=== PATIENT | female | born 1970 | race Caucasian/White ===

== ENCOUNTER 2023-09-03 08:30 | Outpatient (OUT) | payer BC, SELFPAY ==
--- NOTE | 2023-09-03 08:34 | US_ITS ---
[address] [address] Patient Name: JEWELL CACERES MRN: [id number] date: 1970 Sex: F Assigned Patient Location: [facility] Current Patient Location: [facility] Accession/Order Number: [id number] Exam Date: 09/03/2023 08:35 Report Date: 09/03/2023 10:09 At the request of: CLEMENT MAYO Procedure: US pelvis w/ transvaginal EXAMINATION: US pelvis w/ transvaginal HISTORY: POST MENOPAUSAL BLEEDING COMPARISON: No relevant comparison available. TECHNIQUE: Transabdominal and/or transvaginal sonographic examination was performed as indicated by examination type. FINDINGS: UTERUS: Prominent uterus with slightly heterogeneous myometrium containing a 2.3 cm heterogeneous mass within the fundus most suggestive of a leiomyoma. Uterus size: 10.0 x 4.6 x 6.9 cm ENDOMETRIUM: Normal homogeneous appearance. Endometrial thickness: 10 mm RIGHT OVARY: Normal size and appearance. Duplex Doppler demonstrates normal waveform and flow; resistive index 0.5. Ovary size: 1.9 x 1.2 x 2.0 cm LEFT OVARY: Contains several benign-appearing cysts, largest is 3.8 cm. Duplex Doppler demonstrates normal waveform and flow; resistive index 0.5. Ovary size: 4.8 x 2.7 x 5.2 cm CUL-DE-SAC: Unremarkable. No significant free fluid. BLADDER: Unremarkable. OTHER: None. US/US pelvis w/ transvaginal IMPRESSION: 1. Thickened endometrium for postmenopausal patient. 2. Myometrial leiomyoma which does not appear to contact the endometrial lining. 3. Prominent, but overall benign-appearing cysts within left ovary. Follow-up ultrasound evaluation in 6 weeks is recommended to document regression. Electronically authenticated by: HANNY LEMONS Date: 09/03/2023 10:09
== END 2023-09-03 08:31 | disposition home or self-care (01) ==
LOC: NOMS 08:31
PROVIDERS: Visit Provider Obstetrics & Gynecology
DX: N95.0 Postmenopausal bleeding (principal); R10.9 Unspecified abdominal pain; N83.292 Other ovarian cyst, left side
CPT/HCPCS: 76830; 76856

== ENCOUNTER 2023-09-18 19:14 | Outpatient (REF) | payer BC, SELFPAY ==
[2023-09-24 15:08] LABS: Age Gdln ACOG Testing Note (.); HPV Aptima Negative (Negative); IGP, Aptima HPV, rfx 16/18,45 Note (.)
== END 2023-09-18 19:15 | disposition home or self-care (01) ==
LOC: LAB 19:14
PROVIDERS: Visit Provider Obstetrics & Gynecology
DX: Z01.419 Encounter for gynecological examination (general) (routine) without abnormal findings (principal)
CPT/HCPCS: 87624; G0145

== ENCOUNTER 2023-09-26 10:52 | Outpatient (OUT) | payer BC, SELFPAY ==
--- NOTE | 2023-09-26 10:57 | ECG_ITS ---
[facility] Test Date: 2023-09-26 Pat Name: JEWELL CACERES Department: Room: - Gender: Female Partner Integration [employer]: : 1970 Requested By: CLEMENT MAYO Order Number: [id number] Reading MD: ASHLEY AMARO Measurements Intervals [place] Rate: 60 P: 35 W[place]: 135 QRS: 12 QRSD: 84 T: 33 QT: 380 QTc: 382 Interpretive Statements SINUS RHYTHM No previous ECG available for comparison Electronically Signed On 09-27-2023 11:02:14 EST by ASHLEY AMARO
--- OUTSIDE RECORDS SUMMARY | 2023-09-26 11:00 | XMS_ITS | CCD ---
Author Name Unknown Address [id number] [place] [address] Organization [facility] Care Team Providers Care Recoil Spring Winder Name Role Phone Danish Hughes Primary Care Provider Aguilar VALET MANAGER - ELECTRICAL TECH, Isha Bernal Primary Care Provide r Aguilar VALET MANAGER - ELECTRICAL TECH, Isha Bernal Primary Care Provide r Justen Hernandez Attending Unavail able Aguilar VALET MANAGER-ELECTRICAL TECH, Isha Amy Primary Care Un available Aguilar VALET MANAGER-ELECTRICAL TECH, Isha Amy Primary Care Un available Justen Hernandez Attending Unavail able Aguilar VALET MANAGER-ELECTRICAL TECH, Isha Amy Primary Care Un available David DO, Reza Green Attending Unavailab le Aguilar VALET MANAGER-ELECTRICAL TECH, Isha Amy Primary Care Un available Justen Hernandez Attending Unavail able Aguilar VALET MANAGER-ELECTRICAL TECH, Isha Amy Primary Care Un available David DO, Reza Green Attending Unavailab le David DO, Reza Green Attending Unavailab le Aguilar VALET MANAGER-ELECTRICAL TECH, Isha Amy Primary Care Un available David DO, Reza Green Attending Unavailab le Aguilar VALET MANAGER-ELECTRICAL TECH, Isha Amy Primary Care Un available David DO, Reza Green Attending Unavailab le Aguilar VALET MANAGER-ELECTRICAL TECH, Isha Amy Primary Care Un available David DO, Reza Green Attending Unavailab le Aguilar VALET MANAGER-ELECTRICAL TECH, Isha Amy Primary Care Un available David DO, Reza Green Attending Unavailab le Aguilar VALET MANAGER-ELECTRICAL TECH, Isha Amy Primary Care Un available David DO, Reza Green Attending Unavailab le Aguilar VALET MANAGER-ELECTRICAL TECH, [facility] Primary Care Un available David DO, Reza Green Attending Unavailab le Aguilar VALET MANAGER-ELECTRICAL TECH, [facility] Primary Care Un available Aguilar VALET MANAGER-ELECTRICAL TECH, [facility] Primary Care Un available David DO, Reza Green Attending Unavailab le David DO, Reza Green Attending Unavailab le Aguilar VALET MANAGER-ELECTRICAL TECH, [facility] Primary Care Un available Justen Hernandez Attending Unavail able Aguilar VALET MANAGER-ELECTRICAL TECH, [facility] Primary Care Un available Justen Hernandez Attending Unavail able Aguilar VALET MANAGER-ELECTRICAL TECH, [facility] Primary Care Un available David DO, Reza Green Attending Unavailab le Aguilar VALET MANAGER-ELECTRICAL TECH, [facility] Primary Care Un available Aguilar VALET MANAGER-ELECTRICAL TECH, [facility] Primary Care Un available David DO, Reza Green Attending Unavailab le Aguilar VALET MANAGER-ELECTRICAL TECH, [facility] Primary Care Un available Justen Hernandez Attending Unavail able David DO, Reza Green Attending Unavailab le Aguilar VALET MANAGER-ELECTRICAL TECH, [facility] Primary Care Un available AGUILAR, ISHA M Primary Care Unavailable MEGHA KRUSE Admitting Unavailable MEGHA KRUSE Attending Unavailable Aguilar VALET MANAGER - ELECTRICAL TECH, Isha M Primary Care Provide r JEFF ISHA M Primary Care Unavailable YULI ANDUJAR Referring Unavailable AGUILAR, ISHA M Primary Care Unavailable AGUILAR, ISHA M Referring Unavailable AGUILAR, ISHA M Primary Care Unavailable YULI ANDUJAR Attending Unavailable YULI ANDUJAR Referring Unavailable AGUILAR, ISHA M Primary Care Unavailable AGUILAR, ISHA M Referring Unavailable AGUILAR, ISHA M Primary Care Unavailable AGUILAR, ISHA M Referring Unavailable IACOB, FALGUNI Referring Unavailable AGUILAR, ISHA M Primary Care Unavailable IACOB, FALGUNI Referring Unavailable AGUILAR, ISHA M Primary Care Unavailable AGUILAR, ISHA M Referring Unavailable AGUILAR, ISHA M Primary Care Unavailable MEGHA KRUSE Referring Unavailable AGUILAR, ISHA M Primary Care Unavailable AGUILAR, ISHA M Primary Care Unavailable KYLAH [id number] RAY Attending U ISHA Godinez Primary Care Unavailable CAYLA AREVALO Referring Unavailable ISHA AGUILAR Referring Unavailable ISHA AGUILAR Primary Care Unavailable ISHA AGUILAR Primary Care Unavailable YULI ANDUJAR Referring Unavailable Unavailable Primary Care Provider UnavailJONNY Newman Attending Unavailable JONNY INFANTE Attending Unavailable Allergies Allergy Classification Reported Allergen(s) Allergy Type Date of Onset Reaction(s) Facility (20 sources) Acetaminophen / HYDROcodone Drug Allergy 01-12-20 13 Other (See Comments) [place] (20 sources) gabapentin Drug Allergy 09-02-19 15 [place] (20 sources) Seasonal allergy Propensity to adverse reactions to substance 06-30-20 12 [place] (13 sources) Other Propensity to adverse reactions 06-30-20 12 [place] (1 source) Acetaminophen / HYDROcodone; Translations: [Vicodin] Drug Allergy [facility] (1 source) gabapentin; Translations: [Neurontin] Drug Allergy [facility] (1 source) Octacosanol Drug Intolerance 06-30-20 12 [facility] NEGATED: Highlighted row has been ruled out! (8 sources) Other Propensity to adverse reactions 06-30-20 12 [facility] Medications Current Medications Medication Drug Class(es) Dates Sig (Normalized) Sig (Original) acetaminophen 500 mg oral tablet (3 sources) take 2 tablets by mouth once daily as needed acetaminophen (TYLENOL) 500 MG tablet Take 500 mg by mouth every 6 hours as needed for Pain Take 2 tablets daily as needed 0 Active busPIRone hydrochloride 15 mg oral tablet (5 sources) Start: 12-25-2022 busPIRone (Buspar) 15 MG tablet 15 mg 0 12/25/2022 Active Start: 08-31-2022 busPIRone (BUS PAR) 15 MG tablet Start: 05-21-2022 End: 06-20-2022 take 1 tablet by mouth twice daily busPIRone (BUSPAR) 5 MG tablet Take 1 tablet by mouth 2 times daily 60 tablet 5 05/21/2022 06/20/2022 Active cephalexin 500 mg oral capsule (1 source) Cephalosporin Antibacterial Start: 10-07-2022 End: 10-14-2022 take 1 capsule by mouth four times daily cephALEXin (KEFLEX) 500 MG capsule Indications: Hematuria, unspecified type , Burning with urination Take 1 capsule by mouth 4 times daily for 7 days 28 capsule 0 10/07/2022 10/14/2022 Active clobetasol propionate 0.5 mg/ml topical cream (3 sources) Corticosteroid Start: 06-25-2021 clobetasol (TEMOVATE) 0.05 % cream Apply topically 2 times daily. 30 g 0 06/25/2021 Active dicyclomine hydrochloride 20 mg oral tablet (1 source) Anticholinergic Start: 05-23-2023 take 1 tablet by mouth four times daily as needed dicyclomine (BENTYL) 20 MG tablet Take 1 tablet by mouth 4 times daily as needed (abdominal cramping) 60 tablet 1 05/23/2023 Active doxycycline hyclate 100 mg oral tablet (1 source) Tetracycline-class Drug Start: 10-17-2022 End: 10-31-2022 take 1 tablet by mouth twice daily doxycycline hyclate (VIBRA-TABS) 100 MG tablet Indications: Vaginal discharge Take 1 tablet by mouth 2 times daily for 14 days 28 tablet 0 10/17/2022 10/31/2022 Active DULoxetine 60 mg delayed release oral capsule (18 sources) Serotonin and Norepinephrine Reuptake Inhibitor Start: 11-16-2021 take 1 capsule by mouth once daily DULoxetine (CYMBALTA) 60 MG extended release capsule Take 1 capsule by mouth daily 30 capsule 3 11/16/2021 Active Start: 12-08-2019 take 1 capsule by mo [facility] once daily DULoxetine (CYMBALTA) 30 MG extended release capsule TAKE ONE CAPSULE BY MOUTH DAILY 90 capsule 3 06/05/2020 Active Estrogens, Conjugated (HALFWAY) / medroxyPROGESTERone (1 source) Progestin, Estrogen Start: 12-27-2021 take 1 tablet by mouth once daily Conj Estrog-Medroxyprogest Pan (PREMPHASE) TABS Indications: Abnormal perimenopausal bleeding , Menstrual migraine without status migrainosus, not intractable Take 1 tablet by mouth daily 28 tablet 12 12/27/2021 Active FLUoxetine 40 mg oral capsule (5 sources) Serotonin Reuptake Inhibitor take 2 capsules by mouth once daily in the evening FLUoxetine (PROZAC) 40 MG capsule Take 80 mg by mouth every evening 0 Active ibuprofen 800 mg oral tablet (2 sources) Nonsteroidal Anti-inflammatory Drug Start: 03-17-2020 take 1 tablet by mouth every eight hours as needed for pain ibuprofen (ADVIL;MOTRIN) 800 MG tablet Take 1 tablet by mouth every 8 hours as needed for Pain 30 tablet 0 03/17/2020 Active losartan potassium 50 mg oral tablet (2 sources) Angiotensin 2 Receptor Ej Start: 06-04-2023 take 1 tablet by mouth in the morning losartan (Cozaar) 50 MG tablet Take 1 tablet by mouth in the morning. 0 06/04/2023 Active metroNIDAZOLE 500 mg oral tablet (1 source) Nitroimidazole Antimicrobial Start: 10-17-2022 End: 10-31-2022 take 1 tablet by mouth twice daily metroNIDAZOLE (FLAGYL) 500 MG tablet Indications: Vaginal discharge Take 1 tablet by mouth 2 times daily for 14 days 28 tablet 0 10/17/2022 10/31/2022 Active ondansetron 4 mg disintegrating oral tablet (8 sources) Serotonin-3 Receptor Antagonist Start: 08-07-2023 take 1 tablet by mouth three times daily as needed for nausea ondansetron (ZOFRAN-ODT) 4 MG disintegrating tablet Take 1 tablet by mouth 3 times daily as needed for Nausea or Vomiting 20 tablet 0 08/07/2023 Active Start: 08-07-2023 End: 08-07-2023 ondansetron (ZOFRAN) injecti on 4 mg Start: 03-17-2020 End: 03-17-2020 ondansetron (ZOFRAN) injecti on 4 mg Start: 09-15-2018 take 1 tablet by lauren th every six hours as needed for nausea ondansetron (ZOFRAN ODT) 4 MG disintegrating tablet Take 1 tablet by mouth every 6 hours as needed for Nausea or Vomiting 6 tablet 0 09/15/2018 Active pantoprazole 20 mg delayed release oral tablet (2 sources) Proton Pump Inhibitor Start: 07-16-2023 take 1 tablet by mouth before mealtime pantoprazole (ProtoNix) 20 MG EC tablet Take 20 mg by mouth in the morning. Take before meals. 0 07/16/2023 Active phenazopyridine hydrochloride 200 mg delayed release oral tablet (1 source) Start: 10-07-2022 End: 10-09-2022 take 1 tablet by mouth three times daily as needed for pain phenazopyridine (PYRIDIUM) 200 MG tablet Indications: Hematuria, unspecified type , Burning with urination Take 1 tablet by mouth 3 times daily as needed for Pain 6 tablet 1 10/07/2022 10/09/2022 Active propranolol hydrochloride 10 mg oral tablet (4 sources) beta-Adrenergic Ej Start: 04-12-2020 take 1 tablet by mouth twice daily propranolol (INDERAL) 10 MG tablet Take 1 tablet by mouth 2 times daily 60 tablet 2 04/12/2020 Active 24 hr QUEtiapine 200 mg extended release oral tablet (3 sources) Atypical Antipsychotic take 1 tablet by mouth once daily QUEtiapine (SEROQUEL XR) 200 MG extended release tablet Take 1 tablet by mouth nightly 0 Active take 1 tablet by mouth twice monika ly QUEtiapine (SEROQUEL) 200 MG tablet Take 200 mg by mouth 2 times daily 0 Active rizatriptan 10 mg oral tablet (1 source) Serotonin-1b and Serotonin-1d Receptor Agonist Start: 11-22-2021 rizatriptan (MAXALT) 10 MG tablet Take 1 tablet by mouth once as needed for Migraine May repeat in 2 hours if needed 9 tablet 1 11/22/2021 Active topiramate 50 mg oral tablet (20 sources) Start: 04-18-2023 take 2 tablets by mouth once daily topiramate (TOPAMAX) 50 MG tablet Indications: Essential hypertension , Hyperlipidemia, unspecified hyperlipidemia type , Hyperglycemia Take 2 tablets by mouth daily 180 tablet 0 04/18/2023 Active Start: 09-02-2022 take 2 tablets by mo ut once daily topiramate (TOPAMAX) 50 MG tablet Indications: Essential hypertension , Hyperlipidemia, unspecified hyperlipidemia type , Hyperglycemia TAKE TWO TABLETS BY MOUTH DAILY 180 tablet 1 09/02/2022 Active Start: 06-25-2021 take 2 tablets by mo uth once daily topiramate (TOPAMAX) 50 MG tablet Indications: Essential hypertension , Hyperlipidemia, unspecified hyperlipidemia type , Hyperglycemia TAKE TWO TABLETS BY MOUTH DAILY 180 tablet 3 06/25/2021 Active Start: 01-15-2021 take 2 tablets by mo uth once daily topiramate (TOPAMAX) 50 MG tablet TAKE TWO TABLETS BY MOUTH DAILY 60 tablet 1 01/15/2021 Active Start: 10-13-2019 topiramate (TO PAMAX) 50 MG tablet Take 2 tablets daily 180 tablet 2 10/13/2019 Active Start: 03-01-2019 take 2 tablets by mo uth once daily topiramate (TOPAMAX) 50 MG tablet TAKE TWO TABLETS BY MOUTH DAILY 60 tablet 5 03/01/2019 Active take 1 tablet by lauren th in the morning topiramate (Topamax) 100 MG tablet Take 100 mg by mouth in the morning. 0 Active traMADol hydrochloride 50 mg oral tablet (1 source) Opioid Agonist Start: 08-07-2023 End: 08-10-2023 take 1 tablet by mouth every six hours as needed for pain traMADol (ULTRAM) 50 MG tablet Indications: Nausea vomiting and diarrhea , Abdominal pain, unspecified abdominal location Take 1 tablet by mouth every 6 hours as needed for Pain for up to 3 days. Intended supply: 3 days. Take lowest dose possible to manage pain Max Daily Amount: 200 mg 12 tablet 0 08/07/2023 08/10/2023 Active valACYclovir 1000 mg oral tablet (1 source) Herpesvirus Nucleoside Analog DNA Polymerase Inhibitor, Herpes Simplex Virus Nucleoside Analog DNA Polymerase Inhibitor, Herpes Zoster Virus Nucleoside Analog DNA Polymerase Inhibitor Start: 10-17-2022 End: 10-27-2022 take 1 tablet by mouth twice daily valACYclovir (VALTREX) 1 g tablet Indications: Dysuria , Burning with urination Take 1 tablet by mouth 2 times daily for 10 days 20 tablet 0 10/17/2022 10/27/2022 Active Completed/Discontinued Medications Medication Drug Class(es) Dates Sig (Normalized) Sig (Original) aspirin 81 mg chewable tablet (1 source) Platelet Aggregation Inhibitor, Nonsteroidal Anti-inflammatory Drug Start: 03-17-2020 End: 03-17-2020 aspirin chewable tablet 324 mg famotidine (PEPCID) 20 mg in sodium chloride (PF) 0.9 % 10 mL injection (1 source) Start: 08-07-2023 End: 08-07-2023 famotidine (PEPCID) 20 mg in sodium chloride (PF) 0.9 % 10 mL injection iopamidol (ISOVUE-370) 76 % injection 75 mL (1 source) Start: 08-07-2023 End: 08-07-2023 iopamidol (ISOVUE-370) 76 % injection 75 mL 1 ml ketorolac tromethamine 30 mg/ml cartridge (1 source) Nonsteroidal Anti-inflammatory Drug, Cyclooxygenase Inhibitor Start: 08-07-2023 End: 08-07-2023 ketorolac (TORADOL) injection 30 mg regadenoson (LEXISCAN) injection 0.4 mg (1 source) Start: 05-03-2020 End: 05-03-2020 regadenoson (LEXISCAN) injection 0.4 mg 50 ml sodium chloride 9 mg/ml injection (1 source) Start: 08-07-2023 End: 08-07-2023 sodium chloride 0.9 % bolus 1,000 mL technetium sestamibi (CARDIOLITE) injection 30 millicurie (2 sources) Start: 05-04-2020 End: 05-04-2020 technetium sestamibi (CARDIOLITE) injection 30 millicurie Start: 05-03-2020 End: 05-03-2020 technetium sestamibi (CARDIO LITE) injection 30 millicurie Problems Active Problems Problem Classification Problem Date Documented Da te Episodic/Chronic Abdominal pain (7 sources) Abdominal pain; Translations: [Unspecified abdominal pain] Onset: 3 08-07-2023 Episodic Anxiety disorders (2 sources) Anxiety; Translations: [Anxiety disorder, unspecified] Onset: 3 Chronic Asthma (20 sources) Intermittent asthma; Translations: [Mild intermittent asthma, uncomplicated] Onset: 2 12-01-2017 Chronic Cardiac dysrhythmias (3 sources) Palpitations; Translations: [Palpitations] Episodic Diabetes mellitus without complication (20 sources) Diabetes mellitus; Translations: [Type 2 diabetes mellitus without complication] Onset: 5 Resolved: 7 03-03-2017 Chronic Disorders of lipid metabolism (20 sources) Hyperlipidemia; Translations: [Hyperlipidemia, unspecified] Onset: 5 Resolved: 7 03-03-2017 Chronic Esophageal disorders (20 sources) Gastroesophageal reflux disease; Translations: [Gastro-esophageal reflux disease without esophagitis] Onset: 2 Resolved: 7 03-03-2017 Chronic Essential hypertension (20 sources) Essential hypertension; Translations: [Essential (primary) hypertension] Onset: 5 04-20-2015 Chronic Headache; including migraine (20 sources) Migraine; Translations: [Migraine with aura] Onset: 5 Resolved: 7 05-28-2017 Chronic Malaise and fatigue (1 source) Other fatigue; Translations: [Other fatigue] Onset: 3 Episodic Menopausal disorders (4 sources) Abnormal perimenopausal bleeding; Translations: [Excessive bleeding in the premenopausal period] Onset: 3 Chronic Menstrual disorders (1 source) Irregular menstruation, unspecified; Translations: [Irregular menstruation, unspecified] Onset: 3 Chronic Mood disorders (20 sources) Depressive disorder; Translations: [Major depression in partial remission] Onset: 2 Resolved: 7 03-03-2017 Chronic Nausea and vomiting (2 sources) Nausea, vomiting and diarrhea; Translations: [Nausea with vomiting, unspecified] Onset: 4 08-07-2023 Episodic Nonspecific chest pain (6 sources) Chest pain; Translations: [Atypical chest pain] Episodic Osteoarthritis (20 sources) Localized osteoarthrosis; Translations: [Unilateral primary osteoarthritis, unspecified knee] Onset: 5 04-20-2015 Chronic Other female genital disorders (1 source) Abnormal uterine bleeding; Translations: [Abnormal uterine and vaginal bleeding, unspecified] Onset: 3 04-18-2023 Chronic Other gastrointestinal disorders (2 sources) Other fecal abnormalities; Translations: [Other fecal abnormalities] Onset: 3 Episodic Other gastrointestinal disorders (1 source) Diarrhea, unspecified; Translations: [Diarrhea, unspecified] Onset: 4 Episodic Other gastrointestinal disorders (1 source) Abdominal distension (gaseous); Translations: [Abdominal distension (gaseous)] Onset: 3 Episodic Other nutritional; endocrine; and metabolic disorders (20 sources) Obesity; Translations: [Obesity, unspecified] Onset: 7 Resolved: 7 02-28-2017 Chronic Other nutritional; endocrine; and metabolic disorders (2 sources) Body mass index 30+ - obesity; Translations: [Obesity (BMI 35.0-39.9 without comorbidity)] Chronic Other nutritional; endocrine; and metabolic disorders (4 sources) Body mass index 25-29 - overweight; Translations: [BMI 29.0-29.9,adult] Onset: 4 04-20-2014 Chronic Other nutritional; endocrine; and metabolic disorders (2 sources) Abnormal weight loss; Translations: [Abnormal weight loss] Onset: 3 Episodic Other upper respiratory disease (20 sources) Allergic rhinitis; Translations: [Allergic rhinitis, unspecified] Onset: 5 12-01-2017 Chronic Residual codes; unclassified (20 sources) Obstructive sleep apnea syndrome; Translations: [Obstructive sleep apnea (adult) (pediatric)] Onset: 5 04-20-2015 Chronic Sprains and strains (1 source) Strain of muscle of lower limb; Translations: [Strain of muscle, fascia and tendon of left hip, initial encounter] Episodic Unclassified (13 sources) History of bypass of stomach; Translations: [Status post gastric bypass for obesity] Onset: 7 02-28-2017 Unclassified (4 sources) History of sleeve gastrectomy; Translations: [S/P laparoscopic sleeve gastrectomy] Onset: 4 04-20-2014 Past or Other Problems Problem Classification Problem Date Documented Da te Episodic/Chronic Diabetes mellitus without complication (20 sources) Abnormal glucose level; Translations: [Hyperglycemia] Onset: 09-02-2014 Resolved: 03-03-2017 03-03-2017 Episodic Fluid and electrolyte disorders (20 sources) Dehydration; Translations: [Dehydration] Onset: 09-15-2018 Resolved: 10-15-2018 10-15-2018 Episodic Genitourinary symptoms and ill-defined conditions (12 sources) Blood in urine; Translations: [Hematuria, unspecified] Onset: 10-07-2022 Episodic Headache; including migraine (20 sources) Headache; Translations: [Chronic nonintractable headache] Onset: 08-05-2017 08-26-2017 Episodic Immunizations and screening for infectious disease (2 sources) Exposure to sexually transmissible disorder; Translations: [Contact with and (suspected) exposure to infections with a predominantly sexual mode of transmission] Onset: 10-17-2022 Episodic Inflammation; infection of eye (except that caused by tuberculosis or sexually transmitteddisease) (20 sources) Conjunctivitis; Translations: [Unspecified conjunctivitis] Onset: 03-17-2018 03-17-2018 Episodic Noninfectious gastroenteritis (20 sources) Acute gastroenteritis; Translations: [Noninfective gastroenteritis and colitis, unspecified] Onset: 09-15-2018 09-15-2018 Episodic Other and unspecified benign neoplasm (20 sources) Benign neoplasm of skin; Translations: [Other benign neoplasm of skin, unspecified] Onset: 09-02-2014 04-20-2015 Episodic Other and unspecified benign neoplasm (20 sources) Dermatofibroma; Translations: [Other benign neoplasm of skin, unspecified] Onset: 12-01-2017 12-01-2017 Episodic Other and unspecified benign neoplasm (20 sources) Benign neoplastic disease; Translations: [Benign neoplasm of other specified sites] Onset: 09-02-2014 Resolved: 03-03-2017 03-03-2017 Episodic Other bone disease and musculoskeletal deformities (6 sources) Osteopenia; Translations: [Other specified disorders of bone density and structure, unspecified site] Onset: 06-25-2021 06-25-2021 Episodic Other connective tissue disease (16 sources) Muscle pain; Translations: [Myalgia, unspecified site] Onset: 12-08-2019 12-08-2019 Episodic Other female genital disorders (3 sources) Vaginal discharge; Translations: [Other specified noninflammatory disorders of vagina] Onset: 10-17-2022 Episodic Other female genital disorders (1 source) Other specified noninflammatory disorders of vagina; Translations: [Other specified noninflammatory disorders of vagina] Onset: 10-17-2022 Episodic Other fractures (20 sources) Closed fracture of pelvis; Translations: [Unspecified fracture of sacrum, initial encounter for closed fracture] Onset: 09-02-2014 04-20-2015 Episodic Other gastrointestinal disorders (20 sources) History of bariatric surgical procedure; Translations: [Bariatric surgery status] Onset: 09-02-2014 09-02-2014 Episodic Other gastrointestinal disorders (8 sources) History of sleeve gastrectomy; Translations: [Bariatric surgery status] Onset: 04-20-2014 04-20-2014 Episodic Other gastrointestinal disorders (8 sources) History of bypass of stomach; Translations: [Bariatric surgery status] Onset: 02-28-2017 02-28-2017 Episodic Other infections; including parasitic (1 source) Trichomonal vaginitis; Translations: [Trichomonal vulvovaginitis] Onset: 10-23-2022 10-23-2022 Episodic Other non-traumatic joint disorders (20 sources) Joint pain; Translations: [Pain in unspecified joint] Onset: 06-30-2012 06-30-2012 Episodic Other non-traumatic joint disorders (3 sources) Pain in left knee; Translations: [Pain in left knee] Onset: 12-24-2022 Episodic Other nutritional; endocrine; and metabolic disorders (20 sources) Morbid obesity; Translations: [Morbid (severe) obesity due to excess calories] Onset: 06-30-2012 Resolved: 03-03-2017 03-03-2017 Chronic Other nutritional; endocrine; and metabolic disorders (13 sources) Simple obesity ; Translations: [Obesity due to excess calories] Onset: 08-30-2016 Resolved: 03-03-2017 03-03-2017 Chronic Other nutritional; endocrine; and metabolic disorders (1 source) Obesity caused by energy imbalance; Translations: [Other obesity due to excess calories] Onset: 08-30-2016 Resolved: 03-03-2017 03-03-2017 Chronic Other nutritional; endocrine; and metabolic disorders (4 sources) Body mass index 25-29 - overweight; Translations: [Body mass index (BMI) 29.0-29.9, adult] Onset: 04-20-2014 04-20-2014 Episodic Other nutritional; endocrine; and metabolic disorders (4 sources) Overweight in adulthood with body mass index of 25 or more but less than 30; Translations: [Body mass index (BMI) 29.0-29.9, adult] Onset: 04-20-2014 04-20-2014 Episodic Other screening for suspected conditions (not mental disorders or infectious disease) (3 sources) Viral screening status; Translations: [Patient encounter status] Onset: 04-30-2023 Episodic Other upper respiratory infections (20 sources) Acute frontal sinusitis; Translations: [Laryngitis] Onset: 07-08-2017 07-08-2017 Episodic Residual codes; unclassified (9 sources) Increased body mass index; Translations: [BMI 29.0-29.9,adult] Onset: 04-20-2014 04-20-2014 Episodic Residual codes; unclassified (9 sources) H/O: surgery; Translations: [S/P laparoscopic sleeve gastrectomy] Onset: 04-20-2014 04-20-2014 Episodic Residual codes; unclassified (20 sources) Insomnia; Translations: [Insomnia, unspecified] Onset: 07-04-2015 07-04-2015 Episodic Residual codes; unclassified (6 sources) Menopause present; Translations: [Asymptomatic menopausal state] Onset: 06-25-2021 06-25-2021 Episodic Spondylosis; intervertebral disc disorders; other back problems (20 sources) Low back pain; Translations: [Backache] Onset: 06-30-2012 Resolved: 04-20-2014 06-08-2019 Episodic Suicide and intentional self-inflicted injury (20 sources) Suicidal thoughts; Translations: [Suicidal ideations] Onset: 07-09-2018 07-09-2018 Episodic Syncope (20 sources) Vasovagal syncope; Translations: [Syncope and collapse] Onset: 09-02-2014 Resolved: 03-03-2017 09-21-2015 Episodic Viral infection (16 sources) Herpetic nik; 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] Onset: 01-11-2020 01-11-2020 Episodic Results Test Name Value Interpretation Reference Range Facility CBC with Auto Differentialon 08-07-2023 Basophils (Bld) [#/Vol] [facility] Basophils/100 WBC (Bld) 0 % 0 - 2 % [facility] Eosinophils (Bld) [#/Vol] [facility] Eosinophils/100 WBC (Bld) 0 % Low 1 - 4 % [facility] Erythrocyte distribution width (RBC) [Ratio] 12.4 % 11.8 - 14.4 % [facility] Hematocrit (Bld) [Volume fraction] 41.3 % 36.3 - 47.1 % [facility] Hemoglobin (Bld) [Mass/Vol] 13.3 g/dL 11.9 - 15.1 g/dL [facility] Immature granulocytes (Bld) [#/Vol] 0.04 10*3/uL [facility] Immature granulocytes/100 WBC (Bld) 1 % High 0 [facility] Interpretation and review of laboratory results Abnormal [facility] Lymphocytes/100 WBC (Bld) 11 % Low 24 - 43 % [facility] Lymphocytes/100 WBC (Bld) 0.50 % Low [facility] MCH (RBC) [Entitic mass] 30.2 pg 25.2 - 33.5 pg [facility] MCHC (RBC) [Mass/Vol] 32.2 g/dL 28.4 - 34.8 g/dL [facility] MCV (RBC) [Entitic vol] 93.7 fL 82.6 - 102.9 fL [facility] Monocytes/100 WBC (Bld) 6 % 3 - 12 % [facility] Monocytes/100 WBC (Bld) 0.29 % [facility] Neutrophils/100 WBC (Bld) 82 % High 36 - 65 % [facility] Nucleated RBC/100 WBC (Bld) [Ratio] 0.0 % 0.0 per 100 WBC [facility] Platelet mean volume (Bld) [Entitic vol] 10.1 fL 8.1 - 13.5 fL [facility] Platelets (Bld) [#/Vol] 163 10*3/uL [facility] RBC (Bld) [#/Vol] 4.41 10*6/uL 3.95 - 5.1 1 m/uL [facility] Segmented neutrophils/100 WBC (Bld) 3.81 % [facility] WBC other (Bld) [#/Vol] 4.7 [facility] CBC with Diffon 08-07-2023 Abs. Basophil <0.03 Normal 0.00-0.20 [facility] Comment on above: Performed By: #### U IRVING MATTHEW #### [facility] [address] [place] [address] [place] [address] Wine Merchant: Nemesio Galicia MD #### URNMAB #### [id number] [place] [address] Wine Merchant: Lionel Badillo MD Abs. Eosinophil <0.03 Normal 0.00-0.44 [facility] Comment on above: Performed By: #### U AXLEEO #### [facility] [address] [place] [address] Wine Merchant: Nemesio Galicia MD #### URNMAB #### [address] [phone] Wine Merchant: Lionel Badillo MD Abs.Imm.Granulocyte 0.04 k/uL Normal 0.00-0.30 [facility] Comment on above: Performed By: #### U AX, UMICAO #### [facility] [address] [place] [address] [place] [address] Wine Merchant: Nemesio Galicia MD #### URNMAB #### [address] [phone] Wine Merchant: Lionel Badillo MD Abs.Neutrophil (Seg) 3.81 k/uL Normal 1.50-8.10 [facility] Comment on above: Performed By: #### U AX, UMICAO #### [address] [place] [phone] Wine Merchant: Nemesio Galicia MD #### URNMAB #### [address] [address] Wine Merchant: Lionel Badillo MD Basophils/100 WBC (Bld) 0 % Normal 0-2 [facility] Comment on above: Performed By: #### U AX, UMICAO #### [facility] [address] [place] [address] [address] [place] [phone] Wine Merchant: Nemesio Galicia MD #### URNMAB #### [address] [address] Wine Merchant: Lionel Badillo MD Eosinophils/100 WBC (Bld) 0 % Low 1-4 [facility] Comment on above: Performed By: #### U AX, UMICAO #### [facility] [address] [place] [address] [place] [address] Wine Merchant: Nemesio Galicia MD #### URNMAB #### [facility] [address] [place], [place] [phone] Wine Merchant: Lionel Badillo MD Erythrocyte distribution width (RBC) [Ratio] 12.4 % Normal 11.8-14.4 [facility] Comment on above: Performed By: #### U AX, UMICAO #### [facility] [address] [place], [place] [phone] Wine Merchant: Nemesio Galicia MD #### URNMAB #### [address] [phone] Wine Merchant: Lionel Badillo MD Hematocrit (Bld) [Volume fraction] 41.3 % Normal 36.3-47.1 [facility] Comment on above: Performed By: #### U AX, UMICAO #### [facility] [address] [place] [address] Dr[address] [place] [phone] Wine Merchant: Nemesio Galicia MD #### URNMAB #### [address] [place], [place] [phone] Wine Merchant: Lionel Badillo MD Hemoglobin (Bld) [Mass/Vol] 13.3 g/dL Normal 11.9-15.1 [facility] Comment on above: Performed By: #### U AX, UMICAO #### [facility] [address] [place] [address] Dr[address] [place] [phone] Wine Merchant: Nemesio Galicia MD #### URNMAB #### [address] [place], [place] [phone] Wine Merchant: Lionel Badillo MD Immature granulocytes/100 WBC (Bld) 1 % High 0 [facility] Comment on above: Performed By: #### U AX, UMICAO #### [facility] [address] [place] [address] [place], [place] [phone] Wine Merchant: Nemesio Galicia MD #### URNMAB #### [address] [place] [address] Wine Merchant: Lionel Badillo MD Lymphocytes (Bld) [#/Vol] 0.50 10*3/uL Low 1.10-3.70 [facility] Comment on above: Performed By: #### U AX, UMICAO #### [facility] [address] [place] [address] Wine Merchant: Nemesio Galicia MD #### URNMAB #### [address] [place], [place] [phone] Wine Merchant: Lionel Badillo MD Lymphocytes/100 WBC (Bld) 11 % Low 24-43 [facility] Comment on above: Performed By: #### U AX, UMICAO #### [facility] [address] [place] [address] Wine Merchant: Nemesio Galicia MD #### URNMAB #### [address] [place], [place] [phone] Wine Merchant: Lionel Badillo MD MCH (RBC) [Entitic mass] 30.2 pg Normal 25.2-33.5 [facility] Comment on above: Performed By: #### U AX, UMICAO #### [facility] [address] [place] [address] Wine Merchant: Nemesio Galicia MD #### URNMAB #### [address] [place], [place] [phone] Wine Merchant: Lionel Badillo MD MCHC (RBC) [Mass/Vol] 32.2 g/dL Normal 28.4-34.8 [facility] Comment on above: Performed By: #### U AX, UMICAO #### [facility] [address] [place] [address] Wine Merchant: Nemesio Galicia MD #### URNMAB #### [address] [place] [address] Wine Merchant: Lionel Badillo MD MCV (RBC) [Entitic vol] 93.7 fL Normal 82.6-102.9 [facility] Comment on above: Performed By: #### U AX, UMICAO #### [facility] [address] [place], [place] [phone] Wine Merchant: Nemesio Galicia MD #### URNMAB #### [address] [address] Wine Merchant: Lionel Badillo MD Monocytes (Bld) [#/Vol] 0.29 10*3/uL Normal 0.10-1.20 [facility] Comment on above: Performed By: #### U AX, UMICAO #### [facility] [address] [place] [phone] Wine Merchant: Nemesio Galicia MD #### URNMAB #### [address] [address] Wine Merchant: Lionel Badillo MD Monocytes/100 WBC (Bld) 6 % Normal 3-12 [facility] Comment on above: Performed By: #### U AX, UMICAO #### [facility] [address] [place], [place] [phone] Wine Merchant: Nemesio Galicia MD #### URNMAB #### [address] [address] Wine Merchant: Lionel Badillo MD Neutrophil (Seg) 82 % High 36-65 [facility] Comment on above: Performed By: #### U AX, UMICAO #### [address] [place], [place] 2009383 Wine Merchant: Nemesio Galicia MD #### URNMAB #### [address] [address] Wine Merchant: Lionel Badillo MD NRBC Automated 0.0 per 100 WBC Normal 0.0 [facility] Comment on above: Performed By: #### U HALIMA MATTHEWICAO #### [facility] [address] [place] [address] [place], [place] [phone] Wine Merchant: Nemesio Galicia MD #### URNMAB #### [address] [address] Wine Merchant: Lionel Badillo MD Platelet mean volume (Bld) [Entitic vol] 10.1 fL Normal 8.1-13.5 [facility] Comment on above: Performed By: #### LEE LEÓNO #### [address] [place] [phone] Wine Merchant: Nemesio Galicia MD #### URNMAB #### [address] [address] Wine Merchant: Lionel Badillo MD Platelets (Bld) [#/Vol] 163 10*3/uL Normal 138-453 [facility] Comment on above: Performed By: #### HALIMA LEÓNICAO #### [address] [place] [phone] Wine Merchant: Nemesio Galicia MD #### URNMAB #### [address] [address] Wine Merchant: Lionel Badillo MD RBC (Bld) [#/Vol] 4.41 10*6/uL Normal 3.95-5.11 [facility] Comment on above: Performed By: #### U VIPUL UMICAO #### [facility] [address] [place] [address] [place], [place] [phone] Wine Merchant: Nemesio Galicia MD #### URNMAB #### [address] [address] Wine Merchant: Lionel Badillo MD WBC (Bld) [#/Vol] 4.7 10*3/uL Normal 3.5-11.3 [facility] Comment on above: Performed By: #### U VIPUL, IRVING #### [facility] [address] [place] [address] Wine Merchant: Nemesio Galicia MD #### URNMAB #### [facility] [address] [place], [place] [phone] Wine Merchant: Lionel Badillo MD CT ABDOMEN PELVIS W IV CONTR Kenzie 08-07-2023 CT ABDOMEN PELVIS W IV CONTRAST EXAMINATION: CT OF THE ABDOMEN AND PELVIS WITH CONTRAST 08/07/2023 9:39 am TECHNIQUE: CT of the abdomen and pelvis was performed with the administration of intravenous contrast. Multiplanar reformatted images are provided for review. Automated exposure control, iterative reconstruction, and/or weight based adjustment of the mA/kV was utilized to reduce the radiation dose to as low as reasonably achievable. COMPARISON: 05/09/2023 HISTORY: ORDERING SYSTEM PROVIDED HISTORY: Abdominal pain nausea and diarrhea TECHNOLOGIST PROVIDED HISTORY: Abdominal pain nausea and diarrhea Decision Support Exception - unselect if not a suspected or confirmed emergency medical condition->Emergency Medical Condition (MA) FINDINGS: Lower Chest: Previously noted small pulmonary nodule right lower lobe not seen in today's exam and possibly is out of the field of view. Organs: The liver appears unremarkable. Status post cholecystectomy. Pancreas, spleen, adrenals, kidneys, aorta, and IVC appear normal. GI/Bowel: Status post sleeve gastrectomy. Mild hiatal hernia. No other significant bowel abnormality. Mild constipation. Pelvis: Uterus appears unremarkable. Urinary bladder appears unremarkable. Left adnexal cyst measures 4 cm. Peritoneum/Retroperit oneum: No evidence of retroperitoneal lymphadenopathy or acute mesenteric findings. Bones/Soft Tissues: No acute abnormality. IMPRESSION: 1. No acute intra-abdominal or pelvic process. 2. Status post sleeve gastrectomy. Mild hiatal hernia. 3. Left adnexal cyst measures 4 cm. 4. Mild constipation. 5. Previously noted small pulmonary nodule right lower lobe not seen in today's exam and possibly is out of the field of view. Interpreted by: Jj Matthew MD Signed by: Jj Matthew MD 08/07/23 Final result Normal [facility] CT Abdomen and Pelvis Virgilio Monroy 08-07-2023 1. No acute intra-abdominal or pelvic process. 2. Status post sleeve gastrectomy. Mild hiatal hernia. 3. Left adnexal cyst measures 4 cm. 4. Mild constipation. 5. Previously noted small pulmonary nodule right lower lobe not seen in today's exam and possibly is out of the field of view. [facility] CONSOLID[facility] EXAMINATION: CT OF THE ABDOMEN AND PELVIS WITH CONTRAST 08/07/2023 9:39 am TECHNIQUE: CT of the abdomen and pelvis was performed with the administration of intravenous contrast. Multiplanar reformatted images are provided for review. Automated exposure control, iterative reconstruction, and/or weight based adjustment of the mA/kV was utilized to reduce the radiation dose to as low as reasonably achievable. COMPARISON: 05/09/2023 HISTORY: ORDERING SYSTEM PROVIDED HISTORY: Abdominal pain nausea and diarrhea TECHNOLOGIST PROVIDED HISTORY: Abdominal pain nausea and diarrhea Decision Support Exception - unselect if not a suspected or confirmed emergency medical condition->Emergency Medical Condition (MA) FINDINGS: Lower Chest: Previously noted small pulmonary nodule right lower lobe not seen in today's exam and possibly is out of the field of view. Organs: The liver appears unremarkable. Status post cholecystectomy. Pancreas, spleen, adrenals, kidneys, aorta, and IVC appear normal. GI/Bowel: Status post sleeve gastrectomy. Mild hiatal hernia. No other significant bowel abnormality. Mild constipation. Pelvis: Uterus appears unremarkable. Urinary bladder appears unremarkable. Left adnexal cyst measures 4 cm. Peritoneum/Retroperit oneum: No evidence of retroperitoneal lymphadenopathy or acute mesenteric findings. Bones/Soft Tissues: No acute abnormality. [facility] Jj Matthew MD - 08/07/2023 EXAMINATION: CT OF THE ABDOMEN AND PELVIS WITH CONTRAST 08/07/2023 9:39 am TECHNIQUE: CT of the abdomen and pelvis was performed with the administration of intravenous contrast. Multiplanar reformatted images are provided for review. Automated exposure control, iterative reconstruction, and/or weight based adjustment of the mA/kV was utilized to reduce the radiation dose to as low as reasonably achievable. COMPARISON: 05/09/2023 HISTORY: ORDERING SYSTEM PROVIDED HISTORY: Abdominal pain nausea and diarrhea TECHNOLOGIST PROVIDED HISTORY: Abdominal pain nausea and diarrhea Decision Support Exception - unselect if not a suspected or confirmed emergency medical condition->Emergency Medical Condition (MA) FINDINGS: Lower Chest: Previously noted small pulmonary nodule right lower lobe not seen in today's exam and possibly is out of the field of view. Organs: The liver appears unremarkable. Status post cholecystectomy. Pancreas, spleen, adrenals, kidneys, aorta, and IVC appear normal. GI/Bowel: Status post sleeve gastrectomy. Mild hiatal hernia. No other significant bowel abnormality. Mild constipation. Pelvis: Uterus appears unremarkable. Urinary bladder appears unremarkable. Left adnexal cyst measures 4 cm. Peritoneum/Retroperit oneum: No evidence of retroperitoneal lymphadenopathy or acute mesenteric findings. Bones/Soft Tissues: No acute abnormality. IMPRESSION: 1. No acute intra-abdominal or pelvic process. 2. Status post sleeve gastrectomy. Mild hiatal hernia. 3. Left adnexal cyst measures 4 cm. 4. Mild constipation. 5. Previously noted small pulmonary nodule right lower lobe not seen in today's exam and possibly is out of the field of view. [facility] Radiology Study observation (narrative) [facility] CT Abdomen and Pelvis W cont rast IVOrdered By: Jj Matthew on 08-07-2023 [facility] Work Phone: Comp Metabolic Profon 2023 Albumin [Mass/Vol] 3.7 g/dL Normal 3.5-5.2 [facility] Comment on above: Performed By: #### IRVING LEÓN #### [facility] [address] [place] [address] [place] [address] Wine Merchant: Nemesio Galicia MD #### URNMAB #### [facility] [employer] [address] [place] [id number] Wine Merchant: Lionel Badillo MD Albumin/Glob Ratio 1.3 Normal 1.0-2.5 [facility] Comment on above: Performed By: #### IRVING LEÓN #### [facility] [address] [place] [address] [place] [address] Wine Merchant: Nemesio Galicia MD #### URNMAB #### [address] [place], [place] 1908408 Wine Merchant: Lionel Badillo MD Alkaline Phos 74 U/L Normal 35-104 [facility] Comment on above: Performed By: #### U AX, UMICAO #### [facility] [address] [place], [place] [phone] Wine Merchant: Nemesio Galicia MD #### URNMAB #### [address] [address] Wine Merchant: Lionel Badillo MD ALT [Catalytic activity/Vol] 8 U/L Normal 5-33 [facility] Comment on above: Performed By: #### U AX, UMICAO #### [facility] [address] [place], [place] [phone] Wine Merchant: Nemesio Galicia MD #### URNMAB #### [address] [address] Wine Merchant: Lionel Badillo MD Anion gap [Moles/Vol] 8 mmol/L Low 9-17 [facility] Comment on above: Performed By: #### U AX, UMICAO #### [address] [place], [place] 4245983 Wine Merchant: Nemesio Galicia MD #### URNMAB #### [address] [address] Wine Merchant: Lionel Badillo MD AST [Catalytic activity/Vol] 13 U/L Normal <32 [facility] Comment on above: Performed By: #### U AX, UMICAO #### [facility] [address] [place], [place] [phone] Wine Merchant: Nemesio Galicia MD #### URNMAB #### [address] [place] [address] Wine Merchant: Lionel Badillo MD Bilirubin [Mass/Vol] 0.3 mg/dL Normal 0.3-1.2 [facility] Comment on above: Performed By: #### U AX, UMICAO #### [facility] [address] [place], [place] [phone] Wine Merchant: Nemesio Galicia MD #### URNMAB #### [address] [address] Wine Merchant: Lionel Badillo MD BUN/CRE Ratio 12 Normal 9-20 [facility] Comment on above: Performed By: #### U AX UMICAO #### [facility] [address] [place] [address] [place], [place] [phone] Wine Merchant: Nemesio Galicia MD #### URNMAB #### [address] [address] Wine Merchant: Lionel Badillo MD Calcium [Mass/Vol] 8.7 mg/dL Normal 8.6-10.4 [facility] Comment on above: Performed By: #### U AXHALIMAICAO #### [address] [place], [place] 845[address]83 Wine Merchant: Nemesio Galicia MD #### URNMAB #### [address] [address] Wine Merchant: Lionel Badillo MD Chloride [Moles/Vol] 104 mmol/L Normal 98-107 [facility] Comment on above: Performed By: #### U VIPUL UMICAO #### [facility] [address] [place] [address] [place], [place] [phone] Wine Merchant: Nemesio Galicia MD #### URNMAB #### [address] [address] Wine Merchant: Lionel Badillo MD CO2 [Moles/Vol] 25 mmol/L Normal 20-31 [facility] Comment on above: Performed By: #### U IRVING MATTHEW #### [facility] [address] [place] [address] Wine Merchant: Nemesio Galicia MD #### URNMAB #### [facility] [address] [place], [place] [phone] Wine Merchant: Lionel Badillo MD Creatinine [Mass/Vol] 0.9 mg/dL Normal 0.5-0.9 [facility] Comment on above: Performed By: #### IRVING LEÓN #### [facility] [address] [place] [address] Wine Merchant: Nemesio Galicia MD #### URNMAB #### [facility] [address] [place], [place] [phone] Wine Merchant: Lionel Badillo MD GFR/1.73 sq M.predicted among non-blacks MDRD (S/P/Bld) [Vol rate/Area] mL/min/{1.73_m2} Normal >60 [facility] Comment on above: Result Comment: These results are not intended for use in patients <18 years of age. eGFR results are calculated without a race factor using the 2020 CKD-EPI equation. Careful clinical correlation is recommended, particularly when comparing to results calculated using previous equations. The CKD-EPI equation is less accurate in patients with extremes of muscle mass, extra-renal metabolism of creatine, excessive creatine ingestion, or following therapy that affects renal tubular secretion. Performed By: #### U LEE MATTHEWO #### [facility] [address] [place] [address] Wine Merchant: Nemesio Galicia MD #### URNMAB #### [facility] [address] [place], [place] [phone] Wine Merchant: Lionel Badillo MD Glucose [Mass/Vol] 91 mg/dL Normal 70-99 [facility] Comment on above: Performed By: #### U AX, UMICAO #### [facility] [address] [place], [place] [phone] Wine Merchant: Nemesio Galicia MD #### URNMAB #### [address] [phone] Wine Merchant: Lionel Badillo MD Potassium [Moles/Vol] 3.7 mmol/L Normal 3.7-5.3 [facility] Comment on above: Performed By: #### U AX, UMICAO #### [facility] [address] [place], [place] [phone] Wine Merchant: Nemesio Galicia MD #### URNMAB #### [address] [phone] Wine Merchant: Lionel Badillo MD Protein [Mass/Vol] 6.5 g/dL Normal 6.4-8.3 [facility] Comment on above: Performed By: #### U AX, UMICAO #### [facility] [address] [place], [place] [phone] Wine Merchant: Nemesio Galicia MD #### URNMAB #### [address] [phone] Wine Merchant: Lionel Badillo MD Sodium [Moles/Vol] 137 mmol/L Normal 135-144 [facility] Comment on above: Performed By: #### U AX, UMICAO #### [facility] [address] [place], [place] [phone] Wine Merchant: Nemesio Galicia MD #### URNMAB #### [address] [phone] Wine Merchant: Lionel Badillo MD Urea nitrogen [Mass/Vol] 11 mg/dL Normal 6-20 [facility] Comment on above: Performed By: #### U AX, UMICAO #### [facility] [address] [place] [address] Wine Merchant: Nemesio Galicia MD #### URNMAB #### [facility] [address] [place], [place] [phone] Wine Merchant: Lionel Badillo MD Comprehensive Metabolic Pane [facility] 08-07-2023 Albumin [Mass/Vol] 3.7 g/dL 3.5 - 5.2 g/dL [facility] Albumin/Globulin [Mass ratio] 1.3 {ratio} 1.0 - 2.5 [facility] ALP [Catalytic activity/Vol] 74 U/L 35 - 104 U/L [facility] ALT [Catalytic activity/Vol] 8 U/L 5 - 33 U/L [facility] Anion gap [Moles/Vol] 8 mmol/L Low 9 - 17 mmol/L [facility] AST [Catalytic activity/Vol] 13 U/L NINF - 32 U/L [facility] Bilirubin [Mass/Vol] 0.3 mg/dL 0.3 - 1 .2 mg/dL [facility] Calcium [Mass/Vol] 8.7 mg/dL 8.6 - 10. 4 mg/dL [facility] Chloride [Moles/Vol] 104 mmol/L 98 - 10 7 mmol/L [facility] CO2 [Moles/Vol] 25 mmol/L 20 - 31 mmol/L [facility] Creatinine [Mass/Vol] 0.9 mg/dL 0.5 - 0.9 mg/dL [facility] GFR/1.73 sq M.predicted MDRD (S/P/Bld) [Vol rate/Area] - PINF [facility] Comment on above: These results are not intended for use in patients <18 years of age. eGFR results are calculated without a race factor using the 2020 CKD-EPI equation. Careful clinical correlation is recommended, particularly when comparing to results calculated using previous equations. The CKD-EPI equation is less accurate in patients with extremes of muscle mass, extra-renal metabolism of creatine, excessive creatine ingestion, or following therapy that affects renal tubular secretion. Glucose [Mass/Vol] 91 mg/dL 70 - 99 mg/dL [facility] Interpretation and review of laboratory results Abnormal [facility] Potassium [Moles/Vol] 3.7 mmol/L 3.7 - 5.3 mmol/L [facility] Protein [Mass/Vol] 6.5 g/dL 6.4 - 8.3 g/dL [facility] Sodium [Moles/Vol] 137 mmol/L 135 - 144 mmol/L [facility] Urea nitrogen [Mass/Vol] 11 mg/dL 6 - 20 mg/dL [facility] Urea nitrogen/Creatinine [Mass ratio] 12 mg/mg 9 - 20 [facility] Lactic Acidon 08-07-2023 Lactate [Moles/Vol] 0.7 mmol/L Normal 0.5-2.2 [facility] Comment on above: Performed By: #### IRVING LEÓN #### [facility] [address] [place] [address] [place] [address] Wine Merchant: Nemesio Galicia MD #### URNMAB #### [facility] [employer] [address] [place] [address] Wine Merchant: Lionel Badillo MD Lactate (BldV) [Moles/Vol] 0.7 mmol/L 0.5 - 2.2 mmol/L [facility] Lipaseon 08-07-2023 Lipase [Catalytic activity/Vol] 21 U/L Normal 13-60 [facility] Comment on above: Performed By: #### IRVING LEÓN #### [facility] [address] [place] [address] [place] [address] Wine Merchant: Nemesio Galicia MD #### URNMAB #### [facility] [employer] [address] [place] [address] Wine Merchant: Lionel Badillo MD Lipase [Catalytic activity/Vol] 21 U/L 13 - 60 U/L [facility] No Panel Informationon 08-07 [facility] CBC with Diffon 07-16-2023 Abs. Basophil 0.04 k/uL Normal 0.00-0.20 [facility] Comment on above: Performed By: #### C P, CBC #### [facility] [address] [place] [address] [place] [address] Wine Merchant: Nemesio Galicia MD #### GLYHGB #### [address] [phone] Wine Merchant: Lionel Badillo MD Abs.Imm.Granulocyte 0.03 k/uL Normal 0.00-0.30 [facility] Comment on above: Performed By: #### C P, CBC #### [address] [place] [phone] Wine Merchant: Nemesio Galicia MD #### GLYHGB #### [place] [phone] Wine Merchant: Lionel Badillo MD Abs.Neutrophil (Seg) 5.08 k/uL Normal 1.50-8.10 [facility] Comment on above: Performed By: #### C P, CBC #### [address] [place] [address] Wine Merchant: Nemesio Galicia MD #### GLYHGB #### [place] [address] Wine Merchant: Lionel Badillo MD Basophils/100 WBC (Bld) 1 % Normal 0-2 [facility] Comment on above: Performed By: #### C P, CBC #### [address] [place] [address] Wine Merchant: Nemesio Galicia MD #### GLYHGB #### [address] [address] Wine Merchant: Lionel Badillo MD Eosinophils (Bld) [#/Vol] 0.09 10*3/uL Normal 0.00-0.44 [facility] Comment on above: Performed By: #### C P, CBC #### [facility] [address] [place] [address] Wine Merchant: Nemesio Galicia MD #### GLYHGB #### [address] [phone] Wine Merchant: Lionel Badillo MD Eosinophils/100 WBC (Bld) 1 % Normal 1-4 [facility] Comment on above: Performed By: #### C P, CBC #### [address] [place] [phone] Wine Merchant: Nemesio Galicia MD #### GLYHGB #### [address] [phone] Wine Merchant: Lionel Badillo MD Erythrocyte distribution width (RBC) [Ratio] 12.2 % Normal 11.8-14.4 [facility] Comment on above: Performed By: #### C P, CBC #### [address] [place] [phone] Wine Merchant: Nemesio Galicia MD #### GLYHGB #### [address] [phone] Wine Merchant: Lionel Badillo MD Hematocrit (Bld) [Volume fraction] 41.4 % Normal 36.3-47.1 [facility] Comment on above: Performed By: #### C P, CBC #### [address] [place] [phone] Wine Merchant: Nemesio Galicia MD #### GLYHGB #### [address] [phone] Wine Merchant: Lionel Badillo MD Hemoglobin (Bld) [Mass/Vol] 13.5 g/dL Normal 11.9-15.1 [facility] Comment on above: Performed By: #### C P, CBC #### [facility] [address] [place] [phone] Wine Merchant: Nemesio Galicia MD #### GLYHGB #### [address] [phone] Wine Merchant: Lionel Badillo MD Immature granulocytes/100 WBC (Bld) 0 % Normal 0 [facility] Comment on above: Performed By: #### C P, CBC #### [facility] [address] [place] [phone] Wine Merchant: Nemesio Galicia MD #### GLYHGB #### [address] [address] Wine Merchant: Lionel Badillo MD Lymphocytes (Bld) [#/Vol] 1.87 10*3/uL Normal 1.10-3.70 [facility] Comment on above: Performed By: #### C P, CBC #### [facility] [address] [place] [phone] Wine Merchant: Nemesio Galicia MD #### GLYHGB #### [address] [address] Wine Merchant: Lionel Badillo MD Lymphocytes/100 WBC (Bld) 25 % Normal 24-43 [facility] Comment on above: Performed By: #### C P, CBC #### [facility] [address] [place] [phone] Wine Merchant: Nemesio Galicia MD #### GLYHGB #### [address] [address] Wine Merchant: Lionel Badillo MD MCH (RBC) [Entitic mass] 30.7 pg Normal 25.2-33.5 [facility] Comment on above: Performed By: #### C P, CBC #### [facility] [address] [place] [address] Wine Merchant: Nemesio Galicia MD #### GLYHGB #### [place] [address] [place], [place] [phone] Wine Merchant: Lionel Badillo MD MCHC (RBC) [Mass/Vol] 32.6 g/dL Normal 28.4-34.8 [facility] Comment on above: Performed By: #### C P, CBC #### [facility] [address] [place] [address] Wine Merchant: Nemesio Galicia MD #### GLYHGB #### [place] [address] [place], [place] [phone] Wine Merchant: Lionel Badillo MD MCV (RBC) [Entitic vol] 94.1 fL Normal 82.6-102.9 [facility] Comment on above: Performed By: #### C P, CBC #### [facility] [address] [place] [address] Wine Merchant: Nemesio Galicia MD #### GLYHGB #### [address] [phone] Wine Merchant: Lionel Badillo MD Monocytes (Bld) [#/Vol] 0.42 10*3/uL Normal 0.10-1.20 [facility] Comment on above: Performed By: #### C P, CBC #### [facility] [address] [place] [address] Wine Merchant: Nemesio Galicia MD #### GLYHGB #### [address] [phone] Wine Merchant: Lionel Badillo MD Monocytes/100 WBC (Bld) 6 % Normal 3-12 [facility] Comment on above: Performed By: #### C P, CBC #### [facility] [address] [place], [place] [phone] Wine Merchant: Nemesio Galicia MD #### GLYHGB #### [place] [address] [place], [place] [phone] Wine Merchant: Lionel Badillo MD Neutrophil (Seg) 67 % High 36-65 [facility] Comment on above: Performed By: #### C P, CBC #### [facility] [address] [place] [address] Dr[place] [phone] Wine Merchant: Nemesio Galicia MD #### GLYHGB #### [address] [phone] Wine Merchant: Lionel Badillo MD NRBC Automated 0.0 per 100 WBC Normal 0.0 [facility] Comment on above: Performed By: #### C P, CBC #### [facility] [address] [place] [address] Dr[place] [phone] Wine Merchant: Nemesio Galicia MD #### GLYHGB #### [place] [address] Wine Merchant: Lionel Badillo MD Platelet mean volume (Bld) [Entitic vol] 10.2 fL Normal 8.1-13.5 [facility] Comment on above: Performed By: #### C P, CBC #### [facility] [address] [place] [address] Dr[place] [phone] Wine Merchant: Nemesio Galicia MD #### GLYHGB #### [address] [address] Wine Merchant: Lionel Badillo MD Platelets (Bld) [#/Vol] 219 10*3/uL Normal 138-453 [facility] Comment on above: Performed By: #### C P, CBC #### [address] [place], [place] [phone] Wine Merchant: Nemesio Galicia MD #### GLYHGB #### [place] [address] [place], [place] [phone] Wine Merchant: Lionel Badillo MD RBC (Bld) [#/Vol] 4.40 10*6/uL Normal 3.95-5.11 [facility] Comment on above: Performed By: #### C P, CBC #### [facility] [address] [place] [address] [place], [place] [phone] Wine Merchant: Nemesio Galicia MD #### GLYHGB #### [address] [phone] Wine Merchant: Lionel Badillo MD WBC (Bld) [#/Vol] 7.5 10*3/uL Normal 3.5-11.3 [facility] Comment on above: Performed By: #### C P, CBC #### [address] [place] [phone] Wine Merchant: Nemesio Galicia MD #### GLYHGB #### [address] [address] Wine Merchant: Lionel Badillo MD Comp Metabolic Profon 2022 Albumin [Mass/Vol] 3.9 g/dL Normal 3.5-5.2 [facility] Comment on above: Performed By: #### C P, CBC #### [address] [place] [address] Wine Merchant: Nemesio Galicia MD #### GLYHGB #### [address] [address] Wine Merchant: Lionel Badillo MD Albumin/Glob Ratio 1.4 Normal 1.0-2.5 [facility] Comment on above: Performed By: #### C P, CBC #### [address] [place], [place] [phone] Wine Merchant: Nemesio Galicia MD #### GLYHGB #### [facility] [address] [place] [address] Wine Merchant: Lionel Badillo MD Alkaline Phos 72 U/L Normal 35-104 [facility] Comment on above: Performed By: #### C P, CBC #### [facility] [address] [place], [place] [phone] Wine Merchant: Nemesio Galicia MD #### GLYHGB #### [address] [address] Wine Merchant: Lionel Badillo MD ALT [Catalytic activity/Vol] 11 U/L Normal 5-33 [facility] Comment on above: Performed By: #### C P, CBC #### [facility] [address] [place], [place] [phone] Wine Merchant: Nemesio Galicia MD #### GLYHGB #### [address] [address] Wine Merchant: Lionel Badillo MD Anion gap [Moles/Vol] 10 mmol/L Normal 9-17 [facility] Comment on above: Performed By: #### C P, CBC #### [facility] [address] [place], [place] [phone] Wine Merchant: Nemesio Galicia MD #### GLYHGB #### [address] [address] Wine Merchant: Lionel Badillo MD AST [Catalytic activity/Vol] 15 U/L Normal <32 [facility] Comment on above: Performed By: #### C P, CBC #### [facility] [address] [place], [place] [phone] Wine Merchant: Nemesio Galicia MD #### GLYHGB #### [address] [address] Wine Merchant: Lionel Badillo MD Bilirubin [Mass/Vol] 0.3 mg/dL Normal 0.3-1.2 [facility] Comment on above: Performed By: #### C P, CBC #### [facility] [address] [place] [address] [place], [place] [phone] Wine Merchant: Nemesio Galicia MD #### GLYHGB #### [address] [address] Wine Merchant: Lionel Badillo MD BUN/CRE Ratio 14 Normal 9-20 [facility] Comment on above: Performed By: #### C P, CBC #### [address] [place], [place] [phone] Wine Merchant: Nemesio Galicia MD #### GLYHGB #### [address] [address] Wine Merchant: Lionel Badlilo MD Calcium [Mass/Vol] 9.0 mg/dL Normal 8.6-10.4 [facility] Comment on above: Performed By: #### C P, CBC #### [address] [place], [place] [phone] Wine Merchant: Nemesio Galicia MD #### GLYHGB #### [address] [address] Wine Merchant: Lionel Badillo MD Chloride [Moles/Vol] 104 mmol/L Normal 98-107 [facility] Comment on above: Performed By: #### C P, CBC #### [address] [place], [place] [phone] Wine Merchant: Nemesio Galicia MD #### GLYHGB #### [address] [address] Wine Merchant: Lionel Badillo MD CO2 [Moles/Vol] 27 mmol/L Normal 20-31 [facility] Comment on above: Performed By: #### C P, CBC #### [facility] [address] [place] [address] Wine Merchant: Nemesio Galicia MD #### GLYHGB #### [facility] [address] [place], [place] [phone] Wine Merchant: Lionel Badillo MD Creatinine [Mass/Vol] 0.9 mg/dL Normal 0.5-0.9 [facility] Comment on above: Performed By: #### C P, CBC #### [facility] [address] [place] [address] Wine Merchant: Nemesio Galicia MD #### GLYHGB #### [place] [address] [place], [place] [phone] Wine Merchant: Lionel Badillo MD GFR/1.73 sq M.predicted among non-blacks MDRD (S/P/Bld) [Vol rate/Area] mL/min/{1.73_m2} Normal >60 [facility] Comment on above: Result Comment: These results are not intended for use in patients <18 years of age. eGFR results are calculated without a race factor using the 2020 CKD-EPI equation. Careful clinical correlation is recommended, particularly when comparing to results calculated using previous equations. The CKD-EPI equation is less accurate in patients with extremes of muscle mass, extra-renal metabolism of creatine, excessive creatine ingestion, or following therapy that affects renal tubular secretion. Performed By: #### C P, CBC #### [facility] [address] [place] [address] Wine Merchant: Nemesio Galicia MD #### GLYHGB #### [facility] [address] [place], [place] [phone] Wine Merchant: Lionel Badillo MD Glucose [Mass/Vol] 82 mg/dL Normal 70-99 [facility] Comment on above: Performed By: #### C P, CBC #### [facility] [address] [place], [place] [phone] Wine Merchant: Nemesio Galicia MD #### GLYHGB #### [place] [address] [place] [address] Wine Merchant: Lionel Badillo MD Potassium [Moles/Vol] 4.1 mmol/L Normal 3.7-5.3 [facility] Comment on above: Performed By: #### C P, CBC #### [facility] [address] [place], [place] [phone] Wine Merchant: Nemesio Galicia MD #### GLYHGB #### [address] [address] Wine Merchant: Lionel Badillo MD Protein [Mass/Vol] 6.7 g/dL Normal 6.4-8.3 [facility] Comment on above: Performed By: #### C P, CBC #### [facility] [address] [place] [address] [place], [place] [phone] Wine Merchant: Nemesio Galicia MD #### GLYHGB #### [address] [address] Wine Merchant: Lionel Badillo MD Sodium [Moles/Vol] 141 mmol/L Normal 135-144 [facility] Comment on above: Performed By: #### C P, CBC #### [address] [place], [place] [phone] Wine Merchant: Nemesio Galicia MD #### GLYHGB #### [place] [address] [place] [address] Wine Merchant: Lionel Badillo MD Urea nitrogen [Mass/Vol] 13 mg/dL Normal 6-20 [facility] Comment on above: Performed By: #### C P, CBC #### [facility] [address] [place] [address] [place] [address] Wine Merchant: Nemesio Galicia MD #### GLYHGB #### [facility] [address] [place] [address] Wine Merchant: Lionel Badillo MD Lipaseon 07-16-2023 Lipase [Catalytic activity/Vol] 20 U/L Normal 13-60 [facility] Comment on above: Performed By: #### C P, CBC #### [facility] [address] [place] [address] Wine Merchant: Nemesio Galicia MD #### GLYHGB #### [facility] [address] [place] [address] Wine Merchant: Lionel Badillo MD HCG, ,Urineon 06-09 Beta HCG ( test) Ql (U) Negative Normal NEG [facility] Comment on above: Performed By: #### U HCG #### [facility] [address] [place] [address] Wine Merchant: Nemesio Galicia MD Surgical Pathology Reporton 06-09-2023 Surgical Pathology Report (NOTE) Path Number: [id number] -- Diagnosis -- A. GASTRIC ANTRUM, BIOPSY: -MILD CHRONIC INACTIVE GASTRITIS. -NEGATIVE FOR H. PYLORI ORGANISMS ON MADELIN STAIN. B. GE JUNCTION, BIOPSY: -SQUAMOUS MUCOSA WITH ESOPHAGITIS WITH EOSINOPHILIA (156 EOSINOPHILS PER HIGH-POWER FIELD). SEE COMMENT. C. DUODENAL BULB, BIOPSY: -DUODENAL MUCOSA WITHIN NORMAL VILLOUS ARCHITECTURE AND NO FEATURES OF CELIAC DISEASE. D. RECTUM, BIOPSY: -TWO PIECES OF TUBULAR ADENOMA. -SEPARATE FRAGMENTS OF UNREMARKABLE COLONIC MUCOSA. Nemesio Galicia M.D. Electronically Signed Out 06/11/2023 Clinical Information Pre-op Diagnosis: GASTROESOPHAGEAL REFLUX DISEASE, UNSPECIFIED WHETHER ESOPHAGITIS PRESENT; POSITIVE FIT (FECAL IMMUNOCHEMICAL TEST); WEIGHT LOSS Operative Findings: GASTRIC ANTRUM BIOPSY; GE JUNCTION BIOPSY; DUODENAL BULB BX; RECTAL POLYP X 2 Operation Performed: COLONOSCOPY BIOPSY/STOMA; EGD BIOPSY kb Source of Specimen A: GASTRIC ANTRUM BIOPSY B: GE JUNCTION BIOPSY C: DUODENAL BULB BX D: RECTAL POLYP X2 Gross Description A. CHITRA CAMPUZANO, GASTRIC ANTRUM BIOPSY Received in formalin are three soft shin tissue fragments from 0.1 to 0.3 cm and are 0.5 x 0.1 x 0.1 cm in aggregate. Entirely 1 cs. B. CHITRA CAMPUZANO, GE JUNCTION BIOPSY Received in formalin are multiple shin-white tissue fragments from <0.1 to 0.2 cm and are 0.6 x 0.5 x 0.1 cm in aggregate. Entirely 1 cs. The smallest fragments may not survive processing. C. CHITRA CAMPUZANO, DUODENAL BULB BIOPSY Received in formalin are soft shin tissue fragments from <0.1 to 0.3 cm and are 0.5 x 0.1 x 0.1 cm in aggregate. Entirely 1 cs. The smallest fragment may not survive processing. D. CHITRA CAMPUZANO, RECTAL POLYP X 2 Received in formalin are five pink-hernandez tissue fragments and polyps from 0.1 to 0.7 cm and are 1.4 x 0.5 x 0.3 cm in aggregate. Entirely 1 cs. jj mj JEN/kb2:06/10/2023 Microscopic Description A-D. Microscopic evaluation performed. Processing Lab: [address] [id number] Interpretation Performed at [address] [address] SURGICAL PATHOLOGY CONSULTATION Patient Name: CHITRA CAMPUZANO Med Rec: [id number] [facility] ANATOMIC PATHOLOGY [address] [facility]. [place], [place] [address] Normal [facility] Calprotectin, Fecalon 2022 Calprotectin, Fecal 24 ug/g Normal <=49 [facility] Comment on above: Result Comment: (NOT E) REFERENCE INTERVAL: Calprotectin, Fecal by Immunoassay Less than 50 ug/g.........Normal 50-120 ug/g...............Borderline elevated, test should be re-evaluated in 4-6 weeks. 121 ug/g or greater.......Elevated Performed By: [employer] [address] [place] [id number] Barrel Filler: Lauro West MD, PhD CLIA Number: [id number] Performed By: #### U AXIRVING #### [address] [place] [phone] Wine Merchant: Nemesio Galicia MD #### URNMAB #### [address] [phone] Wine Merchant: Lionel Badillo MD Celiac Disease Panelon 05-29 Gliadin Deam Pep IgG <0.4 Normal <7.0 [facility] Comment on above: Result Comment: CELIAC INTERPRETATION <7.0 Negative 7.0-10.0 Equivocal >10.0 Positive units: U/mL Performed By: #### C P, CBC #### [address] [place] [phone] Wine Merchant: Nemesio Galicia MD #### GLYHGB #### [address] [address] Wine Merchant: Lionel Badillo MD Gliadin Deam Pep IgA 1.6 U/mL Normal <7.0 [facility] Comment on above: Result Comment: CELIAC INTERPRETATION <7.0 Negative 7.0-10.0 Equivocal >10.0 Positive units: U/mL Performed By: #### C P, CBC #### [address] [place] [phone] Wine Merchant: Nemesio Galicia MD #### GLYHGB #### [address] [phone] Wine Merchant: Lionel Badillo MD Tiss Transglutam IgA 0.5 U/mL Normal <7.0 [facility] Comment on above: Result Comment: CELIAC INTERPRETATION <7.0 Negative 7.0-10.0 Equivocal >10.0 Positive units: U/mL Performed By: #### C P, CBC #### [facility] [address] [place] [address] Wine Merchant: Nemesio Galicia MD #### GLYHGB #### [address] [address] Wine Merchant: Lionel Badillo MD Fecal Panc Elastaseon 2022 Pancreatic Elastase 411 ug/g Normal >=100 [facility] Comment on above: Result Comment: (NOT E) REFERENCE INTERVAL: Pancreatic Elastase Fecal by Immunoassay Less than 100 ug/g............Severe insufficiency 100 - 199 ug/g................Moderate insufficiency 200 ug/g or greater...........Normal INTERPRETIVE INFORMATION: Pancreatic Elastase Fecal by Immunoassay Reference intervals do not apply for infants less than one month old. Performed By: [employer] [address] [place] [id number] Barrel Filler: Lauro West MD, PhD CLIA Number: [id number] Performed By: #### C P, CBC #### [facility] [address] [place] [address] Wine Merchant: Nemesio Galicia MD #### GLYHGB #### [address] [phone] Wine Merchant: Lionel Badillo MD Celiac Disease Panelon 05-27 IgA [Mass/Vol] 482 mg/dL High 70-400 [facility] Comment on above: Performed By: #### C P, CBC #### [facility] [address] [place] [address] Wine Merchant: Nemesio Galicia MD #### GLYHGB #### [address] [phone] Wine Merchant: Lionel Badillo MD Giardia/Cryptosp Agon 2022 Cryptosporidium Ag Negative Normal NEG [facility] Comment on above: Result Comment: Cryp tosporidium Antigen Assay Performed By: #### U AX, UMICAO #### [address] [place], [place] [id number] Wine Merchant: Nemesio Galicia MD #### URNMAB #### [address] [place], [place] [phone] Wine Merchant: Lionel Badillo MD O+P,Giardia Ag Negative Normal NEG [facility] Comment on above: Result Comment: Giar nereida Antigen Assay Performed By: #### U AX, UMICAO #### [address] [place], [place] [phone] Wine Merchant: Nemesio Galicia MD #### URNMAB #### [address] [phone] Wine Merchant: Lionel Badillo MD Stool PCR [facility] 05-27-20 23 Campylobacter sp PCR NEGATIVE: No Campylobacter spp. (jejuni or coli) DNA Detected Normal CAMNEG [facility] Comment on above: Performed By: #### S TLPCR, GCAG #### [address] [address] Wine Merchant: Lionel Badillo MD [address] [place] [address] Wine Merchant: Nemesio Galicia MD #### OBN, CDIFQ #### [address] [place] [address] Wine Merchant: Nemesio Galicia MD #### ACALPF #### [address] [address] Wine Merchant: Scott Galvez MD E coli enterotox PCR NEGATIVE: No Enterotoxigenic E. coli (ETEC) Heat-labile and heat-stable (LT/ST) Normal EECNEG [facility] Comment on above: Result Comment: DNA Detected Performed By: #### S TLPCR, GCAG #### [address] [place] [address] Wine Merchant: Lionel Badillo MD [facility] [address] [place] [address] [place] [address] Wine Merchant: Nemesio Galicia MD #### OBN, CDIFQ #### [address] [place] [address] Wine Merchant: Nemesio Galicia MD #### ACALPF #### [facility] [address] [place] [address] Wine Merchant: Scott Galvez MD Plesiomonas sp PCR Negative [facility] Comment on above: Performed By: #### S TLPCR, GCAG #### [address] [address] Wine Merchant: Lionel Badillo MD [address] [place] [address] Wine Merchant: Nemesio Galicia MD #### OBJonathan, CDIFQ #### [address] [place] [address] Wine Merchant: Nemesio Galicia MD #### ACALPF #### [facility] [address] [place] [address] Wine Merchant: Scott Galvez MD Salmonella sp PCR Negative [facility] Comment on above: Performed By: #### S TLPCR, GCAG #### [address] [address] Wine Merchant: Lionel Badillo MD [address] [place] [address] Wine Merchant: Nemesio Galicia MD #### OBN, CDIFQ #### [address] [place], [place] [phone] Wine Merchant: Nemesio Galicia MD #### ACALPF #### [facility] [address] [place] [address] Wine Merchant: Scott Galvez MD Shigatoxin gene PCR Negative Normal STXNEG [facility] Comment on above: Performed By: #### S TLPCR, GCAG #### [facility] [address] [place] [address] Wine Merchant: Lionel Badillo MD [address] [place] [address] Wine Merchant: Nemesio Galicia MD #### OBJonathan CDIFQ #### [address] [place], [place] 0677683 Wine Merchant: Nemesio Galicia MD #### ACALPF #### [facility] [address] [place], [place] [id number] Wine Merchant: Scott Galvez MD Shigella sp PCR Negative Normal SHINEG [facility] Comment on above: Performed By: #### S TLPCR, GCAG #### [address] [address] Wine Merchant: Lionel Badillo MD [address] [place], [place] [phone] Wine Merchant: Nemesio Galicia MD #### OBJonathan CDIFQ #### [address] [place] [address] Wine Merchant: Nemesio Galicia MD #### ACALPF #### [facility] [address] [place] [address] Wine Merchant: Scott Galvez MD Vibrio sp PCR NEGATIVE: No Vibrio (V. vulnificus, V, parahaemolyticus and V. cholerae) DNA Normal [facility] Comment on above: Result Comment: Dete cted Performed By: #### S TLPCR, GCAG #### [address] [place] [address] Wine Merchant: Lionel Badillo MD [facility] [address] [place] [address] [place] [address] Wine Merchant: Nemesio Galicia MD #### OBJonathan, CDIFQ #### [facility] [address] [place] [address] [place] [address] Wine Merchant: Nemesio Galicia MD #### ACALPF #### [facility] [address] [place] [address] Wine Merchant: Scott Galvez MD Yersinia gene PCR Negative Normal YERNEG [facility] Comment on above: Performed By: #### S TLPCR, GCAG #### [facility] [address] [place] [address] Wine Merchant: Lionel Badillo MD [address] [place] [address] Wine Merchant: Nemesio Galicia MD #### OBJonathan, CDIFQ #### [address] [place] [address] Wine Merchant: Nemesio Galicia MD #### ACALPF #### [address] [address] Wine Merchant: Scott Galvez MD Vitamin D 25 OHon 05-27-2023 Vitamin D 25 [place] 37.3 ng/mL Normal >29.9 [facility] Comment on above: Result Comment: Reference Range: Vitamin D status Range Deficiency <20 ng/mL Mild Deficiency 20-30 ng/mL Sufficiency 30-100 ng/mL Toxicity >100 ng/mL Performed By: #### C P, CBC #### [facility] [address] [place] [address] [place] [address] Wine Merchant: Nemesio Galicia MD #### GLYHGB #### [address] [address] Wine Merchant: Lionel Badillo MD C diff Ag + Toxinon 05-26-20 23 C diff Ag + Toxin Negative Normal NEG [facility] Comment on above: Result Comment: No C . difficile antigen and Toxin Detected. Performed By: #### S TLPCR, GCAG #### [facility] [address] [place] [address] Wine Merchant: Lionel Badillo MD [facility] [address] [place] [address] [place], [place] [phone] Wine Merchant: Nemesio Galicia MD #### OBN, CDIFQ #### [address] [place], [place] [phone] Wine Merchant: Nemesio Galicia MD #### ACALPF #### [facility] [address] [place], [place] [id number] Wine Merchant: Scott Galvez MD Specimen Description .FECES Normal [facility] Comment on above: Performed By: #### S TLPCR, GCAG #### [address] [place] [address] Wine Merchant: Lionel Badillo MD [address] [place], [place] 7561683 Wine Merchant: Nmeesio Galicia MD #### OBN, CDIFQ #### [address] [place], [place] [phone] Wine Merchant: Nemesio Galicia MD #### ACALPF #### [facility] [address] [place] [address] Wine Merchant: Scott Galvez MD Giardia/Cryptosp Agon 2022 Source .FECES Normal [facility] Comment on above: Performed By: #### U AX, UMICAO #### [facility] [address] [place] [address] [place], [place] [phone] Wine Merchant: Nemesio Galicia MD #### URNMAB #### [facility] [address] [place] [address] Wine Merchant: Lionel Badillo MD Occult Blood, Fecalon 2022 Occult Blood 1 Negative Normal NEG [facility] Comment on above: Performed By: #### S TLPCR, GCAG #### [facility] [address] [place] [address] Wine Merchant: Lionel Badillo MD [address] [place] [address] Wine Merchant: Nemesio Galicia MD #### OBJonathan CDIFQ #### [address] [place] [address] Wine Merchant: Nemesio Galicia MD #### ACALPF #### [facility] [address] [place], [place] [id number] Wine Merchant: Scott Galvez MD Specimen 1 Date [id number] [facility] Comment on above: Performed By: #### S TLPCR, GCAG #### [facility] [address] [place] [address] Wine Merchant: Lionel Badillo MD [address] [place] [address] Wine Merchant: Nemesio Galicia MD #### COSMO CDIFQ #### [address] [place] [address] Wine Merchant: Nemesio Galicia MD #### ACALPF #### [facility] [address] [place], [place] [id number] Wine Merchant: cSott Galvez MD Specimen 1 Time 1230 [facility] Comment on above: Performed By: #### S TLPCR, GCAG #### [facility] [address] [place] [address] Wine Merchant: Lionel Badillo MD [facility] [address] [place], [place] [phone] Wine Merchant: Nemesio Galicia MD #### OBN, CDIFQ #### [facility] [address] [place], [place] 6557683 Wine Merchant: Nemesio Galicia MD #### ACALPF #### [facility] [address] [place] [address] Wine Merchant: Scott Galvez MD UA w/Reflex Cultureon 2022 Bilirubin, SemiQt,Ur Negative Normal NEG [facility] Comment on above: Performed By: #### C P, CBC #### [address] [place], [place] 1049383 Wine Merchant: Nemesio Galicia MD #### GLYHGB #### [address] [address] Wine Merchant: Lionel Badillo MD Blood, Urine Negative Normal NEG [facility] Comment on above: Performed By: #### C P, CBC #### [facility] [address] [place], [place] [phone] Wine Merchant: Nemesio Galicia MD #### GLYHGB #### [address] [address] Wine Merchant: Lionel Badillo MD Clarity (U) Clear Normal CLEAR [facility] Comment on above: Performed By: #### C P, CBC #### [facility] [address] [place], [place] [phone] Wine Merchant: Nemesio Galicia MD #### GLYHGB #### [address] [address] Wine Merchant: Lionel Badillo MD Color (U) Yellow Normal YEL [facility] Comment on above: Performed By: #### C P, CBC #### [address] [place] [address] Wine Merchant: Nemesio Galicia MD #### GLYHGB #### [facility] [address] [place] [address] Wine Merchant: Lionel Badillo MD Glucose Ql (U) Negative Normal NEG [facility] Comment on above: Performed By: #### C P, CBC #### [facility] [address] [place] [address] [place] [address] Wine Merchant: Nemesio Galicia MD #### GLYHGB #### [address] [address] Wine Merchant: Lionel Badillo MD Ketones Ql (U) Negative Normal NEG [facility] Comment on above: Performed By: #### C P, CBC #### [address] [place] [address] Wine Merchant: Nemesio Galicia MD #### GLYHGB #### [address] [address] Wine Merchant: Lionel Badillo MD Leukocyte esterase Test strip Ql (U) Negative Normal [facility] Comment on above: Performed By: #### C P, CBC #### [address] [place], [place] [phone] Wine Merchant: Nemesio Galicia MD #### GLYHGB #### [address] [address] Wine Merchant: Lionel Badillo MD Nitrite,Ur Negative [facility] Comment on above: Performed By: #### C P, CBC #### [address] [place], [place] [phone] Wine Merchant: Nemesio Galicia MD #### GLYHGB #### [address] [address] Wine Merchant: Lionel Badillo MD PH,Ur 6.0 Normal 5.0-9.0 [facility] Comment on above: Performed By: #### C P, CBC #### [facility] [address] [place] [address] [place] [address] Wine Merchant: Nemesio Galicia MD #### GLYHGB #### [address] [address] Wine Merchant: Lionel Badillo MD Protein Ql (U) Negative Normal NEG [facility] Comment on above: Performed By: #### C P, CBC #### [facility] [address] [place] [address] [address] [place] [phone] Wine Merchant: Nemesio Galicia MD #### GLYHGB #### [address] [address] Wine Merchant: Lionel Badillo MD Spec. Berwick,Ur 1.025 High 1.010-1.020 [facility] Comment on above: Performed By: #### C P, CBC #### [address] [place] [address] Wine Merchant: Nemesio Galicia MD #### GLYHGB #### [address] [address] Wine Merchant: Lionel Badillo MD Urobilinogen,Ur Normal Normal 0.0-1.0 [facility] Comment on above: Performed By: #### C P, CBC #### [address] [place] [phone] Wine Merchant: Nemesio Galicia MD #### GLYHGB #### [address] [address] Wine Merchant: Lionel Badillo MD Urinalysis,Microon 3 Bacteria 3+ Abnormal NONE [facility] Comment on above: Performed By: #### C P, CBC #### [facility] [address] [place], [place] [phone] Wine Merchant: Nemesio Galicia MD #### GLYHGB #### [address] [address] Wine Merchant: Lionel Badillo MD Epithelial cells LM Ql (Urine sed) 10 TO 20 Normal 0-25 [facility] Comment on above: Performed By: #### C P, CBC #### [address] [place], [place] [phone] Wine Merchant: Nemesio Galicia MD #### GLYHGB #### [address] [address] Wine Merchant: Linoel Badillo MD Urine RBC's None Normal 0-2 [facility] Comment on above: Performed By: #### C P, CBC #### [facility] [address] [place] [address] [place], [place] [phone] Wine Merchant: Nemesio Galicia MD #### GLYHGB #### [address] [address] Wine Merchant: Lionel Badillo MD Urine WBC's 0 TO 2 Normal 0-5 [facility] Comment on above: Performed By: #### C P, CBC #### [facility] [address] [place] [address] [place], [place] [phone] Wine Merchant: Nemesio Galicia MD #### GLYHGB #### [address] [address] Wine Merchant: Lionel Badillo MD Basic Metabolic Profon 05-23 Anion gap [Moles/Vol] 10 mmol/L Normal 9-17 [facility] Comment on above: Performed By: #### U AX, UMICAO #### [facility] [address] [place], [place] 7444583 Wine Merchant: Nemesio Galicia MD #### URNMAB #### [facility] [address] [place], [place] [phone] Wine Merchant: Lionel Badillo MD Potassium [Moles/Vol] 4.3 mmol/L Normal 3.7-5.3 [facility] Comment on above: Performed By: #### U AXHALIMAICAO #### [address] [place], [place] 5613483 Wine Merchant: Nemesio Galicia MD #### URNMAB #### [address] [phone] Wine Merchant: Lionel Badillo MD Sodium [Moles/Vol] 137 mmol/L Normal 135-144 [facility] Comment on above: Performed By: #### U LEE MATTHEWO #### [address] [place], [place] 2471983 Wine Merchant: Nemesio Galicia MD #### URNMAB #### [facility] [address] [place], [place] 7284708 Wine Merchant: Lionel Badillo MD BUN/CRE Ratio 18 Normal 9-20 [facility] Comment on above: Performed By: #### U AX UMICAO #### [address] [place], [place] 8992783 Wine Merchant: Nemesio Galicia MD #### URNMAB #### [address] [place], [place] 8312908 Wine Merchant: Lionel Badillo MD Calcium [Mass/Vol] 9.1 mg/dL Normal 8.6-10.4 [facility] Comment on above: Performed By: #### U AX UMICAO #### [address] [place] [address] Wine Merchant: Nemesio Galicia MD #### URNMAB #### [address] [place], [place] 1401508 Wine Merchant: Lionel Badillo MD Chloride [Moles/Vol] 103 mmol/L Normal 98-107 [facility] Comment on above: Performed By: #### U AX, UMICAO #### [facility] [address] [place] [address] Wine Merchant: Nemesio Galicia MD #### URNMAB #### [address] [phone] Wine Merchant: Lionel Badillo MD CO2 [Moles/Vol] 24 mmol/L Normal 20-31 [facility] Comment on above: Performed By: #### U AX, UMICAO #### [facility] [address] [place] [address] Wine Merchant: Nemesio Galicia MD #### URNMAB #### [address] [phone] Wine Merchant: Lionel Badillo MD Creatinine [Mass/Vol] 0.9 mg/dL Normal 0.5-0.9 [facility] Comment on above: Performed By: #### U AX, UMICAO #### [facility] [address] [place] [address] Wine Merchant: Nemesio Galicia MD #### URNMAB #### [address] [place], [place] 2723908 Wine Merchant: Lionel Badillo MD GFR/1.73 sq M.predicted among non-blacks MDRD (S/P/Bld) [Vol rate/Area] mL/min/{1.73_m2} Normal >60 [facility] Comment on above: Result Comment: These results are not intended for use in patients <18 years of age. eGFR results are calculated without a race factor using the 2020 CKD-EPI equation. Careful clinical correlation is recommended, particularly when comparing to results calculated using previous equations. The CKD-EPI equation is less accurate in patients with extremes of muscle mass, extra-renal metabolism of creatine, excessive creatine ingestion, or following therapy that affects renal tubular secretion. Performed By: #### U IRVING MATTHEW #### [facility] [address] [place] [address] [place], [place] [phone] Wine Merchant: Nemesio Galicia MD #### URNMAB #### [address] [place], [place] 3698408 Wine Merchant: Lionel Badillo MD Glucose [Mass/Vol] 69 mg/dL Low 70-99 [facility] Comment on above: Performed By: #### IRVING LEÓN #### [facility] [address] [place] [address] [place], [place] [phone] Wine Merchant: Nemesio Galicia MD #### URNMAB #### [address] [phone] Wine Merchant: Lionel Badillo MD Urea nitrogen [Mass/Vol] 16 mg/dL Normal 6-20 [facility] Comment on above: Performed By: #### IRVING LEÓN #### [address] [place], [place] [phone] Wine Merchant: Nemesio Galicia MD #### URNMAB #### [address] [address] Wine Merchant: Lionel Badillo MD C-Reactive Proteinon 023 CRP [Mass/Vol] 4.1 mg/L Normal 0.0-5.0 [facility] Comment on above: Performed By: #### U LEE MATTHEWO #### [facility] [address] [place] [address] [place], [place] [phone] Wine Merchant: Nemesio Galicia MD #### URNMAB #### [address] [place] [address] Wine Merchant: Lionel Badillo MD CBC with Diffon 05-23-2023 Abs. Basophil 0.04 k/uL Normal 0.00-0.20 [facility] Comment on above: Performed By: #### U AX, UMICAO #### [facility] [address] [place], [place] 0850983 Wine Merchant: Nemesio Galicia MD #### URNMAB #### [address] [address] Wine Merchant: Lionel Badillo MD Abs.Imm.Granulocyte 0.03 k/uL Normal 0.00-0.30 [facility] Comment on above: Performed By: #### U AX, UMICAO #### [facility] [address] [place] [address] Dr[address] [place] [phone] Wine Merchant: Nemesio Galicia MD #### URNMAB #### [address] [phone] Wine Merchant: Lionel Badillo MD Abs.Neutrophil (Seg) 5.36 k/uL Normal 1.50-8.10 [facility] Comment on above: Performed By: #### U AX, UMICAO #### [facility] [address] [place] [address] Dr[address] [place] [phone] Wine Merchant: Nemesio Galicia MD #### URNMAB #### [address] [address] Wine Merchant: Lionel Badillo MD Basophils/100 WBC (Bld) 1 % Normal 0-2 [facility] Comment on above: Performed By: #### U AX, UMICAO #### [facility] [address] [place], [place] [phone] Wine Merchant: Nemesio Galicia MD #### URNMAB #### [address] [address] Wine Merchant: Lionel Badillo MD Eosinophils (Bld) [#/Vol] 0.13 10*3/uL Normal 0.00-0.44 [facility] Comment on above: Performed By: #### U AX, UMICAO #### [facility] [address] [place], [place] [phone] Wine Merchant: Nemesio Galicia MD #### URNMAB #### [address] [place] [address] Wine Merchant: Lionel Badillo MD Eosinophils/100 WBC (Bld) 2 % Normal 1-4 [facility] Comment on above: Performed By: #### U AX, UMICAO #### [facility] [address] [place] [address] [place], [place] [phone] Wine Merchant: Nemesio Galicia MD #### URNMAB #### [address] [address] Wine Merchant: Lionel Badillo MD Erythrocyte distribution width (RBC) [Ratio] 12.4 % Normal 11.8-14.4 [facility] Comment on above: Performed By: #### U AX, UMICAO #### [facility] [address] [place] [address] [place] [place], [place] [phone] Wine Merchant: Nemesio Galicia MD #### URNMAB #### [address] [place] [address] Wine Merchant: Lionel Badillo MD Hematocrit (Bld) [Volume fraction] 41.7 % Normal 36.3-47.1 [facility] Comment on above: Performed By: #### U AX, UMICAO #### [facility] [address] [place] [address] [place], [place] [phone] Wine Merchant: Nemesio Galicia MD #### URNMAB #### [address] [place] [address] Wine Merchant: Lionel Badillo MD Hemoglobin (Bld) [Mass/Vol] 13.5 g/dL Normal 11.9-15.1 [facility] Comment on above: Performed By: #### U AX, UMICAO #### [facility] [address] [place], [place] [phone] Wine Merchant: Nemesio Galicia MD #### URNMAB #### [address] [place] [address] Wine Merchant: Lionel Badillo MD Immature granulocytes/100 WBC (Bld) 0 % Normal 0 [facility] Comment on above: Performed By: #### U AX, UMICAO #### [facility] [address] [place], [place] [phone] Wine Merchant: Nemesio Galicia MD #### URNMAB #### [address] [address] Wine Merchant: Lionel Badillo MD Lymphocytes (Bld) [#/Vol] 1.73 10*3/uL Normal 1.10-3.70 [facility] Comment on above: Performed By: #### U AX, UMICAO #### [facility] [address] [place], [place] [phone] Wine Merchant: Nemesio Galicia MD #### URNMAB #### [address] [address] Wine Merchant: Lionel Badillo MD Lymphocytes/100 WBC (Bld) 22 % Low 24-43 [facility] Comment on above: Performed By: #### U AX, UMICAO #### [facility] [address] [place], [place] [phone] Wine Merchant: Nemesio Galicia MD #### URNMAB #### [address] [address] Wine Merchant: Lionel Badillo MD MCH (RBC) [Entitic mass] 30.7 pg Normal 25.2-33.5 [facility] Comment on above: Performed By: #### U LEE MATTHEWO #### [facility] [address] [place] [address] [address] [place] [place] [phone] Wine Merchant: Nemesio Galicia MD #### URNMAB #### [address] [id number] Wine Merchant: Lionel Badillo MD MCHC (RBC) [Mass/Vol] 32.4 g/dL Normal 28.4-34.8 [facility] Comment on above: Performed By: #### IRVING LEÓN #### [address] [place] [phone] Wine Merchant: Nemesio Galicia MD #### URNMAB #### [place] [address] Wine Merchant: Lionel Badillo MD MCV (RBC) [Entitic vol] 94.8 fL Normal 82.6-102.9 [facility] Comment on above: Performed By: #### HALIMA LEÓNICAO #### [address] [place] [phone] Wine Merchant: Nemesio Galicia MD #### URNMAB #### [place] [address] Wine Merchant: Lionel Badillo MD Monocytes (Bld) [#/Vol] 0.46 10*3/uL Normal 0.10-1.20 [facility] Comment on above: Performed By: #### U HALIMA MATTHEWICAO #### [address] [place] [phone] Wine Merchant: Nemesio Galicia MD #### URNMAB #### [place] [phone] Wine Merchant: Lionel Badillo MD Monocytes/100 WBC (Bld) 6 % Normal 3-12 [facility] Comment on above: Performed By: #### U IRVING MATTHEW #### [facility] [address] [place], [place] [phone] Wine Merchant: Nemesio Galicia MD #### URNMAB #### [address] [phone] Wine Merchant: Lionel Badillo MD Neutrophil (Seg) 69 % High 36-65 [facility] Comment on above: Performed By: #### IRVING LEÓN #### [facility] [address] [place] [address] Dr. [place] [place] [phone] Wine Merchant: Nemesio Galicia MD #### URNMAB #### [address] [address] Wine Merchant: iLonel Badillo MD NRBC Automated 0.0 per 100 WBC Normal 0.0 [facility] Comment on above: Performed By: #### IRVING LEÓN #### [address] [place], [place] [phone] Wine Merchant: Nemesio Galicia MD #### URNMAB #### [address] [address] Wine Merchant: Lionel Badillo MD Platelet mean volume (Bld) [Entitic vol] 10.6 fL Normal 8.1-13.5 [facility] Comment on above: Performed By: #### IRVING LEÓN #### [address] [place], [place] [phone] Wine Merchant: Nemesio Galicia MD #### URNMAB #### [address] [phone] Wine Merchant: Lionel Bdaillo MD Platelets (Bld) [#/Vol] 250 10*3/uL Normal 138-453 [facility] Comment on above: Performed By: #### U LEE MATTHEWO #### [facility] [address] [place], [place] [phone] Wine Merchant: Nemesio Galicia MD #### URNMAB #### [address] [address] Wine Merchant: Lionel Badillo MD RBC (Bld) [#/Vol] 4.40 10*6/uL Normal 3.95-5.11 [facility] Comment on above: Performed By: #### LEE LEÓNO #### [address] [place] [phone] Wine Merchant: Nemesio Galicia MD #### URNMAB #### [address] [address] Wine Merchant: Lionel Badillo MD WBC (Bld) [#/Vol] 7.8 10*3/uL Normal 3.5-11.3 [facility] Comment on above: Performed By: #### IRVING LEÓN #### [address] [place] [phone] Wine Merchant: Nemesio Galicia MD #### URNMAB #### [address] [address] Wine Merchant: Lionel Badillo MD Lipaseon 05-23-2023 Lipase [Catalytic activity/Vol] 21 U/L Normal 13-60 [facility] Comment on above: Performed By: #### HALIMA LEÓNICAO #### [facility] [address] [place] [address] Dr. [place], [place] [phone] Wine Merchant: Nemesio Galicia MD #### URNMAB #### [address] [address] Wine Merchant: Lionel Badillo MD Sedimentation Rateon 023 Sedimentation Rate 7 mm/Hr Normal 0-30 [facility] Comment on above: Performed By: #### U IRVING MATTHEW #### [facility] [address] [place] [address] Wine Merchant: Nemesio Galicia MD #### URNMAB #### [facility] [address] [place] [address] Wine Merchant: Lionel Badillo MD CT ABDOMEN PELVIS W IV CONTR Kenzie 05-11-2023 CT ABDOMEN PELVIS W IV CONTRAST EXAMINATION: CT OF THE ABDOMEN AND PELVIS WITH CONTRAST 05/09/2023 2:50 pm TECHNIQUE: CT of the abdomen and pelvis was performed with the administration of intravenous contrast. Multiplanar reformatted images are provided for review. Automated exposure control, iterative reconstruction, and/or weight based adjustment of the mA/kV was utilized to reduce the radiation dose to as low as reasonably achievable. COMPARISON: None. HISTORY: ORDERING SYSTEM PROVIDED HISTORY: Lower abdominal pain TECHNOLOGIST PROVIDED HISTORY: STAT Creatinine as needed:->Yes Persistent lower abdominal pain FINDINGS: Lower Chest: Pulmonary nodule right lower lobe measures 3.5 mm. Organs: The liver appears unremarkable. Status post cholecystectomy. Pancreas, spleen, adrenals, kidneys, aorta, and IVC appear normal. GI/Bowel: Status post sleeve gastrectomy. Mild hiatal hernia. No other significant bowel abnormality. Mild constipation. Pelvis: Uterus appears unremarkable. Urinary bladder appears unremarkable. Left adnexal cyst measures 3.4 x 2.6 cm. Peritoneum/Retroperit oneum: No evidence of retroperitoneal lymphadenopathy or acute mesenteric findings. Bones/Soft Tissues: No acute abnormality. IMPRESSION: 1. Small hiatal hernia. 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 No evidence of colitis or enteritis. Mild constipation. 2. Status post cholecystectomy. No acute biliary or pancreatic disease. 3. No evidence of renal stones or obstructive uropathy. 4. Left adnexal cyst measures 3.4 x 2.6 cm. See recommendations below. RECOMMENDATIONS: Pathology: 4 mm right solid pulmonary nodule.Per Fleischner Society Guidelines, no routine follow-up imaging is recommended.These guidelines do not apply to immunocompromised patients and patients with cancer. Follow up in patients with significant comorbidities as clinically warranted. For lung cancer screening, adhere to Lung-RADS guidelines. Reference: Radiology. 2017; 284(1):228-43. Pathology: 3.4 cm left adnexal simple-appearing cyst.Recommend follow-up pelvic ultrasound in 6-12 months.Reference: JACR 2019;17(2):248-254 Interpreted by: Marilia Gonzales MD Signed by: Marilia Gonzales MD 05/11/23 Final result Normal [facility] Comp Metabolic Profon 2022 Anion gap [Moles/Vol] 10 mmol/L Normal - [facility] Comment on above: Result Comment: HOA ECTED ON 05/01 AT 0430: PREVIOUSLY REPORTED 14 Performed By: #### U LEE MATTHEWO #### [facility] [address] [place] [address] Wine Merchant: Nemesio Galicia MD #### URNMAB #### [facility] [address] [place], [place] [phone] Wine Merchant: Lionel Badillo MD Calcium [Mass/Vol] 9.2 mg/dL Normal 8.6-10.4 [facility] Comment on above: Result Comment: HOA ECTED ON 05/01 AT 0430: PREVIOUSLY REPORTED 8.7 Performed By: #### U VIPUL, UMICAO #### [facility] [address] [place] [address] Wine Merchant: Nemesio Galicia MD #### URNMAB #### [facility] [address] [place], [place] [phone] Wine Merchant: Lionel Badillo MD CO2 [Moles/Vol] 25 mmol/L Normal 20- [facility] Comment on above: Result Comment: HOA ECTED ON 05/01 AT 0430: PREVIOUSLY REPORTED 21 Performed By: #### U AX, UMICAO #### [facility] [address] [place] [address] Wine Merchant: Nemesio Galicia MD #### URNMAB #### [facility] [address] [place] [address] Wine Merchant: Lionel Badillo MD Lipid Profileon 05-01-2023 Cholesterol [Mass/Vol] 178 mg/dL Normal <200 [facility] Comment on above: Result Comment: Cholesterol Guidelines: <200 Desirable 200-240 Borderline >240 Undesirable Performed By: #### C P, CBC #### [facility] [address] [place], [place] [phone] Wine Merchant: Nemesio Galicia MD #### GLYHGB #### [address] [address] Wine Merchant: Lionel Badillo MD Cholesterol in HDL [Mass/Vol] 74 mg/dL Normal >40 [facility] Comment on above: Result Comment: HDL Guidelines: <40 Undesirable 40-59 Borderline >59 Desirable Performed By: #### C P, CBC #### [facility] [address] [place] [address] Dr. [place], [place] [phone] Wine Merchant: Nemesio Galicia MD #### GLYHGB #### [address] [address] Wine Merchant: Lionel Badillo MD Cholesterol in LDL [Mass/Vol] 91 mg/dL Normal 0-130 [facility] Comment on above: Result Comment: LDL Guidelines: <100 Desirable 100-129 Near to/above Desirable 130-159 Borderline >159 Undesirable Direct (measured) LDL and calculated LDL are not interchangeable tests. Performed By: #### C P, CBC #### [address] [place], [place] [phone] Wine Merchant: Nemesio Galicia MD #### GLYHGB #### [place] [address] [place], [place] [phone] Wine Merchant: Lionel Badillo MD Cholesterol.total/Ch olesterol in HDL [Mass ratio] 2.4 {ratio} Normal <5 [facility] Comment on above: Performed By: #### C P, CBC #### [facility] [address] [place], [place] [phone] Wine Merchant: Nemesio Galicia MD #### GLYHGB #### [address] [address] Wine Merchant: Lionel Badillo MD Triglyceride [Mass/Vol] 67 mg/dL Normal <150 [facility] Comment on above: Result Comment: Triglyceride Guidelines: <150 Desirable 150-199 Borderline 200-499 High >499 Very high Based on AHA Guidelines for fasting triglyceride, April 2012. Performed By: #### C P, CBC #### [facility] [address] [place], [place] [phone] Wine Merchant: Nemesio Galicia MD #### GLYHGB #### [address] [address] Wine Merchant: Lionel Badillo MD Microalb.,Random Uron 2022 Creatinine [Mass/Vol] 76.3 mg/dL Normal 28.0-217.0 [facility] Comment on above: Performed By: #### U IRVING MATTHEW #### [address] [place], [place] [phone] Wine Merchant: Nemesio Galicia MD #### URNMAB #### [address] [address] Wine Merchant: Lionel Badillo MD Microalb/Creat Ratio Can not be calculated Normal <25 [facility] Comment on above: Performed By: #### U LEE MATTHEWO #### [facility] [address] [place] [address] Dr. [place], [place] [phone] Wine Merchant: Nemesio Galicia MD #### URNMAB #### [address] [address] Wine Merchant: Lionel Madoff, MD Microalbumin conc. <12 Normal <21 [facility] Comment on above: Performed By: #### IRVING LEÓN #### [facility] [address] [place] [address] Dr. [place] [phone] Wine Merchant: Nemesio Galicia MD #### URNMAB #### [address] [phone] Wine Merchant: Lionel Badillo MD CBC with Diffon 04-30-2023 Abs. Basophil 0.03 k/uL Normal 0.00-0.20 [facility] Comment on above: Performed By: #### IRVING LEÓN #### [facility] [address] [place] [address] Dr. [place] [phone] Wine Merchant: Nemesio Galicia MD #### URNMAB #### [place] [address] Wine Merchant: Lionel Badillo MD Abs.Imm.Granulocyte 0.03 k/uL Normal 0.00-0.30 [facility] Comment on above: Performed By: #### IRVING LEÓN #### [address] [place] [phone] Wine Merchant: Nemesio Galicia MD #### URNMAB #### [place] [address] Wine Merchant: Lionel Badillo MD Abs.Neutrophil (Seg) 2.95 k/uL Normal 1.50-8.10 [facility] Comment on above: Performed By: #### IRVING LEÓN #### [address] [place] [phone] Wine Merchant: Nemesio Galicia MD #### URNMAB #### [address] [phone] Wine Merchant: Lionel Badillo MD Basophils/100 WBC (Bld) 1 % Normal 0-2 [facility] Comment on above: Performed By: #### U AX, UMICAO #### [address] [place] [phone] Wine Merchant: Nemesio Galicia MD #### URNMAB #### [address] [phone] Wine Merchant: Lionel Badillo MD Eosinophils (Bld) [#/Vol] 0.10 10*3/uL Normal 0.00-0.44 [facility] Comment on above: Performed By: #### U AX UMICAO #### [address] [place] [phone] Wine Merchant: Nemesio Galicia MD #### URNMAB #### [place] [address] Wine Merchant: Lionel Badillo MD Eosinophils/100 WBC (Bld) 2 % Normal 1-4 [facility] Comment on above: Performed By: #### U AX UMICAO #### [address] [place] [phone] Wine Merchant: Nemesio Galicia MD #### URNMAB #### [address] [phone] Wine Merchant: Lionel Badillo MD Erythrocyte distribution width (RBC) [Ratio] 12.5 % Normal 11.8-14.4 [facility] Comment on above: Performed By: #### U AX UMICAO #### [address] [place] [phone] Wine Merchant: Nemesio Galicia MD #### URNMAB #### [address] [address] Wine Merchant: Lionel Badillo MD Hematocrit (Bld) [Volume fraction] 37.5 % Normal 36.3-47.1 [facility] Comment on above: Performed By: #### U AX, UMICAO #### [facility] [address] [place] [address] Wine Merchant: Nemesio Galicia MD #### URNMAB #### [address] [phone] Wine Merchant: Lionel Badillo MD Hemoglobin (Bld) [Mass/Vol] 12.5 g/dL Normal 11.9-15.1 [facility] Comment on above: Performed By: #### U AX, UMICAO #### [facility] [address] [place] [phone] Wine Merchant: Nemesio Galicia MD #### URNMAB #### [address] [phone] Wine Merchant: Lionel Badillo MD Immature granulocytes/100 WBC (Bld) 1 % High 0 [facility] Comment on above: Performed By: #### U AX, UMICAO #### [facility] [address] [place] [address] Wine Merchant: Nemesio Galicia MD #### URNMAB #### [address] [phone] Wine Merchant: Lionel Badillo MD Lymphocytes (Bld) [#/Vol] 1.13 10*3/uL Normal 1.10-3.70 [facility] Comment on above: Performed By: #### U AX, UMICAO #### [facility] [address] [place] [address] Wine Merchant: Nemesio Galicia MD #### URNMAB #### [address] [address] Wine Merchant: Lionel Badillo MD Lymphocytes/100 WBC (Bld) 24 % Normal 24-43 [facility] Comment on above: Performed By: #### U AX, UMICAO #### [facility] [address] [place] [address] Wine Merchant: Nemesio Galicia MD #### URNMAB #### [address] [phone] Wine Merchant: Lionel Badillo MD MCH (RBC) [Entitic mass] 31.5 pg Normal 25.2-33.5 [facility] Comment on above: Performed By: #### U AX, UMICAO #### [facility] [address] [place] [address] Dr. [place] [phone] Wine Merchant: Nemesio Galicia MD #### URNMAB #### [address] [id number] Wine Merchant: Lionel Badillo MD MCHC (RBC) [Mass/Vol] 33.3 g/dL Normal 28.4-34.8 [facility] Comment on above: Performed By: #### U AX, UMICAO #### [address] [place] [phone] Wine Merchant: Nemesio Galicia MD #### URNMAB #### [address] [phone] Wine Merchant: Lionel Badillo MD MCV (RBC) [Entitic vol] 94.5 fL Normal 82.6-102.9 [facility] Comment on above: Performed By: #### U AX, UMICAO #### [facility] [address] [place] [address] [place] [address] Wine Merchant: Nemesio Galicia MD #### URNMAB #### [address] [phone] Wine Merchant: Lionel Badillo MD Monocytes (Bld) [#/Vol] 0.39 10*3/uL Normal 0.10-1.20 [facility] Comment on above: Performed By: #### U AX, UMICAO #### [facility] [address] [place], [place] 2136283 Wine Merchant: Nemesio Galicia MD #### URNMAB #### [address] [phone] Wine Merchant: Lionel Badillo MD Monocytes/100 WBC (Bld) 8 % Normal 3-12 [facility] Comment on above: Performed By: #### U AX, UMICAO #### [facility] [address] [place], [place] [phone] Wine Merchant: Nemesio Galicia MD #### URNMAB #### [address] [phone] Wine Merchant: Lionel Badillo MD Neutrophil (Seg) 64 % Normal 36-65 [facility] Comment on above: Performed By: #### U AX, UMICAO #### [facility] [address] [place], [place] [phone] Wine Merchant: Nemesio Galicia MD #### URNMAB #### [address] [address] Wine Merchant: Lionel Badillo MD NRBC Automated 0.0 per 100 WBC Normal 0.0 [facility] Comment on above: Performed By: #### U AX, UMICAO #### [facility] [address] [place], [place] [phone] Wine Merchant: Nemesio Galicia MD #### URNMAB #### [address] [address] Wine Merchant: Lionel Badillo MD Platelet mean volume (Bld) [Entitic vol] 10.3 fL Normal 8.1-13.5 [facility] Comment on above: Performed By: #### U AX, UMICAO #### [facility] [address] [place], [place] [phone] Wine Merchant: Nemesio Galicia MD #### URNMAB #### [place] [address] [place], [place] [phone] Wine Merchant: Lionel Badillo MD Platelets (Bld) [#/Vol] 181 10*3/uL Normal 138-453 [facility] Comment on above: Performed By: #### U AX, UMICAO #### [facility] [address] [place], [place] [phone] Wine Merchant: Nemesio Galicia MD #### URNMAB #### [place] [address] [place], [place] [phone] Wine Merchant: Lionel Badillo MD RBC (Bld) [#/Vol] 3.97 10*6/uL Normal 3.95-5.11 [facility] Comment on above: Performed By: #### U AX, UMICAO #### [facility] [address] [place], [place] [phone] Wine Merchant: Nemesio Galicia MD #### URNMAB #### [place] [address] [place] [address] Wine Merchant: Lionel Badillo MD WBC (Bld) [#/Vol] 4.6 10*3/uL Normal 3.5-11.3 [facility] Comment on above: Performed By: #### U AX, UMICAO #### [facility] [address] [place], [place] 7771683 Wine Merchant: Nemesio Galicia MD #### URNMAB #### [place] [address] [place], [place] 6049508 Wine Merchant: Lionel Badillo MD Comp Metabolic Profon 2022 Albumin [Mass/Vol] 3.9 g/dL Normal 3.5-5.2 [facility] Comment on above: Performed By: #### U AX, UMICAO #### [facility] [address] [place], [place] [phone] Wine Merchant: Nemesio Galicia MD #### URNMAB #### [address] [phone] Wine Merchant: Lionel Badillo MD Albumin/Glob Ratio 1.4 Normal 1.0-2.5 [facility] Comment on above: Performed By: #### U AX, UMICAO #### [facility] [address] [place], [place] 1150783 Wine Merchant: Nemesio Galicia MD #### URNMAB #### [address] [phone] Wine Merchant: Lionel Badillo MD Alkaline Phos 58 U/L Normal 35-104 [facility] Comment on above: Performed By: #### U AX, UMICAO #### [facility] [address] [place], [place] [phone] Wine Merchant: Nemesio Galicia MD #### URNMAB #### [address] [address] Wine Merchant: Lionel Badillo MD ALT [Catalytic activity/Vol] 15 U/L Normal 5-33 [facility] Comment on above: Performed By: #### U AX, UMICAO #### [facility] [address] [place], [place] 0347583 Wine Merchant: Nemesio Galicia MD #### URNMAB #### [address] [address] Wine Merchant: Lionel Badillo MD AST [Catalytic activity/Vol] 18 U/L Normal <32 [facility] Comment on above: Performed By: #### U AX, UMICAO #### [facility] [address] [place], [place] [phone] Wine Merchant: Nemesio Galicia MD #### URNMAB #### [place] [address] [place], [place] 5284208 Wine Merchant: Lionel Badillo MD Bilirubin [Mass/Vol] 0.3 mg/dL Normal 0.3-1.2 [facility] Comment on above: Performed By: #### U AX, UMICAO #### [facility] [address] [place], [place] 0830383 Wine Merchant: Nemesio Galicia MD #### URNMAB #### [address] [phone] Wine Merchant: Lionel Badillo MD BUN/CRE Ratio 18 Normal 9-20 [facility] Comment on above: Performed By: #### U AXHALIMAICAO #### [address] [place], [place] 6286583 Wine Merchant: Nemesio Galicia MD #### URNMAB #### [address] [address] Wine Merchant: Lionel Badillo MD Chloride [Moles/Vol] 106 mmol/L Normal 98-107 [facility] Comment on above: Performed By: #### U AX, UMICAO #### [address] [place], [place] 4972383 Wine Merchant: Nemesio Galicia MD #### URNMAB #### [address] [address] Wine Merchant: Lionel Badillo MD Creatinine [Mass/Vol] 0.8 mg/dL Normal 0.5-0.9 [facility] Comment on above: Performed By: #### U AXHALIMAICAO #### [facility] [address] [place] [address] [place] [address] Wine Merchant: Nemesio Galicia MD #### URNMAB #### [place] [address] [place], [place] [phone] Wine Merchant: Lionel Badillo MD GFR/1.73 sq M.predicted among non-blacks MDRD (S/P/Bld) [Vol rate/Area] mL/min/{1.73_m2} Normal >60 [facility] Comment on above: Result Comment: These results are not intended for use in patients <18 years of age. eGFR results are calculated without a race factor using the 2020 CKD-EPI equation. Careful clinical correlation is recommended, particularly when comparing to results calculated using previous equations. The CKD-EPI equation is less accurate in patients with extremes of muscle mass, extra-renal metabolism of creatine, excessive creatine ingestion, or following therapy that affects renal tubular secretion. Performed By: #### U AX, UMICAO #### [address] [place] [address] Wine Merchant: Nemesio Galicia MD #### URNMAB #### [address] [phone] Wine Merchant: Lionel Badillo MD Glucose [Mass/Vol] 71 mg/dL Normal 70-99 [facility] Comment on above: Performed By: #### U AX, UMICAO #### [address] [place] [address] Wine Merchant: Nemesio Galicia MD #### URNMAB #### [address] [phone] Wine Merchant: Lionel Badillo MD Potassium [Moles/Vol] 3.8 mmol/L Normal 3.7-5.3 [facility] Comment on above: Performed By: #### U AX, UMICAO #### [address] [place] [address] Wine Merchant: Nemesio Galicia MD #### URNMAB #### [place] [address] [place] [address] Wine Merchant: Lionel Badillo MD Protein [Mass/Vol] 6.7 g/dL Normal 6.4-8.3 [facility] Comment on above: Performed By: #### U AX, UMICAO #### [facility] [address] [place], [place] [id number] Wine Merchant: Nemesio Galicia MD #### URNMAB #### [address] [id number] Wine Merchant: Lionel Badillo MD Sodium [Moles/Vol] 141 mmol/L Normal 135-144 [facility] Comment on above: Performed By: #### U AX, UMICAO #### [facility] [address] [place], [place] [phone] Wine Merchant: Nemesio Galicia MD #### URNMAB #### [address] [address] Wine Merchant: Lionel Badillo MD Urea nitrogen [Mass/Vol] 14 mg/dL Normal 6-20 [facility] Comment on above: Performed By: #### U AX, UMICAO #### [facility] [address] [place] [address] [place], [place] [phone] Wine Merchant: Nemesio Galicia MD #### URNMAB #### [address] [address] Wine Merchant: Lionel Badillo MD UA w/Reflex Cultureon 2022 Bilirubin, SemiQt,Ur Negative Normal NEG [facility] Comment on above: Performed By: #### U AX, UMICAO #### [facility] [address] [place], [place] [phone] Wine Merchant: Nemesio Galicia MD #### URNMAB #### [address] [address] Wine Merchant: Lionel Badillo MD Blood, Urine Negative Normal NEG [facility] Comment on above: Performed By: #### U AX, UMICAO #### [facility] [address] [place] [address] [place] [place], [place] [phone] Wine Merchant: Nemesio Galicia MD #### URNMAB #### [address] [address] Wine Merchant: Lionel Badillo MD Clarity (U) Clear Normal CLEAR [facility] Comment on above: Performed By: #### U AX, UMICAO #### [address] [place], [place] [phone] Wine Merchant: Nemesio Galicia MD #### URNMAB #### [address] [address] Wine Merchant: Lionel Badillo MD Color (U) Yellow Normal YEL [facility] Comment on above: Performed By: #### U AX, UMICAO #### [address] [place], [place] [phone] Wine Merchant: Nemesio Galicia MD #### URNMAB #### [address] [address] Wine Merchant: Lionel Badillo MD Glucose Ql (U) Negative Normal NEG [facility] Comment on above: Performed By: #### U AX, UMICAO #### [facility] [address] [place] [address] [place] [place], [place] [phone] Wine Merchant: Nemseio Galicia MD #### URNMAB #### [address] [address] Wine Merchant: Lionel Badillo MD Ketones Ql (U) TRACE Abnormal NEG [facility] Comment on above: Performed By: #### U AX, UMICAO #### [facility] [address] [place] [address] [place] [address] Wine Merchant: Nemesio Galicia MD #### URNMAB #### [address] [address] Wine Merchant: Lionel Badillo MD Leukocyte esterase Test strip Ql (U) TRACE Abnormal NEG [facility] Comment on above: Performed By: #### U AX, UMICAO #### [address] [place], [place] [phone] Wine Merchant: Nemesio Galicia MD #### URNMAB #### [address] [address] Wine Merchant: Lionel Badillo MD Nitrite,Ur Negative Normal NEG [facility] Comment on above: Performed By: #### U AX, UMICAO #### [address] [place], [place] [phone] Wine Merchant: Nemesio Galicia MD #### URNMAB #### [address] [address] Wine Merchant: Lionel Badillo MD PH,Ur 6.0 Normal 5.0-9.0 [facility] Comment on above: Performed By: #### U AX, UMICAO #### [address] [place], [place] [phone] Wine Merchant: Nemesio Galicia MD #### URNMAB #### [address] [address] Wine Merchant: Lionel Badillo MD Protein Ql (U) Negative Normal NEG [facility] Comment on above: Performed By: #### U AX, UMICAO #### [address] [place], [place] [phone] Wine Merchant: Nemesio Galicia MD #### URNMAB #### [address] [address] Wine Merchant: Lionel Badillo MD Spec. [place],Ur 1.015 Normal 1.010-1.020 [facility] Comment on above: Performed By: #### U AX, UMICAO #### [facility] [address] [place], [place] [phone] Wine Merchant: Nemesio Galicia MD #### URNMAB #### [address] [address] Wine Merchant: Lionel Badillo MD Urobilinogen,Ur Normal Normal 0.0-1.0 [facility] Comment on above: Performed By: #### U AX, UMICAO #### [facility] [address] [place] [address] [place] [phone] Wine Merchant: Nemesio Galicia MD #### URNMAB #### [address] [address] Wine Merchant: Lionel Badillo MD Urinalysis,Microon 3 Bacteria TRACE Abnormal NONE [facility] Comment on above: Performed By: #### U AX, UMICAO #### [facility] [address] [place] [address] [place], [place] 1989183 Wine Merchant: Nemesio Galicia MD #### URNMAB #### [address] [address] Wine Merchant: Lionel Badillo MD Epithelial cells LM Ql (Urine sed) 0 TO 2 Normal 0-25 [facility] Comment on above: Performed By: #### U AX, UMICAO #### [facility] [address] [place], [place] [phone] Wine Merchant: Nemesio Galicia MD #### URNMAB #### [address] [phone] Wine Merchant: Lionel Badillo MD Mucus Strands TRACE Abnormal NONE [facility] Comment on above: Performed By: #### U AX UMICAO #### [facility] [address] [place] [address] [place], [place] [phone] Wine Merchant: Nemesio Galicia MD #### URNMAB #### [place] [address] [place], [place] [phone] Wine Merchant: Lionel Badillo MD Urine RBC's 0 TO 2 Normal 0-2 [facility] Comment on above: Performed By: #### U AX UMICAO #### [facility] [address] [place] [address] [place] [phone] Wine Merchant: Nemesio Galicia MD #### URNMAB #### [address] [phone] Wine Merchant: Lionel Badillo MD Urine WBC's 0 TO 2 Normal 0-5 [facility] Comment on above: Performed By: #### U VIPUL UMICAO #### [address] [place] [phone] Wine Merchant: Nemesio Galicia MD #### URNMAB #### [address] [address] Wine Merchant: Lionel Badillo MD Follicle Stim. Hormon 2022 Follicle Stim. Horm 8.7 mIU/mL Normal [facility] Comment on above: Result Comment: Refe rence Range: Male: 1.5-12.4 Ovulating Female: Follicular Phase 3.5-12.5 Ovulation Phase 4.7-21.5 Luteal Phase 1.7-7.7 Postmenopausal Female: 25.8-134.8 Performed By: #### U AX UMICAO #### [facility] [address] [place] [address] [place] [address] Wine Merchant: Nemesio Galicia MD #### URNMAB #### [facility] [employer] [address] [place], [place] [phone] Wine Merchant: Lionel Badillo MD Luteinizing Hormoneon 2022 Luteinizing Hormone 10.4 mIU/mL High 1.7-8.6 [facility] Comment on above: Result Comment: Refe rence Range: Male: 1.7-8.6 Ovulating Female: Follicular Phase 2.4-12.6 Ovulation Phase 14.0-95.6 Luteal Phase 1.0-11.4 Postmenopausal Female: 7.7-58.5 Performed By: #### U AX, UMPATRICIO #### [facility] [address] [place] [address] Wine Merchant: Nemesio Galicia MD #### URNMAB #### [facility] [address] [place], [place] [phone] Wine Merchant: Lionel Badillo MD Cytology Reporton 04-23-2023 Cytology report Cyto stain.thin prep Doc (Cvx/Vag) (NOTE) Path Number: [id number] DIAGNOSIS Imaged ThinPrep Pap - Cervical (1 monolayer slide): Specimen Adequacy: Satisfactory for evaluation. -Endocervical/transfo rmation zone component is absent. Descriptive Diagnosis: Negative for intraepithelial lesion or malignancy. [employer]otech Screener: EY Electronically Signed Out Tony MAC(ASCP) ey/04/30/2023 Source of Specimen: A: Imaged ThinPrep Pap - Cervical (1 monolayer slide) HPV Reflex?.............. 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 The Pap smear is a screening test primarily for squamous epithelial lesions, which is subject to both false negative and false positive results. Your patient should be reminded to consult you immediately if she experiences any suspicious signs or symptoms, regardless of her Pap smear result. GYNECOLOGIC CYTOLOGY REPORT Patient Name: CHITRA CAMPUZANO [facility] [address] [place] [phone] [facility] Surgical Pathology Reporton 04-23-2023 Surgical Pathology Report (NOTE) Path Number: [id number] -- Diagnosis -- ENDOMETRIUM, BIOPSY: -SCANT SUPERFICIAL FRAGMENT OF WEAKLY PROLIFERATIVE ENDOMETRIUM AND SEPARATE PIECES OF BENIGN ENDOMETRIAL GLANDULAR EPITHELIUM. -SEPARATE PIECES OF BENIGN ENDOCERVICAL GLANDULAR EPITHELIUM. Nemesio Galicia M.D. Electronically Signed Out jen/04/25/2023 Clinical Information Pre-Op Diagnosis: IRREGULAR BLEEDING Operative Findings: ENDOMETRIAL BX mj Source of Specimen A: ENDOMETRIUM BIOPSY Gross Description CHITRA CAMPUZANOFLAKITA BX Received in formalin is dark brown, mucoid material, 2.0 x 1.3 x 0.2 cm in aggregate. Entirely 1cs. jj tm AG/mj:04/24/2023 Microscopic Description Microscopic examination performed. Processing Lab: [address] Interpretation Performed at [place] [id number] SURGICAL PATHOLOGY CONSULTATION Patient Name: CHITRA CAMPUZANO [facility] [address] [place] [phone] [facility] US NON OB TRANSVAGINALon US NON OB TRANSVAGINAL EXAMINATION: PELVIC ULTRASOUND 04/16/2023 TECHNIQUE: Transvaginal images were performed COMPARISON: None HISTORY: ORDERING SYSTEM PROVIDED HISTORY: Post-menopausal bleeding TECHNOLOGIST PROVIDED HISTORY: This procedure can be scheduled via [employer]. Access your [employer] account by visiting [employer]. FINDINGS: Measurements: Uterus: 8.4 x 6.6 x 4.3 cm Endometrial stripe: 8 mm Right Ovary:Not measured. Left Ovary: 2.9 x 2.4 x 2.0 cm Ultrasound Findings: Uterus: Fibroids are seen. There is a posterior body serosal fibroid measuring 1.4 x 1.3 cm. There is also a left body intramural fibroid measuring 1.9 x 1.7 cm. Endometrial stripe: Endometrial stripe is within normal limits. Right Ovary: Not seen, likely obscured by bowel gas Left Ovary: Morphology appears normal Free Fluid: No evidence of free fluid. IMPRESSION: Thickened endometrial stripe for a postmenopausal patient with bleeding. Consider polyp, hyperplasia or possibly endometrial carcinoma. Fibroid uterus Normal morphology left ovary. Right ovary not seen Interpreted by: Jj Baptiste MD Signed by: Jj Baptiste MD 04/17/23 Final result Normal [facility] XR KNEE LEFT (3 VIEWS)on XR KNEE LEFT (3 VIEWS) EXAMINATION: THREE XRAY VIEWS OF THE LEFT KNEE 12/24/2022 7:00 pm COMPARISON: None. HISTORY: ORDERING SYSTEM PROVIDED HISTORY: Acute pain of left knee 52-year-old female with acute left knee pain FINDINGS: Mild tricompartmental osteophyte spurring. Moderate to large joint effusion. Mild narrowing of the patellofemoral compartment. Osseous alignment is normal. No suspicious osteolytic or osteoblastic lesions. No acute fracture or dislocation. IMPRESSION: 1. Moderate to large joint effusion. 2. Tricompartmental osteoarthrosis. Mild narrowing of the patellofemoral compartment. 3. No acute fracture or dislocation. Interpreted by: Mark Barton MD Signed by: Mark Barton MD 12/27/22 Final result Normal [facility] Herpes Profileon 10-22-2022 Herpes Type I, IgG 0.14 Normal <0.91 [facility] Comment on above: Result Comment: Reference Range: <=0.90 Negative 0.91-1.09 Equivocal >=1.10 Positive Performed By: #### C P, CBC #### [facility] [address] [place] [address] Wine Merchant: Nemesio Galicia MD #### GLYHGB #### [facility] [employer] [facility] [place] [address] Wine Merchant: Lionel Badillo MD Herpes Type I/II,IgM 0.52 Normal <0.91 [facility] Comment on above: Result Comment: Reference Range: <=0.90 Negative 0.91-1.09 Equivocal >=1.10 Positive If positive, an IgM result indicates a current or recent infection. This test does not differentiate type I from type II. No current reference test is available for this. If IgG tests are ordered and are negative, consider retesting in 2 to 3 weeks. Performed By: #### C P, CBC #### [facility] [address] [place] [address] [place] [address] Wine Merchant: Nemesio Galicia MD #### GLYHGB #### [address] [phone] Wine Merchant: Lionel Badillo MD Herpes Type II, IgG 4.70 High <0.91 [facility] Comment on above: Result Comment: Reference Range: <=0.90 Negative 0.91-1.09 Equivocal >=1.10 Positive Performed By: #### C P, CBC #### [address] [place] [address] Wine Merchant: Nemesio Galicia MD #### GLYHGB #### [address] [phone] Wine Merchant: Lionel Badillo MD Chlamydia/GC DNA, Uron 10-18 Chlamydia Probe, Ur Negative Normal NEG [facility] Comment on above: Result Comment: CHLA MYDIA TRACHOMATIS DNA not detected by nucleic acid amplification. This test is intended for medical purposes only and is not valid for the evaluation of suspected sexual abuse or for other forensic purposes. In certain contexts, culture may be required to meet applicable laws and regulations for diagnosis of C. trachomatis and N. gonorrhoeae infections. Per 2014 CDC recommendations, this test does not include confirmation of positive results by an alternative nucleic acid target. Performed By: #### C P, CBC #### [facility] [address] [place] [address] Wine Merchant: Nemesio Galicia MD #### GLYHGB #### [address] [phone] Wine Merchant: Lionel Badillo MD Gonorrhea Probe, Ur Negative Normal NEG [facility] Comment on above: Result Comment: NEIS SERIA GONORRHOEAE DNA not detected by nucleic acid amplification. This test is intended for medical purposes only and is not valid for the evaluation of suspected sexual abuse or for other forensic purposes. In certain contexts, culture may be required to meet applicable laws and regulations for diagnosis of C. trachomatis and N. gonorrhoeae infections. Per 2014 CDC recommendations, this test does not include confirmation of positive results by an alternative nucleic acid target. Performed By: #### C P, CBC #### [facility] [address] [place] [address] [place] [address] Wine Merchant: Nemesio Galicia MD #### GLYHGB #### [address] [phone] Wine Merchant: Lionel Badillo MD Cult,Urineon 10-18-2022 Cult,Urine Specimen Description .CLEAN CATCH URINE Culture NO SIGNIFICANT GROWTH Report Status FINAL 10/18/2022 Normal [facility] Comment on above: Performed By: #### U AX, UMICAO #### [address] [place] [address] Wine Merchant: Nemesio Galicia MD #### URNMAB #### [address] [phone] Wine Merchant: Lionel Badillo MD HIV Ag/Abon 10-18-2022 HIV Ag/Ab Non-Reactive Normal NR [facility] Comment on above: Result Comment: No l aboratory evidence of HIV infection. If acute HIV infection is suspected, consider testing for HIV-1 RNA. Performed By: #### C P, CBC #### [facility] [address] [place] [address] Wine Merchant: Nemesio Galicia MD #### GLYHGB #### [address] [address] Wine Merchant: Lionel Badillo MD Hepatitis Acute [facility] 10-18 Hep A Ab,IgM Non-Reactive Normal [facility] Comment on above: Performed By: #### C P, CBC #### [address] [place] [address] Wine Merchant: Nemesio Galicia MD #### GLYHGB #### [address] [address] Wine Merchant: Lionel Badillo MD Hep B Core Ab,IgM Non-Reactive Normal [facility] Comment on above: Performed By: #### C P, CBC #### [address] [place], [place] [phone] Wine Merchant: Nemesio Galicia MD #### GLYHGB #### [address] [address] Wine Merchant: Lionel Badillo MD Hep B Surf Ag Non-Reactive Normal [facility] Comment on above: Performed By: #### C P, CBC #### [address] [place] [address] Wine Merchant: Nemesio Galicia MD #### GLYHGB #### [address] [address] Wine Merchant: Lionel Badillo MD Hep C Ab Non-Reactive Normal [facility] Comment on above: Result Comment: The hepatitis C procedure used in our laboratory is a Chemiluminescent test specific for three recombinant HCV antigens. A negative anti-HCV result indicates that the antibodies to hepatitis C virus are not present at this time. Individuals with reactive anti-HCV should be considered infected and infectious until proven otherwise. Confirmation of all equivocal or reactive results is recommended by ordering HCV RNA by PCR. Performed By: #### C P, CBC #### [address] [place], [place] [phone] Wine Merchant: Nemesio Galicia MD #### GLYHGB #### [address] [address] Wine Merchant: Lionel Badillo MD T.pallidum Ab Screenon 10-181 T.pallidum Ab Screen Non-Reactive Normal NR [facility] Comment on above: Result Comment: T. pallidum antibodies are not detected. There is no serological evidence of infection with T. pallidum (early primary syphilis cannot be excluded). Retest in 2-4 weeks if syphilis is clinically suspect. Performed By: #### C P, CBC #### [address] [place] [phone] Wine Merchant: Nemesio Galicia MD #### GLYHGB #### [address] [address] Wine Merchant: Lionel Badillo MD CBCon 10-17-8161 Erythrocyte distribution width (RBC) [Ratio] 12.1 % Normal 11.8-14.4 [facility] Comment on above: Performed By: #### C P, CBC #### [address] [place], [place] [phone] Wine Merchant: Nemesio Galicia MD #### GLYHGB #### [address] [address] Wine Merchant: Lionel Badillo MD Hematocrit (Bld) [Volume fraction] 42.4 % Normal 36.3-47.1 [facility] Comment on above: Performed By: #### C P, CBC #### [address] [place], [place] 1093583 Wine Merchant: Nemesio Galicia MD #### GLYHGB #### [address] [address] Wine Merchant: Lionel Badillo MD Hemoglobin (Bld) [Mass/Vol] 14.0 g/dL Normal 11.9-15.1 [facility] Comment on above: Performed By: #### C P, CBC #### [address] [place] [phone] Wine Merchant: Nemesio Galicia MD #### GLYHGB #### [address] [phone] Wine Merchant: Lionel Badillo MD MCH (RBC) [Entitic mass] 30.2 pg Normal 25.2-33.5 [facility] Comment on above: Performed By: #### C P, CBC #### [address] [place] [phone] Wine Merchant: Nemesio Galicia MD #### GLYHGB #### [place] [phone] Wine Merchant: Lionel Badillo MD MCHC (RBC) [Mass/Vol] 33.0 g/dL Normal 28.4-34.8 [facility] Comment on above: Performed By: #### C P, CBC #### [address] [place] [phone] Wine Merchant: Nemesio Galicia MD #### GLYHGB #### [place] [address] Wine Merchant: Lionel Badillo MD MCV (RBC) [Entitic vol] 91.4 fL Normal 82.6-102.9 [facility] Comment on above: Performed By: #### C P, CBC #### [address] [place] [phone] Wine Merchant: Nemesio Galicia MD #### GLYHGB #### [address] [phone] Wine Merchant: Lionel Badillo MD NRBC Automated 0.0 per 100 WBC Normal 0.0 [facility] Comment on above: Performed By: #### C P, CBC #### [facility] [address] [place] [address] Wine Merchant: Nemesio Galicia MD #### GLYHGB #### [address] [phone] Wine Merchant: Lionel Badillo MD Platelet mean volume (Bld) [Entitic vol] 10.4 fL Normal 8.1-13.5 [facility] Comment on above: Performed By: #### C P, CBC #### [address] [place] [address] Wine Merchant: Nemesio Galicia MD #### GLYHGB #### [place] [address] [place], [place] [phone] Wine Merchant: Lionel Badillo MD Platelets (Bld) [#/Vol] 228 10*3/uL Normal 138-453 [facility] Comment on above: Performed By: #### C P, CBC #### [address] [place] [address] Wine Merchant: Nemesio Galicia MD #### GLYHGB #### [place] [address] [place], [place] [phone] Wine Merchant: Lionel Badillo MD RBC (Bld) [#/Vol] 4.64 10*6/uL Normal 3.95-5.11 [facility] Comment on above: Performed By: #### C P, CBC #### [facility] [address] [place] [address] Wine Merchant: Nemesio Galicia MD #### GLYHGB #### [place] [address] [place], [place] [phone] Wine Merchant: Lionel Badillo MD WBC (Bld) [#/Vol] 6.8 10*3/uL Normal 3.5-11.3 [facility] Comment on above: Performed By: #### C P, CBC #### [facility] [address] [place] [address] Wine Merchant: Nemesio Galicia MD #### GLYHGB #### [facility] [address] [place], [place] [phone] Wine Merchant: Lionel Badillo MD Hematocrit (Bld) [Volume fraction] 42.4 % 36.3 - 47.1 % [facility] Hemoglobin (Bld) [Mass/Vol] 14.0 g/dL 11.9 - 15.1 g/dL [facility] MCH (RBC) [Entitic mass] 30.2 pg 25.2 - 33.5 pg [facility] MCHC (RBC) [Mass/Vol] 33.0 g/dL 28.4 - 34.8 g/dL [facility] MCV (RBC) [Entitic vol] 91.4 fL 82.6 - 102.9 fL [facility] NRBC Automated 0.0 0.0 per 100 WBC [facility] Platelet distribution width (Bld) [Ratio] 12.1 % 11.8 - 14.4 % [facility] Platelet mean volume (Bld) [Entitic vol] 10.4 fL 8.1 - 13.5 fL [facility] Platelets (Bld) [#/Vol] 228 10*3/uL [facility] RBC (Bld) [#/Vol] 4.64 10*6/uL 3.95 - 5.1 1 m/uL [facility] WBC (Bld) [#/Vol] 6.8 10*3/uL [facility] Comp Metabolic Profon 2022 Albumin [Mass/Vol] 4.2 g/dL Normal 3.5-5.2 [facility] Comment on above: Performed By: #### C P, CBC #### [facility] [address] [place] [address] Wine Merchant: Nemesio Galicia MD #### GLYHGB #### [place] [address] [place] [address] Wine Merchant: Lionel Badillo MD Albumin/Glob Ratio 1.4 Normal 1.0-2.5 [facility] Comment on above: Performed By: #### C P, CBC #### [facility] [address] [place], [place] [phone] Wine Merchant: Nemesio Galicia MD #### GLYHGB #### [address] [address] Wine Merchant: Lionel Badillo MD Alkaline Phos 87 U/L Normal 35-104 [facility] Comment on above: Performed By: #### C P, CBC #### [facility] [address] [place] [id number] Wine Merchant: Nemesio Galicia MD #### GLYHGB #### [address] [address] Wine Merchant: Lionel Badillo MD ALT [Catalytic activity/Vol] 8 U/L Normal 5-33 [facility] Comment on above: Performed By: #### C P, CBC #### [address] [place], [place] [id number] Wine Merchant: Nemesio Galicia MD #### GLYHGB #### [address] [address] Wine Merchant: Lionel Badillo MD Anion gap [Moles/Vol] 10 mmol/L Normal 9-17 [facility] Comment on above: Performed By: #### C P, CBC #### [facility] [address] [place], [place] [id number] Wine Merchant: Nemesio Galicia MD #### GLYHGB #### [address] [place] [address] Wine Merchant: Lionel Badillo MD AST [Catalytic activity/Vol] 15 U/L Normal <32 [facility] Comment on above: Performed By: #### C P, CBC #### [facility] [address] [place], [place] [id number] Wine Merchant: Nemesio Galicia MD #### GLYHGB #### [address] [address] Wine Merchant: Lionel Badillo MD Bilirubin [Mass/Vol] 0.3 mg/dL Normal 0.3-1.2 [facility] Comment on above: Performed By: #### C P, CBC #### [facility] [address] [place], [place] [id number] Wine Merchant: Nemesio Galicia MD #### GLYHGB #### [address] [address] Wine Merchant: Lionel Badillo MD BUN/CRE Ratio 11 Normal 9-20 [facility] Comment on above: Performed By: #### C P, CBC #### [facility] [address] [place] [address] [place], [place] [phone] Wine Merchant: Nemesio Galicia MD #### GLYHGB #### [address] [address] Wine Merchant: Lionel Badillo MD Calcium [Mass/Vol] 9.0 mg/dL Normal 8.6-10.4 [facility] Comment on above: Performed By: #### C P, CBC #### [facility] [address] [place], [place] [id number] Wine Merchant: Nemesio Galicia MD #### GLYHGB #### [address] [address] Wine Merchant: Lionel Badillo MD Chloride [Moles/Vol] 106 mmol/L Normal 98-107 [facility] Comment on above: Performed By: #### C P, CBC #### [facility] [address] [place] [address] Wine Merchant: Nemesio Galicia MD #### GLYHGB #### [id number] [place], [place] [id number] Wine Merchant: Lionel Badillo MD CO2 [Moles/Vol] 25 mmol/L Normal 20-31 [facility] Comment on above: Performed By: #### C P, CBC #### [facility] [address] [place] [address] Wine Merchant: Nemesio Galicia MD #### GLYHGB #### [address] [place], [place] [id number] Wine Merchant: Lionel Badillo MD Creatinine [Mass/Vol] 0.97 mg/dL High 0.50-0.90 [facility] Comment on above: Performed By: #### C P, CBC #### [facility] [address] [place] [address] Wine Merchant: Nemesio Galicia MD #### GLYHGB #### [place] [address] [place], [place] [phone] Wine Merchant: Lionel Badillo MD GFR/1.73 sq M.predicted among non-blacks MDRD (S/P/Bld) [Vol rate/Area] mL/min/{1.73_m2} Normal >60 [facility] Comment on above: Result Comment: These results are not intended for use in patients <18 years of age. eGFR results are calculated without a race factor using the 2020 CKD-EPI equation. Careful clinical correlation is recommended, particularly when comparing to results calculated using previous equations. The CKD-EPI equation is less accurate in patients with extremes of muscle mass, extra-renal metabolism of creatine, excessive creatine ingestion, or following therapy that affects renal tubular secretion. Performed By: #### C P, CBC #### [facility] [address] [place], [place] [phone] Wine Merchant: Nemesio Galicia MD #### GLYHGB #### [address] [address] Wine Merchant: Lionel Badillo MD Glucose [Mass/Vol] 80 mg/dL Normal 70-99 [facility] Comment on above: Performed By: #### C P, CBC #### [facility] [address] [place] [address] Dr[address] [place], [place] [phone] Wine Merchant: Nemesio Galicia MD #### GLYHGB #### [address] [address] Wine Merchant: Lionel Badillo MD Potassium [Moles/Vol] 3.9 mmol/L Normal 3.7-5.3 [facility] Comment on above: Performed By: #### C P, CBC #### [address] [place], [place] [phone] Wine Merchant: Nemesio Galicia MD #### GLYHGB #### [address] [address] Wine Merchant: Lionel Badillo MD Protein [Mass/Vol] 7.2 g/dL Normal 6.4-8.3 [facility] Comment on above: Performed By: #### C P, CBC #### [address] [place], [place] [phone] Wine Merchant: Nemesio Galicia MD #### GLYHGB #### [address] [address] Wine Merchant: Lionel Badillo MD Sodium [Moles/Vol] 141 mmol/L Normal 135-144 [facility] Comment on above: Performed By: #### C P, CBC #### [address] [place] [address] Wine Merchant: Nemesio Galicia MD #### GLYHGB #### [facility] [address] [place] [address] Wine Merchant: Lionel Badillo MD Urea nitrogen [Mass/Vol] 11 mg/dL Normal 6-20 [facility] Comment on above: Performed By: #### C P, CBC #### [facility] [address] [place] [address] Wine Merchant: Nemesio Galicia MD #### GLYHGB #### [facility] [address] [place] [address] Wine Merchant: Lionel Badillo MD [facility] Metabolic Pane [facility] 10-17-2022 Albumin [Mass/Vol] 4.2 g/dL 3.5 - 5.2 g/dL [facility] Albumin/Globulin [Mass ratio] 1.4 {ratio} 1.0 - 2.5 [facility] ALP [Catalytic activity/Vol] 87 U/L 35 - 104 U/L [facility] ALT [Catalytic activity/Vol] 8 U/L 5 - 33 U/L [facility] Anion gap [Moles/Vol] 10 mmol/L 9 - 17 mmol/L [facility] AST [Catalytic activity/Vol] 15 U/L NINF - 32 U/L [facility] Bilirubin [Mass/Vol] 0.3 mg/dL 0.3 - 1 .2 mg/dL [facility] Calcium [Mass/Vol] 9.0 mg/dL 8.6 - 10. 4 mg/dL [facility] Chloride [Moles/Vol] 106 mmol/L 98 - 10 7 mmol/L [facility] CO2 [Moles/Vol] 25 mmol/L 20 - 31 mmol/L [facility] Creatinine [Mass/Vol] 0.97 mg/dL High 0.50 - 0.90 mg/dL [facility] GFR/1.73 sq M.predicted MDRD (S/P/Bld) [Vol rate/Area] - PINF [facility] Comment on above: These results are not intended for use in patients <18 years of age. eGFR results are calculated without a race factor using the 2020 CKD-EPI equation. Careful clinical correlation is recommended, particularly when comparing to results calculated using previous equations. The CKD-EPI equation is less accurate in patients with extremes of muscle mass, extra-renal metabolism of creatine, excessive creatine ingestion, or following therapy that affects renal tubular secretion. Glucose [Mass/Vol] 80 mg/dL 70 - 99 mg/dL [facility] Interpretation and review of laboratory results Abnormal [facility] Potassium [Moles/Vol] 3.9 mmol/L 3.7 - 5.3 mmol/L [facility] Protein [Mass/Vol] 7.2 g/dL 6.4 - 8.3 g/dL [facility] Sodium [Moles/Vol] 141 mmol/L 135 - 144 mmol/L [facility] Urea nitrogen [Mass/Vol] 11 mg/dL 6 - 20 mg/dL [facility] Urea nitrogen/Creatinine (Bld) [Mass ratio] 11 9 - 20 [facility] HIV Screenon 10-17-2022 HIV 1+2 Ab+HIV1 p24 Ag IA Ql Non-Reactive NONREACTIVE [facility] Comment on above: No laboratory eviden ce of HIV infection. If acute HIV infection is suspected, consider testing for HIV-1 RNA. [facility] Hemoglobin A1Con 10-17-2022 Glucose [Mass/Vol] 82 mg/dL Normal [facility] Comment on above: Result Comment: The ADA and AACC recommend providing the estimated average glucose result to permit better patient understanding of their HBA1c result. Performed By: #### C P, CBC #### [facility] [address] [place] [address] Wine Merchant: Nemesio Galicia MD #### GLYHGB #### [facility] [address] [place] [address] Wine Merchant: Lionel Badillo MD HbA1c (Bld) [Mass fraction] 4.5 % Normal 4.0-6.0 [facility] Comment on above: Performed By: #### C P, CBC #### [facility] [address] [place] [address] Wine Merchant: Nemesio Galicia MD #### GLYHGB #### [facility] [employer] [address] [facility], [place] [phone] Wine Merchant: Lionel Badillo MD Average glucose Estimated from glycated hemoglobin (Bld) [Mass/Vol] 82 mg/dL [facility] Comment on above: The ADA and AACC rec ommend providing the estimated average glucose result to permit better patient understanding of their HBA1c result. HbA1c (Bld) [Mass fraction] 4.5 % 4.0 - 6.0 % [facility] Lipid Panelon 10-17-2022 Cholesterol [Mass/Vol] 222 mg/dL High NINF - 200 mg/dL [facility] Comment on above: Cholesterol Guidelines: <200 Desirable 200-240 Borderline >240 Undesirable Cholesterol in HDL [Mass/Vol] 61 mg/dL 40 - PINF mg/dL [facility] Comment on above: HDL Guidelines: <40 Undesirable 40-59 Borderline >59 Desirable Cholesterol in LDL [Mass/Vol] 146 mg/dL High 0 - 130 mg/dL [facility] Comment on above: LDL Guidelines: <100 Desirable 100-129 Near to/above Desirable 130-159 Borderline >159 Undesirable Direct (measured) LDL and calculated LDL are not interchangeable tests. Cholesterol.total/Ch olesterol in HDL [Mass ratio] 3.6 {ratio} NINF - 5 [facility] Interpretation and review of laboratory results Abnormal [facility] Triglyceride [Mass/Vol] 76 mg/dL NINF - 150 mg/dL [facility] Comment on above: Triglyceride Guidelines: <150 Desirable 150-199 Borderline 200-499 High >499 Very high Based on AHA Guidelines for fasting triglyceride, April 2012. [facility] Lipid Profileon 10-17-2022 Cholesterol [Mass/Vol] 222 mg/dL High <200 [facility] Comment on above: Result Comment: Cholesterol Guidelines: <200 Desirable 200-240 Borderline >240 Undesirable Performed By: #### C P, CBC #### [facility] [address] [place] [address] Wine Merchant: Nemesio Galicia MD #### GLYHGB #### [facility] [address] [place] [address] Wine Merchant: Lionel Badillo MD Cholesterol in HDL [Mass/Vol] 61 mg/dL Normal >40 [facility] Comment on above: Result Comment: HDL Guidelines: <40 Undesirable 40-59 Borderline >59 Desirable Performed By: #### C P, CBC #### [facility] [address] [place] [address] [place], [place] [phone] Wine Merchant: Nemesio Galicia MD #### GLYHGB #### [address] [address] Wine Merchant: Lionel Badillo MD Cholesterol in LDL [Mass/Vol] 146 mg/dL High 0-130 [facility] Comment on above: Result Comment: LDL Guidelines: <100 Desirable 100-129 Near to/above Desirable 130-159 Borderline >159 Undesirable Direct (measured) LDL and calculated LDL are not interchangeable tests. Performed By: #### C P, CBC #### [address] [place], [place] [phone] Wine Merchant: Nemesio Galicia MD #### GLYHGB #### [address] [address] Wine Merchant: Lionel Badillo MD Cholesterol.total/Ch olesterol in HDL [Mass ratio] 3.6 {ratio} Normal <5 [facility] Comment on above: Performed By: #### C P, CBC #### [address] [place], [place] [phone] Wine Merchant: Nemesio Galicia MD #### GLYHGB #### [address] [place] [address] Wine Merchant: Lionel Badillo MD Triglyceride [Mass/Vol] 76 mg/dL Normal <150 [facility] Comment on above: Result Comment: Triglyceride Guidelines: <150 Desirable 150-199 Borderline 200-499 High >499 Very high Based on AHA Guidelines for fasting triglyceride, April 2012. Performed By: #### C P, CBC #### [facility] [address] [place] [address] [place] [address] Wine Merchant: Nemesio Galicia MD #### GLYHGB #### [address] [id number] Wine Merchant: Lionel Badillo MD TSH With Reflex Ft4on 2022 TSH Qn 2.79 m[IU]/L [facility] TSH w/reflex to FT4on 2022 Thyroid Stim. Horm. 2.79 uIU/mL Normal 0.30-5.00 [facility] Comment on above: Performed By: #### U IRVING MATTHEW #### [address] [place] [address] Wine Merchant: Nemesio Galicia MD #### URNMAB #### [address] [phone] Wine Merchant: Lionel Badillo MD Vaginitis DNA Probeon 2022 Beto Negative Normal NEG [facility] Comment on above: Result Comment: for Beto sp. Method of testing is a DNA probe intended for detection and identification of Beto species, Gardnerella vaginalis, and Trichomonas vaginalis nucleic acid in vaginal fluid specimens from patients with symptoms of vaginitis/vaginosis. Performed By: #### C P, CBC #### [address] [place] [address] Wine Merchant: Nemesio Galicia MD #### GLYHGB #### [address] [place], [place] [phone] Wine Merchant: Lionel Badillo MD Gardnerella Negative Normal NEG [facility] Comment on above: Result Comment: for Gardnerella vaginalis Performed By: #### C P, CBC #### [facility] [address] [place], [place] [phone] Wine Merchant: Nemesio Galicia MD #### GLYHGB #### [facility] [address] [place], [place] [phone] Wine Merchant: Lionel Badillo MD Trichomonas Positive Abnormal NEG [facility] Comment on above: Result Comment: for Trichomonas Vaginalis Performed By: #### C P, CBC #### [facility] [address] [place], [place] [phone] Wine Merchant: Nemesio Galicia MD #### GLYHGB #### [facility] [address] [place], [place] [phone] Wine Merchant: Lionel Badillo MD Beto Species, DNA Probe Negative NEGATIVE [facility] Comment on above: for Beto sp. Method of testing is a DNA probe intended for detection and identification of Beto species, Gardnerella vaginalis, and Trichomonas vaginalis nucleic acid in vaginal fluid specimens from patients with symptoms of vaginitis/vaginosis. Gardnerella Vaginalis, DNA Probe Negative NEGATIVE [facility] Comment on above: for Gardnerella vagi nalis Interpretation and review of laboratory results Abnormal [facility] Source .VAGINAL SWAB [facility] Trichomonas Vaginalis DNA Positive Abnormal NEGATIVE [facility] Comment on above: for Trichomonas Vagi nalis [facility] Source .VAGINAL SWAB Normal [facility] Comment on above: Performed By: #### C P, CBC #### [facility] [address] [place] [address] Wine Merchant: Nemesio Galicia MD #### GLYHGB #### [facility] [address] [place] [address] Wine Merchant: Lionel Badillo MD Cult,Urineon 10-09-2022 Cult,Urine Specimen Description .CLEAN CATCH URINE Culture NO SIGNIFICANT GROWTH Report Status FINAL 10/08/2022 Normal [facility] Comment on above: Performed By: #### U #### [facility] [employer] [address] [place] [address] Wine Merchant: Lionel Badillo MD [facility] [address] [place] [address] Wine Merchant: Nemesio Galicia MD EKG 12 leadOrdered By: Aldair Magdaleno on 05-22-2022 Atrial Rate 77 BPM [employer] Work Phone: P [place] 31 degrees [employer] Work Phone: P-R Interval 130 ms [employer] Work Phone: Q-T Interval 380 ms [employer] Phone: QRS Duration 72 ms [employer] Work Phone: QTc Calculation (Bazett) 430 ms [employer] Work Phone: R [place] -5 degrees [employer] Phone: T [place] 2 degrees [employer] Work Phone: Ventricular Rate 77 BPM [employer] Work Phone: [employer] Work Phone: EKG 12 leadon 05-22-2022 Poor data quality, interpretation may be adversely affected Normal sinus rhythm Normal ECG When compared with ECG of 18-JUL-2021 10:45, No significant change was found Confirmed by HANNY MAGDALENO ([id number]) on 05/22/2022 12:21:37 AM [facility] Hanny Magdaleno MD - 05/22/2022 Poor data quality, interpretation may be adversely affected Normal sinus rhythm Normal ECG When compared with ECG of 18-JUL-2021 10:45, No significant change was found Confirmed by HANNY MAGDALENO ([id number]) on 05/22/2022 12:21:37 AM [facility] [employer] Phone: [facility] DIGITAL SCREEN BILA TERALon 11-28-2021 No mammographic evidence of malignancy BIRADS: BIRADS - CATEGORY 1 Negative. Normal interval follow-up is recommended in 12 months. OVERALL ASSESSMENT - NEGATIVE A letter of notification will be sent to the patient regarding the results. The [employer] recommends annual mammograms for women 40 years and older. [facility] EXAMINATION: SCREENING DIGITAL BILATERAL MAMMOGRAM WITH TOMOSYNTHESIS, 11/27/2021 TECHNIQUE: Screening mammography was performed with tomosynthesis including MLO and CC views of the bilateral breasts. Computer aided detection was used for the interpretation of this exam. COMPARISON: August 05, 2012 HISTORY: Screening. FINDINGS: Breasts are composed of scattered fibroglandular density. There is no dominant mass, architectural distortion or concerning grouping of microcalcification in either breast. [facility] DIGITAL SCREEN BILA TERALOrdered By: Nik Zamorano on 11-28-2021 [facility] Phone: [facility] DIGITAL SCREEN BILA TERALon 11-27-2021 Radiology Study observation (narrative) [facility] [facility] Phone: XR HIP LEFT (2-3 VIEWS)on No acute fracture or dislocation. Diffuse osteopenia. [facility] EXAMINATION: TWO XRAY VIEWS OF THE LEFT HIP 05/24/2021 10:19 am COMPARISON: None. HISTORY: ORDERING SYSTEM PROVIDED HISTORY: Strain of hip and thigh, left, initial encounter 51-year-old female with strain of hip and thigh, left FINDINGS: Left femoral head projects over the left acetabulum without clear evidence for acute fracture, dislocation or femoral head flattening. Pelvic phleboliths. Moderate degenerative changes at the pubic symphysis. Diffuse osteopenia. [facility] Mark Barton MD - 05/24/2021 EXAMINATION: TWO XRAY VIEWS OF THE LEFT HIP 05/24/2021 10:19 am COMPARISON: None. HISTORY: ORDERING SYSTEM PROVIDED HISTORY: Strain of hip and thigh, left, initial encounter 51-year-old female with strain of hip and thigh, left FINDINGS: Left femoral head projects over the left acetabulum without clear evidence for acute fracture, dislocation or femoral head flattening. Pelvic phleboliths. Moderate degenerative changes at the pubic symphysis. Diffuse osteopenia. IMPRESSION: No acute fracture or dislocation. Diffuse osteopenia. [facility] Phone: Radiology Study observation (narrative) [facility] [facility] [employer] Phone: XR HIP LEFT (2-3 VIEWS)Order ed By: Mark Barton on 05-24-2021 [facility] [facility] Phone: Hemoglobin A1Con 04-24-2020 Glucose [Mass/Vol] 94 mg/dL [place], [place] Comment on above: The ADA and AACC rec ommend providing the estimated average glucose result to permit better patient understanding of their HBA1c result. HbA1c (Bld) [Mass fraction] 4.9 % 4 - 6 % [place], [place] Lipid Panelon 04-24-2020 Cholesterol [Mass/Vol] 178 mg/dL <200 [place] Comment on above: Cholesterol Guidelines: <200 Desirable 200-240 Borderline >240 Undesirable Cholesterol in HDL [Mass/Vol] 58 mg/dL >40 [place] Comment on above: HDL Guidelines: <40 Undesirable 40-59 Borderline >59 Desirable Cholesterol in LDL [Mass/Vol] 103 mg/dL 0 - 130 mg/dL [place] Comment on above: LDL Guidelines: <100 Desirable 100-129 Near to/above Desirable 130-159 Borderline >159 Undesirable Direct (measured) LDL and calculated LDL are not interchangeable tests. Cholesterol in VLDL [Mass/Vol] NOT REPORTED 1 - 30 mg/dL [place] Cholesterol.total/Ch olesterol in HDL [Mass ratio] 3.1 {ratio} <5 [place] Triglyceride [Mass/Vol] 86 mg/dL <150 [place] Comment on above: Triglyceride Guidelines: <150 Desirable 150-199 Borderline 200-499 High >499 Very high Based on AHA Guidelines for fasting triglyceride, April 2012. Echocardiogram completeon [facility] Harvey Transthoracic Echocardiography Report (TTE) Patient Name JUSTEN Date of Study 03/30/2020 CHITRA Ponce Date of 1970 Gender Female Age 50 year(s) Race Room Number Height: 64 inch, 162.56 cm Corporate ID [id number] Weight: 224 pounds, 101.6 kg # Patient Acct [id number] BSA: 2.05 m^2 BMI: 38.45 # kg/m^2 MR # [id number] Drilling Foreman Alta Paula Interpreting Physician Radha Tyler Fellow Referring Nurse Isha Aguilar Practitioner Interpreting Referring Physician Fellow Type of Study TTE procedure:2D Echocardiogram, M-Mode, Doppler, Color Doppler. Procedure Date Date: 03/30/2020 Start: 02:50 PM Study Location: [facility] Indications:Chest pain. History / Tech. Comments: Chest pain PMHX: None Patient Status: Outpatient Height: 64 inches Weight: 224 pounds BSA: 2.05 m^2 BMI: 38.45 kg/m^2 BP: 137/71 mmHg CONCLUSIONS Summary Global left ventricular systolic function appears preserved with an estimated ejection fraction of >60%. The left ventricular cavity size is within normal limits and the left ventricular wall thickness is mildly increased No definite specific wall motion abnormalities were identified. Left atrium is normal in size. 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 The clinical significant of this finding is unknown, but has been associated with an increased risk of TIA's and strokes. Mild tricuspid regurgitation. No clear evidence of diastolic dysfunction was seen. Compared to the previous study of 06/16/2013, no significant change was seen. Signature FINDINGS Left Atrium Left atrium is normal in size. 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 The clinical significant of this finding is unknown, but has been associated with an increased risk of TIA's and strokes. Left Ventricle Global left ventricular systolic function appears preserved with an estimated ejection fraction of >60%. The left ventricular cavity size is within normal limits and the left ventricular wall thickness is mildly increased No definite specific wall motion abnormalities were identified. Right Atrium Right atrium is normal in size. Right Ventricle Normal right ventricular size and function. Mitral Valve Normal mitral valve structure with mild mitral regurgitation. Aortic Valve Normal aortic valve structure and function without stenosis or regurgitation. Tricuspid Valve Normal tricuspid valve structure with mild tricuspid regurgitation. Pulmonic Valve The pulmonic valve is normal in structure. Pericardial Effusion No significant pericardial effusion is seen. Miscellaneous Normal aortic root diameter. No clear evidence of diastolic dysfunction was seen. M-mode / 2D Measurements & Calculations: LVIDd:4.33 cm(3.7 - 5.6 cm) Diastolic Volume:81 ml LVIDs:3.07 cm(2.2 - 4.0 cm) Systolic Volume:28.92 ml IVSd:1.05 cm(0.6 - 1.1 cm) Aortic Root:3.06 cm(2.0 - 3.7 cm) LVPWd:1.06 cm(0.6 - 1.1 cm) LA Dimension: 4.2 cm(1.9 - 4.0 cm) Fractional Shortenin.1 % LA volume/Index: 51 ml /25m^2 Calculated LVEF (%): 64.3 % AV Cusp Separation: 1.88 cm Mitral: Aortic Valve Area (P1/2-Time): 3.68 cm^2 Peak Velocity: 1.40 m/s Peak E-Wave: 0.66 m/s Mean Velocity: 0.94 m/s Peak A-Wave: 0.50 m/s Peak Gradient: 7.82 mmHg E/A Ratio: 1.31 Mean Gradient: 4.05 mmHg Peak Gradient: 1.73 mmHg Acceleration Time: 99.45 msec P1/2t: 59.82 msec AV VTI: 29.23 cm Tricuspid: Pulmonic: Estimated RVSP: 17.54 mmHg Peak TR Velocity: 1.91 m/s Peak TR Gradient: 14.96095 mmHg Estimated RA Pressure: 3 mmHg Estimated PASP: 17.54 mmHg Diastology / Tissue Doppler Lateral Wall E' velocity:0.16 m/s Lateral Wall E/E':4.45 [facility], [place] Incoming Cardio Results From [facility]/ - 03/30/2020 4:47 PM EDT [facility] Transthoracic Echocardiography Report (TTE) Patient Name JUSTEN Date of Study 03/30/2020 CHITRA Ponce Date of 1970 Gender Female Age 50 year(s) Race Room Number Height: 64 inch, 162.56 cm Corporate ID [id number] Weight: 224 pounds, 101.6 kg # Patient Acct [id number] BSA: 2.05 m^2 BMI: 38.45 # kg/m^2 MR # [id number] Drilling Foreman Alta Paula Interpreting Physician Radha Tyler Fellow Referring Nurse Isha Aguilar Practitioner Interpreting Referring Physician Fellow Type of Study TTE procedure:2D Echocardiogram, M-Mode, Doppler, Color Doppler. Procedure Date Date: 03/30/2020 Start: 02:50 PM Study Location: [facility] Indications:Chest pain. History / Tech. Comments: Chest pain PMHX: None Patient Status: Outpatient Height: 64 inches Weight: 224 pounds BSA: 2.05 m^2 BMI: 38.45 kg/m^2 BP: 137/71 mmHg CONCLUSIONS Summary Global left ventricular systolic function appears preserved with an estimated ejection fraction of >60%. The left ventricular cavity size is within normal limits and the left ventricular wall thickness is mildly increased No definite specific wall motion abnormalities were identified. Left atrium is normal in size. 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 The clinical significant of this finding is unknown, but has been associated with an increased risk of TIA's and strokes. Mild tricuspid regurgitation. No clear evidence of diastolic dysfunction was seen. Compared to the previous study of 06/16/2013, no significant change was seen. Signature - - - - FINDINGS Left Atrium Left atrium is normal in size. 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 The clinical significant of this finding is unknown, but has been associated with an increased risk of TIA's and strokes. Left Ventricle Global left ventricular systolic function appears preserved with an estimated ejection fraction of >60%. The left ventricular cavity size is within normal limits and the left ventricular wall thickness is mildly increased No definite specific wall motion abnormalities were identified. Right Atrium Right atrium is normal in size. Right Ventricle Normal right ventricular size and function. Mitral Valve Normal mitral valve structure with mild mitral regurgitation. Aortic Valve Normal aortic valve structure and function without stenosis or regurgitation. Tricuspid Valve Normal tricuspid valve structure with mild tricuspid regurgitation. Pulmonic Valve The pulmonic valve is normal in structure. Pericardial Effusion No significant pericardial effusion is seen. Miscellaneous Normal aortic root diameter. No clear evidence of diastolic dysfunction was seen. M-mode / 2D Measurements & Calculations: LVIDd:4.33 cm(3.7 - 5.6 cm) Diastolic Volume:81 ml LVIDs:3.07 cm(2.2 - 4.0 cm) Systolic Volume:28.92 ml IVSd:1.05 cm(0.6 - 1.1 cm) Aortic Root:3.06 cm(2.0 - 3.7 cm) LVPWd:1.06 cm(0.6 - 1.1 cm) LA Dimension: 4.2 cm(1.9 - 4.0 cm) Fractional Shortenin.1 % LA volume/Index: 51 ml /25m^2 Calculated LVEF (%): 64.3 % AV Cusp Separation: 1.88 cm Mitral: Aortic Valve Area (P1/2-Time): 3.68 cm^2 Peak Velocity: 1.40 m/s Peak E-Wave: 0.66 m/s Mean Velocity: 0.94 m/s Peak A-Wave: 0.50 m/s Peak Gradient: 7.82 mmHg E/A Ratio: 1.31 Mean Gradient: 4.05 mmHg Peak Gradient: 1.73 mmHg Acceleration Time: 99.45 msec P1/2t: 59.82 msec AV VTI: 29.23 cm Tricuspid: Pulmonic: Estimated RVSP: 17.54 mmHg Peak TR Velocity: 1.91 m/s Peak TR Gradient: 14.05720 mmHg Estimated RA Pressure: 3 mmHg Estimated PASP: 17.54 mmHg Diastology / Tissue Doppler Lateral Wall E' velocity:0.16 m/s Lateral Wall E/E':4.45 [place] Basic Metabolic Panel w/ Ref mario alberto to MGon 03-17-2020 Anion gap [Moles/Vol] 11 mmol/L 9 - 17 mmol/L [place] Bun/Cre Ratio 18 [place] Calcium [Mass/Vol] 9.0 mg/dL 8.6 - 10. 4 mg/dL [place] Chloride [Moles/Vol] 106 mmol/L 98 - 10 7 mmol/L [place] CO2 [Moles/Vol] 24 mmol/L 20 - 31 mmol/L [place] Creatinine [Mass/Vol] 0.84 mg/dL 0.5 - 0.9 mg/dL [place] GFR >60 >60 mL/min [place] GFR Non- >60 >60 mL/min [place] Glucose [Mass/Vol] 106 mg/dL High 70 - 99 mg/dL [place], [place] Interpretation and review of laboratory results Abnormal [place] Potassium [Moles/Vol] 3.7 mmol/L 3.7 - 5.3 mmol/L [place] Sodium [Moles/Vol] 141 mmol/L 135 - 144 mmol/L [place] Urea nitrogen [Mass/Vol] 15 mg/dL 6 - 20 mg/dL [place] Brain Natriuretic Peptideon 03-17-2020 Natriuretic peptide B (Bld) [Mass/Vol] 124 pg/mL <300 [place] Comment on above: Pro-BNP results paty ot be compared to BNP results. Natriuretic peptide B (Bld) [Mass/Vol] Pro-BNP Reference Range: [place] Comment on above: Rule Out: <300 Gibbs Zone: Age <50 300-450 Age 50-75 300-900 Age >75 300-1800 Usually represents mild to moderate HF but other cardiopulmonary causes cannot be ruled out. Rule In: Age <50 >450 Age 50-75 >900 Age >75 >1800 CBC Auto Differentialon 02-19 Basophils (Bld) [#/Vol] 0.06 10*3/uL [place] Basophils/100 WBC (Bld) 1 % 0 - 2 % [place] Differential Type NOT REPORTED [place] Eosinophils (Bld) [#/Vol] 0.58 10*3/uL High [place] Eosinophils/100 WBC (Bld) 7 % High 1 - 4 % [place] Erythrocyte distribution width (RBC) [Ratio] 12.6 % 11.8 - 14.4 % [place] Hematocrit (Bld) [Volume fraction] 39.6 % 36.3 - 47.1 % [place] Hemoglobin (Bld) [Mass/Vol] 13.0 g/dL 11.9 - 15.1 g/dL [place] Immature granulocytes (Bld) [#/Vol] 0 % 0 [place] Immature granulocytes (Bld) [#/Vol] 0.03 10*3/uL [place] Interpretation and review of laboratory results Abnormal [place] Lymphocytes (Bld) [#/Vol] 2.41 10*3/uL [place] Lymphocytes/100 WBC (Bld) 31 % 24 - 43 % [place] MCH (RBC) [Entitic mass] 30.8 pg 25.2 - 33.5 pg [place] MCHC (RBC) [Mass/Vol] 32.8 g/dL 28.4 - 34.8 g/dL [place] MCV (RBC) [Entitic vol] 93.8 fL 82.6 - 102.9 fL [place] Monocytes (Bld) [#/Vol] 0.54 10*3/uL [place] Monocytes/100 WBC (Bld) 7 % 3 - 12 % [place] Platelet mean volume (Bld) [Entitic vol] 10.4 fL 8.1 - 13.5 fL [place] Platelets (Bld) [#/Vol] 216 10*3/uL [place] Platelets (Bld) [#/Vol] NOT REPORTED [place] RBC (Bld) [#/Vol] 4.22 10*6/uL 3.95 - 5.1 1 m/uL [place] RBC morphology finding Nom (Bld) NOT REPORTED [place] Segmented neutrophils/100 WBC (Bld) 54 % 36 - 65 % [place] Segs Absolute 4.25 [place] WBC (Bld) [#/Vol] 7.9 10*3/uL [place] WBC (Bld) [#/Vol] 0.0 10*3/uL 0.0 per 10 0 WBC [place] WBC Morphology NOT REPORTED [place] D-Dimer, Quantitativeon 02-19 D-Dimer, Quant 0.47 [place], [place] Comment on above: When combined with a low clinical probability, a D dimer value of <0.50 mg/L FEU is considered negative for DVT and PE (negative predictive value of 98%, sensitivity of 97%). If this test is not being used to help rule out DVT and PE, then the following reference range should be utilized: 0.00 - 0.59 mg/L FEU. The D-Dimer assay is intended for use as an aid in the diagnosis of venous thromboembolism (DVT and PE) and the results should be interpreted in conjunction with the patient's medical history, clinical presentation, and other findings. Elevated levels of D-dimer activity can be seen in any state of coagulation activation and is not recommended in patients with therapeutic dose anticoagulant therapy for >24 hours, fibrinolytic therapy within the previous 7 days, trauma or surgery within the previous 4 weeks, disseminated malignancies, aortic aneurysm, sepsis, severe infections, pneumonia, severe skin infections, liver cirrhosis, advanced age, coronary disease, diabetes, and . A very low percentage of patients with DVT may yield D-dimer results below the cutoff of 0.5 mg/L FEU. This is known to be more prevalent in patients with distal DVT. Metabolic Panelon 03-17-2020 GFR/1.73 sq M predicted among non-blacks MDRD (S/P/Bld) [Vol rate/Area] [place] Comment on above: Stage 1: Some kidney damage normal GFR Stage 2: Mild kidney damage GFR 60-89 Stage 3: Moderate kidney damage GFR 30-59 Stage 4: Severe kidney damage GFR 15-29 Stage 5: Severe kidney damage GFR <15 ESRD - chronic treatment by dialysis or transplant Average GFR for 40-4 9 years old: 99 mL/min/1.73sq m Chronic Kidney Disease: <60 mL/min/1.73sq m Kidney failure: <15 mL/min/1.73sq m eGFR calculated using average adult body mass. Additional eGFR calculator available at: http://www.[employer]/multiple_crcl_2012.htm Protime-INRon 03-17-2020 INR Coag (PPP) [Relative time] 0.9 {INR} [place] Comment on above: Non-therapeutic Range: INR = 0.9-1.2 Therapeutic Range: Moderate Anticoagulant Intensity: INR = 2.0-3.0 High Anticoagulant Intensity: INR = 2.5-3.5 PT Coag (PPP) [Time] 11.5 s [place] Comment on above: NOTE: NEW REFERENCE RANGE Troponinon 03-17-2020 Troponin I.cardiac [Mass/Vol] NOT REPORTED [place] Troponin T.cardiac [Mass/Vol] NOT REPORTED <0.03 ng/mL [place] Troponin, High Sensitivity <6 0 - 14 ng/L [place] Comment on above: High Sensitivity Troponin values cannot be compared with other Troponin methodologies. Patients with high levels of Biotin oral intake (i.e >5mg/day) may have falsely decreased Troponin levels. Samples collected within 8 hours of biotin intake may require additional information for diagnosis. Troponin I.cardiac [Mass/Vol] NOT REPORTED [place] Troponin T.cardiac [Mass/Vol] NOT REPORTED <0.03 ng/mL [place] Troponin, High Sensitivity <6 0 - 14 ng/L [place] Comment on above: High Sensitivity Troponin values cannot be compared with other Troponin methodologies. Patients with high levels of Biotin oral intake (i.e >5mg/day) may have falsely decreased Troponin levels. Samples collected within 8 hours of biotin intake may require additional information for diagnosis. XR CHEST (2 VW)on 03-17-2020 [place], [facility] Incoming Radiant Results From [facility] - 03/17/2020 9:09 PM EDT EXAMINATION: TWO XRAY VIEWS OF THE CHEST 03/17/2020 8:55 pm COMPARISON: 12/02/2012 radiograph HISTORY: ORDERING SYSTEM PROVIDED HISTORY: Chest pain TECHNOLOGIST PROVIDED HISTORY: Chest pain FINDINGS: The heart, mediastinum and pulmonary vascularity are normal. Lungs are well-expanded and clear. No skeletal abnormalities are present in the chest. IMPRESSION: No significant findings in the chest. [facility] [place] No significant findings in the chest. [facility] [place] EXAMINATION: TWO XRA Y VIEWS OF THE CHEST 03/17/2020 8:55 pm COMPARISON: 12/02/2012 radiograph HISTORY: ORDERING SYSTEM PROVIDED HISTORY: Chest pain TECHNOLOGIST PROVIDED HISTORY: Chest pain FINDINGS: The heart, mediastinum and pulmonary vascularity are normal. Lungs are well-expanded and clear. No skeletal abnormalities are present in the chest. [facility] [place] LUMBAR SPINE 4 OR 5 [facility] LUMBAR SPINE 4 OR 5 [facility] Department of Radiology [address] [place] [id number] Patient Name: CHITRA CAMPUZANO : 1970 Sex: F Age: Race: White Pt. Location: Patient Status: D Ordered Date: 05/12/2019 3:35:00 PM Completed Date: 05/12/2019 03:36 PM Requesting Provider: ADRIAN DANIEL Attending Provider: CLARIBEL AMARO Report Copy To: Signs & Symptoms: M54.5 Low back pain I10 History: Ruth Comments: , , , Ordering Provider - ADRIAN DANIEL MD , Exam: LUMBAR SPINE [address] [facility] LUMBAR SPINE 4 OR 5 VWS 05/12/2019 3:36 PM EDT SIGNS AND SYMPTOMS: M54.5 Low back pain I10 TECHNOLOGIST COMMENTS: low back pain injured at work 03/09/19 QUESTION FOR RADIOLOGIST: , , , Ordering Provider - ADRIAN DANIEL MD , PROTOCOL: AP,Lateral,L5-S1 spot,Flexion and Extension views were obtained. COMPARISON: None. FINDINGS: Bones: Preserved vertebral body height. Disk spaces: Preserved intervertebral disc space. Facet joints: Within normal limits. Alignment: Preserved. Flexion-extension views obtained which showed normal range of motion upon flexion and extension, no pathology movement. IMPRESSION: Unremarkable study. Approved by:Nayeli Barry on 05/12/2019 5:42 PM EDT. I, Blanca Skaggs, have reviewed the images and report and concur with these findings. Electronically signed by:Blanca Skaggs. Transcribed by: [email or web address], User Resident: NAYELI BARRY Electronically Signed by: BLANCA SKAGGS @ 05/14/2019 01:35 PM I personally read this/these film(s) with this resident Normal [facility] Comment on above: Order Comment: , , = ========= , Ordering Provider - ADRIAN DANIEL MD , MRI LUMBAR SPINE WO CONTRAST on 05-04-2019 Left subarticular disc protrusion at L5-S1. Multilevel disc degeneration otherwise as above without critical canal or neural foraminal stenosis. [facility], [place] EXAMINATION: MRI OF THE LUMBAR SPINE WITHOUT CONTRAST, 05/04/2019 8:05 am TECHNIQUE: Multiplanar multisequence MRI of the lumbar spine was performed without the administration of intravenous contrast. COMPARISON: None HISTORY: ORDERING SYSTEM PROVIDED HISTORY: Back pain, unspecified back location, unspecified back pain laterality, unspecified chronicity TECHNOLOGIST PROVIDED HISTORY: Is the patient ?->No FINDINGS: BONES/ALIGNMENT: There is normal alignment of the spine. The vertebral body heights are maintained. The bone marrow signal appears unremarkable. SPINAL CORD: The conus terminates normally. SOFT TISSUES: No paraspinal mass identified. L1-L2: There is no significant disc herniation, spinal canal stenosis or neural foraminal narrowing. L2-L3: Disc height loss with loss of the T2 hyperintensity of disc. Circumferential disc bulge. Facet and ligamentum flavum hypertrophy. Mild canal narrowing. Mild bilateral neural foraminal narrowing. L3-L4: Circumferential disc bulge with facet and ligamentum flavum hypertrophy. No significant spinal canal or neural foraminal narrowing. L4-L5: Circumferential disc bulge with facet and ligamentum flavum hypertrophy. Effacement of bilateral descending L5 nerve roots in the lateral recesses. Moderate canal narrowing. Moderate bilateral neural foraminal narrowing. L5-S1: Left subarticular disc protrusion. Circumferential disc bulge. Mild canal narrowing. Mild-moderate bilateral neural foraminal narrowing. [facility] [place] Incoming Radiant Results From [facility] - 05/04/2019 2:19 PM EDT EXAMINATION: MRI OF THE LUMBAR SPINE WITHOUT CONTRAST, 05/04/2019 8:05 am TECHNIQUE: Multiplanar multisequence MRI of the lumbar spine was performed without the administration of intravenous contrast. COMPARISON: None HISTORY: ORDERING SYSTEM PROVIDED HISTORY: Back pain, unspecified back location, unspecified back pain laterality, unspecified chronicity TECHNOLOGIST PROVIDED HISTORY: Is the patient ?->No FINDINGS: BONES/ALIGNMENT: There is normal alignment of the spine. The vertebral body heights are maintained. The bone marrow signal appears unremarkable. SPINAL CORD: The conus terminates normally. SOFT TISSUES: No paraspinal mass identified. L1-L2: There is no significant disc herniation, spinal canal stenosis or neural foraminal narrowing. L2-L3: Disc height loss with loss of the T2 hyperintensity of disc. Circumferential disc bulge. Facet and ligamentum flavum hypertrophy. Mild canal narrowing. Mild bilateral neural foraminal narrowing. L3-L4: Circumferential disc bulge with facet and ligamentum flavum hypertrophy. No significant spinal canal or neural foraminal narrowing. L4-L5: Circumferential disc bulge with facet and ligamentum flavum hypertrophy. Effacement of bilateral descending L5 nerve roots in the lateral recesses. Moderate canal narrowing. Moderate bilateral neural foraminal narrowing. L5-S1: Left subarticular disc protrusion. Circumferential disc bulge. Mild canal narrowing. Mild-moderate bilateral neural foraminal narrowing. IMPRESSION: Left subarticular disc protrusion at L5-S1. Multilevel disc degeneration otherwise as above without critical canal or neural foraminal stenosis. [place] MRI THORACIC SPINE WO MALOU [place] 05-04-2019 Facet hypertrophy concentrated at T11-T12 produces at least moderate spinal canal narrowing and effacement of the dorsal left cord. No acute abnormality; no suspicious bone marrow edema. [place] EXAMINATION: MRI OF THE THORACIC SPINE WITHOUT CONTRAST 05/04/2019 8:04 am TECHNIQUE: Multiplanar multisequence MRI of the thoracic spine was performed without the administration of intravenous contrast. COMPARISON: None. HISTORY: ORDERING SYSTEM PROVIDED HISTORY: Back pain, unspecified back location, unspecified back pain laterality, unspecified chronicity TECHNOLOGIST PROVIDED HISTORY: Is the patient ?->No FINDINGS: BONES/ALIGNMENT: There is normal alignment of the spine. The vertebral body heights are maintained. The bone marrow signal appears unremarkable. SPINAL CORD: No abnormal cord signal is seen. SOFT TISSUES: No paraspinal mass identified. DEGENERATIVE CHANGES: Disc degeneration manifest predominantly by change in disc signal characteristics particularly at T6-T7, T7-T8, and T10-T11. Circumferential disc bulge at T11-T12 with facet hypertrophy produce moderate spinal canal narrowing and effacement of the dorsal cord. [place] Incoming Radiant Results From [facility] - 05/04/2019 8:37 AM EDT EXAMINATION: MRI OF THE THORACIC SPINE WITHOUT CONTRAST 05/04/2019 8:04 am TECHNIQUE: Multiplanar multisequence MRI of the thoracic spine was performed without the administration of intravenous contrast. COMPARISON: None. HISTORY: ORDERING SYSTEM PROVIDED HISTORY: Back pain, unspecified back location, unspecified back pain laterality, unspecified chronicity TECHNOLOGIST PROVIDED HISTORY: Is the patient ?->No FINDINGS: BONES/ALIGNMENT: There is normal alignment of the spine. The vertebral body heights are maintained. The bone marrow signal appears unremarkable. SPINAL CORD: No abnormal cord signal is seen. SOFT TISSUES: No paraspinal mass identified. DEGENERATIVE CHANGES: Disc degeneration manifest predominantly by change in disc signal characteristics particularly at T6-T7, T7-T8, and T10-T11. Circumferential disc bulge at T11-T12 with facet hypertrophy produce moderate spinal canal narrowing and effacement of the dorsal cord. IMPRESSION: Facet hypertrophy concentrated at T11-T12 produces at least moderate spinal canal narrowing and effacement of the dorsal left cord. No acute abnormality; no suspicious bone marrow edema. [place] Otheron 04-05-2019 No evidence for fracture or malalignment of the thoracolumbar spine. Advanced degenerative disc disease localized to the T11-T12 level. [place] EXAMINATION: 3 XRAY VIEWS OF THE THORACIC SPINE; THREE XRAY VIEWS OF THE LUMBAR SPINE 04/05/2019 11:13 am COMPARISON: None. HISTORY: ORDERING SYSTEM PROVIDED HISTORY: Thoracic back pain, unspecified back pain laterality, unspecified chronicity TECHNOLOGIST PROVIDED HISTORY: back pain FINDINGS: Frontal, lateral, and swimmer's views of the thoracic spine are submitted for review. There is no convincing evidence for acute fracture or malalignment of the thoracic spine. Advanced degenerative disease localized to the T11-T12 level. Visualized lung parenchyma is clear. Frontal, lateral, and lumbosacral cone-down views of the lumbar spine are submitted for review. There is no evidence for acute fracture or malalignment of the lumbar spine. Vertebral body heights and intervertebral disc space heights are grossly preserved. Bone mineralization is normal. Overlying soft tissues are unremarkable. [place] XR LUMBAR SPINE (2-3 VIEWS)o n 04-05-2019 [place] Incoming Radiant Results From [facility] - 04/05/2019 11:55 AM EDT EXAMINATION: 3 XRAY VIEWS OF THE THORACIC SPINE; THREE XRAY VIEWS OF THE LUMBAR SPINE 04/05/2019 11:13 am COMPARISON: None. HISTORY: ORDERING SYSTEM PROVIDED HISTORY: Thoracic back pain, unspecified back pain laterality, unspecified chronicity TECHNOLOGIST PROVIDED HISTORY: back pain FINDINGS: Frontal, lateral, and swimmer's views of the thoracic spine are submitted for review. There is no convincing evidence for acute fracture or malalignment of the thoracic spine. Advanced degenerative disease localized to the T11-T12 level. Visualized lung parenchyma is clear. Frontal, lateral, and lumbosacral cone-down views of the lumbar spine are submitted for review. There is no evidence for acute fracture or malalignment of the lumbar spine. Vertebral body heights and intervertebral disc space heights are grossly preserved. Bone mineralization is normal. Overlying soft tissues are unremarkable. IMPRESSION: No evidence for fracture or malalignment of the thoracolumbar spine. Advanced degenerative disc disease localized to the T11-T12 level. [place] XR THORACIC SPINE (2 VIEWS)o n 04-05-2019 [place] Incoming Radiant Results From [facility] - 04/05/2019 11:54 AM EDT EXAMINATION: 3 XRAY VIEWS OF THE THORACIC SPINE; THREE XRAY VIEWS OF THE LUMBAR SPINE 04/05/2019 11:13 am COMPARISON: None. HISTORY: ORDERING SYSTEM PROVIDED HISTORY: Thoracic back pain, unspecified back pain laterality, unspecified chronicity TECHNOLOGIST PROVIDED HISTORY: back pain FINDINGS: Frontal, lateral, and swimmer's views of the thoracic spine are submitted for review. There is no convincing evidence for acute fracture or malalignment of the thoracic spine. Advanced degenerative disease localized to the T11-T12 level. Visualized lung parenchyma is clear. Frontal, lateral, and lumbosacral cone-down views of the lumbar spine are submitted for review. There is no evidence for acute fracture or malalignment of the lumbar spine. Vertebral body heights and intervertebral disc space heights are grossly preserved. Bone mineralization is normal. Overlying soft tissues are unremarkable. IMPRESSION: No evidence for fracture or malalignment of the thoracolumbar spine. Advanced degenerative disc disease localized to the T11-T12 level. [place] Progress Noteon 03-17-2018 HIM IP Note OR High Man Normal [facility] Progress Noteon 12-02-2017 HIM IP Note OR High Man Normal [facility] Progress Noteon 12-01-2017 HIM IP Note OR High Man Normal [facility] Progress Noteon 09-30-2017 HIM IP Note OR High Man Normal [facility] Progress Noteon 08-26-2017 HIM IP Note OR High Man Normal [facility] Progress Noteon 08-05-2017 HIM IP Note OR High Man Normal [facility] Vital Signs Date Time Vital Sign Value Performing Clinician Wale bruce 08-07-2023 16:00-0500 Heart rate 76 /min Kylah Verdin MD Work Phone: [employer] 08-07-2023 16:00-0500 Respiratory rate 20 /min Kylah Verdin MD Work Phone: [employer] 08-07-2023 16:00-0500 SaO2% (BldA) [Mass fraction] 97 % Kylah Verdin MD Work Phone: [employer] [facility] 08-07-2023 11:28-0500 Body mass index (BMI) [Ratio] 33.63 kg/m2 Kylah Verdin MD Work Phone: [employer] [facility] 08-07-2023 11:28-0500 Body temperature 99.1 [degF] Kylah Verdin MD Work Phone: [employer] [facility] 08-07-2023 11:28-0500 Body weight 88.91 kg Kylah Verdin MD Work Phone: [employer] [facility] 08-07-2023 11:28-0500 Diastolic blood pressure 89 mm[Hg] Kylah Verdin MD Work Phone: [employer] [facility] 08-07-2023 11:28-0500 Systolic blood pressure 157 mm[Hg] Kylah Verdin MD Work Phone: [employer] 03-17-2020 23:16-0400 BP Diastolic 71 mm[Hg] [facility] [place] 03-17-2020 23:16-0400 BP Systolic 137 mm[Hg] [facility] [place] 03-17-2020 23:16-0400 Pulse (Heart Rate) 79 /min [facility] [place] 03-17-2020 23:16-0400 Pulse Oximetry 99 % [facility] [place] 03-17-2020 20:28-0400 BMI (Body Mass Index) 38.45 kg/m2 [facility] [place] 03-17-2020 20:28-0400 Body Temperature 97.11 [degF] [facility] [place] 03-17-2020 20:28-0400 Body weight 101.61 kg Aj Ralph [facility] [place] , [place] 03-17-2020 20:28-0400 Respiratory Rate 16 /min Aj Ralph [facility] [place], [place] Encounters Encounter Date Encounter Type Care Provider Facility Start: 09-18-2023 End: 09-18-2023 ambulatory JONNY NARESH Not Available Start: 08-25-2023 End: 08-25-2023 ambulatory JONNY NARESH Not Available Start: 08-25-2023 End: 08-25-2023 Office outpatient new 20 minutes Jonny Naresh DO Work Phone: [facility] Comment on above: Abdominal cramping ( Primary Dx); Postmenopausal bleeding Start: 08-07-2023 End: 08-07-2023 Emergency department patient visit [facility] Start: 08-07-2023 End: 08-07-2023 Emergency department patient visit Kylah Verdin MD Work Phone: [facility] ED Comment on above: Nausea vomiting and diarrhea (Primary Dx); Abdominal pain, unspecified abdominal location Start: 07-16-2023 End: 07-17-2023 ambulatory ISHA AGUILAR [facility] Start: 07-09-2023 ambulatory Reza jimenez DO Facility[facility] Start: 06-11-2023 End: 06-12-2023 ambulatory Reza Hernandez DO Facility:[facility] Start: 06-09-2023 End: 06-09-2023 ambulatory ISHA AGUILAR [facility] Start: 06-09-2023 Encounter for other preprocedural examination [facility] Start: 06-05-2023 End: 06-06-2023 ambulatory [facility] Start: 06-05-2023 Encounter for other preprocedural examination [facility] Start: 05-26-2023 End: 05-27-2023 ambulatory ISHA AGUILAR [facility] Start: 05-23-2023 End: 05-24-2023 ambulatory ISHA [facility] Start: 05-14-2023 End: 05-15-2023 ambulatory Reza Wallacey DO Facility:[facility] Start: 05-09-2023 End: 05-12-2023 ambulatory ISHA [facility] Start: 05-05-2023 End: 05-06-2023 ambulatory Justen MAJORW Facility:[facility] Start: 04-30-2023 End: 05-01-2023 ambulatory ISHA [facility] Start: 04-25-2023 End: 04-26-2023 ambulatory Reza Peter David DO Facility:[facility] Start: 04-24-2023 End: 04-25-2023 ambulatory Reza Peter Wallacey DO Facility:[facility] Start: 04-23-2023 End: 04-24-2023 ambulatory ISHA [facility] Start: 04-23-2023 Encounter for gynecological examination (general) (routine) without abnormal findings [facility] Start: 04-16-2023 End: 04-17-2023 ambulatory Reza Peter Wallacey DO Facility:[facility] Start: 04-16-2023 End: 04-19-2023 ambulatory ISHA [facility] Start: 03-19-2023 End: 03-20-2023 ambulatory Justen Minaya [employer] SUPERVISOR Facility:[facility] Start: 03-18-2023 End: 03-19-2023 ambulatory Reza Wallacey DO Facility:[facility] Start: 01-28-2023 End: 01-29-2023 ambulatory Reza Wallacey DO Facility:[facility] Start: 12-24-2022 End: 12-27-2022 ambulatory ISHA [facility] Start: 10-17-2022 End: 10-18-2022 ambulatory FALGUNI SINGH [facility] Start: 10-17-2022 Encounter for genera l adult medical examination without abnormal findings [facility] Start: 10-17-2022 End: 10-17-2022 Patient encounter status Isha Mclaughlin CNP Work Phone: [facility] Start: 10-17-2022 End: 10-17-2022 Subsequent hospital visit by physician Isha Mclaughlin CNP Work Phone: [facility] Comment on above: Dysuria; Burning with urination; STD exposure; Vaginal discharge; Wellness examination; Anxiety; Hyperlipidemia, unspecified hyperlipidemia type; Type 2 diabetes mellitus without complication, unspecified whether custodial insulin use (HCC); Essential hypertension; Urinary frequency Start: 10-07-2022 End: 10-08-2022 ambulatory FALGUNI [facility] Start: 10-07-2022 End: 10-07-2022 Subsequent hospital visit by physician Isha Mclaughlin CNP Work Phone: [facility] Comment on above: Hematuria, unspecifi ed type; Burning with urination Start: 09-06-2022 End: 09-07-2022 ambulatory Isha Aguilar VALET MANAGER-ELECTRICAL TECH Facility:[facility] Start: 09-05-2022 End: 09-06-2022 ambulatory Reza Hernandez DO Facility:[facility] Start: 08-23-2022 End: 08-24-2022 ambulatory Isha Aguilar VALET MANAGER-ELECTRICAL TECH Facility:[facility] Start: 07-29-2022 ambulatory Isha olmos VALET MANAGER-ELECTRICAL TECH Facility:[facility] Start: 07-10-2022 End: 07-11-2022 ambulatory Isha Aguilar VALET MANAGER-ELECTRICAL TECH Facility:[facility] Start: 07-04-2022 End: 07-05-2022 ambulatory Ishaadolph Aguilar VALET MANAGER-ELECTRICAL TECH Facility:[facility] Start: 07-02-2022 End: 07-03-2022 ambulatory Ishaadolph Aguilar VALET MANAGER-ELECTRICAL TECH Facility:[facility] Start: 06-20-2022 End: 06-21-2022 ambulatory Reza Hernandez DO Facility:[facility] Start: 06-18-2022 End: 06-19-2022 ambulatory Justen GATES Facility:[facility] Start: 05-21-2022 End: 05-21-2022 Subsequent hospital visit by physician Isha Mclaughlin CNP Work Phone: [facility] EKG Comment on above: Chest pain, unspecif ied type Start: 12-18-2021 End: 12-18-2021 Patient encounter procedure Danish Hughes MD Work Phone: [facility] Laboratory Start: 12-18-2021 End: 12-18-2021 Subsequent hospital visit by physician Danish Hughes MD Work Phone: [facility] Laboratory Comment on above: Encounter for annual routine gynecological examination; Abnormal perimenopausal bleeding Start: 11-27-2021 End: 11-29-2021 Subsequent hospital visit by physician [facility] Mammography [facility] Mammography Comment on above: Encounter for screen ing for malignant neoplasm of breast, unspecified screening modality; Essential hypertension; Hyperlipidemia, unspecified hyperlipidemia type; Hyperglycemia Start: 05-24-2021 End: 05-26-2021 Subsequent hospital visit by physician [facility] Xr Dr Room 2 [facility] Radiology Comment on above: Strain of hip and th igh, left, initial encounter Start: 05-04-2020 End: 05-04-2020 Subsequent hospital visit by physician [facility] Cardiology Stress Room [facility] Stress Lab Comment on above: Arrived Start: 05-03-2020 End: 05-03-2020 Subsequent hospital visit by physician [facility] Cardiology Stress Room [facility] Stress Lab Comment on above: Atypical chest pain; Obesity (BMI 35.0-39.9 without comorbidity); Palpitations Start: 04-24-2020 End: 04-24-2020 Subsequent hospital visit by physician [facility] Tanning Solution Maker [facility] Laboratory Comment on above: Atypical chest pain; Obesity (BMI 35.0-39.9 without comorbidity); Palpitations Palpitations Start: 03-30-2020 End: 03-30-2020 Subsequent hospital visit by physician [facility] Echo Room [facility] Echocardiography Comment on above: Chest pain, unspecif ied type Start: 03-17-2020 End: 03-17-2020 Emergency department patient visit Aj Hosain Work Phone: [facility] ED Comment on above: Chest pain, unspecif ied type (Primary Dx) Start: 03-14-2020 End: 03-14-2020 Subsequent hospital visit by physician Cody Tanning [employer] [facility] EKG Comment on above: Other chest pain Start: 01-28-2020 End: 01-28-2020 Subsequent hospital visit by physician Danish Hughes [facility] Laboratory Comment on above: Special screening ex amination for viral disease Start: 05-04-2019 End: 05-06-2019 Subsequent hospital visit by physician [facility] Mri Scanner [facility] MRI Comment on above: Back pain, unspecifi ed back location, unspecified back pain laterality, unspecified chronicity Start: 04-05-2019 End: 04-07-2019 Subsequent hospital visit by physician Cody Xr Dr Room 2 [facility] Radiology Comment on above: Thoracic back pain, unspecified back pain laterality, unspecified chronicity Low back pain, unspe cified back pain laterality, unspecified chronicity, with sciatica presence unspecified Procedures Date Procedure Procedure Detail Performing Clinician Start: 08-07-2023 Assay of lactate Florida Verdin MD Work Phone: Start: 08-07-2023 Ct abdomen & pelvis w/contrast material Kylah Verdin MD Work Phone: Start: 08-07-2023 Comprehensive metabo lic panel Kylah Verdin MD Work Phone: Start: 06-09-2023 Colonoscopy Klyah Murphy dd, MD Work Phone: Start: 04-23-2023 Microscopic observat ion [Identifier] in Cervix by Cyto stain Kylah Verdin MD Work Phone: Start: 10-17-2022 End: 10-17-2022 Comprehensive metabolic panel Isha Aguilar VALET MANAGER - ELECTRICAL TECH Work Phone: Start: 10-17-2022 End: 10-17-2022 Lipid panel Isha Aguilar VALET MANAGER - ELECTRICAL TECH Work Phone: Start: 10-17-2022 Iadna beto specie s direct probe tq Falguni Singh MD Work Phone: Start: 05-21-2022 Ecg routine ecg w/le ast 12 lds w/i&r Isha Aguilar VALET MANAGER - ELECTRICAL TECH Work Phone: Start: 12-18-2021 Microscopic observat ion [Identifier] in Cervix by Cyto stain Isha Aguilar VALET MANAGER - ELECTRICAL TECH Work Phone: Start: 11-27-2021 End: 11-27-2021 Screening mammography bi 2-view breast inc cad Danish Hughes MD Work Phone: Start: 05-24-2021 Radex hip unilateral with pelvis 2-3 views Feroz Cowart DC Work Phone: Start: 04-24-2020 Hemoglobin glycosylated a1c Radha Sahnimad Work Phone: Start: 04-24-2020 Lipid panel Radha Sahni mad Work Phone: Start: 03-30-2020 Echo tthrc r-t 2d w/wom-mode compl spec&colr d Isha Aguilar Work Phone: Start: 03-17-2020 Assay of troponin quantitative Aj A Jorden Work Phone: Start: 03-17-2020 Radiologic exam ches t 2 views Aj A Jorden Work Phone: Start: 03-17-2020 Assay of troponin quantitative Aj A Jorden Work Phone: Start: 03-17-2020 BASIC METABOLIC PANE L W/ REFLEX TO MG FOR LOW K Ja A Jorden Work Phone: Start: 03-17-2020 Blood count complete auto&auto difrntl wbc Aj A Jorden Work Phone: Start: 03-17-2020 Fibrin dgradj produc ts d-dimer quantitative Aj A Jorden Work Phone: Start: 03-17-2020 Natriuretic peptide Sye d A Jorden Work Phone: Start: 03-17-2020 Prothrombin time Aj A Jorden Work Phone: Start: 03-17-2020 Ecg routine ecg w/le ast 12 lds w/i&r Aj A Jorden Work Phone: Start: 05-04-2019 Mri spinal canal lum bar w/o contrast material Nae Sanchez Work Phone: Start: 05-04-2019 Mri spinal canal tho racic w/o contrast matrl Nae Sanchez Work Phone: Start: 04-05-2019 Radex spine thoracic 2 views Nae Sanchez Work Phone: Start: 04-05-2019 Radex spine lumbosac ral 2/3 views Nae Sanchez Work Phone: Start: 09-30-2017 Microscopic observat ion [Identifier] in Cervix by Cyto stain [facility] 2 Plan of Treatment Date Care Activity Detail Author Start: 06-09-2033 Screening for malignant neoplasm of colon [facility] Start: 04-30-2028 Lipid panel Lipids [facility] Start: 04-23-2026 Screening for malignant neoplasm of cervix [facility] Start: 04-21-2026 DTaP/Tdap/Td vaccine (2 - Td or Tdap) DTaP/Tdap/Td vaccine (2 - Td or Tdap) [facility] Start: 04-21-2026 DTaP/Tdap/Td vaccine (2 - Td) DTaP/Tdap/Td vaccine (2 - Td) [place] Start: 04-21-2026 DTaP/Tdap/Td vaccine (3 - Td or Tdap) DTaP/Tdap/Td vaccine (3 - Td or Tdap) [facility] Start: 12-18-2024 Screening for malignant neoplasm of cervix [facility] Start: 08-07-2024 GFR test (Diabetes, CKD 3-4, OR last GFR 15-59) GFR test (Diabetes, CKD 3-4, OR last GFR 15-59) [facility] Start: 05-26-2024 Screening for malignant neoplasm of colon [facility] Start: 04-30-2024 Urine screening for protein Diabetic Alb to Cr ratio (uACR) test [facility] Start: 12-03-2023 End: 12-03-2023 Admission to same day surgery center 12/03/2023 1:35 PM EDT - 12/03/2023 2:20 PM EDT Surgery [facility] OR [address] [place], [place] [id number] Megha Kruse MD [address] [place] [id number] COLORECTAL CANCER SCREENING, NOT HIGH RISK [facility] OR Comment on above: COLORECTAL CANCER SCREENING, NOT HIGH RI SK Start: 12-03-2023 End: 12-03-2023 Colon ca scrn not hi rsk ind COLORECTAL CANCER SCREENING, NOT HIGH RISK Screening for colon cancer 12/03/2023 1:35 PM EDT [facility] Start: 12-03-2023 Subsequent hospital visit by physician 12/03/2023 1:35 PM EDT Hospital Encounter [facility] OR [address] [place] [address] Megha Kruse MD [address] [place] [address] [facility] OR Start: 11-28-2023 Screening for malignant neoplasm of breast Breast cancer screen [facility] Start: 11-13-2023 End: 11-13-2023 Patient encounter procedure 11/13/2023 9:30 AM EDT Office Visit [facility] [address] [place] [address] Yuli Andujar MD [address] [place] [address] [address] [place] [address] 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 [facility] Comment on above: 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 Start: 11-13-2023 End: 11-13-2023 Professional / ancillary services management 11/13/2023 9:00 AM EDT Ancillary Procedure [facility] [address] [place], [place] [id number] 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 [facility] Comment on above: 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 Start: 10-18-2023 GFR test (Diabetes, CKD 3-4, OR last GFR 15-59) GFR test (Diabetes, CKD 3-4, OR last GFR 15-59) [facility] Start: 10-18-2023 Lipid panel Lipids [facility] Start: 10-08-2023 Depression Monitoring Depression Monitoring [facility] Start: 09-15-2023 End: 09-15-2023 Patient encounter procedure 09/15/2023 10:20 AM EST Office Visit [address] [place] [phone] Jonny Infante, DO [address] [place], [place] [id number] [facility] Start: 09-03-2023 End: 09-03-2023 Professional / ancillary services management 09/03/2023 8:30 AM EST Ancillary Procedure [address] [place] [phone] [facility] OB Start: 08-25-2023 End: 08-25-2024 US for US PELVIS-TRANSVAG IF INDICATED Imaging Routine Postmenopausal bleeding Abdominal cramping Expected: 08/25/2023 (Approximate), Expires: 08/25/2024 [facility] Work Phone: Comment on above: Expected: 08/25/2023 (Approximate), Expi res: 08/25/2024 Start: 05-21-2023 GFR test (Diabetes, CKD 3-4, OR last GFR 15-59) GFR test (Diabetes, CKD 3-4, OR last GFR 15-59) [facility] Start: 03-21-2023 COVID-19 Vaccine ( season) COVID-19 Vaccine ( season) [facility] Start: 03-21-2023 Influenza vaccination Influenza Vaccine (#1) [facility] Start: 02-18-2023 Influenza vaccination Flu vaccine (#1) [facility] Start: 12-25-2022 End: 12-25-2022 Patient encounter procedure 12/25/2022 Office Visit Primary Care Isha Aguilar, VALET MANAGER - ELECTRICAL TECH [address] [place] [address] [facility] Primary Care Start: 11-27-2022 Screening for malignant neoplasm of breast Mammogram [facility] Start: 11-16-2022 Depression Monitoring Depression Monitoring [facility] Start: 10-23-2022 End: 10-23-2022 Patient encounter procedure 10/23/2022 Office Visit Primary Care Falguni Singh MD [address] [place] [address] [facility] Start: 09-30-2022 Cervical cancer screen Cervical cancer screen [place], [place] Start: 09-30-2022 Screening for malignant neoplasm of cervix [facility] Start: 07-17-2022 Screening for malignant neoplasm of colon [facility] Start: 07-10-2022 Hemoglobin A1c measurement A1C test (Diabetic or Prediabetic) [facility] Start: 07-10-2022 Lipid panel Lipids [facility] Start: 07-10-2022 Urine screening for protein Diabetic microalbuminuria test [facility] Start: 06-11-2022 End: 06-11-2022 Patient encounter procedure 06/11/2022 Office Visit Primary Care Isha Aguilar, VALET MANAGER - ELECTRICAL TECH [address] [place] [address] [facility] Start: 03-21-2022 Influenza vaccination Flu vaccine (Season Ended) [facility] Start: 2022 Shingles vaccine (1 of 2) Shingles vaccine (1 of 2) [facility] Start: 02-18-2022 Influenza vaccination Flu vaccine (#1) [facility] Start: 01-18-2022 End: 01-18-2022 Admission to same day surgery center 01/18/2022 Surgery IP Unit Camille Myrick DO [address] [place] [address] COLORECTAL CANCER SCREENING, NOT HIGH RISK [facility] OR Comment on above: COLORECTAL CANCER SCREENING, NOT HIGH RI SK Start: 01-18-2022 End: 01-18-2022 Colon ca scrn not hi rsk ind COLORECTAL CANCER SCREENING, NOT HIGH RISK SCREENING 01/18/2022 10:40 AM EDT [facility] Start: 01-18-2022 Subsequent hospital visit by physician 01/18/2022 Hospital Encounter IP Unit Camille Myrick DO [address] [place] [address] [facility] Start: 01-03-2022 End: 01-03-2022 Patient encounter procedure 01/03/2022 Office Visit Neurology Joe Whipple MD [address] [place] [address] [address] [place] [address] [facility] Start: 12-27-2021 End: 12-27-2021 Patient encounter procedure 12/27/2021 Office Visit Obstetrics and Gynecology Yuli Andujar MD [address] [place] [address] [facility] & [facility]YNECOLOG[facility] Start: 12-18-2021 End: 12-18-2021 Patient encounter procedure 12/18/2021 Office Visit Obstetrics and Gynecology Yuli Andujar MD [address] [place] [address] [address] [place] [address] [facility]YNECOLOG[facility] Start: 12-04-2021 End: 12-04-2021 Patient encounter procedure 12/04/2021 Office Visit Family Medicine Danish Hughes MD [address] [place] [address] [address] [place] [address] [facility] FAMILY [facility] Start: 09-04-2021 COVID-19 Vaccine (3 - Booster for Pfizer series) COVID-19 Vaccine (3 - Booster for Pfizer series) [facility] Start: 06-25-2021 End: 06-25-2021 Patient encounter procedure 06/25/2021 Office Visit Family Medicine Danish Hughes MD [address] [place] [address] [facility] Start: 05-30-2021 COVID-19 Vaccine (3 - Booster for Pfizer series) COVID-19 Vaccine (3 - Booster for Pfizer series) [facility] Start: 04-29-2021 HIV screen HIV screen [place], [place] Comment on above: Postponed from 1987 (Patient Refus ed) Start: 04-29-2021 HIV screening HIV screen [place] Comment on above: Postponed from 1987 (Patient Refus ed) Start: 04-24-2021 HbA1c (Bld) [Mass fraction] A1C test (Diabetic or Prediabetic) [place] Start: 04-24-2021 Hemoglobin A1c measurement A1C test (Diabetic or Prediabetic) [facility] Start: 04-24-2021 Lipid panel Lipid screen [facility] Start: 03-21-2021 Influenza vaccination Flu vaccine (#1) [facility] Start: 03-17-2021 Creatinine measurement Creatinine monitoring [facility] Start: 03-17-2021 Potassium monitoring Potassium monitoring [facility] Start: 09-30-2020 Screening for malignant neoplasm of cervix Pap smear [facility] Start: 05-17-2020 End: 05-17-2020 Office Visit 05/17/2020 Office Visit Family Medicine Danish Hughes MD [address] [place] [address] [facility] Start: 05-09-2020 End: 05-09-2020 Office Visit 05/09/2020 Office Visit Cardiology Radha Tyler MD [address] [place] [address] [facility] Start: 05-04-2020 End: 05-04-2020 Appointment 05/04/2020 Appointment Stress Lab [facility] Stress Lab Start: 05-03-2020 End: 05-03-2020 Appointment 05/03/2020 Appointment Stress Lab [facility] Stress Lab Start: 04-12-2020 End: 04-12-2020 Office Visit 04/12/2020 Office Visit Family Medicine Gase, Danish Ponce MD [address] [place] [address] [address] [place] [address] [facility] Start: 03-21-2020 Influenza vaccination Flu vaccine (#1) [place] Start: 09-15-2019 Creatinine measurement Creatinine monitoring [place], [place] Start: 09-15-2019 Creatinine monitoring Creatinine monitoring [place], [place] Start: 09-15-2019 Potassium monitoring Potassium monitoring [place] Start: 03-21-2019 Influenza vaccination Flu vaccine (#1) [place] Start: 08-26-2018 A1C test (Diabetic or Prediabetic) A1C test (Diabetic or Prediabetic) [place] Start: 08-26-2018 HbA1c (Bld) [Mass fraction] A1C test (Diabetic or Prediabetic) [place] Start: 08-26-2018 Lipid panel Lipid [place] Start: 08-26-2018 Lipid screen Lipid screen [place] Start: 2017 Screening for malignant neoplasm of colon [facility] Start: 06-22-2016 DTaP/Tdap/Td vaccine (1 - Tdap) DTaP/Tdap/Td vaccine (1 - Tdap) [place] Start: 1993 Screening for malignant neoplasm of cervix Pap Smear [facility] Start: 1991 DTaP/Tdap/Td vaccine (1 - Tdap) DTaP/Tdap/Td vaccine (1 - Tdap) [place] Start: 1990 Diabetic microalbuminuria test Diabetic microalbuminuria test [facility] Start: 1990 Diabetic retinal exam Diabetic retinal exam [facility] Start: 1990 Glaucoma screening Diabetic retinal exam JOHANNE PATINO [facility] Start: 1990 Hepatitis C screening Hepatitis C screen [facility] Start: 1990 Urine screening for protein Diabetic Alb to Cr ratio (uACR) test [facility] Start: 1987 HIV screening HIV screen [facility] Start: 1982 [object Object] Diabetic foot exam [place] Start: 1982 Diabetic foot examination Diabetic foot exam [facility] Start: 1982 Diabetic retinal exam Diabetic retinal exam [facility] Start: 1978 Pneumococcal 0-64 years Vaccine (1 - PCV) Pneumococcal 0-64 years Vaccine (1 - PCV) [facility] Start: 1978 Pneumococcal 0-64 years Vaccine (1 of 1 - PPSV23) Pneumococcal 0-64 years Vaccine (1 of 1 - PPSV23) [place] Start: 1978 Pneumococcal 0-64 years Vaccine (1 of 2 - PPSV23) Pneumococcal 0-64 years Vaccine (1 of 2 - PPSV23) [facility] Start: 1972 Hepatitis C screening Hepatitis C screen [facility] Start: 1972 Screening for malignant neoplasm of colon [facility] End: 10-17-2022 Chlamydia/GC DNA, Urine [employer] Phone: Comment on above: 1 Occurrences starting 10/17/2022 until 10/17/2022 End: 04-24-2020 Continuous cardiac monitoring, >2 up to 14 days Continuous cardiac monitoring, >2 up to 14 days Cardiac Services Routine Palpitations 1 Occurrences starting 04/24/2020 until 04/24/2020 [place] Comment on above: 1 Occurrences starting 04/24/2020 until 04/24/2020 End: 01-28-2020 COVID-19 Ambulatory COVID-19 Ambulatory Lab Routine Special screening examination for viral disease 1 Occurrences starting 01/28/2020 until 01/28/2020 [place] Comment on above: 1 Occurrences starting 01/28/2020 until 01/28/2020 COVID-19 Ambulatory COVID-19 Amb ulatory Lab Routine Special screening examination for viral disease 01/28/2020 4:04 PM EDT [place] End: 10-07-2022 Culture, Urine [facility] Work Phone: Comment on above: 1 Occurrences starting 10/07/2022 until 10/07/2022 End: 10-17-2022 Culture, Urine [facility] Phone: Comment on above: 1 Occurrences starting 10/17/2022 until 10/17/2022 End: 12-18-2021 Cytopathology procedure, preparation of smear, genital source [facility] Lab Routine Encounter for annual routine gynecological examination 1 Occurrences starting 12/18/2021 until 12/18/2021 [facility] Phone: Comment on above: 1 Occurrences starting 12/18/2021 until 12/18/2021 EKG 12 Lead EKG 12 Lead ECG STAT 03/17/2020 8:39 PM EDT [facility] [place] End: 10-17-2022 Hepatitis Panel, Acute [facility] Phone: Comment on above: 1 Occurrences starting 10/17/2022 until 10/17/2022 End: 10-17-2022 Herpes Profile [facility] Phone: Comment on above: 1 Occurrences starting 10/17/2022 until 10/17/2022 End: 12-18-2021 Surgical Pathology Surgical Pathology Lab Routine Abnormal perimenopausal bleeding 1 Occurrences starting 12/18/2021 until 12/18/2021 [facility] Phone: Comment on above: 1 Occurrences starting 12/18/2021 until 12/18/2021 End: 12-18-2021 SURGICAL PATHOLOGY REPORT SURGICAL PATHOLOGY REPORT Lab Routine Once for 1 Occurrences starting 12/18/2021 until 12/18/2021 [facility] Phone: Comment on above: Once for 1 Occurrences starting 12/19/19 until 12/18/2021 End: 10-17-2022 T. Pallidum Ab [employer] Phone: Comment on above: 1 Occurrences starting 10/17/2022 until 10/17/2022 End: 08-07-2023 Urinalysis with Reflex to Culture Urinalysis with Reflex to Culture Lab Routine One Time for 1 Occurrences starting 08/07/2023 until 08/07/2023 JOHANNE PATINO [facility] Comment on above: One Time for 1 Occurrences starting 07/21 until 08/07/2023 Immunizations Immunization Date Immunization Notes Care Provider Brianna morejon 05-06-2017 Influenza Vaccine, unspecified formulation [address] 05-06-2017 influenza virus vaccine, unspecified formulation Jonny Naresh DO Work Phone: [facility] 06-21-2016 Td, unspecified formulation [address], [place] 04-21-2016 tetanus toxoid, redu marvin diphtheria toxoid, and acellular pertussis vaccine, adsorbed Danish Gase [facility], [place] 05-21-2007 pneumococcal conjuga te vaccine, [address] 10-28-1996 hepatitis B vaccine, adult dosage [address] 10-26-1996 Td, unspecified formulation [address] 06-02-1996 hepatitis B vaccine, adult dosage [address] 04-16-1996 hepatitis B vaccine, adult dosage [address] Payers Date Payer Category Payer Unknown [id number] 2022 Unknown 2021 Private Health Insurance [id number]. [id number] 2021 Private Health Insurance 2019 Unknown [employer] xxxxxxxxx 2019-Present [phone] [place] [address] xxxxxxxxx [id number] [id number] 2019 Unknown [place] [employer] xxxxxxxx 2019-Present [phone] [place] [address] xxxxxxxx [id number]. [id number] 2018 Unknown BCBS BCBS OUT OF STATE [id number] 2018-Present [address] [place] [address] [id number] [id number]. [id number] 2018 Unknown BCBS BCBS OUT OF STATE [id number] 2018-Present [address] [place] [address] [id number] 1.2.840.440819.1.13.239. 2.7.3.704466.315 1972 Unknown [id number] 2.840.1.065131.3.579. 2. 1972 Unknown [id number] 2.840.1.646183.3.579. 2. 1972 Unknown [id number] 2.16840.1.559577.3.579. 2. 1972 Unknown [id number] 2.840.1.175750.3.579. 2. 1972 Unknown [id number] 2.840.1.091302.3.579. 2. 1972 Unknown [id number] 2.840.1.955314.3.579. 2. 1972 Unknown [id number] 2.16840.1.987150.3.579. 2. 1972 Unknown [id number] 2.16840.1.943794.3.579. 2. 1972 Unknown [id number] 2.16840.1.226927.3.579. 2. 1972 Unknown [id number] 2.16840.1.852673.3.579. 2. 1972 Unknown [id number] 2.16840.1.796369.3.579. 2.196 1972 Unknown [id number] 2.16840.1.375891.3.579. 2.196 1972 Unknown [id number] 2.16.840.1.751263.3.579. 2.196 1972 Unknown [id number] 2.16840.1.271761.3.579. 2.196 1972 Unknown [id number] 2.16840.1.576521.3.579. 2.196 1972 Unknown [id number] 2.840.1.021956.3.579. 2.196 1972 Unknown [id number] 2.840.1.189503.3.579. 2.196 1972 Unknown [id number] 2.840.1.909475.3.579. 2.196 1972 Unknown [id number] 2.16840.1.707452.3.579. 2.196 1972 Unknown [id number] 2.16840.1.210093.3.579. 2.196 1972 Unknown [id number] 2.16840.1.205305.3.579. 2.174 1972 Unknown [id number] 2.16840.1.126759.3.579. 2.173 1972 Unknown [id number] 2.16840.1.623558.3.579. 2.173 1972 Unknown [id number] 2.16840.1.431869.3.579. 2.173 1972 Unknown [id number] 2.16840.1.592585.3.579. 2. 1972 Unknown [id number] 2.16840.1.856896.3.579. 2. 1972 Unknown [id number] 2.16840.1.815344.3.579. 2.173 1972 Unknown [id number] 2.16.840.1.820828.3.579. 2.173 1972 Unknown [id number] 2.16.840.1.042338.3.579. 2.173 1972 Unknown [id number] 2.16.840.1.259367.3.579. 2.173 1972 Unknown [id number] 2.16.840.1.380185.3.579. 2.173 1972 Unknown [id number] 2.16.840.1.817963.3.579. 2.173 1972 Unknown [id number] 2.16.840.1.192156.3.579. 2.173 1972 Unknown [id number] 2.16.840.1.939616.3.579. 2.173 1972 Unknown [id number] 2.16.840.1.276306.3.579. 2.1259 1972 Unknown [id number] 2.16.840.1.501483.3.579. 2.1259 Self-pay Social History Date Type Detail Facility Start: 06-30-2012 End: 01-11-2020 Tobacco smoking status WVIS Never smoker [place] Start: 06-30-2012 End: 01-11-2020 Tobacco use and exposure Never used [place] Start: 01-11-2020 End: 10-17-2022 Alcohol intake Current non-drinker of alcohol (finding) [place] Start: 09-07-2019 History SDOH Financial 4 [place] Start: 09-07-2019 End: 10-07-2022 History SDOH Food Worry 1 [place] Start: 06-30-2012 Alcohol Comment occassionally [place] Start: 1972 Sex Assigned At Not on file M [place] Start: 11-17-2021 End: 11-27-2021 Exposure to SARS-CoV-2 (event) Not sure [facility] [place], [place] Start: 09-15-2018 End: 10-07-2022 Alcohol intake No [facility] Start: 06-25-2021 End: 10-07-2022 History SDOH Financial 5 [facility] Work Phone: Start: 10-07-2022 History SDOH Transport Non-Med 2 [facility] Work Phone: Start: 06-11-2023 Alcohol intake Ex-drinker (finding) [facility] Start: 10-07-2022 End: 06-11-2023 History of Social function [facility] How hard is it for you to pay for the very basics like food, housing, medical care, and heating Not hard at all [facility] (I/We) worried whether (my/our) food would run out before (I/we) got money to buy more. Never true [facility] At any time in the past 12 months, were you homeless or living in senior care [including now]? No [facility] Tobacco smoking status NHIS Tobacco smoking consumption unknown [facility] History of Present illness Narrative 08-25-2023 Jonny Infante DO - 08/25/2023 9:10 AM EST Note Date & Type Note Facility 08-25-2023 History of Presen t illness Narrative Reason for Appointment: Patient ID: Chitra Campuzano is a 53 y.o. female who presents for Postmenopausal bleeding and Abdominal Cramping Patient presents today for Consult appointment. Current Medications: has a current medication list which includes the following prescription(s): buspirone, losartan, pantoprazole, duloxetine, and topiramate. Medical History: Active Ambulatory Problems Diagnosis Date Noted No Active Ambulatory Problems Resolved Ambulatory Problems Diagnosis Date Noted No Resolved Ambulatory Problems Past Medical History: Diagnosis Date Abdominal bloating Depression (CMS/HCC) Migraines (CMS/HCC) No family history on file. Social History Tobacco Use Smoking status: Not on file Smokeless tobacco: Not on file Substance Use Topics Alcohol use: Not on file Drug use: Not on file Past Surgical History: Procedure Laterality Date APPENDECTOMY SECTION, LOW TRANSVERSE x2 CHOLECYSTECTOMY GASTRIC BYPASS TUBAL LIGATION Allergies Allergen Reactions Gabapentin Stopped urnation Octacosanol Hydrocodone-Acetaminophen Other Reaction(s): Other (See Comments) Severe hallucinations Review of Systems: Review of Systems Constitutional: Negative. HENT: Negative. Eyes: Negative. Respiratory: Negative. Cardiovascular: Negative. Gastrointestinal: Positive for abdominal distention. Genitourinary: Positive for pelvic pain and vaginal bleeding. Musculoskeletal: Negative. Skin: Negative. Neurological: Negative. All other systems reviewed and are negative. Hematological: Negative. Endocrine: Negative. Allergic/Immunologic: Negative. Objective Physical Exam Constitutional: Appearance: Normal appearance. She is well-developed. Cardiovascular: Rate and Rhythm: Normal rate and regular rhythm. Pulmonary: Effort: Pulmonary effort is normal. Breath sounds: Normal breath sounds. Abdominal: General: Bowel sounds are normal. There is no distension. Palpations: Abdomen is soft. Tenderness: There is no abdominal tenderness. There is no guarding or rebound. Musculoskeletal: General: No swelling. Normal range of motion. Right lower leg: No edema. Left lower leg: No edema. Neurological: Mental Status: She is alert and oriented to person, place, and time. Skin: General: Skin is warm and dry. Psychiatric: Mood and Affect: Mood normal. Behavior: Behavior normal. Vitals and nursing note reviewed. Exam conducted with a composition instructor present. Vitals: There is no height or weight on file to calculate BMI. BP: No LMP recorded. Assessment/Plan Encounter Diagnoses Name Primary? Postmenopausal bleeding Abdominal cramping Patient presents today for post menopausal bleeding. Patient will have pelvic US done to assess vaginal bleeding. Patient to setup pre-op Documented by Faye Ashby LPN on behalf of: Jonny Infante DO documented in this encounter [facility] Discharge instructions 08-07-2023 Discharge InstructionsAttachments Note Date & Type Note Facility 08-07-2023 Hospital Discharg e instructions Kylah Verdin MD - 08/07/2023 3:30 PM EST Continue current medications as prescribed. May use [id number] antacids if needed for symptoms of heartburn. Zofran as needed for nausea or vomiting. Tylenol as needed for pain. Tramadol for pain not controlled with Tylenol. Use [id number] probiotics as directed. Follow-up with your primary care provider within 3 to 5 days if symptoms not resolved. Please return immediately should he develop any worsening symptoms or any acute concerns The following attachments cannot be sent through Care Everywhere.Abdominal Pain (Jordanian)Nausea and Vomiting (Jordanian)documented in this encounter [facility] Evaluation note Note Date & Type Note Facility Evaluation note Diagnosis Strain of hip and thigh, left, initial encounter documented in this encounter [facility] [facility] [employer] Phone: Evaluation note Note Date & Type Note Facility Evaluation note Diagnosis Encounter for screening for malignant neoplasm of breast, unspecified screening modality Essential hypertension Unspecified essential hypertension Hyperlipidemia, unspecified hyperlipidemia type Hyperglycemia Other abnormal glucose documented in this encounter [facility] [facility] Phone: Evaluation note Note Date & Type Note Facility Evaluation note Diagnosis Encounter for annual routine gynecological examination Abnormal perimenopausal bleeding Premenopausal menorrhagia documented in this encounter [facility] Phone: Evaluation note Note Date & Type Note Facility Evaluation note Diagnosis Chest pain, unspecified type documented in this encounter [facility] Phone: Evaluation note Note Date & Type Note Facility Evaluation note Diagnosis Hematuria, unspecified type Burning with urination Dysuria documented in this encounter [facility] Phone: Evaluation note Note Date & Type Note Facility Evaluation note Diagnosis Dysuria Burning with urination Dysuria STD exposure Vaginal discharge Leukorrhea, not specified as infective Wellness examination Anxiety Anxiety state, unspecified Hyperlipidemia, unspecified hyperlipidemia type Type 2 diabetes mellitus without complication, unspecified whether terminal carman insulin use (HCC) Essential hypertension Unspecified essential hypertension Urinary frequency documented in this encounter [facility] Phone: Evaluation note Note Date & Type Note Facility Evaluation note Diagnosis Nausea vomiting and diarrhea- Primary Nausea with vomiting Abdominal pain, unspecified abdominal location Screening for colon cancer Special screening for malignant neoplasms, colon documented in this encounter [facility] Evaluation note Note Date & Type Note Facility Evaluation note Diagnosis Abdominal cramping- Primary Abdominal pain, unspecified site Postmenopausal bleeding documented in this encounter [facility] Summary Purpose Family History No Family History Records FoundNo Family History Records FoundNo Family History Records FoundNo Family History Records FoundNo Family History Records FoundNo Family History Records Found Advance Directives No Advanced Directives Records FoundDocuments on File Type Date Recorded Patient Feed Management Advisor Expl anation Advance Directives and Living Will Power of Hydrostatic Tubing Tester Documents on File Type Date Recorded Patient Feed Management Advisor Expl anation ACP-Advance Directive ACP-Power of Hydrostatic Tubing Tester Documents on File Type Date Recorded Patient Feed Management Advisor Expl anation ACP-Advance Directive ACP-Power of Hydrostatic Tubing Tester Documents on File Type Date Recorded Patient Feed Management Advisor Expl anation Advance Directives and Living Will Power of Hydrostatic Tubing Tester Assessments Diagnosis Special screening examination for viral disease Special screening examination for unspecified viral disease Diagnosis Other chest pain Diagnosis Chest pain, unspecified type Diagnosis Atypical chest pain Other chest pain Obesity (BMI 35.0-39.9 without comorbidity) Obesity, unspecified Palpitations Diagnosis Palpitations Diagnosis Atypical chest pain Other chest pain Obesity (BMI 35.0-39.9 without comorbidity) Obesity, unspecified Palpitations Diagnosis Thoracic back pain, unspecified back pain laterality, unspecified chronicity Diagnosis Back pain, unspecified back location, unspecified back pain laterality, unspecified chronicity Diagnosis Low back pain, unspecified back pain laterality, unspecified chronicity, with sciatica presence unspecified Reason for Referral Status Reason Specialty Diagnoses / Procedures Referred By Contact Referred To Contact Pending Review Cardiology / EKG Diagnoses Other chest pain Procedures Holter Monitor 24 Hour Isha Aguilar, VALET MANAGER - ELECTRICAL TECH [address] [facility] [address] [facility] Ekg [address] [place] [address] Status Reason Specialty Diagnoses / Procedures Referre d By Contact Referred To Contact Open EKG Diagnoses Palpitations Procedures Continuous cardiac monitoring, >2 up to 14 days Radha Tyler MD [address] [place] [address] [place] [address] [facility] Ekg [address] [place] [address] Status Reason Specialty Diagnoses / Procedures Referred By Contact Referred To Contact Authorized Cardiology / Stress Lab Diagnoses Atypical chest pain Obesity (BMI 35.0-39.9 without comorbidity) Palpitations Procedures Stress test ([employer]isc[employer]) Radha Tyler MD [address] [place] [phone] [facility] Stress Lab [address] [place] [address] Status Reason Specialty Diagnoses / Procedures Referred By Contact Referred To Contact Closed Cardiology / Echocardiography Diagnoses Chest pain, unspecified type Procedures Echocardiogram complete [id number] ECHO Isha Aguilar, VALET MANAGER - ELECTRICAL TECH [address] [place] [address] [place] [address] [facility] Echo [address] [place] [address] Status Reason Specialty Diagnoses / Procedures Referre d By Contact Referred To Contact Open Radiology Diagnoses Back pain, unspecified back location, unspecified back pain laterality, unspecified chronicity Procedures MRI THORACIC SPINE WO CONTRAST Nae Sanchez, VALET MANAGER - ELECTRICAL TECH [address] [place] [address] Status Reason Specialty Diagnoses / Procedures Referred By Contact Referred To Contact Pending Review Radiology Diagnoses Back pain, unspecified back location, unspecified back pain laterality, unspecified chronicity Procedures MRI LUMBAR SPINE WO CONTRAST Nae Sanchez, VALET MANAGER - ELECTRICAL TECH [address] [place] [address] Specialty Diagnoses / Procedures Referred By Contac t Referred To Contact Radiology Diagnoses Encounter for screening for malignant neoplasm of breast, unspecified screening modality Essential hypertension Hyperlipidemia, unspecified hyperlipidemia type Hyperglycemia Procedures ELIAS HERLINDA DIGITAL SCREEN BILATERAL Danish Hughes MD [address] [place] [address] [address] [place] [address] Referral ID Status Reason Start Date Expiration Date Visits Re quested Visits Authorized [id number] Closed 06/25/2021 06/25/2022 1 1 Specialty Diagnoses / Procedures Referred By Contac t Referred To Contact Cardiology Diagnoses Chest pain, unspecified type Procedures EKG 12 lead Isha Aguilar, VALET MANAGER - ELECTRICAL TECH [address] [facility] [address] [place] [address] Referral ID Status Reason Start Date Expiration Date Visits Re quested Visits Authorized [id number] Open 05/21/2022 05/21/2023 1 1 History of Present Illness * Karolyn Gallo - 03/14/2020 8:00 AM EDT Explained Holter monitor and diary. documented in this encounter* Karolyn Gallo - 03/30/2020 3:00 PM EDT Explained policies and procedures of an echocardiogram/doppler study. documented in this encounter Discharge Instructions * Instructions* Aj Leonardo MD - 03/17/2020 Please take all medications as prescribed. Please follow up with your primary care physician by calling today, or as soon as possible, for thefirst available appointment. If you do not have a primary care physician, please contact a physician or clinic listed below today to establish care. Please return to the emergency department IMMEDIATELY if you develop uncontrolled fevers, uncontrolled vomiting, change in symptoms, worsening of symptoms, or ANY other concerns. * Attachments The following attachments cannot be sent through Care Everywhere. * Chest Pain (Jordanian) documented in this encounter Additional Source Comments INFORMATION SOURCE (unrecogn ized section and content) DATE CREATED AUTHOR 03/22/2018 [facility] DATE CREATED AUTHOR AUTHOR'S ORGANIZ ATION 05/24/2019 [facility] DATE CREATED AUTHOR AUTHOR'S ORGANIZ ATION 06/13/2023 [facility] DATE CREATED AUTHOR AUTHOR'S ORGANIZ ATION 06/15/2023 [facility] Alexandr juarez DATE CREATED AUTHOR AUTHOR'S ORGANIZ ATION 08/21/2023 [facility] DATE CREATED AUTHOR AUTHOR'S ORGANIZ ATION 09/20/2023 [facility] Reason for Visit (unrecogniz ed section and content) Status Reason Specialty Diagnoses / Procedures Referred By Contact Referred To Contact Pending Review Cardiology / EKG Diagnoses Other chest pain Procedures Holter Monitor 24 Hour Isha Aguilar, VALET MANAGER - ELECTRICAL TECH [address] [facility] [address] [place] [address] [place] [id number] [facility] Ekg [address] [place] [address] Reason Comments Chest Pain ongoing for 1 week, has seen PCP for same complaint, pain continues. Status Reason Specialty Diagnoses / Procedures Referre d By Contact Referred To Contact Open EKG Diagnoses Palpitations Procedures Continuous cardiac monitoring, >2 up to 14 days Radha Tyler MD [address] [place] [address] [address] [place] [phone] [facility] Ekg [address] [place] [address] Status Reason Specialty Diagnoses / Procedures Referred By Contact Referred To Contact Authorized Cardiology / Stress Lab Diagnoses Atypical chest pain Obesity (BMI 35.0-39.9 without comorbidity) Palpitations Procedures Stress test (Lexiscan) Radha Tyler MD [address] [place] [address] [address] [place] [phone] [facility] Stress Lab [address] [place] [address] Status Reason Specialty Diagnoses / Procedures Referred By Contact Referred To Contact Closed Cardiology / Str ess Lab Diagnoses Atypical chest pain Obesity (BMI 35.0-39.9 without comorbidity) Palpitations Procedures Stress test (Lexiscan) Radha Tyler MD [address] [place] [address] Dr [place] [phone] [facility] Stress Lab [address] [place] [address] Status Reason Specialty Diagnoses / Procedures Referred By Contact Referred To Contact Closed Cardiology / Echocardiography Diagnoses Chest pain, unspecified type Procedures Echocardiogram complete [id number] ECHO Isha Aguilar, VALET MANAGER - ELECTRICAL TECH [address] [facility] [place] [address] [facility] Echo [address] [place] [address] Status Reason Specialty Diagnoses / Procedures Referre d By Contact Referred To Contact Closed Radiology Diagnoses Strain of muscle, fascia and tendon of lower back, subsequent encounter Strain of muscle and tendon of back wall of thorax, subsequent encounter Procedures HC MRI THORACIC SPINE WO CTRST Nae Sanchez, VALET MANAGER - ELECTRICAL TECH [address] [id number] [facility] [address] [place] [address] Status Reason Specialty Diagnoses / Procedures Referre d By Contact Referred To Contact Closed Radiology Diagnoses Strain of muscle, fascia and tendon of lower back, subsequent encounter Strain of muscle and tendon of back wall of thorax, subsequent encounter Procedures HC MRI-SPINE LUMBAR WO CONTRAST Nae Sanchez, VALET MANAGER - [employer] [address] [id number] [facility] [address] [place] [address] Specialty Diagnoses / Procedures Referred By Contac t Referred To Contact Radiology Diagnoses Encounter for screening mammogram for malignant neoplasm of breast Procedures ELIAS DIGITAL SCREEN W OR WO CAD BILATERAL Isha Aguilar, VALET MANAGER - [employer]LECT[employer] TE[employer] [address] [place] [address] Dr [address] [place] [address] Referral ID Status Reason Start Date Expiration Date V isits Requested Visits Authorized [id number] Pending Review 12/10/2020 12/10/2021 1 1 Reason Comments Emesis Onset yesterday at a pprox 1800, states she has stomach acid coming out Diarrhea Onset at approx 1800 Abdominal Pain Reason Comments Postmenopausal bleeding Abdominal Cramping Care Teams (unrecognized sec tion and content) Recoil Spring Winder Relationship Specialty Start Date End Date Danish Hughes MD [address] [place] [address] Dr [address] [place] [address] PCP - General 04/07/12 Recoil Spring Winder Relationship Specialty Start Date End Date Danish Hughes MD [address] [place] [address] Dr [address] [place] [id number] PCP - General 04/07/12 Recoil Spring Winder Relationship Specialty Start Date End Date Danish Hughes MD [address] [place] [address] Dr [address] [place] [address] PCP - General 04/07/12 Recoil Spring Winder Relationship Specialty Start Date End Date Danish Hughes MD [address] [facility] [address] [place] [address] PCP - General 04/07/12 Recoil Spring Winder Relationship Specialty Start Date End Date Isha Aguilar, VALET MANAGER - [employer]LECT[employer] [address] [place] [address] [address] [place] [address] PCP - General Family Nurse Practitioner 05/21/22 Recoil Spring Winder Relationship Specialty Start Date End Date Isha Aguilar, VALET MANAGER - ELECTRICAL TECH [address] [facility] [address] [place] [address] PCP - General Family Nurse Practitioner 07/30/22 Recoil Spring Winder Relationship Specialty Start Date End Date Isha Aguilar, VALET MANAGER - ELECTRICAL TECH [address] [facility] [address] [place] [address] PCP - General Family Nurse Practitioner 07/30/22 Recoil Spring Winder Relationship Specialty Start Date End Date Isha Aguilar, VALET MANAGER - ELECT[employer]CH [address] [place] [address] [address] [place] [address] PCP - General Family Nurse Practitioner 07/30/22 Ordered Prescriptions (unrec ognized section and content) Prescription Sig Dispensed Refills Start Date End Da te traMADol (ULTRAM) 50 MG tabletIndications:Nausea vomiting and diarrhea,Abdominal pain, unspecified abdominal location Take 1 tablet by mouth every 6 hours as needed for Pain for up to 3 days. Intended supply: 3 days. Take lowest dose possible to manage pain Max Daily Amount: 200 mg 12 tablet 0 08/07/2023 08/10/2023 ondansetron (ZOFRAN-ODT) 4 MG disintegrating tablet Take 1 tablet by mouth 3 times daily as needed for Nausea or Vomiting 20 tablet 0 08/07/2023 Scheduled Active and Recently Administ ered Medications (unrecognized section and content) Medication Order 08/05/2023 08/06/2023 08/07/2023 famotidine (PEPCID) 20 mg in sodium chloride (PF) 0.9 % 10 mL injection (COMPLETED) 20 mg, IntraVENous, ONCE, 1 dose, On Jazzy 24 at 1230, IV Push over minimum of 2 minutes - Dilute with 10 mL NS 1313 (Given - Provid er: Deena Ordonez RN) ketorolac (TORADOL) injection 30 mg (COMPLETED) 30 mg, IntraVENous, ONCE, 1 dose, On Jazzy 24 at 1500, Do not administer for more than 5 days. 1524 (Given - Provid er: Deena Ordonez RN) ondansetron (ZOFRAN) injection 4 mg (COMPLETED) 4 mg, IntraVENous, ONCE, 1 dose, On Jazzy 24 at 1230 1313 (Given - Provid er: Deena Ordonez RN) sodium chloride 0.9 % bolus 1,000 mL (COMPLETED) 1,000 mL (11.2 mL/kg), IntraVENous, at 983.6 mL/hr, Administer over 61 Minutes, ONCE, On Jazzy 24 at 1230, For 1 dose 1312 (New Bag - Prov ider: Deena Ordonez RN)1413 (Stopped - Provider: Deena Ordonez RN) PRN Medication Order 08/05/2023 08/06/2023 08/07/2023 iopamidol (ISOVUE-370) 76 % injection 75 mL (COMPLETED) 75 mL, IntraVENous, IMG ONCE PRN, 1 dose, Starting on Jazzy 08/07/23 at 1238, Until Jazzy 08/07/23 at 1243, Other 1243 (Given - Provid er: Joanne Hyman) FOR RECORDS PERTAINING TO PATIENTS WHO ARE OR HAVE BEEN ENROLLED IN A CHEMICAL DEPENDENCY/SUBSTANCEABUSE PROGRAM, SOME INFORMATION MAY BE OMITTED. This clinical summary was aggregated from multiple sources. Caution should be exercised in using it in the provision of clinical care. This summary normalizes information from multiple sources, and as a consequence, information in this document may materially change the coding, format and clinical context of patient data. In addition, data may be omitted in some cases. CLINICAL DECISIONS SHOULD BE BASED ON THE PRIMARY CLINICAL RECORDS. [employer] [facility]. provides no warranty or guarantee of the accuracy or completeness of information in this document.
== END 2023-09-26 10:53 | disposition home or self-care (01) ==
PROVIDERS: Visit Provider Obstetrics & Gynecology
DX: Z01.810 Encounter for preprocedural cardiovascular examination (principal); R93.89 Abnormal findings on diagnostic imaging of other specified body structures; D25.9 Leiomyoma of uterus, unspecified; N83.202 Unspecified ovarian cyst, left side; R10.2 Pelvic and perineal pain
CPT/HCPCS: 93005

== ENCOUNTER 2023-10-10 07:03 | Day surgery (SDC) | payer BC, SELFPAY ==
[2023-09-26 11:25] VITALS: BP 142/90; PULSE 78; RESP 16; TEMP 36.3; O2SAT 99; BMI 34.8
[2023-10-10] VITALS (14 sets, daily range): BP systolic 119–161; BP diastolic 64–93; PULSE 59–80; RESP 10–20; TEMP 36.2–36.3; O2SAT 93–100; BMI 35.8
--- OUTSIDE RECORDS SUMMARY | 2023-10-10 07:06 | XMS_ITS | CCD ---
Author Organization [facility] Care Team Providers Care Sugar Refinery Supervisor Name Role Phone Saul Danish J Primary Care Provider Enrico ELMORE - Isha ALMAGUER Primary Care Provide r Enrico ELMORE - Isha ALMAGUER Primary Care Provide r ISHA AGUILAR Primary Care Unavailable MEGHA KRUSE Admitting Unavailable MEGHA KRUSE Attending Unavailable Enrico ELMORE - Isha ALMAGUER Primary Care Provide r ISHA AGUILAR Primary Care Unavailable YULI ANDUJAR Referring Unavailable ISHA AGUILAR M Primary Care Unavailable MEAGHAN AGUILARH M Referring Unavailable MEAGHAN AGUILARH M Primary Care Unavailable YULI ANDUJAR Attending Unavailable YULI ANDUJAR Referring Unavailable MEAGHAN AGUILARH M Primary Care Unavailable MEAGHAN AGUILARH M Referring Unavailable MEAGHAN AGUILARH M Primary Care Unavailable MEAGHAN AGUILARH M Referring Unavailable JANN SINGHFAN Referring Unavailable HEATHER AGUILARNAH M Primary Care Unavailable SAMANTHA FALGUNI Referring Unavailable MEAGHAN AGUILARH M Primary Care Unavailable HEATHER AGUILARNAH M Referring Unavailable MEAGHAN AGUILARH M Primary Care Unavailable TIM KRUSEIAN Lan Referring Unavailable MEAGHAN AGUILARH M Primary Care Unavailable MEAGHAN AGUILARH M Primary Care Unavailable KYLAH JIMENEZ~[id number] YOANNA Attending ISHA Beltran Primary Care Unavailable CAYLA AREVALO Referring Unavailable ISHA AGUILAR M Referring Unavailable MEAGHAN AGUILARH M Primary Care Unavailable AGUILAR, ISHA M Primary Care Unavailable YULI ANDUJAR Referring Unavailable Unavailable Primary Care Provider UnavailJONNY Newman Attending Unavailable JONNY INFANTE Attending Unavailable Aguilar MANGANESE WHEELER-SOLDERER, [facility] Primary Care Un available David DO, Reza Green Attending Unavailab le Aguilar MANGANESE WHEELER-SOLDERER, [facility] Primary Care Un available David DO, Reza Green Attending Unavailab le Aguilar MANGANESE WHEELER-SOLDERER, [facility] Primary Care Un available Justen Hernandez Attending Unavail able Aguilar MANGANESE WHEELER-SOLDERER, [facility] Primary Care Un available David DO, Reza Green Attending Unavailab le Aguilar MANGANESE WHEELER-SOLDERER, [facility] Primary Care Un available David DO, Reza Green Attending Unavailab le David DO, Reza Green Attending Unavailab le Aguilar MANGANESE WHEELER-SOLDERER, [facility] Primary Care Un available David DO, Reza Green Attending Unavailab le Aguilar MANGANESE WHEELER-SOLDERER, [facility] Primary Care Un available David DO, Reza Green Attending Unavailab le Aguilar MANGANESE WHEELER-SOLDERER, [facility] Primary Care Un available David DO, Reza Green Attending Unavailab le Aguilar MANGANESE WHEELER-SOLDERER, [facility] Primary Care Un available David DO, Reza Green Attending Unavailab le Aguilar MANGANESE WHEELER-SOLDERER, [facility] Primary Care Un available Justen Hernandez Attending Unavail able Aguilar MANGANESE WHEELER-SOLDERER, [facility] Primary Care Un available Allergies Allergy Classification Reported Allergen(s) Allergy Type Date of Onset Reaction(s) Facility (20 sources) Acetaminophen / HYDROcodone Drug Allergy 01-12-20 13 Other (See Comments) [place] (20 sources) gabapentin Drug Allergy 09-02-19 15 [place] (20 sources) Seasonal allergy Propensity to adverse reactions to substance 06-30-20 12 [place] (13 sources) Other Propensity to adverse reactions 06-30-20 12 [place] (1 source) Octacosanol Drug Intolerance 06-30-20 12 [facility] (1 source) Acetaminophen / HYDROcodone; Translations: [Vicodin] Drug Allergy [facility] Repository (1 source) gabapentin; Translations: [Neurontin] Drug Allergy [facility] Repository NEGATED: Highlighted row has been ruled out! (8 sources) Other Propensity to adverse reactions 06-30-20 [facility] Medications Current Medications Medication Drug Class(es) [...] Start: 12-08-2019 take 1 capsule by mo [facility] once daily DULoxetine (CYMBALTA) 30 MG extended release capsule TAKE ONE CAPSULE BY MOUTH DAILY 90 capsule 3 06/05/2020 Active Estrogens, Conjugated (LONG TERM) / medroxyPROGESTERone (1 source) Progestin, Estrogen Start: [...] Start: 09-02-2022 take 2 tablets by mo [facility] once [...] with Auto Differentialon 08-07-2023 Basophils (Bld) [#/Vol] [facility] Basophils/100 WBC (Bld) 0 % 0 - 2 % [facility] Eosinophils (Bld) [#/Vol] [facility] Eosinophils/100 WBC (Bld) 0 % Low 1 - 4 % [facility] Erythrocyte distribution width (RBC) [Ratio] 12.4 % 11.8 - 14.4 % [facility] Hematocrit (Bld) [Volume fraction] 41.3 % 36.3 - 47.1 % [facility] Hemoglobin (Bld) [Mass/Vol] 13.3 g/dL 11.9 - 15.1 g/dL [facility] Immature granulocytes (Bld) [#/Vol] 0.04 10*3/uL [facility] Immature granulocytes/100 WBC (Bld) 1 % High 0 [facility] Interpretation and review of laboratory results Abnormal [facility] Lymphocytes/100 WBC (Bld) 11 % Low 24 - 43 % [facility] Lymphocytes/100 WBC (Bld) 0.50 % Low [facility] MCH (RBC) [Entitic mass] 30.2 pg 25.2 - 33.5 pg [facility] MCHC (RBC) [Mass/Vol] 32.2 g/dL 28.4 - 34.8 g/dL [facility] MCV (RBC) [Entitic vol] 93.7 fL 82.6 - 102.9 fL [facility] Monocytes/100 WBC (Bld) 6 % 3 - 12 % [facility] Monocytes/100 WBC (Bld) 0.29 % [facility] Neutrophils/100 WBC (Bld) 82 % High 36 - 65 % [facility] Nucleated RBC/100 WBC (Bld) [Ratio] 0.0 % 0.0 per 100 WBC [facility] Platelet mean volume (Bld) [Entitic vol] 10.1 fL 8.1 - 13.5 fL [facility] Platelets (Bld) [#/Vol] 163 10*3/uL [facility] RBC (Bld) [#/Vol] 4.41 10*6/uL 3.95 - 5.1 1 m/uL [facility] Segmented neutrophils/100 WBC (Bld) 3.81 % [facility] WBC other (Bld) [#/Vol] 4.7 [facility] CBC with Diffon 08-07-2023 Abs. Basophil <0.03 Normal 0.00-0.20 [facility] Comment on above: Performed By: #### U AX, UMICAO #### [facility] [address] [place] [address] [employer]: Nemesio Galicia MD #### URNMAB #### [address] [place], [place] [phone] [employer]: Lionel Badillo MD Abs. Eosinophil <0.03 Normal 0.00-0.44 [facility] Comment on above: Performed By: #### U AX, UMICAO #### [facility] [address] [place] [address] [address] [place] [phone] [employer]: Nemesio Galicia MD #### URNMAB #### [address] [place], [place] [phone] [employer]: Lionel Badillo MD Abs.Imm.Granulocyte 0.04 k/uL Normal 0.00-0.30 [facility] Comment on above: Performed By: #### U AX, UMICAO #### [facility] [address] [place] [address] [address] [place] [phone] [employer]: Nemesio Galicia MD #### URNMAB #### [address] [place] [address] [employer]: Lionel Badillo MD Abs.Neutrophil (Seg) 3.81 k/uL Normal 1.50-8.10 [facility] Comment on above: Performed By: #### U AX, UMICAO #### [facility] [address] [place] [address] [address] [place] [phone] [employer]: Nemesio Galicia MD #### URNMAB #### [address] [place] [address] [employer]: Lionel Badillo MD Basophils/100 WBC (Bld) 0 % Normal 0-2 [facility] Comment on above: Performed By: #### U AX, UMICAO #### [facility] [address] [place], [place] [phone] [employer]: Nemesio Galicia MD #### URNMAB #### [address] [place] [address] [employer]: Lionel Badillo MD Eosinophils/100 WBC (Bld) 0 % Low 1-4 [facility] Comment on above: Performed By: #### U AX, UMICAO #### [facility] [address] [place] [address] [address] [place], [place] [phone] [employer]: Nemesio Galicia MD #### URNMAB #### [address] [address] [employer]: Lionel Badillo MD Erythrocyte distribution width (RBC) [Ratio] 12.4 % Normal 11.8-14.4 [facility] Comment on above: Performed By: #### U AX, UMICAO #### [facility] [address] [place] [address] [address]. [place], [place] [phone] [employer]: Nemesio Galicia MD #### URNMAB #### [address] [place] [address] [employer]: Lionel Badillo MD Hematocrit (Bld) [Volume fraction] 41.3 % Normal 36.3-47.1 [facility] Comment on above: Performed By: #### U AX, UMICAO #### [facility] [address] [place] [address] Dr[address] [place], [place] [phone] [employer]: Nemesio Galicia MD #### URNMAB #### [address] [address] [employer]: Lionel Badillo MD Hemoglobin (Bld) [Mass/Vol] 13.3 g/dL Normal 11.9-15.1 [facility] Comment on above: Performed By: #### U AX, UMICAO #### [facility] [address] [place], [place] [phone] [employer]: Nemesio Galicia MD #### URNMAB #### [address] [address] [employer]: Lionel Badillo MD Immature granulocytes/100 WBC (Bld) 1 % High 0 [facility] Comment on above: Performed By: #### U AX UMICAO #### [facility] [address] [place] [phone] [employer]: Nemesio Galicia MD #### URNMAB #### [address] [address] [employer]: Lionel Badillo MD Lymphocytes (Bld) [#/Vol] 0.50 10*3/uL Low 1.10-3.70 [facility] Comment on above: Performed By: #### U AX, UMICAO #### [facility] [address] [place], [place] [phone] [employer]: Nemesio Galicia MD #### URNMAB #### [address] [address] [employer]: Lionel Badillo MD Lymphocytes/100 WBC (Bld) 11 % Low 24-43 [facility] Comment on above: Performed By: #### U AX, UMICAO #### [facility] [address] [place], [place] 1580983 [employer]: Nemesio Galicia MD #### URNMAB #### [address] [address] [employer]: Lionel Badillo MD MCH (RBC) [Entitic mass] 30.2 pg Normal 25.2-33.5 [facility] Comment on above: Performed By: #### U IRVING MATTHEW #### [facility] [address] [place] [address] [address] [place] [phone] [employer]: Nemesio Galicia MD #### URNMAB #### [address] [place], [place] [phone] [employer]: Lionel Badillo MD MCHC (RBC) [Mass/Vol] 32.2 g/dL Normal 28.4-34.8 [facility] Comment on above: Performed By: #### IRVING LEÓN #### [address] [place] [phone] [employer]: Nemesio Galicia MD #### URNMAB #### [address] [address] [employer]: Lionel Badillo MD MCV (RBC) [Entitic vol] 93.7 fL Normal 82.6-102.9 [facility] Comment on above: Performed By: #### IRVING LEÓN #### [address] [place] [phone] [employer]: Nemesio Galicia MD #### URNMAB #### [address] [address] [employer]: Lionel Badillo MD Monocytes (Bld) [#/Vol] 0.29 10*3/uL Normal 0.10-1.20 [facility] Comment on above: Performed By: #### U LEE MATTHEWO #### [address] [place] [address] [employer]: Nemesio Galicia MD #### URNMAB #### [address] [phone] [employer]: Lionel Badillo MD Monocytes/100 WBC (Bld) 6 % Normal 3-12 [facility] Comment on above: Performed By: #### IRVING LEÓN #### [facility] [address] [place], [place] 3037583 [employer]: Nemesio Galicia MD #### URNMAB #### [address] [address] [employer]: Lionel Badillo MD Neutrophil (Seg) 82 % High 36-65 [facility] Comment on above: Performed By: #### IRVING LEÓN #### [facility] [address] [place] [address] Dr. [place], [place] [phone] [employer]: Nemesio Galicia MD #### URNMAB #### [address] [address] [employer]: Lionel Badillo MD NRBC Automated 0.0 per 100 WBC Normal 0.0 [facility] Comment on above: Performed By: #### IRVING LEÓN #### [address] [place], [place] 4163283 [employer]: Nemesio Galicia MD #### URNMAB #### [address] [address] [employer]: Lionel Badillo MD Platelet mean volume (Bld) [Entitic vol] 10.1 fL Normal 8.1-13.5 [facility] Comment on above: Performed By: #### IRVING LEÓN #### [facility] [address] [place] [address] Dr[address] [place], [place] [phone] [employer]: Nemesio Galicia MD #### URNMAB #### [address] [phone] [employer]: Lionel Badillo MD Platelets (Bld) [#/Vol] 163 10*3/uL Normal 138-453 [facility] Comment on above: Performed By: #### U LEE MATTHEWO #### [address] [place], [place] 8078583 [employer]: Nemesio Galicia MD #### URNMAB #### [address] [phone] [employer]: Lionel Badillo MD RBC (Bld) [#/Vol] 4.41 10*6/uL Normal 3.95-5.11 [facility] Comment on above: Performed By: #### LEE LEÓNO #### [address] [place] [address] [employer]: Nemesio Galicia MD #### URNMAB #### [address] [address] [employer]: Lionel Badillo MD WBC (Bld) [#/Vol] 4.7 10*3/uL Normal 3.5-11.3 [facility] Comment on above: Performed By: #### LEE LEÓNO #### [address] [place] [address] [employer]: Nemesio Galicia MD #### URNMAB #### [address] [phone] [employer]: Lionel Badillo MD CT ABDOMEN PELVIS W [...] Jj Matthew MD 08/07/23 Final result Normal [facility] CT Abdomen and Pelvis W cont rast Porfirio 08-07-2023 1. No acute intra-abdominal or pelvic process. 2. Status post sleeve gastrectomy. Mild hiatal hernia. 3. Left adnexal cyst measures 4 cm. 4. Mild constipation. 5. Previously noted small pulmonary nodule right lower lobe not seen in today's exam and possibly is out of the field of view. [facility] RIS CONSOLIDATED EXAMINATION: CT OF THE ABDOMEN [...] mesenteric findings. Bones/Soft Tissues: No acute abnormality. [facility] RIS CONSOLIDATED Jj Matthew MD - 08/07/2023 EXAMINATION: [...] is out of the field of view. [facility] Radiology Study observation (narrative) [facility] CT Abdomen and Pelvis W cont rast IVOrdered By: Jj Matthew on 08-07-2023 JOHANNE SUKUMAR [facility] Work Phone: Comp Metabolic Profon 2023 Albumin [Mass/Vol] 3.7 g/dL Normal 3.5-5.2 [facility] Comment on above: Performed By: #### U AX, UMICAO #### [facility] [address] [place], [place] [phone] [employer]: Nemesio Galicia MD #### URNMAB #### [address] [place] [address] [employer]: Lionel Badillo MD Albumin/Glob Ratio 1.3 Normal 1.0-2.5 [facility] Comment on above: Performed By: #### U AX, UMICAO #### [facility] [address] [place], [place] [phone] [employer]: Nemesio Galicia MD #### URNMAB #### [address] [place] [address] [employer]: Lionel Badillo MD Alkaline Phos 74 U/L Normal 35-104 [facility] Comment on above: Performed By: #### U AX, UMICAO #### [facility] [address] [place], [place] 4122483 [employer]: Nemesio Galicia MD #### URNMAB #### [facility] [address] [place] [address] [employer]: Lionel Badillo MD ALT [Catalytic activity/Vol] 8 U/L Normal 5-33 [facility] Comment on above: Performed By: #### U AX, UMICAO #### [facility] [address] [place], [place] [phone] [employer]: Nemesio Galicia MD #### URNMAB #### [address] [place] [address] [employer]: Lionel Badillo MD Anion gap [Moles/Vol] 8 mmol/L Low 9-17 [facility] Comment on above: Performed By: #### U AX UMICAO #### [facility] [address] [place], [place] 1138383 [employer]: Nemesio Galicia MD #### URNMAB #### [facility] [address] [place] [address] [employer]: Lionel Badillo MD AST [Catalytic activity/Vol] 13 U/L Normal <32 [facility] Comment on above: Performed By: #### U HALIMA MATTHEWICAO #### [facility] [address] [place], [place] [phone] [employer]: Nemesio Galicia MD #### URNMAB #### [facility] [address] [place] [address] [employer]: Lionel Badillo MD Bilirubin [Mass/Vol] 0.3 mg/dL Normal 0.3-1.2 [facility] Comment on above: Performed By: #### U HALIMA MATTHEWICAO #### [facility] [address] [place], [place] [address] [employer]: Nemesio Galicia MD #### URNMAB #### [facility] [address] [place] [address] [employer]: Lionel Badillo MD BUN/CRE Ratio 12 Normal 9-20 [facility] Comment on above: Performed By: #### U HALIMA MATTHEWICAO #### [facility] [address] [place], [place] 3667583 [employer]: Nemesio Galicia MD #### URNMAB #### [facility] [address] [place] [address] [employer]: Lionel Badillo MD Calcium [Mass/Vol] 8.7 mg/dL Normal 8.6-10.4 [facility] Comment on above: Performed By: #### U AX, UMICAO #### [facility] [address] [place] [address] [employer]: Nemesio Galicia MD #### URNMAB #### [address] [phone] [employer]: Lionel Badillo MD Chloride [Moles/Vol] 104 mmol/L Normal 98-107 [facility] Comment on above: Performed By: #### U AX UMICAO #### [facility] [address] [place], [place] 1487383 [employer]: Nemesio Galicia MD #### URNMAB #### [address] [phone] [employer]: Lionel Badillo MD CO2 [Moles/Vol] 25 mmol/L Normal 20-31 [facility] Comment on above: Performed By: #### U AX UMICAO #### [facility] [address] [place] [address] [place] [address] [employer]: Nemesio Galicia MD #### URNMAB #### [address] [phone] [employer]: Lionel Badillo MD Creatinine [Mass/Vol] 0.9 mg/dL Normal 0.5-0.9 [facility] Comment on above: Performed By: #### U AX, UMICAO #### [facility] [address] [place], [place] [phone] [employer]: Nemesio Galicia MD #### URNMAB #### [address] [phone] [employer]: Lionel Badillo MD GFR/1.73 sq M.predicted among non-blacks MDRD (S/P/Bld) [Vol rate/Area] mL/min/{1.73_m2} Normal >60 [facility] Comment on above: Result Comment: These [...] Performed By: #### U AX, UMICAO #### [facility] [address] [place] [address] [employer]: Nemesio Galicia MD #### URNMAB #### [address] [phone] [employer]: Lionel Badillo MD Glucose [Mass/Vol] 91 mg/dL Normal 70-99 [facility] Comment on above: Performed By: #### U AX, UMICAO #### [facility] [address] [place], [place] 0195983 [employer]: Nemesio Galicia MD #### URNMAB #### [address] [phone] [employer]: Lionel Badillo MD Potassium [Moles/Vol] 3.7 mmol/L Normal 3.7-5.3 [facility] Comment on above: Performed By: #### U AX, UMICAO #### [facility] [address] [place], [place] 8884583 [employer]: Nemesio Galicia MD #### URNMAB #### [address] [address] [employer]: Lionel Badillo MD Protein [Mass/Vol] 6.5 g/dL Normal 6.4-8.3 [facility] Comment on above: Performed By: #### U AX, UMICAO #### [facility] [address] [place] [address] [employer]: Nemesio Galicia MD #### URNMAB #### [facility] [address] [place], [place] [phone] [employer]: Lionel Badillo MD Sodium [Moles/Vol] 137 mmol/L Normal 135-144 [facility] Comment on above: Performed By: #### IRVING LEÓN #### [facility] [address] [place] [address] [employer]: Nemesio Galicia MD #### URNMAB #### [address] [place], [place] [phone] [employer]: Lionel Badillo MD Urea nitrogen [Mass/Vol] 11 mg/dL Normal 6-20 [facility] Comment on above: Performed By: #### IRVING LEÓN #### [facility] [address] [place] [address] [employer]: Nemesio Galicia MD #### URNMAB #### [address] [place], [place] [phone] [employer]: Lionel Badillo MD Comprehensive Metabolic Pane [facility] 08-07-2023 Albumin [Mass/Vol] 3.7 g/dL 3.5 - 5.2 g/dL [facility] Albumin/Globulin [Mass ratio] 1.3 {ratio} 1.0 - 2.5 [facility] ALP [Catalytic activity/Vol] 74 U/L 35 - 104 U/L [facility] ALT [Catalytic activity/Vol] 8 U/L 5 - 33 U/L [facility] Anion gap [Moles/Vol] 8 mmol/L Low 9 - 17 mmol/L [facility] AST [Catalytic activity/Vol] 13 U/L NINF - 32 U/L [facility] Bilirubin [Mass/Vol] 0.3 mg/dL 0.3 - 1 .2 mg/dL [facility] Calcium [Mass/Vol] 8.7 mg/dL 8.6 - 10. 4 mg/dL [facility] Chloride [Moles/Vol] 104 mmol/L 98 - 10 7 mmol/L [facility] CO2 [Moles/Vol] 25 mmol/L 20 - 31 mmol/L [facility] Creatinine [Mass/Vol] 0.9 mg/dL 0.5 - 0.9 mg/dL [facility] GFR/1.73 sq M.predicted MDRD (S/P/Bld) [Vol rate/Area] - PINF [facility] Comment on above: These results are not [...] [Mass/Vol] 91 mg/dL 70 - 99 mg/dL [facility] Interpretation and review of laboratory results Abnormal [facility] Potassium [Moles/Vol] 3.7 mmol/L 3.7 - 5.3 mmol/L [facility] Protein [Mass/Vol] 6.5 g/dL 6.4 - 8.3 g/dL [facility] Sodium [Moles/Vol] 137 mmol/L 135 - 144 mmol/L [facility] Urea nitrogen [Mass/Vol] 11 mg/dL 6 - 20 mg/dL [facility] Urea nitrogen/Creatinine [Mass ratio] 12 mg/mg 9 - 20 [facility] Lactic Acidon 08-07-2023 Lactate [Moles/Vol] 0.7 mmol/L Normal 0.5-2.2 [facility] Comment on above: Performed By: #### IRVING LEÓN #### [facility] [address] [place] [address] [employer]: Nemesio Galicia MD #### URNMAB #### [address] [place] [address] [employer]: Lionel Badillo MD Lactate (BldV) [Moles/Vol] 0.7 mmol/L 0.5 - 2.2 mmol/L [facility] Lipaseon 08-07-2023 Lipase [Catalytic activity/Vol] 21 U/L Normal 13-60 [facility] Comment on above: Performed By: #### U AX, UMICAO #### [address] [place] [phone] [employer]: Nemesio Galicia MD #### URNMAB #### [address] [address] [employer]: Lionel Badillo MD Lipase [Catalytic activity/Vol] 21 U/L 13 - 60 U/L [facility] No Panel Informationon 08-07 [facility] CBC with Diffon 07-16-2023 Abs. Basophil 0.04 k/uL Normal 0.00-0.20 [facility] Comment on above: Performed By: #### C P, CBC #### [address] [place] [phone] [employer]: Nemesio Galicia MD #### GLYHGB #### [address] [address] [employer]: Lionel Badillo MD Abs.Imm.Granulocyte 0.03 k/uL Normal 0.00-0.30 [facility] Comment on above: Performed By: #### C P, CBC #### [address] [place] [phone] [employer]: Nemesio Galicia MD #### GLYHGB #### [address] [address] [employer]: Lionel Badillo MD Abs.Neutrophil (Seg) 5.08 k/uL Normal 1.50-8.10 [facility] [facility] Comment on above: Performed By: #### C P, CBC #### [facility] [address] [place] [id number] [employer]: Nemesio Galicia MD #### GLYHGB #### [address] [phone] [employer]: Lionel Badillo MD Basophils/100 WBC (Bld) 1 % Normal 0-2 [facility] Comment on above: Performed By: #### C P, CBC #### [facility] [address] [place] [phone] [employer]: Nemesio Galicia MD #### GLYHGB #### [address] [address] [employer]: Lionel Badillo MD Eosinophils (Bld) [#/Vol] 0.09 10*3/uL Normal 0.00-0.44 [facility] Comment on above: Performed By: #### C P, CBC #### [facility] [address] [place] [address] [address]. [place] [phone] [employer]: Nemesio Galicia MD #### GLYHGB #### [address] [address] [employer]: Lionel Badillo MD Eosinophils/100 WBC (Bld) 1 % Normal 1-4 [facility] Comment on above: Performed By: #### C P, CBC #### [facility] [address] [place] [address] [address]. [place] [phone] [employer]: Nemesio Galicia MD #### GLYHGB #### [address] [address] [employer]: Lionel Badillo MD Erythrocyte distribution width (RBC) [Ratio] 12.2 % Normal 11.8-14.4 [facility] Comment on above: Performed By: #### C P, CBC #### [facility] [address] [place], [place] [phone] [employer]: Nemesio Galicia MD #### GLYHGB #### [address] [phone] [employer]: Lionel Badillo MD Hematocrit (Bld) [Volume fraction] 41.4 % Normal 36.3-47.1 [facility] Comment on above: Performed By: #### C P, CBC #### [facility] [address] [place], [place] 4931783 [employer]: Nemesio Galicia MD #### GLYHGB #### [address] [phone] [employer]: Lionel Badillo MD Hemoglobin (Bld) [Mass/Vol] 13.5 g/dL Normal 11.9-15.1 [facility] Comment on above: Performed By: #### C P, CBC #### [address] [place], [place] 0473083 [employer]: Nemesio Galicia MD #### GLYHGB #### [address] [address] [employer]: Lionel Badillo MD Immature granulocytes/100 WBC (Bld) 0 % Normal 0 [facility] Comment on above: Performed By: #### C P, CBC #### [facility] [address] [place] [address] [place], [place] 1198583 [employer]: Nemesio Galicia MD #### GLYHGB #### [address] [address] [employer]: Lioenl Badillo MD Lymphocytes (Bld) [#/Vol] 1.87 10*3/uL Normal 1.10-3.70 [facility] Comment on above: Performed By: #### C P, CBC #### [facility] [address] [place], [place] [phone] [employer]: Nemesio Galicia MD #### GLYHGB #### [address] [phone] [employer]: Lionel Badillo MD Lymphocytes/100 WBC (Bld) 25 % Normal 24-43 [facility] Comment on above: Performed By: #### C P, CBC #### [facility] [address] [place] [address] [employer]: Nemesio Galicia MD #### GLYHGB #### [address] [phone] [employer]: Lionel Badillo MD MCH (RBC) [Entitic mass] 30.7 pg Normal 25.2-33.5 [facility] Comment on above: Performed By: #### C P, CBC #### [address] [place], [place] 9262483 [employer]: Nemesio Galicia MD #### GLYHGB #### [address] [phone] [employer]: Lionel Badillo MD MCHC (RBC) [Mass/Vol] 32.6 g/dL Normal 28.4-34.8 [facility] Comment on above: Performed By: #### C P, CBC #### [address] [place] [address] [employer]: Nemesio Galicia MD #### GLYHGB #### [address] [phone] [employer]: Lionel Badillo MD MCV (RBC) [Entitic vol] 94.1 fL Normal 82.6-102.9 [facility] Comment on above: Performed By: #### C P, CBC #### [address] [place], [place] 3341783 [employer]: Nemesio Galicia MD #### GLYHGB #### [address] [address] [employer]: Lionel Badillo MD Monocytes (Bld) [#/Vol] 0.42 10*3/uL Normal 0.10-1.20 [facility] Comment on above: Performed By: #### C P, CBC #### [address] [place] [phone] [employer]: Nemesio Galicia MD #### GLYHGB #### [address] [phone] [employer]: Lionel Badillo MD Monocytes/100 WBC (Bld) 6 % Normal 3-12 [facility] Comment on above: Performed By: #### C P, CBC #### [address] [place] [phone] [employer]: Nemesio Galicia MD #### GLYHGB #### [address] [address] [employer]: Lionel Badillo MD Neutrophil (Seg) 67 % High 36-65 [facility] Comment on above: Performed By: #### C P, CBC #### [address] [place] [phone] [employer]: Nemesio Galicia MD #### GLYHGB #### [address] [phone] [employer]: Lionel Badillo MD NRBC Automated 0.0 per 100 WBC Normal 0.0 [facility] Comment on above: Performed By: #### C P, CBC #### [address] [place] [address] [employer]: Nemesio Galicia MD #### GLYHGB #### [facility] [address] [place] [address] [employer]: Lionel Badillo MD Platelet mean volume (Bld) [Entitic vol] 10.2 fL Normal 8.1-13.5 [facility] Comment on above: Performed By: #### C P, CBC #### [facility] [address] [place], [place] [phone] [employer]: Nemesio Galicia MD #### GLYHGB #### [address] [place], [place] [phone] [employer]: Lionel Badillo MD Platelets (Bld) [#/Vol] 219 10*3/uL Normal 138-453 [facility] Comment on above: Performed By: #### C P, CBC #### [facility] [address] [place] [address] [place] [phone] [employer]: Nemesio Galicia MD #### GLYHGB #### [address] [place], [place] [phone] [employer]: Lionel Badillo MD RBC (Bld) [#/Vol] 4.40 10*6/uL Normal 3.95-5.11 [facility] Comment on above: Performed By: #### C P, CBC #### [facility] [address] [place] [address] [employer]: Nemesio Galicia MD #### GLYHGB #### [address] [place], [place] 1884708 [employer]: Lionel Badillo MD WBC (Bld) [#/Vol] 7.5 10*3/uL Normal 3.5-11.3 [facility] Comment on above: Performed By: #### C P, CBC #### [facility] [address] [place] [address] [employer]: Nemesoi Galicia MD #### GLYHGB #### [address] [place] [address] [employer]: Lionel Badillo MD Comp Metabolic Profon 2022 Albumin [Mass/Vol] 3.9 g/dL Normal 3.5-5.2 [facility] Comment on above: Performed By: #### C P, CBC #### [facility] [address] [place], [place] [phone] [employer]: Nemesio Galicia MD #### GLYHGB #### [address] [address] [employer]: Lionel Badillo MD Albumin/Glob Ratio 1.4 Normal 1.0-2.5 [facility] Comment on above: Performed By: #### C P, CBC #### [facility] [address] [place] [address] Dr[address] [place], [place] 8187783 [employer]: Nemesio Galicia MD #### GLYHGB #### [address] [address] [employer]: Lionel Badillo MD Alkaline Phos 72 U/L Normal 35-104 [facility] [facility] Comment on above: Performed By: #### C P, CBC #### [facility] [address] [place], [place] 1161783 [employer]: Nemesio Galicia MD #### GLYHGB #### [address] [address] [employer]: Lionel Badillo MD ALT [Catalytic activity/Vol] 11 U/L Normal 5-33 [facility] Comment on above: Performed By: #### C P, CBC #### [facility] [address] [place], [place] [phone] [employer]: Nemesio Galicia MD #### GLYHGB #### [address] [place] [address] [employer]: Lionel Badillo MD Anion gap [Moles/Vol] 10 mmol/L Normal 9-17 [facility] Comment on above: Performed By: #### C P, CBC #### [facility] [address] [place], [place] 8691683 [employer]: Nemesio Galicia MD #### GLYHGB #### [address] [address] [employer]: Lionel Badillo MD AST [Catalytic activity/Vol] 15 U/L Normal <32 [facility] Comment on above: Performed By: #### C P, CBC #### [facility] [address] [place], [place] 7522383 [employer]: Nemesio Galicia MD #### GLYHGB #### [address] [address] [employer]: Lionel Badillo MD Bilirubin [Mass/Vol] 0.3 mg/dL Normal 0.3-1.2 [facility] Comment on above: Performed By: #### C P, CBC #### [facility] [address] [place], [place] 7229583 [employer]: Nemesio Galicia MD #### GLYHGB #### [address] [address] [employer]: Lionel Badillo MD BUN/CRE Ratio 14 Normal 9-20 [facility] Comment on above: Performed By: #### C P, CBC #### [facility] [address] [place], [place] 8113583 [employer]: Nemesio Galicia MD #### GLYHGB #### [address] [address] [employer]: Lionel Badillo MD Calcium [Mass/Vol] 9.0 mg/dL Normal 8.6-10.4 [facility] Comment on above: Performed By: #### C P, CBC #### [facility] [address] [place] [address] [employer]: Nemesio Galicia MD #### GLYHGB #### [address] [phone] [employer]: Lionel Badillo MD Chloride [Moles/Vol] 104 mmol/L Normal 98-107 [facility] Comment on above: Performed By: #### C P, CBC #### [facility] [address] [place], [place] [phone] [employer]: Nemesio Galicia MD #### GLYHGB #### [address] [phone] [employer]: Lionel Badillo MD CO2 [Moles/Vol] 27 mmol/L Normal 20-31 [facility] Comment on above: Performed By: #### C P, CBC #### [facility] [address] [place], [place] 0451783 [employer]: Nemesio Galicia MD #### GLYHGB #### [address] [address] [employer]: Lionel Badillo MD Creatinine [Mass/Vol] 0.9 mg/dL Normal 0.5-0.9 [facility] Comment on above: Performed By: #### C P, CBC #### [facility] [address] [place], [place] [phone] [employer]: Nemesio Galicia MD #### GLYHGB #### [address] [address] [employer]: Lionel Badillo MD GFR/1.73 sq M.predicted among non-blacks MDRD (S/P/Bld) [Vol rate/Area] mL/min/{1.73_m2} Normal >60 [facility] Comment on above: Result Comment: These [...] Performed By: #### C P, CBC #### [address] [place], [place] 1977683 [employer]: Nemesio Galicia MD #### GLYHGB #### [address] [phone] [employer]: Lionel Badillo MD Glucose [Mass/Vol] 82 mg/dL Normal 70-99 [facility] Comment on above: Performed By: #### C P, CBC #### [address] [place] [address] [employer]: Nemesio Galicia MD #### GLYHGB #### [address] [phone] [employer]: Lionel Badillo MD Potassium [Moles/Vol] 4.1 mmol/L Normal 3.7-5.3 [facility] Comment on above: Performed By: #### C P, CBC #### [address] [place] [address] [employer]: Nemesio Galicia MD #### GLYHGB #### [address] [phone] [employer]: Lionel Badillo MD Protein [Mass/Vol] 6.7 g/dL Normal 6.4-8.3 [facility] Comment on above: Performed By: #### C P, CBC #### [address] [place], [place] 2930183 [employer]: Nemesio Galicia MD #### GLYHGB #### [facility] [address] [place], [place] 5803608 [employer]: Lionel Badillo MD Sodium [Moles/Vol] 141 mmol/L Normal 135-144 [facility] Comment on above: Performed By: #### C P, CBC #### [facility] [address] [place], [place] 2973983 [employer]: Nemesio Galicia MD #### GLYHGB #### [address] [place], [place] 9819208 [employer]: Lionel Badillo MD Urea nitrogen [Mass/Vol] 13 mg/dL Normal 6-20 [facility] Comment on above: Performed By: #### C P, CBC #### [facility] [address] [place], [place] 3642483 [employer]: Nemesio Galicia MD #### GLYHGB #### [address] [place] [place] [address] [employer]: Lionel Badillo MD Lipaseon 07-16-2023 Lipase [Catalytic activity/Vol] 20 U/L Normal 13-60 [facility] Comment on above: Performed By: #### C P, CBC #### [facility] [address] [place], [place] 7475383 [employer]: Nemesio Galicia MD #### GLYHGB #### [address] [place] [address] [employer]: Lionel Badillo MD HCG, ,Urineon 06-09 Beta HCG ( test) Ql (U) Negative Normal NEG [place] Comment on above: Performed By: #### U HCG #### [facility] [address] [place], [place] 9293690 [employer]: Nemesio Galicia MD Surgical Pathology Reporton 06-09-2023 Surgical Pathology Report (NOTE) Path Number: [id number] -- Diagnosis -- A. GASTRIC ANTRUM, BIOPSY: [...] MUCOSA. Nemesio Galicia M.D. Electronically Signed Out jen/06/11/2023 Clinical Information Pre-op Diagnosis: GASTROESOPHAGEAL REFLUX DISEASE, [...] Description A-D. Microscopic evaluation performed. Processing Lab: [facility] [address] [place] [address] Interpretation Performed at [address] [address] SURGICAL PATHOLOGY CONSULTATION Patient Name: CHITRA CAMPUZANO [facility] Rec: [id number] [facility] [address], [place] [address] Normal [place] Calprotectin, Fecalon 2022 Calprotectin, Fecal 24 ug/g Normal <=49 [facility] Comment on above: Result Comment: (NOT E) REFERENCE INTERVAL: Calprotectin, Fecal by Immunoassay Less than 50 ug/g.........Normal 50-120 ug/g...............Borderline elevated, test should be re-evaluated in 4-6 weeks. 121 ug/g or greater.......Elevated Performed By: [facility] [address] [place] [address] Survey Research Teacher: Lauro West MD, PhD CLIA Number: [id number] Performed By: #### U AX, UMICAO #### [address] [place] [address] [employer]: Nemesio Galicia MD #### URNMAB #### [address] [address] [employer]: Lionel Badillo MD Celiac Disease Panelon 05-29 Gliadin Deam Pep IgG <0.4 Normal <7.0 [facility] Comment on above: Result Comment: CELIAC INTERPRETATION <7.0 Negative 7.0-10.0 Equivocal >10.0 Positive units: U/mL Performed By: #### C P, CBC #### [address] [place] [address] [employer]: Nemesio Galicia MD #### GLYHGB #### [address] [phone] [employer]: Lionel Badillo MD Gliadin Deam Pep IgA 1.6 U/mL Normal <7.0 [facility] Comment on above: Result Comment: CELIAC INTERPRETATION <7.0 Negative 7.0-10.0 Equivocal >10.0 Positive units: U/mL Performed By: #### C P, CBC #### [address] [place] [address] [employer]: Nemesio Galicia MD #### GLYHGB #### [facility] [address] [place], [place] 9802108 [employer]: Lionel Badillo MD Tiss Transglutam IgA 0.5 U/mL Normal <7.0 [facility] Comment on above: Result Comment: CELIAC INTERPRETATION <7.0 Negative 7.0-10.0 Equivocal >10.0 Positive units: U/mL Performed By: #### C P, CBC #### [address] [address] [employer]: Nemesio Galicia MD #### GLYHGB #### [facility] [address] [place], [place] [phone] [employer]: Lionel Badillo MD Fecal Panc Elastaseon 2022 Pancreatic Elastase 411 ug/g Normal >=100 [facility] Comment on above: Result Comment: (NOT E) REFERENCE INTERVAL: Pancreatic Elastase Fecal by Immunoassay Less than 100 ug/g............Severe insufficiency 100 - 199 ug/g................Moderate insufficiency 200 ug/g or greater...........Normal INTERPRETIVE INFORMATION: Pancreatic Elastase Fecal by Immunoassay Reference intervals do not apply for infants less than one month old. Performed By: [facility] [address] [place] [address] Survey Research Teacher: Lauro West MD, PhD CLIA Number: [id number] Performed By: #### C P, CBC #### [address] [place], [place] [phone] [employer]: Nemesio Galicia MD #### GLYHGB #### [address] [phone] [employer]: Lionel Badillo MD Celiac Disease Panelon 05-27 IgA [Mass/Vol] 482 mg/dL High 70-400 [facility] Comment on above: Performed By: #### C P, CBC #### [address] [place], [place] 0556783 [employer]: Nemesio Galicia MD #### GLYHGB #### [address] [address] [employer]: Lionel Badillo MD Giardia/Cryptosp Agon 2022 Cryptosporidium Ag Negative Normal NEG [facility] Comment on above: Result Comment: Cryp tosporidium Antigen Assay Performed By: #### U AX, UMICAO #### [address] [place], [place] [phone] [employer]: Nemesio Galicia MD #### URNMAB #### [address] [address] [employer]: Lionel Badillo MD O+P,Giardia Ag Negative Normal NEG [facility] Comment on above: Result Comment: Giar nereida Antigen Assay Performed By: #### U AX, UMICAO #### [address] [place], [place] [phone] [employer]: Nemesio Galicia MD #### URNMAB #### [address] [phone] [employer]: Lionel Badillo MD Stool PCR [place] 05-27-20 23 Campylobacter sp PCR NEGATIVE: No Campylobacter spp. (jejuni or coli) DNA Detected Normal CAMNEG [facility] Comment on above: Performed By: #### S TLPCR, GCAG #### [address] [place] [address] [employer]: Lionel Badillo MD [facility] [address] [place] [address] [place] [address] [employer]: Nemesio Galicia MD #### OBN, CDIFQ #### [facility] [address] [place] [address] [place] [address] [employer]: Nemesio Galicia MD #### ACALPF #### [facility] [address] [place], [place] [phone] [employer]: Scott Galvez MD E coli enterotox PCR NEGATIVE: No Enterotoxigenic E. coli (ETEC) Heat-labile and heat-stable (LT/ST) Normal EECNEG [facility] Comment on above: Result Comment: DNA Detected Performed By: #### S TLPCR, GCAG #### [address] [address] [employer]: Lionel Badillo MD [facility] [address] [place] [address] Dr[place], [place] [phone] [employer]: Nemesio Galicia MD #### OBLan, CDIFQ #### [facility] [address] [place] [address] [place] [address] [employer]: Nemesio Galicia MD #### ACALPF #### [facility] [address] [place] [address] [employer]: Scott Galvez MD Plesiomonas sp PCR Negative Normal PLENEG [facility] Comment on above: Performed By: #### S TLPCR, GCAG #### [address] [address] [employer]: Lionel Badillo MD [facility] [address] [place] [address] Dr[address] [place], [place] 1282983 [employer]: Nemesio Galicia MD #### OBN, CDIFQ #### [facility] [address] [place] [address] [employer]: Nemesio Galicia MD #### ACALPF #### [facility] [address] [place] [address] [employer]: Scott Galvez MD Salmonella sp PCR Negative Normal SALNEG [facility] Comment on above: Performed By: #### S TLPCR, GCAG #### [address] [place] [address] [employer]: Lionel Badillo MD [facility] [address] [place] [address] [place] [address] [employer]: Nemesio Galicia MD #### OBN, CDIFQ #### [address] [place], [place] 4577083 [employer]: Nemesio Galicia MD #### ACALPF #### [facility] [address] [place] [address] [employer]: Scott Galvez MD Shigatoxin gene PCR Negative [facility] Comment on above: Performed By: #### S TLPCR, GCAG #### [address] [address] [employer]: Lionel Badillo MD [facility] [address] [place] [address] Dr[address] [place], [place] [phone] [employer]: Nemesio Galicia MD #### OBLan, CDIFQ #### [address] [place] [address] [employer]: Nemesio Galicia MD #### ACALPF #### [facility] [address] [place] [address] [employer]: Scott Galvez MD Shigella sp PCR Negative Normal SHINEG [facility] Comment on above: Performed By: #### S TLPCR, GCAG #### [facility] [address] [place] [address] [employer]: Lionel Badillo MD [facility] [address] [place] [address] [place] [address] [employer]: Nemesio Galicia MD #### OBN, CDIFQ #### [facility] [address] [place] [address] [place] [address] [employer]: Nemesio Galicia MD #### ACALPF #### [facility] [address] [place], [place] [phone] [employer]: Scott Galvez MD Vibrio sp PCR NEGATIVE: No Vibrio (V. vulnificus, V, parahaemolyticus and V. cholerae) DNA Normal VIBNEG [facility] Comment on above: Result Comment: Dete cted Performed By: #### S TLPCR, GCAG #### [facility] [address] [place] [address] [employer]: Lionel Badillo MD [facility] [address] [place] [address] [place] [address] [employer]: Nemesio Galicia MD #### OBLan, CDIFQ #### [address] [place] [address] [employer]: Nemesio Galicia MD #### ACALPF #### [facility] [address] [place] [address] [employer]: Scott Galvez MD Yersinia gene PCR Negative Normal YERNEG [facility] Comment on above: Performed By: #### S TLPCR, GCAG #### [facility] [address] [place] [address] [employer]: Lionel Badillo MD [facility] [address] [place] [address] Dr. [place], [place] [phone] [employer]: Nemesio Galicia MD #### OBLan, CDIFQ #### [facility] [address] [place], [place] 6028383 [employer]: Nemesio Galicia MD #### ACALPF #### [facility] [address] [place] [address] [employer]: Scott Galvez MD Vitamin D 25 OHon 05-27-2023 Vitamin D 25 OH 37.3 ng/mL Normal >29.9 [facility] Comment on above: Result Comment: Reference Range: Vitamin D status Range Deficiency <20 ng/mL Mild Deficiency 20-30 ng/mL Sufficiency 30-100 ng/mL Toxicity >100 ng/mL Performed By: #### C P, CBC #### [address] [place], [place] 6805683 [employer]: Nemesio Galicia MD #### GLYHGB #### [address] [phone] [employer]: Lionel Badillo MD C diff Ag + Toxinon 05-26-20 23 C diff Ag + Toxin Negative Normal NEG [facility] Comment on above: Result Comment: No C . difficile antigen and Toxin Detected. Performed By: #### S TLPCR, GCAG #### [address] [address] [employer]: Lionel Badillo MD [address] [place], [place] 7351583 [employer]: Nemesio Galicia MD #### OBN, CDIFQ #### [address] [place], [place] 8188383 [employer]: Nemesio Galicia MD #### ACALPF #### [facility] [address] [place] [address] [employer]: Scott Galvez MD Specimen Description .FECES Normal [facility] Comment on above: Performed By: #### S TLPCR, GCAG #### [address] [address] [employer]: Lionel Badillo MD [facility] [address] [place] [address] Dr[address] [place], [place] [phone] [employer]: Nemesio Galicia MD #### OBN, CDIFQ #### [address] [place], [place] 0472183 [employer]: Nemesio Galicia MD #### ACALPF #### [facility] [address] [place] [address] [employer]: Scott Galvez MD Giardia/Cryptosp Agon 2022 Source .FECES [facility] Comment on above: Performed By: #### U AX, UMICAO #### [address] [place], [place] 1760483 [employer]: Nemesio Galicia MD #### URNMAB #### [address] [address] [employer]: Lionel Badillo MD Occult Blood, Fecalon 2022 Occult Blood 1 Negative Normal NEG [facility] Comment on above: Performed By: #### S TLPCR, GCAG #### [address] [address] [employer]: Lionel Badillo MD [address] [place], [place] [phone] [employer]: Nemesio Galicia MD #### OBN, CDIFQ #### [address] [place], [place] [phone] [employer]: Nemesio Galicia MD #### ACALPF #### [facility] [address] [place] [address] [employer]: Scott Galvez MD Specimen 1 Date [id number] [facility] Comment on above: Performed By: #### S TLPCR, GCAG #### [facility] [address] [place] [address] [employer]: Lionel aBdillo MD [address] [place] [address] [employer]: Nemesio Galicia MD #### OBN, CDIFQ #### [address] [place] [address] [employer]: Nemesio Galicia MD #### ACALPF #### [facility] [address] [place] [address] [employer]: Scott Galvez MD Specimen 1 Time 1230 Normal [facility] Comment on above: Performed By: #### S TLPCR, GCAG #### [address] [address] [employer]: Lionel Badillo MD [address] [place] [address] [employer]: Nemesio Galicia MD #### OBN, CDIFQ #### [address] [place] [address] [employer]: Nemesio Galicia MD #### ACALPF #### [facility] [address] [place] [address] [employer]: Scott Galvez MD UA w/Reflex Cultureon 2022 Bilirubin, SemiQt,Ur Negative Normal NEG [facility] Comment on above: Performed By: #### C P, CBC #### [address] [place] [address] [employer]: Nemesio Galicia MD #### GLYHGB #### [address] [address] [employer]: Lionel Badillo MD Blood, Urine Negative Normal NEG [facility] Comment on above: Performed By: #### C P, CBC #### [address] [place], [place] [phone] [employer]: Nemesio Galicia MD #### GLYHGB #### [facility] [address] [place] [address] [employer]: Lionel Badillo MD Clarity (U) Clear Normal CLEAR [facility] Comment on above: Performed By: #### C P, CBC #### [address] [place], [place] [phone] [employer]: Nemesio Galicia MD #### GLYHGB #### [address] [address] [employer]: Lionel Badillo MD Color (U) Yellow Normal YEL [facility] Comment on above: Performed By: #### C P, CBC #### [address] [place] [address] [employer]: Nemesio Galicia MD #### GLYHGB #### [address] [address] [employer]: Lionel Badillo MD Glucose Ql (U) Negative Normal NEG [facility] Comment on above: Performed By: #### C P, CBC #### [address] [place], [place] [id number] [employer]: Nemesio Galicia MD #### GLYHGB #### [address] [address] [employer]: Lionel Badillo MD Ketones Ql (U) Negative Normal NEG [facility] Comment on above: Performed By: #### C P, CBC #### [address] [place], [place] [id number] [employer]: Nemesio Galicia MD #### GLYHGB #### [address] [place] [address] [employer]: Lionel Badillo MD Leukocyte esterase Test strip Ql (U) Negative Normal NEG [facility] Comment on above: Performed By: #### C P, CBC #### [facility] [address] [place] [address] [place], [place] [phone] [employer]: Nemesio Galicia MD #### GLYHGB #### [address] [address] [employer]: Lionel Badillo MD Nitrite,Ur Negative Normal NEG [facility] Comment on above: Performed By: #### C P, CBC #### [address] [place], [place] 9498283 [employer]: Nemesio Galicia MD #### GLYHGB #### [address] [address] [employer]: Lionel Badillo MD PH,Ur 6.0 Normal 5.0-9.0 [facility] Comment on above: Performed By: #### C P, CBC #### [address] [place], [place] 3817783 [employer]: Nemesio Galicia MD #### GLYHGB #### [address] [address] [employer]: Lionel Baidllo MD Protein Ql (U) Negative Normal NEG [facility] Comment on above: Performed By: #### C P, CBC #### [facility] [address] [place] [address] [place], [place] 6231583 [employer]: Nemesio Galicia MD #### GLYHGB #### [address] [address] [employer]: Lionel Badillo MD Spec. [place],Ur 1.025 High 1.010-1.020 [facility] Comment on above: Performed By: #### C P, CBC #### [facility] [address] [place], [place] [phone] [employer]: Nemesio Galicia MD #### GLYHGB #### [address] [address] [employer]: Lionel Badillo MD Urobilinogen,Ur Normal Normal 0.0-1.0 [facility] Comment on above: Performed By: #### C P, CBC #### [facility] [address] [place], [place] [phone] [employer]: Nemesio Galicia MD #### GLYHGB #### [address] [address] [employer]: Lionel Badillo MD Urinalysis,Microon 3 Bacteria 3+ Abnormal NONE [facility] Comment on above: Performed By: #### C P, CBC #### [facility] [address] [place], [place] 9591483 [employer]: Nemesio Galicia MD #### GLYHGB #### [address] [address] [employer]: Lionel Badillo MD Epithelial cells LM Ql (Urine sed) 10 TO 20 Normal 0-25 [facility] Comment on above: Performed By: #### C P, CBC #### [facility] [address] [place], [place] [phone] [employer]: Nemesio Galicia MD #### GLYHGB #### [address] [address] [employer]: Lionel Badillo MD Urine RBC's None Normal 0-2 [facility] Comment on above: Performed By: #### C P, CBC #### [facility] [address] [place], [place] 8816983 [employer]: Nemesio Galicia MD #### GLYHGB #### [address] [place] [address] [employer]: Lionel Badillo MD Urine WBC's 0 TO 2 Normal 0-5 [facility] Comment on above: Performed By: #### C P, CBC #### [facility] [address] [place] [address] [address] [place], [place] [phone] [employer]: Nemesio Galicia MD #### GLYHGB #### [address] [address] [employer]: Lionel Badillo MD Basic Metabolic Profon 05-23 Anion gap [Moles/Vol] 10 mmol/L Normal 9-17 [facility] Comment on above: Performed By: #### U AXIRVING #### [address] [place] [phone] [employer]: Nemesio Galicia MD #### URNMAB #### [address] [address] [employer]: Lionel Badillo MD Potassium [Moles/Vol] 4.3 mmol/L Normal 3.7-5.3 [facility] Comment on above: Performed By: #### U AXLEEO #### [facility] [address] [place] [address] [address] [place], [place] 3925583 [employer]: Nemesio Galicia MD #### URNMAB #### [address] [address] [employer]: Lionel Badillo MD Sodium [Moles/Vol] 137 mmol/L Normal 135-144 [facility] Comment on above: Performed By: #### U AX, UMICAO #### [address] [place], [place] 6698583 [employer]: Nemesio Galicia MD #### URNMAB #### [address] [place], [place] 2773108 [employer]: Lionel Badillo MD BUN/CRE Ratio 18 Normal 9-20 [facility] Comment on above: Performed By: #### U AX, UMICAO #### [facility] [address] [place], [place] 3054783 [employer]: Nemesio Galicia MD #### URNMAB #### [address] [address] [employer]: Lionel Badillo MD Calcium [Mass/Vol] 9.1 mg/dL Normal 8.6-10.4 [facility] Comment on above: Performed By: #### U AX, UMICAO #### [facility] [address] [place], [place] 0[address]83 [employer]: Nemesio Galicia MD #### URNMAB #### [address] [address] [employer]: Lionel Badillo MD Chloride [Moles/Vol] 103 mmol/L Normal 98-107 [facility] Comment on above: Performed By: #### U AX, UMICAO #### [facility] [address] [place], [place] 7362883 [employer]: Nemesio Galicia MD #### URNMAB #### [address] [address] [employer]: Lionel Badillo MD CO2 [Moles/Vol] 24 mmol/L Normal 20-31 [facility] Comment on above: Performed By: #### U AX, UMICAO #### [facility] [address] [place], [place] 2531683 [employer]: Nemesio Galicia MD #### URNMAB #### [address] [place] [address] [employer]: Lionel Badillo MD Creatinine [Mass/Vol] 0.9 mg/dL Normal 0.5-0.9 [facility] Comment on above: Performed By: #### U AXHALIMAICAO #### [facility] [address] [place], [place] 3577483 [employer]: Nemesio Galicia MD #### URNMAB #### [address] [place] [address] [employer]: Lionel Badillo MD GFR/1.73 sq M.predicted among non-blacks MDRD (S/P/Bld) [Vol rate/Area] mL/min/{1.73_m2} Normal >60 [facility] Comment on above: Result Comment: These [...] Performed By: #### U IRVING MATTHEW #### [address] [place], [place] 9798283 [employer]: Nemesio Galicia MD #### URNMAB #### [address] [place] [address] [employer]: Lionel Badillo MD Glucose [Mass/Vol] 69 mg/dL Low 70-99 [facility] Comment on above: Performed By: #### U LEE MATTHEWO #### [address] [place], [place] 5481783 [employer]: Nemesio Galicia MD #### URNMAB #### [facility] [address] [place] [address] [employer]: Lionel Badillo MD Urea nitrogen [Mass/Vol] 16 mg/dL Normal 6-20 [facility] Comment on above: Performed By: #### IRVING LEÓN #### [address] [place], [place] 2841583 [employer]: Nemesio Galicia MD #### URNMAB #### [address] [address] [employer]: Lionle Badillo MD C-Reactive Proteinon 023 CRP [Mass/Vol] 4.1 mg/L Normal 0.0-5.0 [facility] Comment on above: Performed By: #### IRVING LEÓN #### [address] [place] [phone] [employer]: Nemesio Galicia MD #### URNMAB #### [address] [address] [employer]: Lionel Badillo MD CBC with Diffon 05-23-2023 Abs. Basophil 0.04 k/uL Normal 0.00-0.20 [facility] Comment on above: Performed By: #### IRVING LEÓN #### [facility] [address] [place] [address] Dr[address] [place], [place] 0735783 [employer]: Nemesio Galicia MD #### URNMAB #### [address] [address] [employer]: Lionel Badillo MD Abs.Imm.Granulocyte 0.03 k/uL Normal 0.00-0.30 [facility] Comment on above: Performed By: #### LEE LEÓNO #### [address] [place], [place] 1655683 [employer]: Nemesio Galicia MD #### URNMAB #### [address] [address] [employer]: Lionel Badillo MD Abs.Neutrophil (Seg) 5.36 k/uL Normal 1.50-8.10 [facility] Comment on above: Performed By: #### U AXHALIMAICAO #### [facility] [address] [place], [place] 5014883 [employer]: Nemesio Galicia MD #### URNMAB #### [address] [phone] [employer]: Lionel Badillo MD Basophils/100 WBC (Bld) 1 % Normal 0-2 [facility] Comment on above: Performed By: #### IRVING LEÓN #### [facility] [address] [place] [address] [address] [place] [phone] [employer]: Nemesio Galicia MD #### URNMAB #### [address] [address] [employer]: Lionel Badillo MD Eosinophils (Bld) [#/Vol] 0.13 10*3/uL Normal 0.00-0.44 [facility] Comment on above: Performed By: #### HALIMA LEÓNICAO #### [address] [place], [place] 2566583 [employer]: Nemesio Galicia MD #### URNMAB #### [address] [address] [employer]: Lionel Badillo MD Eosinophils/100 WBC (Bld) 2 % Normal 1-4 [facility] Comment on above: Performed By: #### U HALIMA MATTHEWICAO #### [address] [place] [phone] [employer]: Nemesio Galicia MD #### URNMAB #### [address] [address] [employer]: Lionel Badillo MD Erythrocyte distribution width (RBC) [Ratio] 12.4 % Normal 11.8-14.4 [facility] Comment on above: Performed By: #### IRVING LEÓN #### [facility] [address] [place] [address] [place] [address] [employer]: Nemesio Galicia MD #### URNMAB #### [address] [phone] [employer]: Lionel Badillo MD Hematocrit (Bld) [Volume fraction] 41.7 % Normal 36.3-47.1 [facility] Comment on above: Performed By: #### IRVING LEÓN #### [address] [place] [address] [employer]: Nemesio Galicia MD #### URNMAB #### [address] [phone] [employer]: Lionel Badillo MD Hemoglobin (Bld) [Mass/Vol] 13.5 g/dL Normal 11.9-15.1 [facility] Comment on above: Performed By: #### IRVING LEÓN #### [address] [place] [phone] [employer]: Nemesio Galicia MD #### URNMAB #### [address] [phone] [employer]: Lionel Badillo MD Immature granulocytes/100 WBC (Bld) 0 % Normal 0 [facility] Comment on above: Performed By: #### IRVING LEÓN #### [address] [place] [address] [employer]: Nemesio Galicia MD #### URNMAB #### [address] [phone] [employer]: Lionel Badillo MD Lymphocytes (Bld) [#/Vol] 1.73 10*3/uL Normal 1.10-3.70 [facility] Comment on above: Performed By: #### LEE LEÓNO #### [facility] [address] [place], [place] 8900883 [employer]: Nemesio Galicia MD #### URNMAB #### [address] [phone] [employer]: Lionel Badillo MD Lymphocytes/100 WBC (Bld) 22 % Low 24-43 [facility] Comment on above: Performed By: #### IRVING LEÓN #### [facility] [address] [place] [phone] [employer]: Nemesio Galicia MD #### URNMAB #### [address] [phone] [employer]: Lionel Badillo MD MCH (RBC) [Entitic mass] 30.7 pg Normal 25.2-33.5 [facility] Comment on above: Performed By: #### IRVING LEÓN #### [facility] [address] [place] [address] [address] [place] [phone] [employer]: Nemesio Galicia MD #### URNMAB #### [address] [phone] [employer]: Lionel Badillo MD MCHC (RBC) [Mass/Vol] 32.4 g/dL Normal 28.4-34.8 [facility] Comment on above: Performed By: #### IRVING LEÓN #### [facility] [address] [place] [address] [place] [address] [employer]: Nemesio Galicia MD #### URNMAB #### [address] [phone] [employer]: Lionel Badillo MD MCV (RBC) [Entitic vol] 94.8 fL Normal 82.6-102.9 [facility] Comment on above: Performed By: #### U HALIMA MATTHEWICAO #### [facility] [address] [place], [place] 1486883 [employer]: Nemesio Galicia MD #### URNMAB #### [address] [address] [employer]: Lionel Badillo MD Monocytes (Bld) [#/Vol] 0.46 10*3/uL Normal 0.10-1.20 [facility] Comment on above: Performed By: #### HALIMA LEÓNICADante #### [address] [place] [phone] [employer]: Nemesio Galicia MD #### URNMAB #### [address] [address] [employer]: Lionel Badillo MD Monocytes/100 WBC (Bld) 6 % Normal 3-12 [facility] Comment on above: Performed By: #### HALIMA LEÓNICAO #### [address] [place], [place] 3361583 [employer]: Nemesio Galicia MD #### URNMAB #### [address] [address] [employer]: Lionel Badillo MD Neutrophil (Seg) 69 % High 36-65 [facility] Comment on above: Performed By: #### U HALIMA MATTHEWICAO #### [facility] [address] [place] [address] [address] [place], [place] 5506183 [employer]: Nemesio Galicia MD #### URNMAB #### [address] [address] [employer]: Lionel Badillo MD NRBC Automated 0.0 per 100 WBC Normal 0.0 [facility] Comment on above: Performed By: #### U AX, UMICAO #### [facility] [address] [place] [phone] [employer]: Nemesio Galicia MD #### URNMAB #### [address] [address] [employer]: Lionel Badillo MD Platelet mean volume (Bld) [Entitic vol] 10.6 fL Normal 8.1-13.5 [facility] Comment on above: Performed By: #### U AX, UMICAO #### [facility] [address] [place] [phone] [employer]: Nemesio Galicia MD #### URNMAB #### [address] [phone] [employer]: Lionel Badillo MD Platelets (Bld) [#/Vol] 250 10*3/uL Normal 138-453 [facility] Comment on above: Performed By: #### U AX, UMICAO #### [address] [place] [phone] [employer]: Nemesio Galicia MD #### URNMAB #### [address] [phone] [employer]: Lionel Badillo MD RBC (Bld) [#/Vol] 4.40 10*6/uL Normal 3.95-5.11 [facility] Comment on above: Performed By: #### U AX, UMICAO #### [facility] [address] [place] [address] [address] [place] [phone] [employer]: Nemesio Galicia MD #### URNMAB #### [address] [address] [employer]: Lionel Badillo MD WBC (Bld) [#/Vol] 7.8 10*3/uL Normal 3.5-11.3 [facility] Comment on above: Performed By: #### U IRVING MATTHEW #### [facility] [address] [place] [address] [employer]: Nemesio Galicia MD #### URNMAB #### [address] [place], [place] 1619708 [employer]: Lionel Badillo MD Lipaseon 05-23-2023 Lipase [Catalytic activity/Vol] 21 U/L Normal 13-60 [facility] Comment on above: Performed By: #### IRVING LEÓN #### [facility] [address] [place] [address] [employer]: Nemesio Galicia MD #### URNMAB #### [address] [phone] [employer]: Lionel Badillo MD Sedimentation Rateon 023 Sedimentation Rate 7 mm/Hr Normal 0-30 [facility] Comment on above: Performed By: #### IRVING LEÓN #### [facility] [address] [place] [address] [place] [address] [employer]: Nemesio Galicia MD #### URNMAB #### [address] [phone] [employer]: Lionel Badillo MD CT ABDOMEN PELVIS W [...] Marilia Gonzales MD 05/11/23 Final result Normal [facility] Comp Metabolic Profon 2022 Anion gap [Moles/Vol] 10 mmol/L Normal 04-06 [facility] Comment on above: Result Comment: HOA ECTED ON 05/01 AT 0430: PREVIOUSLY REPORTED 14 Performed By: #### U IRVING MATTHEW #### [facility] [address] [place] [address] [employer]: Neemsio Galicia MD #### URNMAB #### [facility] [employer] [facility] [place] [address] [employer]: Lionel Badillo MD Calcium [Mass/Vol] 9.2 mg/dL Normal 8.6-10.4 [facility] Comment on above: Result Comment: HOA ECTED ON 05/01 AT 0430: PREVIOUSLY REPORTED 8.7 Performed By: #### U AX, UMICAO #### [facility] [address] [place], [place] 3045883 [employer]: Nemesio Galicia MD #### URNMAB #### [address] [phone] [employer]: Lionel Badillo MD CO2 [Moles/Vol] 25 mmol/L Normal 20-31 [facility] Comment on above: Result Comment: HOA ECTED ON 05/01 AT 0430: PREVIOUSLY REPORTED 21 Performed By: #### U VIPUL, HALIMAICAO #### [address] [place] [address] [employer]: Nemesio Galicia MD #### URNMAB #### [address] [phone] [employer]: Lionel Badillo MD Lipid Profileon 05-01-2023 Cholesterol [Mass/Vol] 178 mg/dL Normal <200 [facility] Comment on above: Result Comment: Cholesterol Guidelines: <200 Desirable 200-240 Borderline >240 Undesirable Performed By: #### C P, CBC #### [facility] [address] [place] [address] [address] [place], [place] 2273583 [employer]: Nemesio Galicia MD #### GLYHGB #### [address] [place], [place] 3831108 [employer]: Lionel Badillo MD Cholesterol in HDL [Mass/Vol] 74 mg/dL Normal >40 [facility] Comment on above: Result Comment: HDL Guidelines: <40 Undesirable 40-59 Borderline >59 Desirable Performed By: #### C P, CBC #### [facility] [address] [place], [place] 3192683 [employer]: Nemesio Galicia MD #### GLYHGB #### [facility] [employer] [address] [place] [address] [employer]: Lionel Badillo MD Cholesterol in LDL [Mass/Vol] 91 mg/dL Normal 0-130 [facility] Comment on above: Result Comment: LDL Guidelines: <100 Desirable 100-129 Near to/above Desirable 130-159 Borderline >159 Undesirable Direct (measured) LDL and calculated LDL are not interchangeable tests. Performed By: #### C P, CBC #### [facility] [address] [place], [place] 5023283 [employer]: Nemesio Galicia MD #### GLYHGB #### [address] [place] [address] [employer]: Lionel Badillo MD Cholesterol.total/Ch olesterol in HDL [Mass ratio] 2.4 {ratio} Normal <5 [facility] Comment on above: Performed By: #### C P, CBC #### [facility] [address] [place], [place] 7793883 [employer]: Nemesio Galicia MD #### GLYHGB #### [address] [place] [address] [employer]: Lionel Badillo MD Triglyceride [Mass/Vol] 67 mg/dL Normal <150 [facility] Comment on above: Result Comment: Triglyceride Guidelines: <150 Desirable 150-199 Borderline 200-499 High >499 Very high Based on AHA Guidelines for fasting triglyceride, April 2012. Performed By: #### C P, CBC #### [facility] [address] [place], [place] 3670183 [employer]: Nemesio Galicia MD #### GLYHGB #### [facility] [address] [place] [address] [employer]: Lionel Badillo MD Microalb.,Random Uron 10-12- 2023 Creatinine [Mass/Vol] 76.3 mg/dL Normal 28.0-217.0 [facility] Comment on above: Performed By: #### U AX, UMICAO #### [facility] [address] [place] [address] [employer]: Nemesio Galicia MD #### URNMAB #### [address] [place], [place] [phone] [employer]: Lionel Badillo MD Microalb/Creat Ratio Can not be calculated Normal <25 [facility] Comment on above: Performed By: #### U AX, UMICAO #### [facility] [address] [place] [phone] [employer]: Nemesio Galicia MD #### URNMAB #### [address] [phone] [employer]: Lionel Badillo MD Microalbumin conc. <12 Normal <21 [facility] Comment on above: Performed By: #### U AX, UMICAO #### [facility] [address] [place] [phone] [employer]: Nemesio Galicia MD #### URNMAB #### [address] [address] [employer]: Lionel Badillo MD CBC with Diffon 04-30-2023 Abs. Basophil 0.03 k/uL Normal 0.00-0.20 [facility] Comment on above: Performed By: #### U AX, UMICAO #### [facility] [address] [place], [place] 5618183 [employer]: Nemesio Galicia MD #### URNMAB #### [address] [place] [address] [employer]: Lionel Badillo MD Abs.Imm.Granulocyte 0.03 k/uL Normal 0.00-0.30 [facility] Comment on above: Performed By: #### U AX, UMICAO #### [facility] [address] [place] [phone] [employer]: Nemesio Galicia MD #### URNMAB #### [address] [phone] [employer]: Lionel Badillo MD Abs.Neutrophil (Seg) 2.95 k/uL Normal 1.50-8.10 [facility] Comment on above: Performed By: #### U AX, UMICAO #### [facility] [address] [place] [phone] [employer]: Nemesio Galicia MD #### URNMAB #### [address] [phone] [employer]: Lionel Badillo MD Basophils/100 WBC (Bld) 1 % Normal 0-2 [facility] Comment on above: Performed By: #### U AX, UMICAO #### [facility] [address] [place] [phone] [employer]: Nemesio Galicia MD #### URNMAB #### [address] [address] [employer]: Lionel Badillo MD Eosinophils (Bld) [#/Vol] 0.10 10*3/uL Normal 0.00-0.44 [facility] Comment on above: Performed By: #### U AX, UMICAO #### [facility] [address] [place], [place] 1647583 [employer]: Nemesio Galicia MD #### URNMAB #### [address] [address] [employer]: Lionel Badillo MD Eosinophils/100 WBC (Bld) 2 % Normal 1-4 [facility] Comment on above: Performed By: #### U AX, UMICAO #### [facility] [address] [place] [address] [employer]: Nemesio Galicia MD #### URNMAB #### [address] [phone] [employer]: Lionel Badillo MD Erythrocyte distribution width (RBC) [Ratio] 12.5 % Normal 11.8-14.4 [facility] Comment on above: Performed By: #### U AX, UMICAO #### [facility] [address] [place] [address] [employer]: Nemesio Galicia MD #### URNMAB #### [address] [phone] [employer]: Lionel Badillo MD Hematocrit (Bld) [Volume fraction] 37.5 % Normal 36.3-47.1 [facility] Comment on above: Performed By: #### U AX, UMICAO #### [facility] [address] [place] [address] [employer]: Nemesio Galicia MD #### URNMAB #### [address] [phone] [employer]: Lionel Badillo MD Hemoglobin (Bld) [Mass/Vol] 12.5 g/dL Normal 11.9-15.1 [facility] Comment on above: Performed By: #### U AX, UMICAO #### [facility] [address] [place] [address] [employer]: Nemesio Galicia MD #### URNMAB #### [address] [phone] [employer]: Lionel Badillo MD Immature granulocytes/100 WBC (Bld) 1 % High 0 [facility] Comment on above: Performed By: #### U AX, UMICAO #### [facility] [address] [place], [place] 1143483 [employer]: Nemesio Galicia MD #### URNMAB #### [address] [phone] [employer]: Lionel Badillo MD Lymphocytes (Bld) [#/Vol] 1.13 10*3/uL Normal 1.10-3.70 [facility] Comment on above: Performed By: #### U AX, UMICAO #### [facility] [address] [place], [place] 3327983 [employer]: Nemesio Galicia MD #### URNMAB #### [address] [phone] [employer]: Lionel Badillo MD Lymphocytes/100 WBC (Bld) 24 % Normal 24-43 [facility] Comment on above: Performed By: #### U AX, UMICAO #### [facility] [address] [place], [place] 7072183 [employer]: Nemesio Galicia MD #### URNMAB #### [address] [phone] [employer]: Lionel Badillo MD MCH (RBC) [Entitic mass] 31.5 pg Normal 25.2-33.5 [facility] Comment on above: Performed By: #### U AX, UMICAO #### [facility] [address] [place], [place] [phone] [employer]: Nemesio Galicia MD #### URNMAB #### [address] [address] [employer]: Lionel Badillo MD MCHC (RBC) [Mass/Vol] 33.3 g/dL Normal 28.4-34.8 [facility] Comment on above: Performed By: #### U AX, UMICAO #### [facility] [address] [place], [place] [phone] [employer]: Nemesio Galicia MD #### URNMAB #### [address] [phone] [employer]: Lionel Badillo MD MCV (RBC) [Entitic vol] 94.5 fL Normal 82.6-102.9 [facility] Comment on above: Performed By: #### U AX, UMICAO #### [facility] [address] [place], [place] 7922083 [employer]: Nemesio Galicia MD #### URNMAB #### [address] [phone] [employer]: Lionel Badillo MD Monocytes (Bld) [#/Vol] 0.39 10*3/uL Normal 0.10-1.20 [facility] Comment on above: Performed By: #### U AX, UMICAO #### [facility] [address] [place], [place] 5866983 [employer]: Nemesio Galicia MD #### URNMAB #### [address] [address] [employer]: Lionel Badillo MD Monocytes/100 WBC (Bld) 8 % Normal 3-12 [facility] Comment on above: Performed By: #### U AX, UMICAO #### [facility] [address] [place], [place] 1208983 [employer]: Nemesio Galicia MD #### URNMAB #### [address] [address] [employer]: Lionel Badillo MD Neutrophil (Seg) 64 % Normal 36-65 [facility] Comment on above: Performed By: #### U AX, UMICAO #### [facility] [address] [place], [place] 6034083 [employer]: Nemesio Galicia MD #### URNMAB #### [address] [phone] [employer]: Lionel Badillo MD NRBC Automated 0.0 per 100 WBC Normal 0.0 [facility] Comment on above: Performed By: #### U AX UMICAO #### [facility] [address] [place] [address] Dr[address] [place], [place] 4802483 [employer]: Nemesio Galicia MD #### URNMAB #### [address] [phone] [employer]: Lionel Badillo MD Platelet mean volume (Bld) [Entitic vol] 10.3 fL Normal 8.1-13.5 [facility] Comment on above: Performed By: #### U HALIMA MATTHEWICAO #### [facility] [address] [place] [address] [place], [place] 7864983 [employer]: Nemesio Galicia MD #### URNMAB #### [address] [address] [employer]: Lionel Badillo MD Platelets (Bld) [#/Vol] 181 10*3/uL Normal 138-453 [facility] Comment on above: Performed By: #### U AX UMICAO #### [facility] [address] [place] [address] [place], [place] 8092983 [employer]: Nemesio Galicia MD #### URNMAB #### [address] [address] [employer]: Lionel Badillo MD RBC (Bld) [#/Vol] 3.97 10*6/uL Normal 3.95-5.11 [facility] Comment on above: Performed By: #### U AX UMICAO #### [facility] [address] [place], [place] 3074483 [employer]: Nemesio Galicia MD #### URNMAB #### [address] [place] [address] [employer]: Lionel Badillo MD WBC (Bld) [#/Vol] 4.6 10*3/uL Normal 3.5-11.3 [facility] Comment on above: Performed By: #### U AX, UMICAO #### [facility] [address] [place], [place] 6015783 [employer]: Nemesio Galicia MD #### URNMAB #### [address] [address] [employer]: Lionel Badillo MD Comp Metabolic Profon 2022 Albumin [Mass/Vol] 3.9 g/dL Normal 3.5-5.2 [facility] Comment on above: Performed By: #### U AX, UMICAO #### [facility] [address] [place], [place] 0096383 [employer]: Nemesio Galicia MD #### URNMAB #### [address] [address] [employer]: Lionel Badillo MD Albumin/Glob Ratio 1.4 Normal 1.0-2.5 [facility] Comment on above: Performed By: #### U AX, UMICAO #### [facility] [address] [place], [place] 5364783 [employer]: Nemesio Galicia MD #### URNMAB #### [address] [address] [employer]: Lionel Badillo MD Alkaline Phos 58 U/L Normal 35-104 [facility] Comment on above: Performed By: #### U AX, UMICAO #### [facility] [address] [place], [place] 8556083 [employer]: Nemesio Galicia MD #### URNMAB #### [address] [phone] [employer]: Lionel Badillo MD ALT [Catalytic activity/Vol] 15 U/L Normal 5-33 [facility] Comment on above: Performed By: #### U AX, UMICAO #### [facility] [address] [place] [address] Dr[address] [place], [place] 6739783 [employer]: Nemesio Galicia MD #### URNMAB #### [address] [phone] [employer]: Lionel Badillo MD AST [Catalytic activity/Vol] 18 U/L Normal <32 [facility] Comment on above: Performed By: #### U AX, UMICAO #### [address] [place], [place] 9714983 [employer]: Nemesio Galicia MD #### URNMAB #### [address] [address] [employer]: Lionel Badillo MD Bilirubin [Mass/Vol] 0.3 mg/dL Normal 0.3-1.2 [facility] Comment on above: Performed By: #### U AX, UMICAO #### [address] [place], [place] 1652083 [employer]: Nemesio Galicia MD #### URNMAB #### [address] [address] [employer]: Lionel Badillo MD BUN/CRE Ratio 18 Normal 9-20 [facility] Comment on above: Performed By: #### U AX, UMICAO #### [address] [place], [place] 0785583 [employer]: Nemesio Galicia MD #### URNMAB #### [address] [place], [place] 8728508 [employer]: Lionel Badillo MD Chloride [Moles/Vol] 106 mmol/L Normal 98-107 [facility] Comment on above: Performed By: #### U AX, UMICAO #### [facility] [address] [place] [address] [employer]: Nemesio Galicia MD #### URNMAB #### [address] [place], [place] 7926608 [employer]: Lionel Badillo MD Creatinine [Mass/Vol] 0.8 mg/dL Normal 0.5-0.9 [facility] Comment on above: Performed By: #### U AX, UMICAO #### [address] [place] [address] [employer]: Nemesio Galicia MD #### URNMAB #### [address] [phone] [employer]: Lionel Badillo MD GFR/1.73 sq M.predicted among non-blacks MDRD (S/P/Bld) [Vol rate/Area] mL/min/{1.73_m2} Normal >60 [facility] Comment on above: Result Comment: These [...] Performed By: #### U AX, UMICAO #### [facility] [address] [place] [address] [employer]: Nemesio Galicia MD #### URNMAB #### [address] [place] [address] [employer]: Lionel Badillo MD Glucose [Mass/Vol] 71 mg/dL Normal 70-99 [facility] Comment on above: Performed By: #### U AX, UMICAO #### [facility] [address] [place], [place] 1326983 [employer]: Nemesio Galicia MD #### URNMAB #### [address] [place] [address] [employer]: Lionel Badillo MD Potassium [Moles/Vol] 3.8 mmol/L Normal 3.7-5.3 [facility] Comment on above: Performed By: #### U AX, UMICAO #### [facility] [address] [place] [address] [address] [place], [place] 7559783 [employer]: Nemesio Galicia MD #### URNMAB #### [address] [address] [employer]: Lionel Badillo MD Protein [Mass/Vol] 6.7 g/dL Normal 6.4-8.3 [facility] Comment on above: Performed By: #### U AX, UMICAO #### [facility] [address] [place] [address] [address] [place], [place] 4698483 [employer]: Nemesio Galicia MD #### URNMAB #### [address] [address] [employer]: Lionel Badillo MD Sodium [Moles/Vol] 141 mmol/L Normal 135-144 [facility] Comment on above: Performed By: #### U AX, UMICAO #### [facility] [address] [place] [address] [address] [place], [place] 3651783 [employer]: Nemesio Galicia MD #### URNMAB #### [address] [address] [employer]: Lionel Badillo MD Urea nitrogen [Mass/Vol] 14 mg/dL Normal 6-20 [facility] Comment on above: Performed By: #### U AX, UMICAO #### [facility] [address] [place], [place] 4404783 [employer]: Nemesio Galicia MD #### URNMAB #### [address] [address] [employer]: Lionel Badillo MD UA w/Reflex Cultureon 2022 Bilirubin, SemiQt,Ur Negative Normal NEG [facility] Comment on above: Performed By: #### U AX, UMICAO #### [facility] [address] [place], [place] 8939883 [employer]: Nemesio Galicia MD #### URNMAB #### [address] [address] [employer]: Lionel Badillo MD Blood, Urine Negative Normal NEG [facility] Comment on above: Performed By: #### U AX UMICAO #### [facility] [address] [place], [place] 7347383 [employer]: Nemesio Galicia MD #### URNMAB #### [address] [address] [employer]: Lionel Badillo MD Clarity (U) Clear Normal CLEAR [facility] Comment on above: Performed By: #### U AX, UMICAO #### [facility] [address] [place], [place] 7954583 [employer]: Nemesio Galicia MD #### URNMAB #### [address] [address] [employer]: Lionel Badillo MD Color (U) Yellow Normal YEL [facility] Comment on above: Performed By: #### U AX, UMICAO #### [address] [place] [address] [employer]: Nemesio Galicia MD #### URNMAB #### [address] [address] [employer]: Lionel Badillo MD Glucose Ql (U) Negative Normal NEG [facility] Comment on above: Performed By: #### U AX, UMICAO #### [facility] [address] [place] [address] [place] [address] [employer]: Nemesio Galicia MD #### URNMAB #### [address] [address] [employer]: Lionel Badillo MD Ketones Ql (U) TRACE Abnormal NEG [facility] Comment on above: Performed By: #### U AX, UMICAO #### [address] [place], [place] 5230583 [employer]: Nemesio Galicia MD #### URNMAB #### [address] [address] [employer]: Lionel Badillo MD Leukocyte esterase Test strip Ql (U) TRACE Abnormal NEG [facility] Comment on above: Performed By: #### U AX, UMICAO #### [address] [place] [address] [employer]: Nemesio Galicia MD #### URNMAB #### [address] [address] [employer]: Lionel Badillo MD Nitrite,Ur Negative Normal NEG [facility] Comment on above: Performed By: #### U AX, UMICAO #### [address] [place], [place] 1917883 [employer]: Nemesio Galicia MD #### URNMAB #### [address] [address] [employer]: Lionel Badillo MD PH,Ur 6.0 Normal 5.0-9.0 [facility] Comment on above: Performed By: #### U AX, UMICAO #### [facility] [address] [place] [address] [place] [address] [employer]: Nemesio Galicia MD #### URNMAB #### [address] [address] [employer]: Lionel Badillo MD Protein Ql (U) Negative Normal NEG [facility] Comment on above: Performed By: #### U AX, UMICAO #### [facility] [address] [place] [address] [address] [place], [place] 3934083 [employer]: Nemesio Galicia MD #### URNMAB #### [address] [address] [employer]: Lionel Badillo MD Spec. [place],Ur 1.015 Normal 1.010-1.020 [facility] Comment on above: Performed By: #### U AX, UMICAO #### [address] [place] [address] [employer]: Nemesio Galicia MD #### URNMAB #### [address] [address] [employer]: Lionel Badillo MD Urobilinogen,Ur Normal Normal 0.0-1.0 [facility] Comment on above: Performed By: #### U AX, UMICAO #### [address] [place] [address] [employer]: Nemesio Galicia MD #### URNMAB #### [address] [address] [employer]: Lionel Badillo MD Urinalysis,Microon 3 Bacteria TRACE Abnormal NONE [facility] Comment on above: Performed By: #### U AX, UMICAO #### [facility] [address] [place], [place] 7245383 [employer]: Nemesio Galicia MD #### URNMAB #### [address] [address] [employer]: Lionel Badillo MD Epithelial cells LM Ql (Urine sed) 0 TO 2 Normal 0-25 [facility] Comment on above: Performed By: #### U AX, UMICAO #### [facility] [address] [place] [address] [address] [place], [place] 5454083 [employer]: Nemesio Galicia MD #### URNMAB #### [address] [address] [employer]: Lionel Badillo MD Mucus Strands TRACE Abnormal NONE [facility] Comment on above: Performed By: #### U AX, UMICAO #### [facility] [address] [place] [address] [address] [place], [place] 6975383 [employer]: Nemesio Galicia MD #### URNMAB #### [address] [address] [employer]: Lionel Badillo MD Urine RBC's 0 TO 2 Normal 0-2 [facility] Comment on above: Performed By: #### U AX, UMICAO #### [facility] [address] [place], [place] 0864683 [employer]: Nemesio Galicia MD #### URNMAB #### [address] [address] [employer]: Lionel Badillo MD Urine WBC's 0 TO 2 Normal 0-5 [facility] Comment on above: Performed By: #### U AX, UMICAO #### [facility] [address] [place] [address] [employer]: Nemesio Galicia MD #### URNMAB #### [address] [place], [place] 0549708 [employer]: Lionel Badillo MD Follicle Stim. Hormon 2022 Follicle Stim. Horm 8.7 mIU/mL Normal [facility] Comment on above: Result Comment: Refe rence Range: Male: 1.5-12.4 Ovulating Female: Follicular Phase 3.5-12.5 Ovulation Phase 4.7-21.5 Luteal Phase 1.7-7.7 Postmenopausal Female: 25.8-134.8 Performed By: #### U VIPUL, UMICAO #### [facility] [address] [place] [address] [employer]: Nemesio Galicia MD #### URNMAB #### [address] [place] [address] [employer]: Lionel Badillo MD Luteinizing Hormoneon 2022 Luteinizing Hormone 10.4 mIU/mL High 1.7-8.6 [facility] Comment on above: Result Comment: Refe rence Range: Male: 1.7-8.6 Ovulating Female: Follicular Phase 2.4-12.6 Ovulation Phase 14.0-95.6 Luteal Phase 1.0-11.4 Postmenopausal Female: 7.7-58.5 Performed By: #### U AX, UMICAO #### [facility] [address] [place] [address] [employer]: Nemesio Galicia MD #### URNMAB #### [facility] [address] [place] [address] [employer]: Lionel Badillo MD Cytology Reporton 04-23-2023 Cytology report Cyto stain.thin prep Doc (Cvx/Vag) (NOTE) Path Number: [id number] DIAGNOSIS Imaged ThinPrep Pap - Cervical (1 monolayer slide): Specimen Adequacy: Satisfactory for evaluation. -Endocervical/transfo rmation zone component is absent. Descriptive Diagnosis: Negative for intraepithelial lesion or malignancy. Cytotech Screener: EY Electronically Signed Out Tony MAC(ASCP) ey/04/30/2023 Source of Specimen: A: Imaged ThinPrep Pap - Cervical (1 monolayer slide) HPV Reflex?.............. 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 GYNECOLOGIC CYTOLOGY REPORT Patient Name: JUSTEN CHITRA Hummel [facility] Rec: [address] [facility] CONSULTING PATHOLOGISTS [facility] ANATOMIC PATHOLOGY [address] [place] [address]. [place], [place] [address] [facility] Surgical Pathology Reporton 04-23-2023 Surgical Pathology Report (NOTE) Path Number: [id number] -- Diagnosis -- ENDOMETRIUM, BIOPSY: -SCANT SUPERFICIAL FRAGMENT OF WEAKLY PROLIFERATIVE ENDOMETRIUM AND SEPARATE PIECES OF BENIGN ENDOMETRIAL GLANDULAR EPITHELIUM. -SEPARATE PIECES OF BENIGN ENDOCERVICAL GLANDULAR EPITHELIUM. Nemesio Galicia M.D. Electronically Signed Out jen/04/25/2023 Clinical Information Pre-Op Diagnosis: IRREGULAR BLEEDING Operative Findings: ENDOMETRIAL BX mj Source of Specimen A: ENDOMETRIUM BIOPSY Gross Description OLLIE MYERS BX Received in formalin is dark brown, mucoid material, 2.0 x 1.3 x 0.2 cm in aggregate. Entirely 1cs. jj tm AG/mj:04/24/2023 Microscopic Description Microscopic examination performed. Processing Lab: [address] [phone] Interpretation Performed at [address] [address] SURGICAL PATHOLOGY CONSULTATION Patient Name: CHITRA CAMPUZANO Rec: [address] [facility] CON[facility] AN[facility] [address], [place] [address] Normal [facility] US NON OB TRANSVAGINALon US NON OB TRANSVAGINAL EXAMINATION: PELVIC ULTRASOUND 04/16/2023 TECHNIQUE: Transvaginal images were performed COMPARISON: None HISTORY: ORDERING SYSTEM PROVIDED HISTORY: Post-menopausal bleeding TECHNOLOGIST PROVIDED HISTORY: This procedure can be scheduled via [employer]. Access your [employer] account by visiting [employer]. FINDINGS: Measurements: Uterus: 8.4 x 6.6 x [...] Jj Baptiste MD 04/17/23 Final result Normal [facility] XR KNEE LEFT (3 VIEWS)on XR [...] Mark Barton MD 12/27/22 Final result Normal [facility] Herpes Profileon 10-22-2022 Herpes Type I, IgG 0.14 Normal <0.91 [facility] Comment on above: Result Comment: Reference Range: <=0.90 Negative 0.91-1.09 Equivocal >=1.10 Positive Performed By: #### C P, CBC #### [address] [place] [address] [employer]: Nemesio Galicia MD #### GLYHGB #### [address] [address] [employer]: Lionel Badillo MD Herpes Type I/II,IgM 0.52 Normal <0.91 [facility] Comment on above: Result Comment: Reference Range: [...] Performed By: #### C P, CBC #### [address] [place] [address] [employer]: Nemesio Galicia MD #### GLYHGB #### [address] [address] [employer]: Lionel Badillo MD Herpes Type II, IgG 4.70 High <0.91 [facility] Comment on above: Result Comment: Reference Range: <=0.90 Negative 0.91-1.09 Equivocal >=1.10 Positive Performed By: #### C P, CBC #### [address] [place], [place] 8861883 [employer]: Nemesio Galicia MD #### GLYHGB #### [facility] [employer] [facility] [place], [place] 0653708 [employer]: Lionel Badillo MD Chlamydia/GC DNA, Uron 10-18 Chlamydia Probe, Ur Negative Normal NEG [facility] Comment on above: Result Comment: CHLA [...] Performed By: #### C P, CBC #### [address] [place], [place] 2733383 [employer]: Nemesio Galicia MD #### GLYHGB #### [facility] [employer] [facility] [place], [place] 0503108 [employer]: Lionel Badillo MD Gonorrhea Probe, Ur Negative Normal NEG [facility] Comment on above: Result Comment: NEIS [...] Performed By: #### C P, CBC #### [address] [place] [address] [employer]: Nemesio Galicia MD #### GLYHGB #### [facility] [place], [place] 7848908 [employer]: Lionel Badillo MD Cult,Urineon 10-18-2022 Cult,Urine Specimen Description .CLEAN CATCH URINE Culture NO SIGNIFICANT GROWTH Report Status FINAL 10/18/2022 Normal [facility] Comment on above: Performed By: #### U AX, UMICAO #### [address] [place], [place] 2229283 [employer]: Nemesio Galicia MD #### URNMAB #### [address] [address] [employer]: Lionel Badillo MD HIV Ag/Abon 10-18-2022 HIV Ag/Ab Non-Reactive Normal [facility] Comment on above: Result Comment: No l aboratory evidence of HIV infection. If acute HIV infection is suspected, consider testing for HIV-1 RNA. Performed By: #### C P, CBC #### [address] [place], [place] 2579283 [employer]: Nemesio Galicia MD #### GLYHGB #### [address] [address] [employer]: Lionel Badillo MD Hepatitis Acute [facility] 10-18 Hep A Ab,IgM Non-Reactive Normal [facility] Comment on above: Performed By: #### C P, CBC #### [address] [place], [place] 7138383 [employer]: Nemesio Galicia MD #### GLYHGB #### [address] [address] [employer]: Lionel Badillo MD Hep B Core Ab,IgM Non-Reactive Normal [facility] Comment on above: Performed By: #### C P, CBC #### [address] [place], [place] 8015683 [employer]: Nemesio Galicia MD #### GLYHGB #### [address] [address] [employer]: Lionel Badillo MD Hep B Surf Ag Non-Reactive Normal [facility] Comment on above: Performed By: #### C P, CBC #### [address] [place] [address] [employer]: Nemesio Galicia MD #### GLYHGB #### [address] [phone] [employer]: Lionel Badillo MD Hep C Ab Non-Reactive Normal [facility] Comment on above: Result Comment: The hepatitis [...] Performed By: #### C P, CBC #### [address] [place] [address] [employer]: Nemesio Galicia MD #### GLYHGB #### [address] [phone] [employer]: Lionel Badillo MD T.pallidum Ab Screenon 10-185 T.pallidum Ab Screen Non-Reactive Normal [facility] Comment on above: Result Comment: T. pallidum antibodies are not detected. There is no serological evidence of infection with T. pallidum (early primary syphilis cannot be excluded). Retest in 2-4 weeks if syphilis is clinically suspect. Performed By: #### C P, CBC #### [address] [place] [address] [employer]: Nemesio Galicia MD #### GLYHGB #### [address] [place], [place] 1415108 [employer]: Lionel Badillo MD CBCon 9 Erythrocyte distribution width (RBC) [Ratio] 12.1 % Normal 11.8-14.4 [facility] Comment on above: Performed By: #### C P, CBC #### [address] [place] [address] [employer]: Nemesio Galicia MD #### GLYHGB #### [address] [phone] [employer]: Lionel Badillo MD Hematocrit (Bld) [Volume fraction] 42.4 % Normal 36.3-47.1 [facility] Comment on above: Performed By: #### C P, CBC #### [address] [place] [address] [employer]: Nemesio Galicia MD #### GLYHGB #### [address] [phone] [employer]: Lionel Badillo MD Hemoglobin (Bld) [Mass/Vol] 14.0 g/dL Normal 11.9-15.1 [facility] Comment on above: Performed By: #### C P, CBC #### [address] [place] [address] [employer]: Nemesio Galicia MD #### GLYHGB #### [address] [phone] [employer]: Lionel Badillo MD MCH (RBC) [Entitic mass] 30.2 pg Normal 25.2-33.5 [facility] Comment on above: Performed By: #### C P, CBC #### [address] [place] [address] [employer]: Nemesio Galicia MD #### GLYHGB #### [address] [phone] [employer]: Lionel Badillo MD MCHC (RBC) [Mass/Vol] 33.0 g/dL Normal 28.4-34.8 [facility] Comment on above: Performed By: #### C P, CBC #### [facility] [address] [place] [address] [employer]: Nemesio Galicia MD #### GLYHGB #### [address] [phone] [employer]: Lionel Badillo MD MCV (RBC) [Entitic vol] 91.4 fL Normal 82.6-102.9 [facility] Comment on above: Performed By: #### C P, CBC #### [facility] [address] [place] [phone] [employer]: Nemesio Galicia MD #### GLYHGB #### [address] [phone] [employer]: Lionel Badillo MD NRBC Automated 0.0 per 100 WBC Normal 0.0 [facility] Comment on above: Performed By: #### C P, CBC #### [facility] [address] [place] [phone] [employer]: Nemesio Galicia MD #### GLYHGB #### [address] [address] [employer]: Lionel Badillo MD Platelet mean volume (Bld) [Entitic vol] 10.4 fL Normal 8.1-13.5 [facility] Comment on above: Performed By: #### C P, CBC #### [address] [place] [address] [employer]: Nemesio Galicia MD #### GLYHGB #### [address] [phone] [employer]: Lionel Badillo MD Platelets (Bld) [#/Vol] 228 10*3/uL Normal 138-453 [facility] Comment on above: Performed By: #### C P, CBC #### [facility] [address] [place] [address] [employer]: Nemesio Galicia MD #### GLYHGB #### [address] [place], [place] [phone] [employer]: Lionel Badillo MD RBC (Bld) [#/Vol] 4.64 10*6/uL Normal 3.95-5.11 [facility] Comment on above: Performed By: #### C P, CBC #### [facility] [address] [place] [address] [employer]: Nemesio Galicia MD #### GLYHGB #### [address] [place], [place] [phone] [employer]: Lionel Badillo MD WBC (Bld) [#/Vol] 6.8 10*3/uL Normal 3.5-11.3 [facility] Comment on above: Performed By: #### C P, CBC #### [facility] [address] [place] [address] [employer]: Nemesio Galicia MD #### GLYHGB #### [address] [place], [place] [phone] [employer]: Lionel Badillo MD Hematocrit (Bld) [Volume fraction] 42.4 % 36.3 - 47.1 % [facility] Hemoglobin (Bld) [Mass/Vol] 14.0 g/dL 11.9 - 15.1 g/dL [facility] MCH (RBC) [Entitic mass] 30.2 pg 25.2 - 33.5 pg [facility] MCHC (RBC) [Mass/Vol] 33.0 g/dL 28.4 - 34.8 g/dL [facility] MCV (RBC) [Entitic vol] 91.4 fL 82.6 - 102.9 fL [facility] NRBC Automated 0.0 0.0 per 100 WBC [facility] Platelet distribution width (Bld) [Ratio] 12.1 % 11.8 - 14.4 % [facility] Platelet mean volume (Bld) [Entitic vol] 10.4 fL 8.1 - 13.5 fL [facility] Platelets (Bld) [#/Vol] 228 10*3/uL [facility] RBC (Bld) [#/Vol] 4.64 10*6/uL 3.95 - 5.1 1 m/uL [facility] WBC (Bld) [#/Vol] 6.8 10*3/uL [facility] Comp Metabolic Profon 2022 Albumin [Mass/Vol] 4.2 g/dL Normal 3.5-5.2 [facility] Comment on above: Performed By: #### C P, CBC #### [facility] [address] [place] [address] [employer]: Nemesio Galicia MD #### GLYHGB #### [address] [phone] [employer]: Lionel Badillo MD Albumin/Glob Ratio 1.4 Normal 1.0-2.5 [facility] Comment on above: Performed By: #### C P, CBC #### [facility] [address] [place] [phone] [employer]: Nemesio Galicia MD #### GLYHGB #### [address] [place], [place] [phone] [employer]: Lionel Badillo MD Alkaline Phos 87 U/L Normal 35-104 [facility] Comment on above: Performed By: #### C P, CBC #### [facility] [address] [place] [address] [employer]: Nemesio Galicia MD #### GLYHGB #### [address] [address] [employer]: Lionel Badillo MD ALT [Catalytic activity/Vol] 8 U/L Normal 5-33 [facility] Comment on above: Performed By: #### C P, CBC #### [facility] [address] [place], [place] [phone] [employer]: Nemesio Galicia MD #### GLYHGB #### [address] [address] [employer]: Lionel Badillo MD Anion gap [Moles/Vol] 10 mmol/L Normal 9-17 [facility] Comment on above: Performed By: #### C P, CBC #### [facility] [address] [place], [place] [phone] [employer]: Nemesio Galicia MD #### GLYHGB #### [address] [address] [employer]: Lionel Badillo MD AST [Catalytic activity/Vol] 15 U/L Normal <32 [facility] Comment on above: Performed By: #### C P, CBC #### [facility] [address] [place] [address] Dr[address] [place], [place] [phone] [employer]: Nemesio Galicia MD #### GLYHGB #### [address] [address] [employer]: Lionel Badillo MD Bilirubin [Mass/Vol] 0.3 mg/dL Normal 0.3-1.2 [facility] Comment on above: Performed By: #### C P, CBC #### [facility] [address] [place], [place] [phone] [employer]: Nemesio Galicia MD #### GLYHGB #### [address] [address] [employer]: Lionel Badillo MD BUN/CRE Ratio 11 Normal 9-20 [facility] Comment on above: Performed By: #### C P, CBC #### [facility] [address] [place], [place] [phone] [employer]: Nemesio Galicia MD #### GLYHGB #### [address] [phone] [employer]: Lionel Badillo MD Calcium [Mass/Vol] 9.0 mg/dL Normal 8.6-10.4 [facility] Comment on above: Performed By: #### C P, CBC #### [facility] [address] [place], [place] [phone] [employer]: Nemesio Galicia MD #### GLYHGB #### [address] [phone] [employer]: Lionel Badillo MD Chloride [Moles/Vol] 106 mmol/L Normal 98-107 [facility] Comment on above: Performed By: #### C P, CBC #### [facility] [address] [place], [place] [phone] [employer]: Nemesio Galicia MD #### GLYHGB #### [address] [address] [employer]: Lionel Badillo MD CO2 [Moles/Vol] 25 mmol/L Normal 20-31 [facility] Comment on above: Performed By: #### C P, CBC #### [facility] [address] [place], [place] [phone] [employer]: Nemesio Galicia MD #### GLYHGB #### [address] [address] [employer]: Lionel aBdillo MD Creatinine [Mass/Vol] 0.97 mg/dL High 0.50-0.90 [facility] Comment on above: Performed By: #### C P, CBC #### [address] [place], [place] [phone] [employer]: Nemesio Galicia MD #### GLYHGB #### [address] [place], [place] [phone] [employer]: Lionel Badillo MD GFR/1.73 sq M.predicted among non-blacks MDRD (S/P/Bld) [Vol rate/Area] mL/min/{1.73_m2} Normal >60 [facility] Comment on above: Result Comment: These [...] Performed By: #### C P, CBC #### [address] [place], [place] 0166583 [employer]: Nemesio Galicia MD #### GLYHGB #### [address] [phone] [employer]: Lionel Badillo MD Glucose [Mass/Vol] 80 mg/dL Normal 70-99 [facility] Comment on above: Performed By: #### C P, CBC #### [address] [place], [place] [phone] [employer]: Nemesio Glaicia MD #### GLYHGB #### [address] [place] [address] [employer]: Lionel Badillo MD Potassium [Moles/Vol] 3.9 mmol/L Normal 3.7-5.3 [facility] Comment on above: Performed By: #### C P, CBC #### [address] [place], [place] [phone] [employer]: Nemesio Galicia MD #### GLYHGB #### [facility] [address] [place], [place] [phone] [employer]: Lionel Badillo MD Protein [Mass/Vol] 7.2 g/dL Normal 6.4-8.3 [facility] Comment on above: Performed By: #### C P, CBC #### [facility] [address] [place] [address] [place] [address] [employer]: Nemesio Galicia MD #### GLYHGB #### [address] [place], [place] 1579508 [employer]: Lionel Badillo MD Sodium [Moles/Vol] 141 mmol/L Normal 135-144 [facility] Comment on above: Performed By: #### C P, CBC #### [address] [place] [address] [employer]: Nemesio Galicia MD #### GLYHGB #### [address] [place], [place] 1946508 [employer]: Lionel Badillo MD Urea nitrogen [Mass/Vol] 11 mg/dL Normal 6-20 [facility] Comment on above: Performed By: #### C P, CBC #### [address] [place], [place] [phone] [employer]: Nemesio Galicia MD #### GLYHGB #### [address] [place], [place] [phone] [employer]: Lionel Badillo MD Comprehensive Metabolic Pane [facility] 10-17-2022 Albumin [Mass/Vol] 4.2 g/dL 3.5 - 5.2 g/dL [facility] Albumin/Globulin [Mass ratio] 1.4 {ratio} 1.0 - 2.5 [facility] ALP [Catalytic activity/Vol] 87 U/L 35 - 104 U/L [facility] ALT [Catalytic activity/Vol] 8 U/L 5 - 33 U/L [facility] Anion gap [Moles/Vol] 10 mmol/L 9 - 17 mmol/L [facility] AST [Catalytic activity/Vol] 15 U/L NINF - 32 U/L [facility] Bilirubin [Mass/Vol] 0.3 mg/dL 0.3 - 1 .2 mg/dL [facility] Calcium [Mass/Vol] 9.0 mg/dL 8.6 - 10. 4 mg/dL [facility] Chloride [Moles/Vol] 106 mmol/L 98 - 10 7 mmol/L [facility] CO2 [Moles/Vol] 25 mmol/L 20 - 31 mmol/L [facility] Creatinine [Mass/Vol] 0.97 mg/dL High 0.50 - 0.90 mg/dL [facility] GFR/1.73 sq M.predicted MDRD (S/P/Bld) [Vol rate/Area] - PINF [facility] Comment on above: These results are not [...] [Mass/Vol] 80 mg/dL 70 - 99 mg/dL [facility] Interpretation and review of laboratory results Abnormal [facility] Potassium [Moles/Vol] 3.9 mmol/L 3.7 - 5.3 mmol/L [facility] Protein [Mass/Vol] 7.2 g/dL 6.4 - 8.3 g/dL [facility] Sodium [Moles/Vol] 141 mmol/L 135 - 144 mmol/L [facility] Urea nitrogen [Mass/Vol] 11 mg/dL 6 - 20 mg/dL [facility] Urea nitrogen/Creatinine (Bld) [Mass ratio] 11 9 - 20 [facility] HIV Screenon 10-17-2022 HIV 1+2 Ab+HIV1 p24 Ag IA Ql Non-Reactive NONREACTIVE [facility] Comment on above: No laboratory eviden ce of HIV infection. If acute HIV infection is suspected, consider testing for HIV-1 RNA. [facility] Hemoglobin A1Con 10-17-2022 Glucose [Mass/Vol] 82 mg/dL Normal [facility] Comment on above: Result Comment: The ADA and AACC recommend providing the estimated average glucose result to permit better patient understanding of their HBA1c result. Performed By: #### C P, CBC #### [facility] [address] [place], [place] [phone] [employer]: Nemesio Galicia MD #### GLYHGB #### [facility] [employer] [address] [place], [place] [phone] [employer]: Lionel Badillo MD HbA1c (Bld) [Mass fraction] 4.5 % Normal 4.0-6.0 [facility] Comment on above: Performed By: #### C P, CBC #### [facility] [address] [place], [place] [phone] [employer]: Nemesio Galicia MD #### GLYHGB #### [facility] [address] [place], [place] [phone] [employer]: Lionel Badillo MD Average glucose Estimated from glycated hemoglobin (Bld) [Mass/Vol] 82 mg/dL [facility] Comment on above: The ADA and AACC rec ommend providing the estimated average glucose result to permit better patient understanding of their HBA1c result. HbA1c (Bld) [Mass fraction] 4.5 % 4.0 - 6.0 % [facility] Lipid Panelon 10-17-2022 Cholesterol [Mass/Vol] 222 mg/dL High NINF - 200 mg/dL [facility] Comment on above: Cholesterol Guidelines: <200 Desirable 200-240 Borderline >240 Undesirable Cholesterol in HDL [Mass/Vol] 61 mg/dL 40 - PINF mg/dL [facility] Comment on above: HDL Guidelines: <40 Undesirable 40-59 Borderline >59 Desirable Cholesterol in LDL [Mass/Vol] 146 mg/dL High 0 - 130 mg/dL [facility] Comment on above: LDL Guidelines: <100 Desirable 100-129 Near to/above Desirable 130-159 Borderline >159 Undesirable Direct (measured) LDL and calculated LDL are not interchangeable tests. Cholesterol.total/Ch olesterol in HDL [Mass ratio] 3.6 {ratio} NINF - 5 [facility] Interpretation and review of laboratory results Abnormal [facility] Triglyceride [Mass/Vol] 76 mg/dL NINF - 150 mg/dL [facility] Comment on above: Triglyceride Guidelines: <150 Desirable 150-199 Borderline 200-499 High >499 Very high Based on AHA Guidelines for fasting triglyceride, April 2012. [facility] Lipid Profileon 10-17-2022 Cholesterol [Mass/Vol] 222 mg/dL High <200 [facility] Comment on above: Result Comment: Cholesterol Guidelines: <200 Desirable 200-240 Borderline >240 Undesirable Performed By: #### C P, CBC #### [facility] [address] [place] [address] [place] [phone] [employer]: Nemesio Galicia MD #### GLYHGB #### [facility] [employer] [address] [place] [address] [employer]: Lionel Badillo MD Cholesterol in HDL [Mass/Vol] 61 mg/dL Normal >40 [facility] Comment on above: Result Comment: HDL Guidelines: <40 Undesirable 40-59 Borderline >59 Desirable Performed By: #### C P, CBC #### [facility] [address] [place] [address] [employer]: Nemesio Galicia MD #### GLYHGB #### [facility] [employer] [facility] [place] [address] [employer]: Lionel Badillo MD Cholesterol in LDL [Mass/Vol] 146 mg/dL High 0-130 [facility] Comment on above: Result Comment: LDL Guidelines: <100 Desirable 100-129 Near to/above Desirable 130-159 Borderline >159 Undesirable Direct (measured) LDL and calculated LDL are not interchangeable tests. Performed By: #### C P, CBC #### [address] [place] [address] [employer]: Nemesio Galicia MD #### GLYHGB #### [address] [place], [place] [phone] [employer]: Lionel Badillo MD Cholesterol.total/Ch olesterol in HDL [Mass ratio] 3.6 {ratio} Normal <5 [facility] Comment on above: Performed By: #### C P, CBC #### [address] [place] [address] [employer]: Nemesio Galicia MD #### GLYHGB #### [address] [place], [place] [phone] [employer]: Lionel Badillo MD Triglyceride [Mass/Vol] 76 mg/dL Normal <150 [facility] Comment on above: Result Comment: Triglyceride Guidelines: <150 Desirable 150-199 Borderline 200-499 High >499 Very high Based on AHA Guidelines for fasting triglyceride, April 2012. Performed By: #### C P, CBC #### [address] [place] [address] [employer]: Nemesio Galicia MD #### GLYHGB #### [address] [place], [place] [phone] [employer]: Lionel Badillo MD TSH With Reflex Ft4on 2022 TSH Qn 2.79 m[IU]/L [facility] TSH w/reflex to FT4on 2022 Thyroid Stim. Horm. 2.79 uIU/mL Normal 0.30-5.00 [facility] Comment on above: Performed By: #### U AX, LEEO #### [address] [place] [address] [employer]: Nemesio Galicia MD #### URNMAB #### [facility] [address] [place] [address] [employer]: Lionel Badillo MD Vaginitis DNA Probeon 2022 Beto Negative Normal [facility] Comment on above: Result Comment: for Beto sp. Method of testing is a DNA probe intended for detection and identification of Beto species, Gardnerella vaginalis, and Trichomonas vaginalis nucleic acid in vaginal fluid specimens from patients with symptoms of vaginitis/vaginosis. Performed By: #### C P, CBC #### [facility] [address] [place] [address] [place] [address] [employer]: Nemesio Galicia MD #### GLYHGB #### [address] [address] [employer]: Lionel Badillo MD Gardnerella Negative Normal [facility] Comment on above: Result Comment: for Gardnerella vaginalis Performed By: #### C P, CBC #### [facility] [address] [place] [address] [address] [place], [place] [phone] [employer]: Nemesio Galicia MD #### GLYHGB #### [address] [address] [employer]: Lionel Badillo MD Trichomonas Positive Abnormal NEG [facility] Comment on above: Result Comment: for Trichomonas Vaginalis Performed By: #### C P, CBC #### [facility] [address] [place] [address] [address] [place], [place] [phone] [employer]: Nemesio Galicia MD #### GLYHGB #### [address] [address] [employer]: Lionel Badillo MD Beto Species, DNA Probe Negative NEGATIVE [facility] Comment on above: for Beto sp. Method of testing is a DNA probe intended for detection and identification of Beto species, Gardnerella vaginalis, and Trichomonas vaginalis nucleic acid in vaginal fluid specimens from patients with symptoms of vaginitis/vaginosis. Gardnerella Vaginalis, DNA Probe Negative NEGATIVE [facility] Comment on above: for Gardnerella vagi nalis Interpretation and review of laboratory results Abnormal [facility] Source .VAGINAL SWAB [facility] Trichomonas Vaginalis DNA Positive Abnormal NEGATIVE [facility] Comment on above: for Trichomonas Vagi nalis [facility] Source .VAGINAL SWAB Normal [facility] [facility] Comment on above: Performed By: #### C P, CBC #### [facility] [address] [place] [address] [place] [address] [employer]: Nemesio Galicia MD #### GLYHGB #### [facility] [address] [place], [place] [id number] [employer]: Lionel Badillo MD Cult,Urineon 10-09-2022 Cult,Urine Specimen Description .CLEAN CATCH URINE Culture NO SIGNIFICANT GROWTH Report Status FINAL 10/08/2022 [facility] Comment on above: Performed By: #### U RC #### [facility] [address] [place], [place] [phone] [employer]: Lionel Badillo MD [address] [place] [address] [employer]: Nemesio Galicia MD EKG 12 leadOrdered By: Aldair Magdaleno on 05-22-2022 Atrial Rate [address] [facility] [facility] Phone: P [place] 31 degrees [facility] [employer] Phone: P-R Interval 130 ms [facility] [employer] Phone: Q-T Interval [address] [facility] Phone: QRS Duration [address] [facility] [address] [facility] Phone: QTc Calculation (Bazett) [address] [facility] [address] [facility] Phone: R [place] -5 degrees [facility] [employer] Phone: T [place] 2 degrees JOHANNE PATINO [employer] Phone: Ventricular Rate 77 BPM JOHANNE CALHOUN [employer] Phone: JOHANNE PATINO [employer] Phone: EKG 12 leadon 05-22-2022 Poor data quality, interpretation may be adversely affected Normal sinus rhythm Normal ECG When compared with ECG of 18-JUL-2021 10:45, No significant change was found Confirmed by HANNY MAGDALENO ([id number]) on 05/22/2022 12:21:37 AM [facility] Hanny Magdaleno MD - 05/22/2022 Poor data quality, interpretation may be adversely affected Normal sinus rhythm Normal ECG When compared with ECG of 18-JUL-2021 10:45, No significant change was found Confirmed by HANNY MAGDALENO ([id number]) on 05/22/2022 12:21:37 AM JOHANNE [employer] Phone: [facility] HERLINDA DIGITAL SCREEN BILA TERALon 11-28-2021 No mammographic evidence of malignancy BIRADS: BIRADS - CATEGORY 1 Negative. Normal interval follow-up is recommended in 12 months. OVERALL ASSESSMENT - NEGATIVE A letter of notification will be sent to the patient regarding the results. [employer] recommends annual mammograms for women 40 years and older. [facility] EXAMINATION: SCREENING DIGITAL BILATERAL MAMMOGRAM WITH [...] concerning grouping of microcalcification in either breast. [facility] HERLINDA DIGITAL SCREEN BILA TERALOrdered By: Nik Zamorano on 11-28-2021 [employer] Phone: [facility] HERLINDA DIGITAL SCREEN BILA TERALon 11-27-2021 Radiology Study observation (narrative) [employer] Phone: XR HIP LEFT (2-3 VIEWS)on No acute fracture or dislocation. Diffuse osteopenia. [facility] EXAMINATION: TWO XRAY VIEWS OF THE [...] changes at the pubic symphysis. Diffuse osteopenia. [facility] Mark Barton MD - 05/24/2021 EXAMINATION: [...] No acute fracture or dislocation. Diffuse osteopenia. [employer] Phone: Radiology Study observation (narrative) [employer] Phone: XR HIP LEFT (2-3 VIEWS)Order ed By: Mark Barton on 05-24-2021 [employer] Phone: Hemoglobin A1Con 04-24-2020 Glucose [Mass/Vol] 94 mg/dL [place], [place] Comment on above: The ADA and AACC rec ommend providing the estimated average glucose result to permit better patient understanding of their HBA1c result. HbA1c (Bld) [Mass fraction] 4.9 % 4 - 6 % [place], [place] Lipid Panelon 04-24-2020 Cholesterol [Mass/Vol] 178 mg/dL <200 [place] Comment on above: Cholesterol Guidelines: <200 Desirable 200-240 Borderline >240 Undesirable Cholesterol in HDL [Mass/Vol] 58 mg/dL >40 [place] Comment on above: HDL Guidelines: <40 Undesirable 40-59 Borderline >59 Desirable Cholesterol in LDL [Mass/Vol] 103 mg/dL 0 - 130 mg/dL [place] Comment on above: LDL Guidelines: <100 Desirable 100-129 Near to/above Desirable 130-159 Borderline >159 Undesirable Direct (measured) LDL and calculated LDL are not interchangeable tests. Cholesterol in VLDL [Mass/Vol] NOT REPORTED 1 - 30 mg/dL [place] Cholesterol.total/Ch olesterol in HDL [Mass ratio] 3.1 {ratio} <5 [place] Triglyceride [Mass/Vol] 86 mg/dL <150 [place] Comment on above: Triglyceride Guidelines: <150 Desirable 150-199 Borderline 200-499 High >499 Very high Based on AHA Guidelines for fasting triglyceride, April 2012. Echocardiogram completeon [facility] Transthoracic Echocardiography Report (TTE) Patient Name JUSTEN Date of Study 03/30/2020 CHITRA Ponce Date of 1970 Gender Female Age 50 year(s) Race Room Number Height: 64 inch, 162.56 cm Corporate ID [id number] Weight: 224 pounds, 101.6 kg # Patient Acct [id number] BSA: 2.05 m^2 BMI: 38.45 # kg/m^2 MR # [id number] Drafting Layout Worker ChaiAlta Interpreting Physician Radha Tyler Fellow Referring Nurse Isha Aguilar Practitioner Interpreting Referring Physician Fellow Type of Study TTE procedure:2D Echocardiogram, M-Mode, Doppler, Color Doppler. Procedure Date Date: 03/30/2020 Start: 02:50 PM Study Location: [facility] Indications:Chest pain. History / Tech. Comments: [...] TR Velocity: 1.91 m/s Peak TR Gradient: 14.41433 mmHg Estimated RA Pressure: 3 mmHg Estimated PASP: 17.54 mmHg Diastology / Tissue Doppler Lateral Wall E' velocity:0.16 m/s Lateral Wall E/E':4.45 [facility]- [place], [place] Oracio, Mhpn Incoming Cardio Results From [facility]/ - 03/30/2020 4:47 PM EDT [facility] Transthoracic Echocardiography Report (TTE) Patient Name JUSTEN Date of Study 03/30/2020 CHITRA Ponce Date of 1970 Gender Female Age 50 year(s) Race Room Number Height: 64 inch, 162.56 cm Corporate ID [id number] Weight: 224 pounds, 101.6 kg # Patient Acct [id number] BSA: 2.05 m^2 BMI: 38.45 # kg/m^2 MR # [id number] Drafting Layout Worker Alta Paula Interpreting Physician Radha Tyler Fellow Referring Nurse Isha Aguilar Practitioner Interpreting Referring Physician Fellow Type of Study TTE procedure:2D Echocardiogram, M-Mode, Doppler, Color Doppler. Procedure Date Date: 03/30/2020 Start: 02:50 PM Study Location: [facility] Indications:Chest pain. History / Tech. Comments: [...] TR Velocity: 1.91 m/s Peak TR Gradient: 14.95797 mmHg Estimated RA Pressure: 3 mmHg Estimated PASP: 17.54 mmHg Diastology / Tissue Doppler Lateral Wall E' velocity:0.16 m/s Lateral Wall E/E':4.45 [place], [place] Basic Metabolic Panel w/ Ref mario alberto to MG 03-17-2020 Anion gap [Moles/Vol] 11 mmol/L 9 - 17 mmol/L [place] Bun/Cre Ratio 18 [place] Calcium [Mass/Vol] 9.0 mg/dL 8.6 - 10. 4 mg/dL [place] Chloride [Moles/Vol] 106 mmol/L 98 - 10 7 mmol/L [place] CO2 [Moles/Vol] 24 mmol/L 20 - 31 mmol/L [place] Creatinine [Mass/Vol] 0.84 mg/dL 0.5 - 0.9 mg/dL [place] GFR >60 >60 mL/min [place] GFR Non- >60 >60 mL/min [place] Glucose [Mass/Vol] 106 mg/dL High 70 - 99 mg/dL [place], [place] Interpretation and review of laboratory results Abnormal [place] Potassium [Moles/Vol] 3.7 mmol/L 3.7 - 5.3 mmol/L [place] Sodium [Moles/Vol] 141 mmol/L 135 - 144 mmol/L [place] Urea nitrogen [Mass/Vol] 15 mg/dL 6 - 20 mg/dL [place] Brain Natriuretic Peptideon 03-17-2020 Natriuretic peptide B (Bld) [Mass/Vol] 124 pg/mL <300 [place] Comment on above: Pro-BNP results paty ot be compared to BNP results. Natriuretic peptide B (Bld) [Mass/Vol] Pro-BNP Reference Range: [place], [place] Comment on above: Rule Out: <300 Gibbs Zone: Age <50 300-450 Age 50-75 300-900 Age >75 300-1800 Usually represents mild to moderate HF but other cardiopulmonary causes cannot be ruled out. Rule In: Age <50 >450 Age 50-75 >900 Age >75 >1800 CBC Auto Differentialon 02-19 Basophils (Bld) [#/Vol] 0.06 10*3/uL [place] Basophils/100 WBC (Bld) 1 % 0 - 2 % [place] Differential Type NOT REPORTED [place] Eosinophils (Bld) [#/Vol] 0.58 10*3/uL High [place] Eosinophils/100 WBC (Bld) 7 % High 1 - 4 % [place] Erythrocyte distribution width (RBC) [Ratio] 12.6 % 11.8 - 14.4 % [place] Hematocrit (Bld) [Volume fraction] 39.6 % 36.3 - 47.1 % [place] Hemoglobin (Bld) [Mass/Vol] 13.0 g/dL 11.9 - 15.1 g/dL [place] Immature granulocytes (Bld) [#/Vol] 0 % 0 [place] Immature granulocytes (Bld) [#/Vol] 0.03 10*3/uL [place] Interpretation and review of laboratory results Abnormal [place] Lymphocytes (Bld) [#/Vol] 2.41 10*3/uL [place] Lymphocytes/100 WBC (Bld) 31 % 24 - 43 % [place] MCH (RBC) [Entitic mass] 30.8 pg 25.2 - 33.5 pg [place] MCHC (RBC) [Mass/Vol] 32.8 g/dL 28.4 - 34.8 g/dL [place] MCV (RBC) [Entitic vol] 93.8 fL 82.6 - 102.9 fL [place] Monocytes (Bld) [#/Vol] 0.54 10*3/uL [place] Monocytes/100 WBC (Bld) 7 % 3 - 12 % [place] Platelet mean volume (Bld) [Entitic vol] 10.4 fL 8.1 - 13.5 fL [place], [place] Platelets (Bld) [#/Vol] 216 10*3/uL [place] Platelets (Bld) [#/Vol] NOT REPORTED [place] RBC (Bld) [#/Vol] 4.22 10*6/uL 3.95 - 5.1 1 m/uL [place] RBC morphology finding Nom (Bld) NOT REPORTED [place] Segmented neutrophils/100 WBC (Bld) 54 % 36 - 65 % [place] Segs Absolute 4.25 [place] WBC (Bld) [#/Vol] 7.9 10*3/uL [place] WBC (Bld) [#/Vol] 0.0 10*3/uL 0.0 per 10 0 WBC [place] WBC Morphology NOT REPORTED [place], [place] D-Dimer, Quantitativeon 02-19 D-Dimer, Quant 0.47 [place], [place] Comment on above: When combined with [...] predicted among non-blacks MDRD (S/P/Bld) [Vol rate/Area] [place] Comment on above: Stage 1: Some [...] body mass. Additional eGFR calculator available at: http://www.[employer]/multiple_crcl_2011.htm Protime-INRon 03-17-2020 INR Coag (PPP) [Relative time] 0.9 {INR} [place] Comment on above: Non-therapeutic Range: INR = 0.9-1.2 Therapeutic Range: Moderate Anticoagulant Intensity: INR = 2.0-3.0 High Anticoagulant Intensity: INR = 2.5-3.5 PT Coag (PPP) [Time] 11.5 s [place] Comment on above: NOTE: NEW REFERENCE RANGE Troponinon 03-17-2020 Troponin I.cardiac [Mass/Vol] NOT REPORTED [place] Troponin T.cardiac [Mass/Vol] NOT REPORTED <0.03 ng/mL [place] Troponin, High Sensitivity <6 0 - 14 ng/L [place] Comment on above: High Sensitivity Troponin values cannot be compared with other Troponin methodologies. Patients with high levels of Biotin oral intake (i.e >5mg/day) may have falsely decreased Troponin levels. Samples collected within 8 hours of biotin intake may require additional information for diagnosis. Troponin I.cardiac [Mass/Vol] NOT REPORTED [place] Troponin T.cardiac [Mass/Vol] NOT REPORTED <0.03 ng/mL [place] Troponin, High Sensitivity <6 0 - 14 ng/L [place] Comment on above: High Sensitivity Troponin values cannot be compared with other Troponin methodologies. Patients with high levels of Biotin oral intake (i.e >5mg/day) may have falsely decreased Troponin levels. Samples collected within 8 hours of biotin intake may require additional information for diagnosis. XR CHEST (2 VW)on 03-17-2020 Oracio, pn Incoming Radiant Results From [employer] - 03/17/2020 9:09 PM EDT EXAMINATION: TWO XRAY VIEWS OF THE CHEST 03/17/2020 8:55 pm COMPARISON: 12/02/2012 radiograph HISTORY: ORDERING SYSTEM PROVIDED HISTORY: Chest pain TECHNOLOGIST PROVIDED HISTORY: Chest pain FINDINGS: The heart, mediastinum and pulmonary vascularity are normal. Lungs are well-expanded and clear. No skeletal abnormalities are present in the chest. IMPRESSION: No significant findings in the chest. [place] No significant findings in the chest. [place] EXAMINATION: TWO XRA Y VIEWS OF THE CHEST 03/17/2020 8:55 pm COMPARISON: 12/02/2012 radiograph HISTORY: ORDERING SYSTEM PROVIDED HISTORY: Chest pain TECHNOLOGIST PROVIDED HISTORY: Chest pain FINDINGS: The heart, mediastinum and pulmonary vascularity are normal. Lungs are well-expanded and clear. No skeletal abnormalities are present in the chest. [place] [facility] Department of Radiology [address] [place] [id number] Patient Name: CHITRA CAMPUZANO : 1970 [...] , Exam: LUMBAR SPINE 4 OR 5 VWS LUMBAR SPINE 4 OR 5 VWS 05/12/2019 [...] by:Nayeli Barry on 05/12/2019 5:42 PM EDT. IBlanca, have reviewed the images and report and concur with these findings. Electronically signed by:Blanca Skaggs. Transcribed by: [email or web address], User Resident: NAYELI BARRY Electronically Signed by: BLANCA SKAGGS @ 05/14/2019 01:35 PM I personally read this/these film(s) with this resident Normal [facility] Comment on above: Order Comment: , , = ========= , Ordering Provider - ADRIAN DANIEL MD , MRI LUMBAR SPINE WO CONTRAST on 05-04-2019 Left subarticular disc protrusion at L5-S1. Multilevel disc degeneration otherwise as above without critical canal or neural foraminal stenosis. [email or web address] HEXIO EXAMINATION: MRI OF THE LUMBAR SPINE WITHOUT [...] canal narrowing. Mild-moderate bilateral neural foraminal narrowing. [email or web address], [place] Oracio, Mhpn Incoming Radiant Results From [employer] - 05/04/2019 2:19 PM EDT EXAMINATION: MRI [...] without critical canal or neural foraminal stenosis. [place] MRI THORACIC SPINE WO MOHINIA Doroteolan 05-04-2019 Facet hypertrophy concentrated at T11-T12 produces at least moderate spinal canal narrowing and effacement of the dorsal left cord. No acute abnormality; no suspicious bone marrow edema. [place] EXAMINATION: MRI OF THE THORACIC SPINE [...] narrowing and effacement of the dorsal cord. [facility] [place], [place]pn Incoming Radiant Results From [employer] - 05/04/2019 8:37 AM EDT EXAMINATION: MRI [...] acute abnormality; no suspicious bone marrow edema. [facility] Otheron 04-05-2019 No evidence for fracture or malalignment of the thoracolumbar spine. Advanced degenerative disc disease localized to the T11-T12 level. [facility] EXAMINATION: 3 XRAY VIEWS OF THE THORACIC [...] is normal. Overlying soft tissues are unremarkable. [facility] [place] XR LUMBAR SPINE (2-3 VIEWS)o n 04-05-2019 Or[place], [facility] Incoming Radiant Results From [employer] - 04/05/2019 11:55 AM EDT EXAMINATION: 3 [...] disc disease localized to the T11-T12 level. [facility], [place] XR THORACIC SPINE (2 VIEWS)o n 04-05-2019 Oracio, [facility] Incoming Radiant Results From [employer] - 04/05/2019 11:54 AM EDT EXAMINATION: 3 [...] disc disease localized to the T11-T12 level. [place] Progress Noteon 03-17-2018 HIM IP Note OR Cupola Liner Helper Normal [facility] Progress Noteon 12-02-2017 HIM IP Note OR Cupola Liner Helper Normal [facility] Progress Noteon 12-01-2017 HIM IP Note OR Cupola Liner Helper Normal [facility] Progress Noteon 09-30-2017 HIM IP Note OR Cupola Liner Helper Normal [facility] Progress Noteon 08-26-2017 HIM IP Note OR Cupola Liner Helper Normal [facility] Progress Noteon 08-05-2017 HIM IP Note OR Cupola Liner Helper Normal [facility] Vital Signs Date Time Vital Sign Value Performing Clinician Faci lity 08-07-2023 16:00-0500 Heart rate 76 /min Kylah Verdin MD Work Phone: [facility] 08-07-2023 16:00-0500 Respiratory rate 20 /min Kylah Verdin MD Work Phone: [facility] 08-07-2023 16:00-0500 SaO2% (BldA) [Mass fraction] 97 % Kylah Verdin MD Work Phone: [facility] 08-07-2023 11:28-0500 Body mass index (BMI) [Ratio] 33.63 kg/m2 Kylah Verdin MD Work Phone: [facility] 08-07-2023 11:28-0500 Body temperature 99.1 [degF] Kylah Verdin MD Work Phone: [facility] 08-07-2023 11:28-0500 Body weight 88.91 kg Kylah Verdin MD Work Phone: [facility] 08-07-2023 11:28-0500 Diastolic blood pressure 89 mm[Hg] Kyl[facility] Verdin MD [facility] 08-07-2023 11:28-0500 Systolic blood pressure 157 mm[Hg] Kylah Verdin MD Work Phone: [facility] [employer] [facility] 03-17-2020 23:16-0400 BP Diastolic 71 mm[Hg] Aj [employer]ordenPerle [employer] [facility] [place] 03-17-2020 23:16-0400 BP Systolic 137 mm[Hg] [facility] [place] 03-17-2020 23:16-0400 Pulse (Heart Rate) 79 /min Aj JordenPerle Biosc[employer] [facility] 03-17-2020 23:16-0400 Pulse Oximetry 99 % Aj Jorden [employer] [facility] [place] 03-17-2020 20:28-0400 BMI (Body Mass Index) 38.45 kg/m2 Aj JordenPerle Biosc[employer] [facility] 03-17-2020 20:28-0400 Body Temperature 97.11 [degF] [facility] [place] 03-17-2020 20:28-0400 Body weight 101.61 kg Aj Zhaogang [facility] [place] 03-17-2020 20:28-0400 Respiratory Rate 16 /min Aj [facility]ordenPositron [facility] Encounters Encounter Date Encounter Type Care Provider Facility Start: 10-06-2023 End: 10-07-2023 ambulatory Reza Hernandez DO Facility:[facility] Start: 09-18-2023 End: 09-18-2023 ambulatory JONNY NARESH Not Available Start: 08-25-2023 End: 08-25-2023 ambulatory JONNY NARESH Not Available Start: 08-25-2023 End: 08-25-2023 Office outpatient new 20 minutes Jonny Naresh DO Work Phone: [facility] Comment on above: Abdominal cramping ( Primary Dx); Postmenopausal bleeding Start: 08-07-2023 End: 08-07-2023 [facility] Start: 08-07-2023 End: 08-07-2023 Emergency department patient visit Kylah Verdin MD Work Phone: [facility] ED Comment on above: Nausea vomiting and diarrhea (Primary Dx); Abdominal pain, unspecified abdominal location Start: 07-16-2023 End: 07-17-2023 ambulatory [facility] Start: 07-09-2023 ambulatory Reza jimenez DO Facility:[facility] Start: 06-11-2023 End: 06-12-2023 ambulatory Ishafransisco Aguilar MANGANESE WHEELER-SOLDERER Facility:[facility] Start: 06-09-2023 End: 06-09-2023 ambulatory ISHA AGUILAR [facility] Start: 06-09-2023 Encounter for other preprocedural examination [facility] Start: 06-05-2023 End: 06-06-2023 ambulatory [facility] Start: 06-05-2023 Encounter for other preprocedural examination ISHAFRANSISCO AGUILAR [facility] Start: 05-26-2023 End: 05-27-2023 ambulatory ISHA [facility] Start: 05-23-2023 End: 05-24-2023 [facility] Start: 05-14-2023 End: 05-15-2023 ambulatory Reza Hernandez DO Facility:[facility] Start: 05-09-2023 End: 05-12-2023 [facility] Start: 05-05-2023 End: 05-06-2023 ambulatory Ishafransisco Aguilar MANGANESE WHEELER-SOLDERER Facility:[facility] Start: 04-30-2023 End: 05-01-2023 ambulatory [facility] Start: 04-25-2023 End: 04-26-2023 ambulatory Ishacorona Bobbyn MANGANESE WHEELER-SOLDERER Facility:[facility] Start: 04-24-2023 End: 04-25-2023 ambulatory Ishacorona Aguilar MANGANESE WHEELER-SOLDERER Facility:[facility] Start: 04-23-2023 End: 04-24-2023 ambulatory [facility] Start: 04-23-2023 Encounter for gynecological examination (general) (routine) without abnormal findings [facility] Start: 04-16-2023 End: 04-17-2023 ambulatory Isha BOWMAN Facility:[facility] Start: 04-16-2023 End: 04-19-2023 ambulatory [facility] Start: 03-19-2023 End: 03-20-2023 ambulatory Justen Mitchell Minaya RESIDENTIAL SALES REP Facility:[facility] Start: 03-18-2023 End: 03-19-2023 ambulatory Reza Peter Hernandez DO Facility:[facility] Start: 01-28-2023 End: 01-29-2023 ambulatory Reza Hernandez DO Facility:[facility] Start: 12-24-2022 End: 12-27-2022 ambulatory [facility] Start: 10-17-2022 End: 10-18-2022 ambulatory FALGUNI SAMANTHA [facility] Start: 10-17-2022 Encounter for genera l adult medical examination without abnormal findings [facility] Start: 10-17-2022 End: 10-17-2022 Patient encounter status Isha Mclaughlin CNP Work Phone: [facility] Laboratory Start: 10-17-2022 End: 10-17-2022 Subsequent hospital visit by physician Isha Mclaughlin CNP Work Phone: [facility] Laboratory Comment on above: Dysuria; Burning with urination; STD exposure; Vaginal discharge; Wellness examination; Anxiety; Hyperlipidemia, unspecified hyperlipidemia type; Type 2 diabetes mellitus without complication, unspecified whether residential insulin use (HCC); Essential hypertension; Urinary frequency Start: 10-07-2022 End: 10-08-2022 ambulatory [facility] Start: 10-07-2022 End: 10-07-2022 Subsequent hospital visit by physician Isha Mclaughlin CNP Work Phone: [facility] Laboratory Comment on above: Hematuria, unspecifi ed type; Burning with urination Start: 05-21-2022 End: 05-21-2022 Subsequent hospital visit by physician Isha Mclaughlin CNP Work Phone: [facility] EKG Comment on above: Chest pain, unspecif ied type Start: 12-18-2021 End: 12-18-2021 Patient encounter procedure Danish Hughes MD Work Phone: [facility] Laboratory Start: 12-18-2021 End: 12-18-2021 Subsequent hospital visit by physician Danish Hughes MD Work Phone: [facility] Laboratory Comment on above: Encounter for annual routine gynecological examination; Abnormal perimenopausal bleeding Start: 11-27-2021 End: 11-29-2021 Subsequent hospital visit by physician [facility] Mammography Room [facility] Mammography Comment on above: Encounter for screen ing for malignant neoplasm of breast, unspecified screening modality; Essential hypertension; Hyperlipidemia, unspecified hyperlipidemia type; Hyperglycemia Start: 05-24-2021 End: 05-26-2021 Subsequent hospital visit by physician [facility] Xr Dr Room 2 [facility] Radiology Comment on above: Strain of hip and th igh, left, initial encounter Start: 05-04-2020 End: 05-04-2020 Subsequent hospital visit by physician [facility] Cardiology Stress Room [facility] Stress Lab Comment on above: Arrived Start: 05-03-2020 End: 05-03-2020 Subsequent hospital visit by physician [facility] Cardiology Stress Room [facility] Stress Lab Comment on above: Atypical chest pain; Obesity (BMI 35.0-39.9 without comorbidity); Palpitations Start: 04-24-2020 End: 04-24-2020 Subsequent hospital visit by physician [facility] Supervisor [employer] [facility] Laboratory Comment on above: Atypical chest pain; Obesity (BMI 35.0-39.9 without comorbidity); Palpitations Palpitations Start: 03-30-2020 End: 03-30-2020 Subsequent hospital visit by physician [facility] Echo Room [facility] Echocardiography Comment on above: Chest pain, unspecif ied type Start: 03-17-2020 End: 03-17-2020 Emergency department patient visit Aj Jigna Jorden Work Phone: [facility] ED Comment on above: Chest pain, unspecif ied type (Primary Dx) Start: 03-14-2020 End: 03-14-2020 Subsequent hospital visit by physician Cody Supervisor [employer] [facility] EKG Comment on above: Other chest pain Start: 01-28-2020 End: 01-28-2020 Subsequent hospital visit by physician Danish VARELAZ Laboratory Comment on above: Special screening ex amination for viral disease Start: 05-04-2019 End: 05-06-2019 Subsequent hospital visit by physician [facility] Mri Scanner [facility] MRI Comment on above: Back pain, unspecifi ed back location, unspecified back pain laterality, unspecified chronicity Start: 04-05-2019 End: 04-07-2019 Subsequent hospital visit by physician Cody Xr Dr Room 2 [facility] Radiology Comment on above: Thoracic back pain, [...] Verdin MD Work Phone: Start: 06-09-2023 Colonoscopy Kylah Murphy dd, MD Work Phone: Start: 04-23-2023 Microscopic observat ion [Identifier] in Cervix by Cyto stain Kylah Verdin MD Work Phone: Start: 10-17-2022 End: 10-17-2022 Comprehensive metabolic panel Isha Aguilar MANGANESE WHEELER - SOLDERER Work Phone: Start: 10-17-2022 End: 10-17-2022 Lipid panel Isha Aguilar MANGANESE WHEELER - SOLDERER Work Phone: Start: 10-17-2022 Iadna beto specie s direct probe tq Falguni Singh MD Work Phone: Start: 05-21-2022 Ecg routine ecg w/le ast 12 lds w/i&r Isha Aguilar MANGANESE WHEELER - SOLDERER Work Phone: Start: 12-18-2021 Microscopic observat ion [Identifier] in Cervix by Cyto stain Isha Herculesughn MANGANESE WHEELER - SOLDERER Work Phone: Start: 11-27-2021 End: 11-27-2021 Screening mammography bi 2-view breast inc cad Danish Hughes MD Work Phone: Start: 05-24-2021 Radex hip unilateral with pelvis 2-3 views Feroz Cowart DC Work Phone: Start: 04-24-2020 Hemoglobin glycosylated a1c Radha Townsend Dante Kaitlynmad Work Phone: Start: 04-24-2020 Lipid panel Radha [...] W/ REFLEX TO MG FOR LOW K Aj A Jorden Work Phone: Start: 03-17-2020 Blood count complete auto&auto difrntl wbc Aj A Jorden Work Phone: Start: 03-17-2020 Fibrin dgradj produc ts d-dimer quantitative Aj A Jorden Work Phone: Start: 03-17-2020 Natriuretic peptide Sye d A Jorden Work Phone: Start: 03-17-2020 Prothrombin time Aj A Jorden Work Phone: Start: 03-17-2020 Ecg routine ecg w/le ast 12 lds w/i&r Ja A Jorden Work Phone: Start: 05-04-2019 Mri [...] ion [Identifier] in Cervix by Cyto stain [facility] 2 Plan of Treatment Date Care Activity Detail Author Start: 06-09-2033 Screening for malignant neoplasm of colon [facility] Start: 04-30-2028 Lipid panel Lipids [facility] Start: 04-23-2026 Screening for malignant neoplasm of cervix [facility] Start: 04-21-2026 DTaP/Tdap/Td vaccine (2 - Td or Tdap) DTaP/Tdap/Td vaccine (2 - Td or Tdap) [facility] Start: 04-21-2026 DTaP/Tdap/Td vaccine (2 - Td) DTaP/Tdap/Td vaccine (2 - Td) [place] Start: 04-21-2026 DTaP/Tdap/Td vaccine (3 - Td or Tdap) DTaP/Tdap/Td vaccine (3 - Td or Tdap) [facility] Start: 12-18-2024 Screening for malignant neoplasm of cervix [facility] Start: 08-07-2024 GFR test (Diabetes, CKD 3-4, OR last GFR 15-59) GFR test (Diabetes, CKD 3-4, OR last GFR 15-59) [facility] Start: 05-26-2024 Screening for malignant neoplasm of colon [facility] Start: 04-30-2024 Urine screening for protein Diabetic Alb to Cr ratio (uACR) test [facility] Start: 12-03-2023 End: 12-03-2023 Admission to same day surgery center 12/03/2023 1:35 PM EDT - 12/03/2023 2:20 PM EDT Surgery [facility] OR [address] [place] [id number] Megha Kruse MD [address] [place] [id number] COLORECTAL CANCER SCREENING, NOT HIGH RISK [facility] OR Comment on above: COLORECTAL CANCER SCREENING, NOT HIGH RI SK Start: 12-03-2023 End: 12-03-2023 Colon ca scrn not hi rsk ind COLORECTAL CANCER SCREENING, NOT HIGH RISK Screening for colon cancer 12/03/2023 1:35 PM EDT [facility] Start: 12-03-2023 Subsequent hospital visit by physician 12/03/2023 1:35 PM EDT Hospital Encounter [facility] OR [address] [place] [id number] Megha Kruse MD [address] [place] [id number] [facility] OR Start: 11-28-2023 Screening for malignant neoplasm of breast Breast cancer screen JOHANNE PATINO [facility] Start: 11-13-2023 End: 11-13-2023 Patient encounter procedure 11/13/2023 9:30 AM EDT Office Visit [facility] [address] [place] [address] Yuli Andujar MD [address] [place] [address] [address] [place] [address] 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 [facility] Comment on above: 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 Start: 11-13-2023 End: 11-13-2023 Professional / ancillary services management 11/13/2023 9:00 AM EDT Ancillary Procedure [facility] GYNECOLOG[facility] [address] [place], [place] [id number] 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 [facility] Comment on above: 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 Start: 10-18-2023 GFR test (Diabetes, CKD 3-4, OR last GFR 15-59) GFR test (Diabetes, CKD 3-4, OR last GFR 15-59) [facility] Start: 10-18-2023 Lipid panel Lipids [facility] Start: 10-08-2023 Depression Monitoring Depression Monitoring [facility] [employer] [facility] Start: 09-15-2023 End: 09-15-2023 Patient encounter procedure 09/15/2023 10:20 AM EST Office Visit [facility] [address] [place] [id number] Jonny Infante, DO [address] [place] [address] [facility] Start: 09-03-2023 End: 09-03-2023 Professional / ancillary services management 09/03/2023 8:30 AM EST Ancillary Procedure [facility] [address] [place] [id number] [facility] Start: 08-25-2023 End: 08-25-2024 US for US PELVIS-TRANSVAG IF INDICATED Imaging Routine Postmenopausal bleeding Abdominal cramping Expected: 08/25/2023 (Approximate), Expires: 08/25/2024 [facility] Work Phone: Comment on above: Expected: 08/25/2023 (Approximate), Expi res: 08/25/2024 Start: 05-21-2023 GFR test (Diabetes, CKD 3-4, OR last GFR 15-59) GFR test (Diabetes, CKD 3-4, OR last GFR 15-59) [facility] Start: 03-21-2023 COVID-19 Vaccine ( season) COVID-19 Vaccine ( season) [facility] Start: 03-21-2023 Influenza vaccination Influenza Vaccine (#1) [facility] Start: 02-18-2023 Influenza vaccination Flu vaccine (#1) [facility] Start: 12-25-2022 End: 12-25-2022 Patient encounter procedure 12/25/2022 Office Visit Primary Care Isha Aguilar, MANGANESE WHEELER - SOLDERER [address] [place] [address] [facility] Start: 11-27-2022 Screening for malignant neoplasm of breast Mammogram [facility] Start: 11-16-2022 Depression Monitoring Depression Monitoring [facility] Start: 10-23-2022 End: 10-23-2022 Patient encounter procedure 10/23/2022 Office Visit Primary Care Falguni Singh MD [address] [place] [address] [facility] Start: 09-30-2022 Cervical cancer screen Cervical cancer screen [place], [place] Start: 09-30-2022 Screening for malignant neoplasm of cervix [facility] Start: 07-17-2022 Screening for malignant neoplasm of colon [facility] Start: 07-10-2022 Hemoglobin A1c measurement A1C test (Diabetic or Prediabetic) [facility] Start: 07-10-2022 Lipid panel Lipids [facility] Start: 07-10-2022 Urine screening for protein Diabetic microalbuminuria test [facility] Start: 06-11-2022 End: 06-11-2022 Patient encounter procedure 06/11/2022 Office Visit Primary Care Isha Aguilar, MANGANESE WHEELER - SOLDERER [address] [place] [address] [facility] Start: 03-21-2022 Influenza vaccination Flu vaccine (Season Ended) [facility] Start: 2022 Shingles vaccine (1 of 2) Shingles vaccine (1 of 2) JOHANNE CALHOUN [facility] Start: 02-18-2022 Influenza vaccination Flu vaccine (#1) JOHANNE PATINO [facility] Start: 01-18-2022 End: 01-18-2022 Admission to same day surgery center 01/18/2022 Surgery IP Unit Camille Myrick I, [address] [facility] [address] [place] [address] COLORECTAL CANCER SCREENING, NOT HIGH RISK [facility] Comment on above: COLORECTAL CANCER SCREENING, NOT HIGH RI SK Start: 01-18-2022 End: 01-18-2022 Colon ca scrn not hi rsk ind COLORECTAL CANCER SCREENING, NOT HIGH RISK SCREENING 01/18/2022 10:40 AM EDT [facility] Start: 01-18-2022 Subsequent hospital visit by physician 01/18/2022 Hospital Encounter IP Unit Camille Myrick DO [address] [facility] [address] [place] [address] [facility] Start: 01-03-2022 End: 01-03-2022 Patient encounter procedure 01/03/2022 Office Visit Neurology Joe Whipple MD [address] [place] [address] [facility] Start: 12-27-2021 End: 12-27-2021 Patient encounter procedure 12/27/2021 Office Visit Obstetrics and Gynecology Yuli Andujar MD [address] [facility] [address] [place] [address] [facility] Start: 12-18-2021 End: 12-18-2021 Patient encounter procedure 12/18/2021 Office Visit Obstetrics and Gynecology Yuli Andujar MD [address] [facility] [address] [place] [address] [facility] Start: 12-04-2021 End: 12-04-2021 Patient encounter procedure 12/04/2021 Office Visit Family Medicine Danish Hughes MD [address] [facility] [address] [place] [id number] [facility] Start: 09-04-2021 COVID-19 Vaccine (3 - Booster for Pfizer series) COVID-19 Vaccine (3 - Booster for Pfizer series) [facility] Start: 06-25-2021 End: 06-25-2021 Patient encounter procedure 06/25/2021 Office Visit Family Medicine Danish Hughes MD [address] [place] [address] [facility] Start: 05-30-2021 COVID-19 Vaccine (3 - Booster for Pfizer series) COVID-19 Vaccine (3 - Booster for Pfizer series) BON SUKUMAR [facility] Start: 04-29-2021 HIV screen HIV screen [place] Comment on above: Postponed from 1987 (Patient Refus ed) Start: 04-29-2021 HIV screening HIV screen [place] Comment on above: Postponed from 1987 (Patient Refus ed) Start: 04-24-2021 HbA1c (Bld) [Mass fraction] A1C test (Diabetic or Prediabetic) [place] Start: 04-24-2021 Hemoglobin A1c measurement A1C test (Diabetic or Prediabetic) [facility] Start: 04-24-2021 Lipid panel Lipid screen [facility] Start: 03-21-2021 Influenza vaccination Flu vaccine (#1) [facility] Start: 03-17-2021 Creatinine measurement Creatinine monitoring [facility] Start: 03-17-2021 Potassium monitoring Potassium monitoring [facility] Start: 09-30-2020 Screening for malignant neoplasm of cervix Pap smear [facility] Start: 05-17-2020 End: 05-17-2020 Office Visit 05/17/2020 Office Visit Family Medicine Danish Hughes MD [address] [place] [address] [facility] Start: 05-09-2020 End: 05-09-2020 Office Visit 05/09/2020 Office Visit Cardiology Radha Tyler MD [address] [place] [address] [facility] Start: 05-04-2020 End: 05-04-2020 Appointment 05/04/2020 Appointment Stress Lab [facility] Start: 05-03-2020 End: 05-03-2020 Appointment 05/03/2020 Appointment Stress Lab [facility] Start: 04-12-2020 End: 04-12-2020 Office Visit 04/12/2020 Office Visit Family Medicine Gase, Danish Ponce MD [address] [place] [address] [address] [place] [address] [facility] Start: 03-21-2020 Influenza vaccination Flu vaccine (#1) [place] Start: 09-15-2019 Creatinine measurement Creatinine monitoring [place], [place] Start: 09-15-2019 Creatinine monitoring Creatinine monitoring [place], [place] Start: 09-15-2019 Potassium monitoring Potassium [place] Start: 03-21-2019 Influenza vaccination Flu vaccine (#1) [place] Start: 08-26-2018 A1C test (Diabetic or Prediabetic) A1C test (Diabetic or Prediabetic) [place] Start: 08-26-2018 HbA1c (Bld) [Mass fraction] A1C test (Diabetic or Prediabetic) [place] Start: 08-26-2018 Lipid panel Lipid [place] Start: 08-26-2018 Lipid screen [place]id [place] Start: 2017 Screening for malignant neoplasm of colon [facility] Start: 06-22-2016 DTaP/Tdap/Td vaccine (1 - Tdap) DTaP/Tdap/Td vaccine (1 - Tdap) [place] Start: 1993 Screening for malignant neoplasm of cervix Pap Smear [facility] Start: 1991 DTaP/Tdap/Td vaccine (1 - Tdap) DTaP/Tdap/Td vaccine (1 - Tdap) [place] Start: 1990 Diabetic microalbuminuria test Diabetic microalbuminuria test [facility] Start: 1990 Diabetic retinal exam Diabetic retinal exam [facility] Start: 1990 Glaucoma screening Diabetic retinal exam [facility] Start: 1990 Hepatitis C screening Hepatitis C screen [facility] Start: 1990 Urine screening for protein Diabetic Alb to Cr ratio (uACR) test [facility] [employer] Start: 1987 HIV screening HIV screen [facility] Start: 1982 [object Object] Diabetic foot exam [place] Start: 1982 Diabetic foot examination Diabetic foot exam [facility] Start: 1982 Diabetic retinal exam Diabetic retinal exam [facility] Start: 1978 Pneumococcal 0-64 years Vaccine (1 - PCV) Pneumococcal 0-64 years Vaccine (1 - PCV) [facility] Start: 1978 Pneumococcal 0-64 years Vaccine (1 of 1 - PPSV23) Pneumococcal 0-64 years Vaccine (1 of 1 - PPSV23) [place] Start: 1978 Pneumococcal 0-64 years Vaccine (1 of 2 - PPSV23) Pneumococcal 0-64 years Vaccine (1 of 2 - PPSV23) [facility] Start: 1972 Hepatitis C screening Hepatitis C screen [facility] Start: 1972 Screening for malignant neoplasm of colon [facility] End: 10-17-2022 Chlamydia/GC DNA, Urine [facility] [employer] Phone: Comment on above: 1 Occurrences starting 10/17/2022 until 10/17/2022 End: 04-24-2020 Continuous cardiac monitoring, >2 up to 14 days Continuous cardiac monitoring, >2 up to 14 days Cardiac Services Routine Palpitations 1 Occurrences starting 04/24/2020 until 04/24/2020 [place] Comment on above: 1 Occurrences starting 04/24/2020 until 04/24/2020 End: 01-28-2020 COVID-19 Ambulatory COVID-19 Ambulatory Lab Routine Special screening examination for viral disease 1 Occurrences starting 01/28/2020 until 01/28/2020 [place] Comment on above: 1 Occurrences starting 01/28/2020 until 01/28/2020 COVID-19 Ambulatory COVID-19 Amb ulatory Lab Routine Special screening examination for viral disease 01/28/2020 4:04 PM EDT [place] End: 03-20-2023 Culture, Urine [employer] Phone: Comment on above: 1 Occurrences starting 10/07/2022 until 10/07/2022 End: 10-17-2022 Culture, Urine [facility] Phone: Comment on above: 1 Occurrences starting 10/17/2022 until 10/17/2022 End: 12-18-2021 Cytopathology procedure, preparation of smear, genital source PAP SMEAR Lab Routine Encounter for annual routine gynecological examination 1 Occurrences starting 12/18/2021 until 12/18/2021 [employer] Phone: Comment on above: 1 Occurrences starting 12/18/2021 until 12/18/2021 EKG 12 Lead EKG 12 Lead ECG STAT 03/17/2020 8:39 PM [place] End: 10-17-2022 Hepatitis Panel, Acute [facility] Phone: Comment on above: 1 Occurrences starting 10/17/2022 until 10/17/2022 End: 10-17-2022 Herpes Profile [employer] Phone: Comment on above: 1 Occurrences starting 10/17/2022 until 10/17/2022 End: 12-18-2021 Surgical Pathology Surgical Pathology Lab Routine Abnormal perimenopausal bleeding 1 Occurrences starting 12/18/2021 until 12/18/2021 [employer] Phone: Comment on above: 1 Occurrences starting 12/18/2021 until 12/18/2021 End: 12-18-2021 SURGICAL PATHOLOGY REPORT SURGICAL PATHOLOGY REPORT Lab Routine Once for 1 Occurrences starting 12/18/2021 until 12/18/2021 [employer] Phone: Comment on above: Once for 1 Occurrences starting 12/19/19 until 12/18/2021 End: 10-17-2022 T. Pallidum Ab [employer] Phone: Comment on above: 1 Occurrences starting 10/17/2022 until 10/17/2022 End: 08-07-2023 Urinalysis with Reflex to Culture Urinalysis with Reflex to Culture Lab Routine One Time for 1 Occurrences starting 08/07/2023 until 08/07/2023 JOHANNE PATINO [facility] Comment on above: One Time for 1 Occurrences starting 07/21 until 08/07/2023 Immunizations Immunization Date Immunization Notes Care Provider Brianna morejon 05-06-2017 Influenza Vaccine, unspecified formulation [address] 05-06-2017 influenza virus vaccine, unspecified formulation Jonny Naresh DO Work Phone: [facility] 06-21-2016 Td, unspecified formulation [address] 04-21-2016 tetanus toxoid, redu marvin diphtheria toxoid, and acellular pertussis vaccine, adsorbed Danish Gase [facility] [place] 05-21-2007 pneumococcal conjuga te vaccine, [address] 10-28-1996 hepatitis B vaccine, adult dosage [address] 10-26-1996 Td, unspecified formulation [address] 06-02-1996 hepatitis B vaccine, adult dosage [address] 04-16-1996 hepatitis B vaccine, adult dosage [address] Payers Date Payer Category Payer Unknown [id number] 2022 Unknown [id number]. [id number] 2021 Private Health Insurance [id number] [id number]. [id number] 2019 Unknown NE VALENTINE xxxxxxxxx 2019-Present [phone] [place] [address] xxxxxxxxx [id number]. 2.7.3.215106.315 2019 Unknown NE UNICOMP NE UNICOMP xxxxxxxx 2019-Present [phone] [place] [address] xxxxxxxx [id number]. [id number] 2018 Unknown BCBS BCBS OUT OF STATE [id number] 2018-Present [address] [place] [address] [id number] 1.2.840.543888.1.13.239. 2.7.3.220635.315 2018 Unknown BCBS BCBS OUT OF STATE [id number] 2018-Present [address] [place] [address] [id number] 1.2.840.973845.1.13.239. 2.7.3.840937.315 1972 Unknown [id number] 2.840.1.087175.3.579. 2.174 1972 Unknown [id number] 2.16840.1.722482.3.579. 2.173 1972 Unknown [id number] 2.16840.1.257998.3.579. 2.173 1972 Unknown [id number] 2.16840.1.778243.3.579. 2.173 1972 Unknown [id number] 2.16840.1.048925.3.579. 2.173 1972 Unknown [id number] 2.16840.1.782929.3.579. 2.173 1972 Unknown [id number] 2.16840.1.535135.3.579. 2.173 1972 Unknown [id number] 2.16840.1.890811.3.579. 2.173 1972 Unknown [id number] 2.16840.1.303103.3.579. 2.173 1972 Unknown [id number] 2.16.840.1.878913.3.579. 2.173 1972 Unknown [id number] 2.16.840.1.368695.3.579. 2.173 1972 Unknown [id number] 2.16.840.1.957290.3.579. 2.173 1972 Unknown [id number] 2.16.840.1.696505.3.579. 2.173 1972 Unknown [id number] 2.16.840.1.889962.3.579. 2.173 1972 Unknown [id number] 2.16.840.1.948085.3.579. 2.1259 1972 Unknown [id number] 2.16.840.1.985690.3.579. 2.1259 1972 Unknown [id number] 2.16840.1.353211.3.579. 2.196 1972 Unknown [id number] 2.16.840.1.271222.3.579. 2.196 1972 Unknown [id number] 2.16.840.1.139477.3.579. 2.196 1972 Unknown [id number] 2.16.840.1.947490.3.579. 2.196 1972 Unknown [id number] 2.16840.1.062246.3.579. 2.196 1972 Unknown [id number] 2.16.840.1.150025.3.579. 2.196 1972 Unknown [id number] 2.16.840.1.024851.3.579. 2.196 1972 Unknown [id number] 2.16.840.1.097725.3.579. 2. 1972 Unknown [id number] 2.16.840.1.419342.3.579. 2.196 1972 Unknown [id number] 2.16.840.1.568865.3.579. 2.196 1972 Unknown [id number] 2.16.840.1.687450.3.579. 2.196 Self-pay Social History Date Type Detail Facility Start: 06-30-2012 End: 01-11-2020 Tobacco smoking status NHIS [place] Start: 06-30-2012 End: 01-11-2020 Tobacco use and exposure Never used [place] Start: 01-11-2020 End: 10-17-2022 Alcohol intake Current non-drinker of alcohol (finding) [place] Start: 09-07-2019 History SDOH Financial 4 [place] Start: 09-07-2019 End: 10-07-2022 History SDOH Food Worry 1 [place] Start: 06-30-2012 Alcohol Comment occassionally [place] Start: 1970 Sex Assigned At Not on file M [place], [place] Start: 11-17-2021 End: 11-27-2021 Exposure to SARS-CoV-2 (event) Not sure [place] Start: 09-15-2018 End: 10-07-2022 Alcohol intake No [employer] Start: 06-25-2021 End: 10-07-2022 [facility] Start: 10-07-2022 History SDOH Transport Non-Med 2 [employer] Work Phone: Start: 06-11-2023 Alcohol intake Ex-drinker (finding) [employer] Start: 10-07-2022 End: 06-11-2023 History of Social function [employer] How hard is it for you to pay for the very basics like food, housing, medical care, and heating Not hard at all [employer] (I/We) worried whether (my/our) food would run out before (I/we) got money to buy more. Never true [employer] At any time in the past 12 months, were you homeless or living in usp [including now]? No [employer] Tobacco smoking status [facility] Tobacco smoking consumption unknown [facility] History [...] nursing note reviewed. Exam conducted with a construction carpenters helper present. Vitals: There is no height or weight on file to calculate BMI. BP: No LMP recorded. Assessment/Plan Encounter Diagnoses Name Primary? Postmenopausal bleeding Abdominal cramping Patient presents today for post menopausal bleeding. Patient will have pelvic US done to assess vaginal bleeding. Patient to setup pre-op Documented by Faye Ashby LPN on behalf of: Jonny Infante DO documented in this encounter [facility] Discharge instructions 08-07-2023 Discharge InstructionsAttachments Note Date & Type Note Facility 08-07-2023 Hospital Discharg e instructions Kylah Verdin MD - 08/07/2023 3:30 PM EST Continue current medications as prescribed. May use [id number] antacids if needed for symptoms of heartburn. Zofran as needed for nausea or vomiting. Tylenol as needed for pain. Tramadol for pain not controlled with Tylenol. Use [id number] probiotics as directed. Follow-up with your primary care provider within 3 to 5 days if symptoms not resolved. Please return immediately should he develop any worsening symptoms or any acute concerns The following attachments cannot be sent through Care Everywhere.Abdominal Pain (Sammarinese)Nausea and Vomiting (Sammarinese)documented in this encounter [facility] [employer] Evaluation note Note Date & Type Note Facility Evaluation note Diagnosis Strain of hip and thigh, left, initial encounter documented in this encounter [employer] Phone: Evaluation note Note Date & Type Note Facility Evaluation note Diagnosis Encounter for screening for malignant neoplasm of breast, unspecified screening modality Essential hypertension Unspecified essential hypertension Hyperlipidemia, unspecified hyperlipidemia type Hyperglycemia Other abnormal glucose documented in this encounter [employer] Phone: Evaluation note Note Date & Type Note Facility Evaluation note Diagnosis Encounter for annual routine gynecological examination Abnormal perimenopausal bleeding Premenopausal menorrhagia documented in this encounter [facility] [employer] Phone: Evaluation note Note Date & Type Note Facility Evaluation note Diagnosis Chest pain, unspecified type documented in this encounter [employer] Phone: Evaluation note Note Date & Type Note Facility Evaluation note Diagnosis Hematuria, unspecified type Burning with urination Dysuria documented in this encounter [facility] [employer] Phone: Evaluation note Note Date & Type Note Facility Evaluation note Diagnosis Dysuria Burning with urination Dysuria STD exposure Vaginal discharge Leukorrhea, not specified as infective Wellness examination Anxiety Anxiety state, unspecified Hyperlipidemia, unspecified hyperlipidemia type Type 2 diabetes mellitus without complication, unspecified whether exterminator helper termite insulin use (HCC) Essential hypertension Unspecified essential hypertension Urinary frequency documented in this encounter [facility] [employer] Phone: Evaluation note Note Date & Type Note Facility Evaluation note Diagnosis Nausea vomiting and diarrhea- Primary Nausea with vomiting Abdominal pain, unspecified abdominal location Screening for colon cancer Special screening for malignant neoplasms, colon documented in this encounter [facility] [employer] Evaluation note Note Date & Type Note [...] FoundDocuments on File Type Date Recorded Patient Distribution Center Associate Expl anation Advance Directives and Living Will Power of Reel Cart Operator Documents on File Type Date Recorded Patient Distribution Center Associate Expl anation ACP-Advance Directive ACP-Power of Reel Cart Operator Documents on File Type Date Recorded Patient Distribution Center Associate Expl anation ACP-Advance Directive ACP-Power of Reel Cart Operator Documents on File Type Date Recorded Patient Distribution Center Associate Expl anation Advance Directives and Living Will Power of Reel Cart Operator Assessments Diagnosis Special screening examination for viral [...] Procedures Holter Monitor 24 Hour Isha Aguilar, MANGANESE WHEELER - SOLDERER [address] [place] [address] [facility] Ekg [address] [place] [address] Status Reason Specialty Diagnoses / Procedures Referre d By Contact Referred To Contact Open EKG Diagnoses Palpitations Procedures Continuous cardiac monitoring, >2 up to 14 days Radha Tyler MD [address] [place] [address] [id number] [facility] Ekg [address] [place] [address] Status Reason Specialty Diagnoses / Procedures Referred By Contact Referred To Contact Authorized Cardiology / Stress Lab Diagnoses Atypical chest pain Obesity (BMI 35.0-39.9 without comorbidity) Palpitations Procedures Stress test (Lexiscan) Radha Tyler MD [address] [place] [address] [place] [address] [facility] Stress Lab [address] [place] [address] Status Reason Specialty Diagnoses / Procedures Referred By Contact Referred To Contact Closed Cardiology / Echocardiography Diagnoses Chest pain, unspecified type Procedures Echocardiogram complete [id number] ECHO Isha Aguilar MANGANESE WHEELER - SOLDERER [address] [place] [address] [facility] Echo [address] [place] [address] Status Reason Specialty Diagnoses / Procedures Referre d By Contact Referred To Contact Open Radiology Diagnoses Back pain, unspecified back location, unspecified back pain laterality, unspecified chronicity Procedures MRI THORACIC SPINE WO Nae Hickman, MANGANESE WHEELER - SOLDERER [address] [place] [address] Status Reason Specialty Diagnoses / Procedures Referred By Contact Referred To Contact Pending Review Radiology Diagnoses Back pain, unspecified back location, unspecified back pain laterality, unspecified chronicity Procedures MRI LUMBAR SPINE WO CONTRAST Nae Sanchez, RAMÍREZ - SOLDERER [address] [place] [address] Specialty Diagnoses / Procedures Referred By Contac t Referred To Contact Radiology Diagnoses Encounter for screening for malignant neoplasm of breast, unspecified screening modality Essential hypertension Hyperlipidemia, unspecified hyperlipidemia type Hyperglycemia Procedures ELIAS HERLINDA DIGITAL SCREEN BILATERAL Danish Hughes MD [address] [facility] [address] [place] [address] Referral ID Status Reason Start Date Expiration Date Visits Re quested Visits Authorized [id number] Closed 06/25/2021 06/25/2022 1 1 Specialty Diagnoses / Procedures Referred By Contac t Referred To Contact Cardiology Diagnoses Chest pain, unspecified type Procedures EKG 12 lead Isha Aguilar, MANGANESE WHEELER - SOLDERER [address] [facility] [address] [place] [address] Referral ID Status Reason Start Date Expiration Date Visits Re quested Visits Authorized [id number] Open 05/21/2022 05/21/2023 1 1 History of Present Illness * Cleo Karolyn - 03/14/2020 8:00 AM EDT Explained Holter monitor and diary. documented in this encounter* Cleo Karolyn - 03/30/2020 3:00 PM EDT Explained policies [...] sent through Care Everywhere. * Chest Pain (Sammarinese) documented in this encounter Additional Source Comments INFORMATION SOURCE (unrecogn ized section and content) DATE CREATED AUTHOR 03/22/2018 [facility] DATE CREATED AUTHOR AUTHOR'S ORGANIZ ATION 05/24/2019 [facility] DATE CREATED AUTHOR AUTHOR'S ORGANIZ ATION 06/15/2023 [facility] DATE CREATED AUTHOR AUTHOR'S ORGANIZ ATION 08/21/2023 [facility] DATE CREATED AUTHOR AUTHOR'S ORGANIZ ATION 09/20/2023 [facility] EPIC DATE CREATED AUTHOR AUTHOR'S ORGANIZ ATION 10/07/2023 [facility] Reason for Visit (unrecogniz ed section and content) Status Reason Specialty Diagnoses / Procedures Referred By Contact Referred To Contact Pending Review Cardiology / EKG Diagnoses Other chest pain Procedures Holter Monitor 24 Hour Isha Aguilar, MANGANESE WHEELER - SOLDERER [address] [facility] [address] [place] [address] [facility] Ekg [address] [place] [address] Reason Comments Chest Pain ongoing for 1 week, has seen PCP for same complaint, pain continues. Status Reason Specialty Diagnoses / Procedures Referre d By Contact Referred To Contact Open EKG Diagnoses Palpitations Procedures Continuous cardiac monitoring, >2 up to 14 days Radha Tyler MD [address] [place] [address] [place] [address] [facility] Ekg [address] [place] [address] Status Reason Specialty Diagnoses / Procedures Referred By Contact Referred To Contact Authorized Cardiology / Stress Lab Diagnoses Atypical chest pain Obesity (BMI 35.0-39.9 without comorbidity) Palpitations Procedures Stress test (Lexiscan) Radha Tyler MD [address] [place] [address] [place] [address] [facility] Stress Lab [address] [place], [place] [id number] Status Reason Specialty Diagnoses / Procedures Referred By Contact Referred To Contact Closed Cardiology / Str ess Lab Diagnoses Atypical chest pain Obesity (BMI 35.0-39.9 without comorbidity) Palpitations Procedures Stress test (Lexiscan) Radha Tyler MD [address] [place], [place] [phone] [facility] Stress Lab [address] [place] [address] Status Reason Specialty Diagnoses / Procedures Referred By Contact Referred To Contact Closed Cardiology / Echocardiography Diagnoses Chest pain, unspecified type Procedures Echocardiogram complete [id number] ECHO Isha Aguilar, MANGANESE WHEELER - SOLDERER [address] [place] [address] Dr [address] [place] [address] [facility] Echo [address] [place] [address] Status Reason Specialty Diagnoses / Procedures Referre d By Contact Referred To Contact Closed Radiology Diagnoses Strain of muscle, fascia and tendon of lower back, subsequent encounter Strain of muscle and tendon of back wall of thorax, subsequent encounter Procedures HC MRI THORACIC SPINE WO CTRST Nae Sanchez, MANGANESE WHEELER - SOLDERER [address] [place] [address] [facility] Mri [address] [place] [address] Status Reason Specialty Diagnoses / Procedures Referre d By Contact Referred To Contact Closed Radiology Diagnoses Strain of muscle, fascia and tendon of lower back, subsequent encounter Strain of muscle and tendon of back wall of thorax, subsequent encounter Procedures HC MRI-SPINE LUMBAR WO CONTRAST Nae Sanchez, MANGANESE WHEELER - SOLDERER [address] [place] [address] [facility] Mri [address] [place] [address] Specialty Diagnoses / Procedures Referred By Contac t Referred To Contact Radiology Diagnoses Encounter for screening mammogram for malignant neoplasm of breast Procedures ELIAS DIGITAL SCREEN W OR WO CAD BILATERAL Isha Aguilar, MANGANESE WHEELER - SOLDERER [address] [place] [address] [address] [place] [address] Referral ID Status Reason Start Date Expiration Date V isits Requested Visits Authorized [id number] Pending Review 12/10/2020 12/10/2021 1 1 Reason Comments Emesis Onset yesterday at a pprox 1800, states she has stomach acid coming out Diarrhea Onset at approx 1800 Abdominal Pain Reason Comments Postmenopausal bleeding Abdominal Cramping Care Teams (unrecognized sec tion and content) [employer]inery Supervisor Relationship Specialty Start Date End Date Danish Hughes MD [address] [place] [address] [address] [place] [address] PCP - General 04/07/12 [employer] Supervisor Relationship Specialty Start Date End Date Danish Hughes MD [address] [place] [address] Dr [address] [place] [address] PCP - General 04/07/12 [employer] Supervisor Relationship Specialty Start Date End Date Danish Hughes MD [address] [place] [address] Dr [address] [place] [address] PCP - General 04/07/12 [employer] Supervisor Relationship Specialty Start Date End Date Danish Hughes MD [address] [place] [address] Dr [address] [place] [address] PCP - General 04/07/12 [employer] Supervisor Relationship Specialty Start Date End Date Isha Aguilar, MANGANESE WHEELER - SOLDERER [address] [place] [address] [address] [facility] [place] [id number] PCP - General Family Nurse Practitioner 05/21/22 [employer] Supervisor Relationship Specialty Start Date End Date Isha Aguilar, MANGANESE WHEELER - SOLDERER [address] [facility] [address] [place] [address] PCP - General Family Nurse Practitioner 07/30/22 [employer] Supervisor Relationship Specialty Start Date End Date Isha Aguilar MANGANESE WHEELER - SOLDERER [address] [facility] [address] [place] [address] PCP - General Family Nurse Practitioner 07/30/22 [employer] Supervisor Relationship Specialty Start Date End Date Isha Aguilar, MANGANESE WHEELER - SOLDERER [address] [place] [address] Dr [address] [place], [place] [phone] PCP - General Family Nurse Practitioner 07/30/22 [...] mg, IntraVENous, ONCE, 1 dose, On Jazzy 08/07/23 at 1230, IV Push over minimum of 2 minutes - Dilute with 10 mL NS 1313 (Given - Provid er: Deena Ordonez RN) ketorolac (TORADOL) injection 30 mg (COMPLETED) 30 mg, IntraVENous, ONCE, 1 dose, On Jazzy 08/07/23 at 1500, Do not administer for more than 5 days. 1524 (Given - Provid er: Deena Ordonez RN) ondansetron (ZOFRAN) injection 4 mg (COMPLETED) 4 mg, IntraVENous, ONCE, 1 dose, On Jazzy 08/07/23 at 1230 1313 (Given - Provid er: Deena Ordonez RN) sodium chloride 0.9 % bolus 1,000 mL (COMPLETED) 1,000 mL (11.2 mL/kg), IntraVENous, at 983.6 mL/hr, Administer over 61 Minutes, ONCE, On Jazzy 24 at 1230, For 1 dose 1312 (New Bag - Prov ider: Deena Ordonez RN)1413 (Stopped - Provider: Deena Ordonez, MARY) PRN Medication Order 08/05/2023 08/06/2023 08/07/2023 iopamidol [...] BE BASED ON THE PRIMARY CLINICAL RECORDS. [facility]. provides no warranty or guarantee of the accuracy or completeness of information in this document.
[2023-10-10 07:14] LABS: Basophils Absolute Auto 0.1 10^3/uL (0.0-0.1); Eosinophils Absolute Auto 0.1 10^3/uL (0.0-0.7); Eosinophils Percent Auto 2.2 % (0.9-7.0); Hematocrit 38.7 % (36.0-48.0); Hemoglobin 12.4 g/dL (12.0-16.0); Immature Granulocytes Abs Auto 0.03 10^3/uL (0.00-0.03); Immature Granulocytes Pct Auto 0.5 % (0.0-0.5); Lymphocytes Absolute Auto 1.9 10^3/uL (1.2-3.8); Lymphocytes Percent Auto 31.4 % (20.5-60.0); Mean Corpuscular Hemoglobin 30.7 pg (26.7-34.0); Mean Corpuscular Volume 95.8 fL (81.0-99.0); Monocytes Absolute Auto 0.5 10^3/uL (0.3-0.8); Monocytes Percent Auto 9.1 % (1.7-12.0); Neutrophils Absolute Auto 3.3 10^3/uL (1.4-6.5); Neutrophils Percent Auto 55.8 % (43.0-75.0); Platelet Count 209 10^3/uL (150-450); Red Blood Count 4.04 10^6/uL (4.20-5.40); White Blood Count 5.9 10^3/uL (4.0-11.0)
[2023-10-10] MEDS: LACTATED RINGER'S SOLUTION 1,000 ML 50 ML IV (07:32)
[2023-10-10 07:33] LABS: HCG Quantitative <1 mIU/mL
--- NOTE | 2023-10-10 10:42 | P.ON_ITS ---
Brief Operative Note Date of procedure: 10/10/23 Pre-op diagnosis: pelvic pain, dysmenorrhea, menorrhagia Post-op diagnosis: same as pre-op Procedure: NAME OF PROCEDURE: [ D&c hysteroscopy with diagnostic laparoscopy with lysis of omental adhesions] findings, omental adhesions, otherwise adenomyotic appearing uterus, normal tubes and ovaries PROCEDURE: The patient was taken back to the Operating Room where she was prepped and draped in normal sterile fashion after being placed under general anesthesia without difficulty. She was also placed in the dorsal lithotomy position. A weighted speculum was placed in the patient?s vagina. The anterior lip of the cervix was identified and grasped with a single tooth tenaculum. The patient?s uterus was then sounded roughly to [? 8] cm. The patient was then gently dilated using Hegar dilators. The hysteroscope was passed through the patient?s cervix into the uterus. Both ostia were identified. fluffy appearing endometrium. No gross evidence of malignancy, no gross evidence of polyps or fibroids. Umable to obtain sample of endometrium dt significant scarring of endometrial cavity. The hysteroscope was then removed from the uterus. The endometrial curettings were sent out to pathology. The single tooth tenaculum was then removed from the patient's anterior lip of the cervix where excellent hemostasis was noted. All instruments were removed from the patient?s vagina. A sponge stick was placed into the patient's vagina. Attention was turned to the patient's abdomen, where a small umbilical incision was made. The fascia was tented using Jim clamps and the fascia was entered sharply. Confirmation of intraabdominal placement of the 10 mm port was confirmed under direct visualization using a laparoscope. The patient's abdomen was then insufflated using CO2 gas with approximately 4 liters. A second port was placed left laterally, this was done under direct visualization with a 5 mm port. Survey of the patient's abdomen demonstrated normal liver and gallbladder. Survey of the patient's pelvic anatomy demonstrated normal appearing rt and lt ovary and tubes as well as normal appearing uterus. No endometrial implants c ould be noted, no evidence of any pelvic disease was seen, normal appearing pelvic cavity. All instruments were removed from the patient's abdomen. The patient's abdomen was deinsufflated of CO2 gas. The patient tolerated the procedure well. Sponge stick was removed from the patient's vagina. The patient's infraumbilical fascia was closed using #0 Vicryl on a GI needle. The patient's skin was closed laterally and infraumbilically using 4-0 Vicryl. The patient tolerated the procedure well. Sponge, lap and needle counts were correct x 2. The patient was taken to Recovery Room in stable condition. lysis of omental adhesions using the ligasure Anesthesia: VERONIQUE Surgeon: Jonny Infante Linen Manager: Nicole Chisholm Estimated blood loss (mL): 5 Pathology: none sent Condition: stable Disposition: PACU Urinary Catheter Management Urinary Catheter Management Urethral: Cath placed during this visit: no
[2023-10-10] MEDS: HYDROMORPHONE HCL 0.5 MG/0.5 ML SYRINGE IV ×2 (11:25→11:42)
--- NOTE | 2023-10-10 11:40 | PC.NURSE ---
Medicated for pain as ordered; peripad dry
--- NOTE | 2023-10-10 11:53 | PC.NURSE ---
Medicated as ordered for pain; peripad dry
--- NOTE | 2023-10-10 13:24 | PC.NURSE ---
large amount of blood tinged urine.
== END 2023-10-10 13:24 | disposition home or self-care (01) ==
PROVIDERS: Visit Provider Obstetrics & Gynecology
PROC: (CPT 840; principal; 2023-10-10 08:10)
DX: R93.89 Abnormal findings on diagnostic imaging of other specified body structures (principal); D25.9 Leiomyoma of uterus, unspecified; N83.202 Unspecified ovarian cyst, left side; R10.2 Pelvic and perineal pain; K66.0 Peritoneal adhesions (postprocedural) (postinfection); F32.A Depression, unspecified; K21.9 Gastro-esophageal reflux disease without esophagitis; J30.2 Other seasonal allergic rhinitis; F41.9 Anxiety disorder, unspecified; Z90.49 Acquired absence of other specified parts of digestive tract; Z98.84 Bariatric surgery status; Z98.51 Tubal ligation status
CPT/HCPCS: 49329; 58558; 36415; 84702; 85025; 99999; J1094; J1170; J2704

== ENCOUNTER 2023-10-22 14:25 | Outpatient (OUT) | payer BC, SELFPAY ==
--- NOTE | 2023-10-22 14:28 | MM_ITS ---
Patient Name: JEWELL CACERES MR#: [id number] : 1970 Exam Date: 10/22/2023 Ordering Doctor: DR Jonny Infante . RADIOLOGY REPORT PROCEDURE: MM TOMOSYNTHESIS SCREENING BI COMPARISON: None. INDICATIONS: screening Calculator Name NCI Breast Cancer Risk Assessment Tool 5 Year Breast Cancer Risk 1.40% Lifetime Breast Cancer Risk 12.00% Personal Breast Cancer No Personal Ovarian Cancer No Treatments None Family Cancers None LOCATION: [facility] BREAST COMPOSITION: Scattered areas fibroglandular density. FINDINGS: DIAGNOSTIC CATEGORY 2--BENIGN FINDING: RIGHT BREAST: No significant suspicious finding. Scattered benign-appearing lymph nodes are present. LEFT BREAST: No significant suspicious finding. Scattered benign-appearing lymph nodes are present. RECOMMENDATIONS: ROUTINE MAMMOGRAM AND CLINICAL EVALUATION IN 12 MONTHS. PLEASE NOTE: A NORMAL MAMMOGRAM DOES NOT EXCLUDE THE POSSIBILITY OF BREAST CANCER. A CLINICALLY SUSPICIOUS PALPABLE LUMP SHOULD BE BIOPSIED. Dictated by: Michael Dye M.D. on 10/24/2023 at 10:45 Approved by: Michael Dye M.D. on 10/24/2023 at 10:50
--- NOTE | 2023-10-22 14:29 | XR_ITS ---
[address] [address] Patient Name: JEWELL CACERES MRN: [facility]:[id number] date: 1970 Sex: F Assigned Patient Location: [facility] Current Patient Location: [facility] Accession/Order Number: [id number] Exam Date: 10/22/2023 14:47 Report Date: 10/22/2023 15:31 At the request of: CLEMENT MAYO Procedure: XR DEXA axial skeleton EXAMINATION: XR DEXA axial skeleton HISTORY: postmenopausal state Z78.0 COMPARISON: No relevant comparison available. TECHNIQUE: Dual-energy X-ray absorptiometry (DXA) was performed. FINDINGS: SPINE ANALYSIS: Average bone mineral density is 1.561 g/cm2. T-score (standard deviation relative to young adult mean): 3.0 . HIP ANALYSIS: Lowest bone mineral density is within the left femoral neck, 0.992 g/cm2. T-score (standard deviation relative to young adult mean): -0.3 . XR/XR DEXA axial skeleton IMPRESSION: World [employer] Classification: Normal - Low Fracture Risk Electronically authenticated by: HANNY LEMONS Date: 10/22/2023 15:31
--- OUTSIDE RECORDS SUMMARY | 2023-10-22 14:39 | XMS_ITS | CCD ---
Author Organization [facility] Care Team Providers Care Lens Polisher Name Role Phone Danish Hughes Primary Care Provider Enrico ELMORE - Isha ALMAGUER Primary Care Provide r Enrico ELMORE - Isha ALMAGUER Primary Care Provide r ISHA AGUILAR Primary Care Unavailable MEGHA KRUSE Admitting Unavailable MEGHA KRUSE Attending Unavailable Enrico ELMORE - Isha ALMAGUER Primary Care Provide r ISHA AGUILAR Primary Care Unavailable YULI ANDUJAR Referring Unavailable ISHA AGUILAR M Primary Care Unavailable ISHA AGUILAR M Referring Unavailable ISHA AGUILAR M Primary Care Unavailable YULI ANDUJAR Attending Unavailable YULI ANDUJAR Referring Unavailable ISHA AGUILAR M Primary Care Unavailable MEAGHAN AGUILARH M Referring Unavailable ISHA AGUILAR M Primary Care Unavailable MEAGHAN AGUILARH M Referring Unavailable JANN SINGHFAN Referring Unavailable ISHA AGUILAR M Primary Care Unavailable SAMANTHA, FALGUNI Referring Unavailable ISHA AGUILAR M Primary Care Unavailable MEAGHAN AGUILARH M Referring Unavailable ISHA AGUILAR M Primary Care Unavailable MEGHA KRUSE Referring Unavailable ISHA AGUILAR M Primary Care Unavailable ISHA AGUILAR M Primary Care Unavailable KYLAH JIMENEZ~[id number] YOANNA Attending ISHA Beltran Primary Care Unavailable CAYLA AREVALO Referring Unavailable ISHA AGUILAR M Referring Unavailable ISHA AGUILAR M Primary Care Unavailable ISHA AGUILAR M Primary Care Unavailable YULI ANDUJAR Referring Unavailable Unavailable Primary Care Provider Unavailabl e Aguilar NURSING EDUCATION SPECIALIST-ARTS AND HUMANITIES COUNCIL DIRECTOR, [facility] Primary Care Un available David DO, Reza Green Attending Unavailab le Aguilar NURSING EDUCATION SPECIALIST-ARTS AND HUMANITIES COUNCIL DIRECTOR, [facility] Primary Care Un available David DO, Reza Green Attending Unavailab le Aguilar NURSING EDUCATION SPECIALIST-ARTS AND HUMANITIES COUNCIL DIRECTOR, [facility] Primary Care Un available Justen Hernandez Attending Unavail able Aguilar NURSING EDUCATION SPECIALIST-ARTS AND HUMANITIES COUNCIL DIRECTOR, [facility] Primary Care Un available David DO, Reza Green Attending Unavailab le Aguilar NURSING EDUCATION SPECIALIST-ARTS AND HUMANITIES COUNCIL DIRECTOR, [facility] Primary Care Un available David DO, Reza Green Attending Unavailab le David DO, Reza Green Attending Unavailab le Aguilar NURSING EDUCATION SPECIALIST-ARTS AND HUMANITIES COUNCIL DIRECTOR, [facility] Primary Care Un available David DO, Reza Green Attending Unavailab le Aguilar NURSING EDUCATION SPECIALIST-ARTS AND HUMANITIES COUNCIL DIRECTOR, [facility] Primary Care Un available David DO, Reza Green Attending Unavailab le Aguilar NURSING EDUCATION SPECIALIST-ARTS AND HUMANITIES COUNCIL DIRECTOR, [facility] Primary Care Un available David DO, Reza Green Attending Unavailab le Aguilar NURSING EDUCATION SPECIALIST-ARTS AND HUMANITIES COUNCIL DIRECTOR, [facility] Primary Care Un available David DO, Reza Green Attending Unavailab le Aguilar NURSING EDUCATION SPECIALIST-ARTS AND HUMANITIES COUNCIL DIRECTOR, [facility] Primary Care Un available Justen Hernandez Attending Unavail able Aguilar NURSING EDUCATION SPECIALIST-ARTS AND HUMANITIES COUNCIL DIRECTOR, [facility] Primary Care Un available NARESHJONNY Howell Attending Unavailable NARESH JONNY Attending Unavailable LUANN HEIN Attending Unavailable Allergies Allergy Classification Reported Allergen(s) Allergy Type Date of Onset Reaction(s) Facility (20 sources) Acetaminophen / HYDROcodone Drug Allergy 01-12-20 13 Other (See Comments) [place] (20 sources) gabapentin Drug Allergy 09-02-19 15 [place] (20 sources) Seasonal allergy Propensity to adverse reactions to substance 06-30-20 12 [place] (13 sources) Other Propensity to adverse reactions 06-30-20 12 [place] (1 source) Octacosanol Drug Intolerance 06-30-[address] [facility] (1 source) Acetaminophen / HYDROcodone; Translations: [Vicodin] Drug Allergy [facility] (1 source) gabapentin; Translations: [Neurontin] Drug Allergy [facility] NEGATED: Highlighted row has been ruled out! (8 sources) Other Propensity to adverse reactions 06-30-20 [facility] Medications Current Medications Medication Drug Class(es) [...] Start: 12-08-2019 take 1 capsule by mo [facility] once daily DULoxetine (CYMBALTA) 30 MG extended release capsule TAKE ONE CAPSULE BY MOUTH DAILY 90 capsule 3 06/05/2020 Active Estrogens, Conjugated (SENIOR [facility]ARE) / medroxyPROGESTERone (1 source) Progestin, Estrogen Start: [...] with Auto Differentialon 08-07-2023 Basophils (Bld) [#/Vol] [facility] Basophils/100 WBC (Bld) 0 % 0 - 2 % [facility] Eosinophils (Bld) [#/Vol] [facility] Eosinophils/100 WBC (Bld) 0 % Low 1 - 4 % [facility] Erythrocyte distribution width (RBC) [Ratio] 12.4 % 11.8 - 14.4 % [facility] Hematocrit (Bld) [Volume fraction] 41.3 % 36.3 - 47.1 % [facility] Hemoglobin (Bld) [Mass/Vol] 13.3 g/dL 11.9 - 15.1 g/dL [facility] Immature granulocytes (Bld) [#/Vol] 0.04 10*3/uL [facility] Immature granulocytes/100 WBC (Bld) 1 % High 0 [facility] Interpretation and review of laboratory results Abnormal [facility] Lymphocytes/100 WBC (Bld) 11 % Low 24 - 43 % [facility] Lymphocytes/100 WBC (Bld) 0.50 % Low [facility] MCH (RBC) [Entitic mass] 30.2 pg 25.2 - 33.5 pg [facility] MCHC (RBC) [Mass/Vol] 32.2 g/dL 28.4 - 34.8 g/dL [facility] MCV (RBC) [Entitic vol] 93.7 fL 82.6 - 102.9 fL [facility] Monocytes/100 WBC (Bld) 6 % 3 - 12 % [facility] Monocytes/100 WBC (Bld) 0.29 % [facility] Neutrophils/100 WBC (Bld) 82 % High 36 - 65 % [facility] Nucleated RBC/100 WBC (Bld) [Ratio] 0.0 % 0.0 per 100 WBC [facility] Platelet mean volume (Bld) [Entitic vol] 10.1 fL 8.1 - 13.5 fL [facility] Platelets (Bld) [#/Vol] 163 10*3/uL [facility] RBC (Bld) [#/Vol] 4.41 10*6/uL 3.95 - 5.1 1 m/uL [facility] Segmented neutrophils/100 WBC (Bld) 3.81 % [facility] WBC other (Bld) [#/Vol] 4.7 [facility] CBC with Diffon 08-07-2023 Abs. Basophil <0.03 Normal 0.00-0.20 [facility] Comment on above: Performed By: #### U AX, UMICAO #### [facility] [address] [place] [address] [place] [address] Telephone Assembler: Nemesio Galicia MD #### URNMAB #### [address] [id number] Telephone Assembler: Lionel Badillo MD Abs. Eosinophil <0.03 Normal 0.00-0.44 [facility] Comment on above: Performed By: #### U AX, UMICAO #### [facility] [address] [place] [address] Dr. [place] [id number] ( Telephone Assembler: Nemesio Galicia MD #### URNMAB #### [address] [id number] Telephone Assembler: Lionel Badillo MD Abs.Imm.Granulocyte 0.04 k/uL Normal 0.00-0.30 [facility] Comment on above: Performed By: #### U AX, UMICAO #### [facility] [address] [place] [address] Dr. [place] [phone] ( Telephone Assembler: Nemesio Galicia MD #### URNMAB #### [address] [address] Telephone Assembler: Lionel Badillo MD Abs.Neutrophil (Seg) 3.81 k/uL Normal 1.50-8.10 [facility] Comment on above: Performed By: #### U AX, UMICAO #### [facility] [address] [place] [address] Dr. [place] [phone] Telephone Assembler: Nemesio Galicia MD #### URNMAB #### [place] [address] [place] [address] Telephone Assembler: Lionel Badillo MD Basophils/100 WBC (Bld) 0 % Normal 0-2 [facility] Comment on above: Performed By: #### U AX, UMICAO #### [facility] [address] [place], [place] [phone] Telephone Assembler: Nemesio Galicia MD #### URNMAB #### [address] [address] Telephone Assembler: Lionel Badillo MD Eosinophils/100 WBC (Bld) 0 % Low 1-4 [facility] Comment on above: Performed By: #### U AX, UMICAO #### [facility] [address] [place] [address] Dr. [place], [place] [phone] Telephone Assembler: Nemesio Galicia MD #### URNMAB #### [address] [address] Telephone Assembler: Lionel Badillo MD Erythrocyte distribution width (RBC) [Ratio] 12.4 % Normal 11.8-14.4 [facility] Comment on above: Performed By: #### U AX, UMICAO #### [facility] [address] [place] [address] Dr. [place], [place] [phone] Telephone Assembler: Nemesio Galicia MD #### URNMAB #### [address] [place] [address] Telephone Assembler: Lionel Badillo MD Hematocrit (Bld) [Volume fraction] 41.3 % Normal 36.3-47.1 [facility] Comment on above: Performed By: #### U AX, UMICAO #### [facility] [address] [place], [place] [phone] Telephone Assembler: Nemesio Galicia MD #### URNMAB #### [address] [place] [address] Telephone Assembler: Lionel Badillo MD Hemoglobin (Bld) [Mass/Vol] 13.3 g/dL Normal 11.9-15.1 [facility] Comment on above: Performed By: #### U AX, UMICAO #### [facility] [address] [place], [place] [phone] Telephone Assembler: Nemesio Galicia MD #### URNMAB #### [address] [address] Telephone Assembler: Lionel Badillo MD Immature granulocytes/100 WBC (Bld) 1 % High 0 [facility] Comment on above: Performed By: #### U AX UMICAO #### [facility] [address] [place] [address] Dr. [place], [place] [phone] Telephone Assembler: Nemesio Galicia MD #### URNMAB #### [address] [address] Telephone Assembler: Lionel Badillo MD Lymphocytes (Bld) [#/Vol] 0.50 10*3/uL Low 1.10-3.70 [facility] Comment on above: Performed By: #### U AX UMICAO #### [facility] [address] [place] [address] Dr. [place], [place] [phone] Telephone Assembler: Nemesio Galicia MD #### URNMAB #### [address] [address] Telephone Assembler: Lionel Badillo MD Lymphocytes/100 WBC (Bld) 11 % Low 24-43 [facility] Comment on above: Performed By: #### U AX, UMICAO #### [facility] [address] [place] [address] Dr. [place], [place] [phone] Telephone Assembler: Nemesio Galicia MD #### URNMAB #### [address] [phone] Telephone Assembler: Lionel Badillo MD MCH (RBC) [Entitic mass] 30.2 pg Normal 25.2-33.5 [facility] Comment on above: Performed By: #### U AX, UMICAO #### [facility] [address] [place] [address] Dr. [place] [phone] Telephone Assembler: Nemesio Galicia MD #### URNMAB #### [place] [phone] Telephone Assembler: Lionel Badillo MD MCHC (RBC) [Mass/Vol] 32.2 g/dL Normal 28.4-34.8 [facility] Comment on above: Performed By: #### U AX UMICAO #### [address] [place] [phone] Telephone Assembler: Nemesio Galicia MD #### URNMAB #### [place] [address] Telephone Assembler: Lionel Badillo MD MCV (RBC) [Entitic vol] 93.7 fL Normal 82.6-102.9 [facility] Comment on above: Performed By: #### U VIPUL UMICAO #### [address] [place] [phone] Telephone Assembler: Nemesio Galicia MD #### URNMAB #### [place] [address] Telephone Assembler: Lionel Badillo MD Monocytes (Bld) [#/Vol] 0.29 10*3/uL Normal 0.10-1.20 [facility] Comment on above: Performed By: #### U AX, UMICAO #### [address] [place] [phone] Telephone Assembler: Nemesio Galicia MD #### URNMAB #### [address] [place] [address] Telephone Assembler: Lionel Badillo MD Monocytes/100 WBC (Bld) 6 % Normal 3-12 [facility] Comment on above: Performed By: #### U VIPUL UMICAO #### [facility] [address] [place], [place] [phone] Telephone Assembler: Nemesio Galicia MD #### URNMAB #### [address] [address] Telephone Assembler: Lionel Badillo MD Neutrophil (Seg) 82 % High 36-65 [facility] Comment on above: Performed By: #### U HALIMA MATTHEWICADante #### [address] [place] [phone] Telephone Assembler: Nemesio Galicia MD #### URNMAB #### [address] [address] Telephone Assembler: Lionel Badillo MD NRBC Automated 0.0 per 100 WBC Normal 0.0 [facility] Comment on above: Performed By: #### IRVING LEÓN #### [facility] [address] [place] [address] Dr. [place], [place] [phone] Telephone Assembler: Nemesio Galicia MD #### URNMAB #### [address] [address] Telephone Assembler: Lionel Badillo MD Platelet mean volume (Bld) [Entitic vol] 10.1 fL Normal 8.1-13.5 [facility] Comment on above: Performed By: #### U HALIMA MATTHEWICAO #### [facility] [address] [place] [address] Dr. [place], [place] [phone] Telephone Assembler: Nemesio Galicia MD #### URNMAB #### [address] [address] Telephone Assembler: Lionel Badillo MD Platelets (Bld) [#/Vol] 163 10*3/uL Normal 138-453 [facility] Comment on above: Performed By: #### U VIPUL UMICAO #### [facility] [address] [place] [address] Dr. [place], [place] [phone] Telephone Assembler: Nemesio Galicia MD #### URNMAB #### [address] [phone] Telephone Assembler: Lionel Badillo MD RBC (Bld) [#/Vol] 4.41 10*6/uL Normal 3.95-5.11 [facility] Comment on above: Performed By: #### U HALIMA MATTHEWICAO #### [address] [place] [address] Telephone Assembler: Nemesio Galicia MD #### URNMAB #### [address] [phone] Telephone Assembler: Lionel Badillo MD WBC (Bld) [#/Vol] 4.7 10*3/uL Normal 3.5-11.3 [facility] Comment on above: Performed By: #### U HALIMA MATTHEWICAO #### [address] [place] [phone] Telephone Assembler: Nemesio Galicia MD #### URNMAB #### [address] [phone] Telephone Assembler: Lionel Badillo MD CT ABDOMEN PELVIS W [...] Jj Matthew MD 08/07/23 Final result Normal [facility] CT Abdomen and Pelvis W cont rast Porfirio 08-07-2023 1. No acute intra-abdominal or pelvic process. 2. Status post sleeve gastrectomy. Mild hiatal hernia. 3. Left adnexal cyst measures 4 cm. 4. Mild constipation. 5. Previously noted small pulmonary nodule right lower lobe not seen in today's exam and possibly is out of the field of view. PN RIS CONSOLIDATED EXAMINATION: CT OF THE ABDOMEN [...] mesenteric findings. Bones/Soft Tissues: No acute abnormality. PN RIS CONSOLIDATED Jj Matthew MD - 08/07/2023 [...] of the field of view. [facility] Radiology Study observation (narrative) [facility] CT Abdomen and Pelvis W cont rast IVOrdered By: Jj Matthew on 08-07-2023 JOHANNE SUKUMAR [facility] Work Phone: Comp Metabolic Profon 2023 Albumin [Mass/Vol] 3.7 g/dL Normal 3.5-5.2 [facility] Comment on above: Performed By: #### U AX, UMICAO #### [facility] [address] [place] [address] [place] [address] Telephone Assembler: Nemesio Galicia MD #### URNMAB #### [address] [phone] Telephone Assembler: Lionel Badillo MD Albumin/Glob Ratio 1.3 Normal 1.0-2.5 [facility] Comment on above: Performed By: #### U AX, UMICAO #### [facility] [address] [place] [address] Dr. [place], [place] [phone] Telephone Assembler: Nemesio Galicia MD #### URNMAB #### [address] [phone] Telephone Assembler: Lionel Badillo MD Alkaline Phos 74 U/L Normal 35-104 [facility] Comment on above: Performed By: #### U AX, UMICAO #### [address] [place], [place] [phone] Telephone Assembler: Nemesio Galicia MD #### URNMAB #### [address] [place] [address] Telephone Assembler: Lionel Badillo MD ALT [Catalytic activity/Vol] 8 U/L Normal 5-33 [facility] Comment on above: Performed By: #### U AX, UMICAO #### [facility] [address] [place] [address] Dr. [place], [place] [phone] Telephone Assembler: Nemesio Galicia MD #### URNMAB #### [address] [place] [address] Telephone Assembler: Lionel Badillo MD Anion gap [Moles/Vol] 8 mmol/L Low 9-17 [facility] Comment on above: Performed By: #### U AX UMICAO #### [facility] [address] [place], [place] 3201983 Telephone Assembler: Nemesio Galicia MD #### URNMAB #### [address] [address] Telephone Assembler: Lionel Badillo MD AST [Catalytic activity/Vol] 13 U/L Normal <32 [facility] Comment on above: Performed By: #### U HALIMA MATTHEWICAO #### [facility] [address] [place], [place] 1798483 Telephone Assembler: Nemesio Galicia MD #### URNMAB #### [address] [address] Telephone Assembler: Lionel Badillo MD Bilirubin [Mass/Vol] 0.3 mg/dL Normal 0.3-1.2 [facility] Comment on above: Performed By: #### HALIMA LEÓNICAO #### [facility] [address] [place], [place] [phone] Telephone Assembler: Nemesio Galicia MD #### URNMAB #### [address] [address] Telephone Assembler: Lionel Badillo MD BUN/CRE Ratio 12 Normal 9-20 [facility] Comment on above: Performed By: #### U VIPUL UMICAO #### [facility] [address] [place], [place] [phone] Telephone Assembler: Nemesio Galicia MD #### URNMAB #### [address] [address] Telephone Assembler: Lionel Badillo MD Calcium [Mass/Vol] 8.7 mg/dL Normal 8.6-10.4 [facility] Comment on above: Performed By: #### U VIPUL UMICAO #### [facility] [address] [place], [place] [phone] Telephone Assembler: Nemesio Galicia MD #### URNMAB #### [address] [phone] Telephone Assembler: Lionel Badillo MD Chloride [Moles/Vol] 104 mmol/L Normal 98-107 [facility] Comment on above: Performed By: #### HALIMA LEÓNICAO #### [facility] [address] [place] [address] Dr. [place], [place] [phone] Telephone Assembler: Nemesio Galicia MD #### URNMAB #### [address] [phone] Telephone Assembler: Lionel Badillo MD CO2 [Moles/Vol] 25 mmol/L Normal 20-31 [facility] Comment on above: Performed By: #### HALIMA LEÓNICAO #### [address] [place], [place] 4872083 Telephone Assembler: Nemesio Galicia MD #### URNMAB #### [address] [address] Telephone Assembler: Lionel Badillo MD Creatinine [Mass/Vol] 0.9 mg/dL Normal 0.5-0.9 [facility] Comment on above: Performed By: #### U HALIMA MATTHEWICAO #### [facility] [address] [place], [place] [phone] Telephone Assembler: Nemesio Galicia MD #### URNMAB #### [address] [address] Telephone Assembler: Lionel Badillo MD GFR/1.73 sq M.predicted among non-blacks MDRD (S/P/Bld) [Vol rate/Area] mL/min/{1.73_m2} Normal >60 [facility] Comment on above: Result Comment: These results [...] Performed By: #### U AX, UMICAO #### [facility] [address] [place] [address] Telephone Assembler: Nemesio Galicia MD #### URNMAB #### [address] [phone] Telephone Assembler: Lionel Badillo MD Glucose [Mass/Vol] 91 mg/dL Normal 70-99 [facility] Comment on above: Performed By: #### U AX, UMICAO #### [facility] [address] [place] [address] Telephone Assembler: Nemesio Galicia MD #### URNMAB #### [address] [phone] Telephone Assembler: Lionel Badillo MD Potassium [Moles/Vol] 3.7 mmol/L Normal 3.7-5.3 [facility] Comment on above: Performed By: #### U AX, UMICAO #### [facility] [address] [place] [address] Telephone Assembler: Nemesio Galicia MD #### URNMAB #### [address] [phone] Telephone Assembler: Lionel Badillo MD Protein [Mass/Vol] 6.5 g/dL Normal 6.4-8.3 [facility] Comment on above: Performed By: #### U AX, UMICAO #### [facility] [address] [place] [address] Telephone Assembler: Nemesio Galicia MD #### URNMAB #### [facility] [address] [place], [place] [phone] Telephone Assembler: Lionel Badillo MD Sodium [Moles/Vol] 137 mmol/L Normal 135-144 [facility] Comment on above: Performed By: #### U AX, UMICAO #### [facility] [address] [place] [address] Telephone Assembler: Nemesio Galicia MD #### URNMAB #### [address] [place], [place] [phone] Telephone Assembler: Lionel Badillo MD Urea nitrogen [Mass/Vol] 11 mg/dL Normal 6-20 [facility] Comment on above: Performed By: #### U VIPUL, HALIMAICAO #### [facility] [address] [place] [address] Telephone Assembler: Nemesio Galicia MD #### URNMAB #### [address] [place], [place] [phone] Telephone Assembler: Lionel Badillo MD Comprehensive Metabolic Pane [facility] 08-07-2023 Albumin [Mass/Vol] 3.7 g/dL 3.5 - 5.2 g/dL [facility] Albumin/Globulin [Mass ratio] 1.3 {ratio} 1.0 - 2.5 [facility] ALP [Catalytic activity/Vol] 74 U/L 35 - 104 U/L [facility] ALT [Catalytic activity/Vol] 8 U/L 5 - 33 U/L [facility] Anion gap [Moles/Vol] 8 mmol/L Low 9 - 17 mmol/L [facility] AST [Catalytic activity/Vol] 13 U/L NINF - 32 U/L [facility] Bilirubin [Mass/Vol] 0.3 mg/dL 0.3 - 1 .2 mg/dL [facility] Calcium [Mass/Vol] 8.7 mg/dL 8.6 - 10. 4 mg/dL [facility] Chloride [Moles/Vol] 104 mmol/L 98 - 10 7 mmol/L [facility] CO2 [Moles/Vol] 25 mmol/L 20 - 31 mmol/L [facility] Creatinine [Mass/Vol] 0.9 mg/dL 0.5 - 0.9 mg/dL [facility] GFR/1.73 sq M.predicted MDRD (S/P/Bld) [Vol rate/Area] - PINF [facility] Comment on above: These results are [...] mg/dL 70 - 99 mg/dL [facility] Interpretation and review of laboratory results Abnormal [facility] Potassium [Moles/Vol] 3.7 mmol/L 3.7 - 5.3 mmol/L [facility] Protein [Mass/Vol] 6.5 g/dL 6.4 - 8.3 g/dL [facility] Sodium [Moles/Vol] 137 mmol/L 135 - 144 mmol/L [facility] Urea nitrogen [Mass/Vol] 11 mg/dL 6 - 20 mg/dL [facility] Urea nitrogen/Creatinine [Mass ratio] 12 mg/mg 9 - 20 [facility] Lactic Acidon 08-07-2023 Lactate [Moles/Vol] 0.7 mmol/L Normal 0.5-2.2 [facility] Comment on above: Performed By: #### IRVING LEÓN #### [facility] [facility] [address] [place] [address] Telephone Assembler: Nemesio Galicia MD #### URNMAB #### [address] [place] [address] Telephone Assembler: Lionel Badillo MD Lactate (BldV) [Moles/Vol] 0.7 mmol/L 0.5 - 2.2 mmol/L [facility] Lipaseon 08-07-2023 Lipase [Catalytic activity/Vol] 21 U/L Normal 13-60 [facility] Comment on above: Performed By: #### U AX, UMICAO #### [address] [place] [address] Telephone Assembler: Nemesio Galicia MD #### URNMAB #### [address] [address] Telephone Assembler: Lionel Badillo MD Lipase [Catalytic activity/Vol] 21 U/L 13 - 60 U/L [facility] No Panel Informationon 08-07 [facility] CBC with Diffon 07-16-2023 Abs. Basophil 0.04 k/uL Normal 0.00-0.20 [facility] Comment on above: Performed By: #### C P, CBC #### [address] [place] [phone] Telephone Assembler: Nemesio Galicia MD #### GLYHGB #### [address] [address] Telephone Assembler: Lionel Badillo MD Abs.Imm.Granulocyte 0.03 k/uL Normal 0.00-0.30 [facility] Comment on above: Performed By: #### C P, CBC #### [address] [place], [place] 8881783 Telephone Assembler: Nemesio Galicia MD #### GLYHGB #### [address] [address] Telephone Assembler: Lionel Badillo MD Abs.Neutrophil (Seg) 5.08 k/uL Normal 1.50-8.10 [facility] Comment on above: Performed By: #### C P, CBC #### [facility] [address] [place] [address] [place] [address] Telephone Assembler: Nemesio Galicia MD #### GLYHGB #### [address] [id number] Telephone Assembler: Lionel Badillo MD Basophils/100 WBC (Bld) 1 % Normal 0-2 [facility] Comment on above: Performed By: #### C P, CBC #### [facility] [address] [place] [address] [address] [place] [phone] Telephone Assembler: Nemesio Galicia MD #### GLYHGB #### [address] [address] Telephone Assembler: Lionel Badillo MD Eosinophils (Bld) [#/Vol] 0.09 10*3/uL Normal 0.00-0.44 [facility] Comment on above: Performed By: #### C P, CBC #### [address] [place] [phone] Telephone Assembler: Nemesio Galicia MD #### GLYHGB #### [address] 1934108 Telephone Assembler: Lionel Badillo MD Eosinophils/100 WBC (Bld) 1 % Normal 1-4 [facility] Comment on above: Performed By: #### C P, CBC #### [address] [place] [phone] Telephone Assembler: Nemesio Galicia MD #### GLYHGB #### [address] [phone] Telephone Assembler: Lionel Badillo MD Erythrocyte distribution width (RBC) [Ratio] 12.2 % Normal 11.8-14.4 [facility] Comment on above: Performed By: #### C P, CBC #### [facility] [address] [place], [place] [phone] Telephone Assembler: Nemesio Galicia MD #### GLYHGB #### [address] [phone] Telephone Assembler: Lionel Badillo MD Hematocrit (Bld) [Volume fraction] 41.4 % Normal 36.3-47.1 [facility] Comment on above: Performed By: #### C P, CBC #### [facility] [address] [place] [address] Telephone Assembler: Nemesio Galicia MD #### GLYHGB #### [address] [id number] Telephone Assembler: Lionel Badillo MD Hemoglobin (Bld) [Mass/Vol] 13.5 g/dL Normal 11.9-15.1 [facility] Comment on above: Performed By: #### C P, CBC #### [facility] [address] [place], [place] [phone] Telephone Assembler: Nemesio Galicia MD #### GLYHGB #### [address] [phone] Telephone Assembler: Lionel Badillo MD Immature granulocytes/100 WBC (Bld) 0 % Normal 0 [facility] Comment on above: Performed By: #### C P, CBC #### [facility] [address] [place], [place] [phone] Telephone Assembler: Nemesio Galicia MD #### GLYHGB #### [address] [address] Telephone Assembler: Lionel Badillo MD Lymphocytes (Bld) [#/Vol] 1.87 10*3/uL Normal 1.10-3.70 [facility] Comment on above: Performed By: #### C P, CBC #### [facility] [address] [place] [address] Telephone Assembler: Nemesio Galicia MD #### GLYHGB #### [address] [place], [place] [phone] Telephone Assembler: Lionel Badillo MD Lymphocytes/100 WBC (Bld) 25 % Normal 24-43 [facility] Comment on above: Performed By: #### C P, CBC #### [facility] [address] [place] [address] Telephone Assembler: Nemesio Galicia MD #### GLYHGB #### [address] [phone] Telephone Assembler: Lionel Badillo MD MCH (RBC) [Entitic mass] 30.7 pg Normal 25.2-33.5 [facility] Comment on above: Performed By: #### C P, CBC #### [facility] [address] [place] [address] Telephone Assembler: Nemesio Galicia MD #### GLYHGB #### [address] [phone] Telephone Assembler: Lionel Badillo MD MCHC (RBC) [Mass/Vol] 32.6 g/dL Normal 28.4-34.8 [facility] Comment on above: Performed By: #### C P, CBC #### [facility] [address] [place] [address] Telephone Assembler: Nemesio Galicia MD #### GLYHGB #### [address] [place], [place] 4000208 Telephone Assembler: Lionel Badillo MD MCV (RBC) [Entitic vol] 94.1 fL Normal 82.6-102.9 [facility] Comment on above: Performed By: #### C P, CBC #### [facility] [address] [place], [place] [phone] Telephone Assembler: Nemesio Galicia MD #### GLYHGB #### [address] [phone] Telephone Assembler: Lionel Badillo MD Monocytes (Bld) [#/Vol] 0.42 10*3/uL Normal 0.10-1.20 [facility] Comment on above: Performed By: #### C P, CBC #### [facility] [address] [place], [place] [phone] Telephone Assembler: Nemesio Galicia MD #### GLYHGB #### [address] [phone] Telephone Assembler: Lionel Badillo MD Monocytes/100 WBC (Bld) 6 % Normal 3-12 [facility] Comment on above: Performed By: #### C P, CBC #### [address] [place], [place] [phone] Telephone Assembler: Nemesio Galicia MD #### GLYHGB #### [address] [address] Telephone Assembler: Lionel Badillo MD Neutrophil (Seg) 67 % High 36-65 [facility] Comment on above: Performed By: #### C P, CBC #### [address] [place], [place] 8556083 Telephone Assembler: Nemesio Galicia MD #### GLYHGB #### [address] [phone] Telephone Assembler: Lionel Badillo MD NRBC Automated 0.0 per 100 WBC Normal 0.0 [facility] Comment on above: Performed By: #### C P, CBC #### [facility] [address] [place] [address] [place] [address] Telephone Assembler: Nemesio Galicia MD #### GLYHGB #### [facility] [address] [place], [place] [phone] Telephone Assembler: Lionel Badillo MD Platelet mean volume (Bld) [Entitic vol] 10.2 fL Normal 8.1-13.5 [facility] Comment on above: Performed By: #### C P, CBC #### [facility] [address] [place] [address] [place] [address] Telephone Assembler: Nemesio Galicia MD #### GLYHGB #### [address] [place], [place] [phone] Telephone Assembler: Lionel Badillo MD Platelets (Bld) [#/Vol] 219 10*3/uL Normal 138-453 [facility] Comment on above: Performed By: #### C P, CBC #### [address] [place] [address] Telephone Assembler: Nemesio Galicia MD #### GLYHGB #### [address] [place], [place] [phone] Telephone Assembler: Lionel Badillo MD RBC (Bld) [#/Vol] 4.40 10*6/uL Normal 3.95-5.11 [facility] Comment on above: Performed By: #### C P, CBC #### [address] [place] [address] Telephone Assembler: Nemesio Galicia MD #### GLYHGB #### [facility] [address] [place], [place] [phone] Telephone Assembler: Lionel Badillo MD WBC (Bld) [#/Vol] 7.5 10*3/uL Normal 3.5-11.3 [facility] Comment on above: Performed By: #### C P, CBC #### [facility] [address] [place] [address] [place] [address] Telephone Assembler: Nemesio Galicia MD #### GLYHGB #### [facility] [address] [place] [address] Telephone Assembler: Lionel Badillo MD Comp Metabolic Profon 2022 Albumin [Mass/Vol] 3.9 g/dL Normal 3.5-5.2 [facility] Comment on above: Performed By: #### C P, CBC #### [facility] [address] [place], [place] [phone] Telephone Assembler: Nemesio Galicia MD #### GLYHGB #### [address] [place] [address] Telephone Assembler: Lionel Badillo MD Albumin/Glob Ratio 1.4 Normal 1.0-2.5 [facility] Comment on above: Performed By: #### C P, CBC #### [facility] [address] [place] [address] [address] [place], [place] [phone] Telephone Assembler: Nemesio Galicia MD #### GLYHGB #### [address] [place] [address] Telephone Assembler: Lionel Badillo MD Alkaline Phos 72 U/L Normal 35-104 [facility] Comment on above: Performed By: #### C P, CBC #### [address] [place], [place] [phone] Telephone Assembler: Nemesio Galicia MD #### GLYHGB #### [address] [place] [address] Telephone Assembler: Lionel Badillo MD ALT [Catalytic activity/Vol] 11 U/L Normal 5-33 [facility] Comment on above: Performed By: #### C P, CBC #### [address] [place], [place] 2057383 Telephone Assembler: Nemesio Galicia MD #### GLYHGB #### [address] [address] [place] [address] Telephone Assembler: Lionel Badillo MD Anion gap [Moles/Vol] 10 mmol/L Normal 9-17 [facility] Comment on above: Performed By: #### C P, CBC #### [facility] [address] [place], [place] [phone] Telephone Assembler: Nemesio Galicia MD #### GLYHGB #### [address] [address] Telephone Assembler: Lionel Badillo MD AST [Catalytic activity/Vol] 15 U/L Normal <32 [facility] Comment on above: Performed By: #### C P, CBC #### [facility] [address] [place], [place] 3400283 Telephone Assembler: Nemesio Galicia MD #### GLYHGB #### [address] [address] Telephone Assembler: Lionel Badillo MD Bilirubin [Mass/Vol] 0.3 mg/dL Normal 0.3-1.2 [facility] Comment on above: Performed By: #### C P, CBC #### [facility] [address] [place], [place] [phone] Telephone Assembler: Nemesio Galicia MD #### GLYHGB #### [address] [address] Telephone Assembler: Lionel Badillo MD BUN/CRE Ratio 14 Normal 9-20 [facility] Comment on above: Performed By: #### C P, CBC #### [facility] [address] [place], [place] 9903583 Telephone Assembler: Nemesio Galicia MD #### GLYHGB #### [address] [address] Telephone Assembler: Lionel Badillo MD Calcium [Mass/Vol] 9.0 mg/dL Normal 8.6-10.4 [facility] Comment on above: Performed By: #### C P, CBC #### [facility] [address] [place] [address] Telephone Assembler: Nemesio Galicia MD #### GLYHGB #### [address] [phone] Telephone Assembler: Lionel Badillo MD Chloride [Moles/Vol] 104 mmol/L Normal 98-107 [facility] Comment on above: Performed By: #### C P, CBC #### [facility] [address] [place] [address] Telephone Assembler: Nemesio Galicia MD #### GLYHGB #### [address] [phone] Telephone Assembler: Lionel Badillo MD CO2 [Moles/Vol] 27 mmol/L Normal 20-31 [facility] Comment on above: Performed By: #### C P, CBC #### [facility] [address] [place], [place] [phone] Telephone Assembler: Nemesio Galicia MD #### GLYHGB #### [address] [phone] Telephone Assembler: Lionel Badillo MD Creatinine [Mass/Vol] 0.9 mg/dL Normal 0.5-0.9 [facility] Comment on above: Performed By: #### C P, CBC #### [facility] [address] [place], [place] [phone] Telephone Assembler: Nemesio Galicia MD #### GLYHGB #### [address] [address] Telephone Assembler: Lionel Badillo MD GFR/1.73 sq M.predicted among non-blacks MDRD (S/P/Bld) [Vol rate/Area] mL/min/{1.73_m2} Normal >60 [facility] Comment on above: Result Comment: These results [...] Performed By: #### C P, CBC #### [facility] [address] [place] [address] [place] [address] Telephone Assembler: Nemesio Galicia MD #### GLYHGB #### [address] [phone] Telephone Assembler: Lionel Badillo MD Glucose [Mass/Vol] 82 mg/dL Normal 70-99 [facility] Comment on above: Performed By: #### C P, CBC #### [address] [place], [place] [phone] Telephone Assembler: Nemesio Galicia MD #### GLYHGB #### [address] [phone] Telephone Assembler: Lionel Badillo MD Potassium [Moles/Vol] 4.1 mmol/L Normal 3.7-5.3 [facility] Comment on above: Performed By: #### C P, CBC #### [address] [place], [place] 2783083 Telephone Assembler: Nemesio Galicia MD #### GLYHGB #### [address] [phone] Telephone Assembler: Lionel Badillo MD Protein [Mass/Vol] 6.7 g/dL Normal 6.4-8.3 [facility] Comment on above: Performed By: #### C P, CBC #### [address] [place], [place] 1469583 Telephone Assembler: Nemesio Galicia MD #### GLYHGB #### [address] [place], [place] [phone] Telephone Assembler: Lionel Badillo MD Sodium [Moles/Vol] 141 mmol/L Normal 135-144 [facility] Comment on above: Performed By: #### C P, CBC #### [facility] [address] [place], [place] 7328883 Telephone Assembler: Nemesio Galicia MD #### GLYHGB #### [address] [phone] Telephone Assembler: Lionel Badillo MD Urea nitrogen [Mass/Vol] 13 mg/dL Normal 6-20 [facility] Comment on above: Performed By: #### C P, CBC #### [facility] [address] [place], [place] 8037183 Telephone Assembler: Nemesio Galicia MD #### GLYHGB #### [address] [address] Telephone Assembler: Lionel Badillo MD Lipaseon 07-16-2023 Lipase [Catalytic activity/Vol] 20 U/L Normal 13-60 [facility] Comment on above: Performed By: #### C P, CBC #### [facility] [address] [place], [place] 7761483 Telephone Assembler: Nemesio Galicia MD #### GLYHGB #### [address] [place] [address] Telephone Assembler: Lionel Badillo MD HCG, ,Urineon 06-09 Beta HCG ( test) Ql (U) Negative Normal NEG [facility] Comment on above: Performed By: #### U HCG #### [facility] [address] [place] [address] Telephone Assembler: Nemesio Galicia MD Surgical Pathology Reporton 06-09-2023 Surgical Pathology Report (NOTE) Path Number: [id number] -- Diagnosis -- A. GASTRIC ANTRUM, BIOPSY: [...] Description A-D. Microscopic evaluation performed. Processing Lab: [facility] [address] [place] [address] Interpretation Performed at [address] [address] SURGICAL PATHOLOGY CONSULTATION Patient Name: CHITRA CAMPUZANO [facility] Rec: [id number] [facility] ANATOMIC PATHOLOGY [address] [place], [place] [address] Normal [facility] Calprotectin, Fecalon 2022 Calprotectin, Fecal 24 ug/g Normal <=49 [facility] Comment on above: Result Comment: (NOT E) REFERENCE INTERVAL: Calprotectin, Fecal by Immunoassay Less than 50 ug/g.........Normal 50-120 ug/g...............Borderline elevated, test should be re-evaluated in 4-6 weeks. 121 ug/g or greater.......Elevated Performed By: [facility] [address] [place] [address] [employer] Superintendent: Lauro West MD, PhD CLIA Number: [id number] Performed By: #### U AX, UMICAO #### [address] [place] [address] Telephone Assembler: Nemesio Galicia MD #### URNMAB #### [address] [address] Telephone Assembler: Lionel Badillo MD Celiac Disease Panelon 05-29 Gliadin Deam Pep IgG <0.4 Normal <7.0 [facility] Comment on above: Result Comment: CELIAC INTERPRETATION <7.0 Negative 7.0-10.0 Equivocal >10.0 Positive units: U/mL Performed By: #### C P, CBC #### [address] [place] [address] Telephone Assembler: Nemesio Galicia MD #### GLYHGB #### [address] [id number] Telephone Assembler: Lionel Badillo MD Gliadin Deam Pep IgA 1.6 U/mL Normal <7.0 [facility] Comment on above: Result Comment: CELIAC INTERPRETATION <7.0 Negative 7.0-10.0 Equivocal >10.0 Positive units: U/mL Performed By: #### C P, CBC #### [facility] [address] [place] [address] [place] [phone] Telephone Assembler: Nemesio Galicia MD #### GLYHGB #### [facility] [address] [place], [place] [phone] Telephone Assembler: Lionel Badillo MD Tiss Transglutam IgA 0.5 U/mL Normal <7.0 [facility] Comment on above: Result Comment: CELIAC INTERPRETATION <7.0 Negative 7.0-10.0 Equivocal >10.0 Positive units: U/mL Performed By: #### C P, CBC #### [address] [place] [address] Telephone Assembler: Nemesio Galicia MD #### GLYHGB #### [facility] [address] [place], [place] [phone] Telephone Assembler: Lionel Badillo MD Fecal Panc Elastaseon 2022 Pancreatic Elastase 411 ug/g Normal >=100 [facility] Comment on above: Result Comment: (NOT E) REFERENCE INTERVAL: Pancreatic Elastase Fecal by Immunoassay Less than 100 ug/g............Severe insufficiency 100 - 199 ug/g................Moderate insufficiency 200 ug/g or greater...........Normal INTERPRETIVE INFORMATION: Pancreatic Elastase Fecal by Immunoassay Reference intervals do not apply for infants less than one month old. Performed By: [facility] [address] [place] [address] [employer] Superintendent: Lauro West MD, PhD CLIA Number: [id number] Performed By: #### C P, CBC #### [facility] [address] [place], [place] [phone] Telephone Assembler: Nemesio Galicia MD #### GLYHGB #### [address] [address] Telephone Assembler: Lionel Badillo MD Celiac Disease Panelon 05-27 IgA [Mass/Vol] 482 mg/dL High 70-400 [facility] Comment on above: Performed By: #### C P, CBC #### [facility] [address] [place], [place] 1619583 Telephone Assembler: Nemesio Galicia MD #### GLYHGB #### [address] [address] Telephone Assembler: Lionel Badillo MD Giardia/Cryptosp Agon 2022 Cryptosporidium Ag Negative Normal NEG [facility] Comment on above: Result Comment: Cryp tosporidium Antigen Assay Performed By: #### U AX, UMICAO #### [address] [place], [place] 5572583 Telephone Assembler: Nemesio Galicia MD #### URNMAB #### [address] [address] Telephone Assembler: Lionel Badillo MD O+P,Giardia Ag Negative Normal NEG [facility] Comment on above: Result Comment: Giar nereida Antigen Assay Performed By: #### U AX, UMICAO #### [facility] [address] [place] [address] [address] [place], [place] [phone] Telephone Assembler: Nemesio Galicia MD #### URNMAB #### [address] [address] Telephone Assembler: Lionel Badillo MD Stool PCR Batteryon 05-27-20 Campylobacter sp PCR NEGATIVE: No Campylobacter spp. (jejuni or coli) DNA Detected Normal CAMNEG [facility] Comment on above: Performed By: #### S TLPCR, GCAG #### [address] [place] [address] Telephone Assembler: Lionel Badillo MD [facility] [address] [place] [address] [place] [address] Telephone Assembler: Nemesio Galicia MD #### OBJonathan, CDIFQ #### [facility] [address] [place] [address] [place] [address] Telephone Assembler: Nemesio Galicia MD #### ACALPF #### [facility] [address] [place], [place] [id number] Telephone Assembler: Scott Galvez MD E coli enterotox PCR NEGATIVE: No Enterotoxigenic E. coli (ETEC) Heat-labile and heat-stable (LT/ST) Normal EECNEG [facility] Comment on above: Result Comment: DNA Detected Performed By: #### S TLPCR, GCAG #### [address] [address] Telephone Assembler: Lionel Badillo MD [facility] [address] [place] [address] [place] [address] Telephone Assembler: Nemesio Galicia MD #### OBJonathan, CDIFQ #### [facility] [address] [place] [address] [place] [address] Telephone Assembler: Nemesio Galicia MD #### ACALPF #### [facility] [address] [place] [address] Telephone Assembler: Scott Galvez MD Plesiomonas sp PCR Negative Normal PLENEG [facility] Comment on above: Performed By: #### S TLPCR, GCAG #### [address] [address] Telephone Assembler: Lionel Badillo MD [facility] [address] [place] [address] [address], [place] [phone] Telephone Assembler: Nemesio Galicia MD #### OBN, CDIFQ #### [facility] [address] [place] [address] Telephone Assembler: Nemesio Galicia MD #### ACALPF #### [facility] [address] [place] [address] Telephone Assembler: Scott Galvez MD Salmonella sp PCR Negative Normal SALNEG [facility] Comment on above: Performed By: #### S TLPCR, GCAG #### [facility] [address] [place] [address] Telephone Assembler: Lionel Badillo MD [facility] [address] [place] [address] [place] [address] Telephone Assembler: Nemesio Galicia MD #### OBN, CDIFQ #### [address] [place] [address] Telephone Assembler: Nemesio Galicia MD #### ACALPF #### [facility] [address] [place] [address] Telephone Assembler: Scott Galvez MD Shigatoxin gene PCR Negative [facility] Comment on above: Performed By: #### S TLPCR, GCAG #### [address] [address] Telephone Assembler: Lionel Badillo MD [facility] [address] [place] [address] [place] [address] Telephone Assembler: Nemesio Galicia MD #### OBJonathan, CDIFQ #### [facility] [address] [place] [address] [place] [address] Telephone Assembler: Nemesio Galicia MD #### ACALPF #### [facility] [address] [place] [address] Telephone Assembler: Scott Galvez MD Shigella sp PCR Negative Normal SHINEG [facility] Comment on above: Performed By: #### S TLPCR, GCAG #### [facility] [address] [place] [address] Telephone Assembler: Lionel Badillo MD [facility] [address] [place] [address] [place] [address] Telephone Assembler: Nemesio Galicia MD #### OBN, CDIFQ #### [facility] [address] [place] [address] [place] [address] Telephone Assembler: Nemesio Galicia MD #### ACALPF #### [facility] [address] [place], [place] [id number] Telephone Assembler: Scott Galvez MD Vibrio sp PCR NEGATIVE: No Vibrio (V. vulnificus, V, parahaemolyticus and V. cholerae) DNA Normal VIBNEG [facility] Comment on above: Result Comment: Dete cted Performed By: #### S TLPCR, GCAG #### [address] [address] Telephone Assembler: Lionel Badillo MD [facility] [address] [place] [address] [address] [place], [place] [id number] Telephone Assembler: Nemesio Galicia MD #### OBJonathan, CDIFQ #### [address] [place] [address] Telephone Assembler: Nemesio Galicia MD #### ACALPF #### [facility] [address] [place] [address] Telephone Assembler: Scott Galvez MD Yersinia gene PCR Negative Normal YERNEG [facility] Comment on above: Performed By: #### S TLPCR, GCAG #### [facility] [address] [place] [address] Telephone Assembler: Lionel Badillo MD [facility] [address] [place] [address] [address] [place], [place] [phone] Telephone Assembler: Nemesio Galicia MD #### OBN, CDIFQ #### [facility] [address] [place] [address] [place], [place] [id number] Telephone Assembler: Nemesio Galicia MD #### ACALPF #### [facility] [address] [place] [address] Telephone Assembler: Scott Galvez MD Vitamin D 25 OHon 05-27-2023 Vitamin D 25 OH 37.3 ng/mL Normal >29.9 [facility] Comment on above: Result Comment: Reference Range: Vitamin D status Range Deficiency <20 ng/mL Mild Deficiency 20-30 ng/mL Sufficiency 30-100 ng/mL Toxicity >100 ng/mL Performed By: #### C P, CBC #### [address] [place], [place] [id number] Telephone Assembler: Nemesio Galicia MD #### GLYHGB #### [address] [id number] Telephone Assembler: Lionel Badillo MD C diff Ag + Toxinon 05-26-20 23 C diff Ag + Toxin Negative Normal NEG [facility] Comment on above: Result Comment: No C . difficile antigen and Toxin Detected. Performed By: #### S TLPCR, GCAG #### [address] [place] [address] Telephone Assembler: Lionel Badillo MD [address] [place], [place] [phone] Telephone Assembler: Nemesio Galicia MD #### OBJonathan, CDIFQ #### [address] [place], [place] [phone] Telephone Assembler: Nemesio Galicia MD #### ACALPF #### [facility] [address] [place] [address] Telephone Assembler: Scott Galvez MD Specimen Description .FECES Normal [facility] Comment on above: Performed By: #### S TLPCR, GCAG #### [address] [address] [place] [address] Telephone Assembler: Lionel Badillo MD [address] [place], [place] 5902883 Telephone Assembler: Nemesio Galicia MD #### OBN, CDIFQ #### [address] [place], [place] 4464983 Telephone Assembler: Nemesio Galicia MD #### ACALPF #### [facility] [address] [place], [place] [id number] Telephone Assembler: Scott Galvez MD Giardia/Cryptosp Agon 2022 Source .FECES [facility] Comment on above: Performed By: #### U AX, UMICAO #### [address] [place], [place] 4138383 Telephone Assembler: Nemesio Galicia MD #### URNMAB #### [address] [address] Telephone Assembler: Lionel Badillo MD Occult Blood, Fecalon 2022 Occult Blood 1 Negative Normal NEG [facility] Comment on above: Performed By: #### S TLPCR, GCAG #### [address] [address] Telephone Assembler: Lionel Badillo MD [address] [place], [place] 9596783 Telephone Assembler: Nemesio Galicia MD #### OBN, CDIFQ #### [address] [place], [place] [phone] Telephone Assembler: Nemesio Galicia MD #### ACALPF #### [facility] [address] [place] [address] Telephone Assembler: Scott Galvez MD Specimen 1 Date [facility] Comment on above: Performed By: #### S TLPCR, GCAG #### [facility] [address] [place] [address] Telephone Assembler: Lionel Badillo MD [address] [place] [address] Telephone Assembler: Nemesio Galicia MD #### OBN, CDIFQ #### [address] [place] [address] Telephone Assembler: Nemesio Galicia MD #### ACALPF #### [facility] [address] [place], [place] [id number] Telephone Assembler: Scott Galvez MD Specimen 1 Time 1230 Normal [facility] Comment on above: Performed By: #### S TLPCR, GCAG #### [address] [address] Telephone Assembler: Lionel Badillo MD [address] [place] [address] Telephone Assembler: Nemesio Galicia MD #### OBN, CDIFQ #### [address] [place] [address] Telephone Assembler: Nemesio Galicia MD #### ACALPF #### [facility] [address] [place], [place] [id number] Telephone Assembler: Scott Galvez MD UA w/Reflex Cultureon 2022 Bilirubin, SemiQt,Ur Negative Normal NEG [facility] Comment on above: Performed By: #### C P, CBC #### [address] [place] [address] Telephone Assembler: Nemesio Galicia MD #### GLYHGB #### [address] [address] Telephone Assembler: Lionel Badillo MD Blood, Urine Negative Normal NEG [facility] Comment on above: Performed By: #### C P, CBC #### [facility] [address] [place] [address] [place] [address] Telephone Assembler: Nemesio Galicia MD #### GLYHGB #### [facility] [address] [place] [address] Telephone Assembler: Lionel Badillo MD Clarity (U) Clear Normal CLEAR [facility] Comment on above: Performed By: #### C P, CBC #### [facility] [address] [place] [address] [address] [place], [place] [id number] Telephone Assembler: Nemesio Galicia MD #### GLYHGB #### [address] [address] Telephone Assembler: Lionel Badillo MD Color (U) Yellow Normal YEL [facility] Comment on above: Performed By: #### C P, CBC #### [facility] [address] [place] [address] [place] [address] Telephone Assembler: Nemesio Galicia MD #### GLYHGB #### [address] [address] Telephone Assembler: Lionel Badillo MD Glucose Ql (U) Negative Normal NEG [facility] in [facility] Comment on above: Performed By: #### C P, CBC #### [facility] [address] [place] [address] [place] [address] Telephone Assembler: Nemesio Galicia MD #### GLYHGB #### [facility] [address] [place] [address] Telephone Assembler: Lionel Badillo MD Ketones Ql (U) Negative Normal NEG [facility] Comment on above: Performed By: #### C P, CBC #### [facility] [address] [place] [address] [address] [place], [place] [phone] Telephone Assembler: Nemesio Galicia MD #### GLYHGB #### [address] [address] Telephone Assembler: Lionel Badillo MD Leukocyte esterase Test strip Ql (U) Negative Normal NEG [facility] Comment on above: Performed By: #### C P, CBC #### [facility] [address] [place] [address] [place] [address] Telephone Assembler: Nemesio Galicia MD #### GLYHGB #### [address] [address] Telephone Assembler: Lionel Badillo MD Nitrite,Ur Negative Normal NEG [facility] Comment on above: Performed By: #### C P, CBC #### [address] [place] [address] Telephone Assembler: Nemesio Galicia MD #### GLYHGB #### [address] [address] Telephone Assembler: Lionel Badillo MD PH,Ur 6.0 Normal 5.0-9.0 [facility] Comment on above: Performed By: #### C P, CBC #### [address] [place], [place] 6123783 Telephone Assembler: Nemesio Galicia MD #### GLYHGB #### [address] [address] Telephone Assembler: Lionel Badillo MD Protein Ql (U) Negative Normal NEG [facility] Comment on above: Performed By: #### C P, CBC #### [address] [place], [place] 4995383 Telephone Assembler: Nemesio Galicia MD #### GLYHGB #### [address] [address] Telephone Assembler: Lionel Badillo MD Spec. Dickinson,Ur 1.025 High 1.010-1.020 [facility] Comment on above: Performed By: #### C P, CBC #### [facility] [address] [place], [place] 1524383 Telephone Assembler: Nemesio Galicia MD #### GLYHGB #### [address] [id number] Telephone Assembler: Lionel Badillo MD Urobilinogen,Ur Normal Normal 0.0-1.0 [facility] Comment on above: Performed By: #### C P, CBC #### [facility] [address] [place] [address] [place] [place], [place] [phone] Telephone Assembler: Nemesio Galicia MD #### GLYHGB #### [address] [address] Telephone Assembler: Lionel Badillo MD Urinalysis,Microon 3 Bacteria 3+ Abnormal NONE [facility] Comment on above: Performed By: #### C P, CBC #### [facility] [address] [place] [address] Dr. [place], [place] 8294483 Telephone Assembler: Nemesio Galicia MD #### GLYHGB #### [address] [address] Telephone Assembler: Lionel Badillo MD Epithelial cells LM Ql (Urine sed) 10 TO 20 Normal 0-25 [facility] Comment on above: Performed By: #### C P, CBC #### [facility] [address] [place] [address] [address] [place], [place] [phone] Telephone Assembler: Nemesio Galicia MD #### GLYHGB #### [address] [address] Telephone Assembler: Lionel Badillo MD Urine RBC's None Normal 0-2 [facility] Comment on above: Performed By: #### C P, CBC #### [facility] [address] [place], [place] 3935083 Telephone Assembler: Nemesio Galicia MD #### GLYHGB #### [address] [place] [address] Telephone Assembler: Lionel Badillo MD Urine WBC's 0 TO 2 Normal 0-5 [facility] Comment on above: Performed By: #### C P, CBC #### [facility] [address] [place] [address] [address] [place], [place] 7622083 Telephone Assembler: Nemesio Galicia MD #### GLYHGB #### [address] [address] Telephone Assembler: Lionel Badillo MD Basic Metabolic Profon 05-23 Anion gap [Moles/Vol] 10 mmol/L Normal 9-17 [facility] Comment on above: Performed By: #### U LEE MATTHEWO #### [address] [place], [place] 8819683 Telephone Assembler: Nemesio Galicia MD #### URNMAB #### [address] [address] Telephone Assembler: Lionel Badillo MD Potassium [Moles/Vol] 4.3 mmol/L Normal 3.7-5.3 [facility] Comment on above: Performed By: #### U HALIMA MATTHEWICAO #### [address] [place], [place] 5057883 Telephone Assembler: Nemesio Galicia MD #### URNMAB #### [address] [address] Telephone Assembler: Lionel Badillo MD Sodium [Moles/Vol] 137 mmol/L Normal 135-144 [facility] Comment on above: Performed By: #### U AX UMICAO #### [address] [place], [place] 4770483 Telephone Assembler: Nemesio Galicia MD #### URNMAB #### [facility] [address] [place] [address] Telephone Assembler: Lionel Badillo MD BUN/CRE Ratio 18 Normal 9-20 [facility] Comment on above: Performed By: #### U AX, UMICAO #### [facility] [address] [place], [place] 5644883 Telephone Assembler: Nemesio Galicia MD #### URNMAB #### [address] [place] [address] Telephone Assembler: Lionel Badillo MD Calcium [Mass/Vol] 9.1 mg/dL Normal 8.6-10.4 [facility] Comment on above: Performed By: #### U AX, UMICAO #### [facility] [address] [place] [address] [place], [place] 5366883 Telephone Assembler: Nemesio Galicia MD #### URNMAB #### [address] [address] Telephone Assembler: Lionel Badillo MD Chloride [Moles/Vol] 103 mmol/L Normal 98-107 [facility] Comment on above: Performed By: #### U AX, UMICAO #### [facility] [address] [place] [address] [address] [place], [place] 9600483 Telephone Assembler: Nemesio Galicia MD #### URNMAB #### [address] [place] [address] Telephone Assembler: Lionel Badillo MD CO2 [Moles/Vol] 24 mmol/L Normal 20-31 [facility] Comment on above: Performed By: #### U AX, UMICAO #### [facility] [address] [place], [place] 3499683 Telephone Assembler: Nemesio Galicia MD #### URNMAB #### [address] [place] [address] Telephone Assembler: Lionel Badillo MD Creatinine [Mass/Vol] 0.9 mg/dL Normal 0.5-0.9 [facility] Comment on above: Performed By: #### U AXLEEO #### [facility] [address] [place] [address] [address] [place], [place] 4783683 Telephone Assembler: Nemesio Galicia MD #### URNMAB #### [address] [place] [address] Telephone Assembler: Lionel Badillo MD GFR/1.73 sq M.predicted among non-blacks MDRD (S/P/Bld) [Vol rate/Area] mL/min/{1.73_m2} Normal >60 [facility] Comment on above: Result Comment: These results [...] renal tubular secretion. Performed By: #### U AXLEEO #### [address] [place] [phone] Telephone Assembler: Nemesio Galicia MD #### URNMAB #### [address] [place] [address] Telephone Assembler: Lionel Badillo MD Glucose [Mass/Vol] 69 mg/dL Low 70-99 [facility] Comment on above: Performed By: #### U AX UMICAO #### [address] [place], [place] 2363083 Telephone Assembler: Nemesio Galicia MD #### URNMAB #### [address] [address] Telephone Assembler: Lionel Badillo MD Urea nitrogen [Mass/Vol] 16 mg/dL Normal 6-20 [facility] Comment on above: Performed By: #### LEE LEÓNO #### [facility] [address] [place] [address] [place] [place], [place] 2207483 Telephone Assembler: Nemesio Galicia MD #### URNMAB #### [address] [address] Telephone Assembler: Lionel Badillo MD C-Reactive Proteinon 023 CRP [Mass/Vol] 4.1 mg/L Normal 0.0-5.0 [facility] Comment on above: Performed By: #### IRVING LEÓN #### [facility] [address] [place] [address] [address] [place] [phone] Telephone Assembler: Nemesio Galicia MD #### URNMAB #### [address] [address] Telephone Assembler: Lionel Badillo MD CBC with Diffon 05-23-2023 Abs. Basophil 0.04 k/uL Normal 0.00-0.20 [facility] Comment on above: Performed By: #### HALIMA LEÓNICAO #### [facility] [address] [place] [address] [address] [place], [place] 4498683 Telephone Assembler: Nemesio Galicia MD #### URNMAB #### [address] [address] Telephone Assembler: Lionel Badillo MD Abs.Imm.Granulocyte 0.03 k/uL Normal 0.00-0.30 [facility] Comment on above: Performed By: #### U HALIMA MATTHEWICAO #### [address] [place], [place] 9808883 Telephone Assembler: Nemesio Galicia MD #### URNMAB #### [address] [address] Telephone Assembler: Lionel Badillo MD Abs.Neutrophil (Seg) 5.36 k/uL Normal 1.50-8.10 [facility] Comment on above: Performed By: #### U AX UMICAO #### [facility] [address] [place], [place] 1910783 Telephone Assembler: Nemesio Galicia MD #### URNMAB #### [address] [address] Telephone Assembler: Lionel Badillo MD Basophils/100 WBC (Bld) 1 % Normal 0-2 [facility] Comment on above: Performed By: #### U HALIMA MATTHEWICAO #### [address] [place] [phone] Telephone Assembler: Nemesio Galicia MD #### URNMAB #### [address] [address] Telephone Assembler: Lionel Badillo MD Eosinophils (Bld) [#/Vol] 0.13 10*3/uL Normal 0.00-0.44 [facility] Comment on above: Performed By: #### U AX UMICAO #### [address] [place], [place] 8281183 Telephone Assembler: Nemesio Galicia MD #### URNMAB #### [address] [address] Telephone Assembler: Lionel Badillo MD Eosinophils/100 WBC (Bld) 2 % Normal 1-4 [facility] Comment on above: Performed By: #### U AX UMICAO #### [address] [place], [place] 5268283 Telephone Assembler: Nemesio Galicia MD #### URNMAB #### [address] [address] Telephone Assembler: Lionel Badillo MD Erythrocyte distribution width (RBC) [Ratio] 12.4 % Normal 11.8-14.4 [facility] Comment on above: Performed By: #### U IRVING MATTHEW #### [facility] [address] [place] [address] [address] [place], [place] 9703483 Telephone Assembler: Nmeesio Galicia MD #### URNMAB #### [address] [id number] Telephone Assembler: Lionel Badillo MD Hematocrit (Bld) [Volume fraction] 41.7 % Normal 36.3-47.1 [facility] Comment on above: Performed By: #### IRVING LEÓN #### [address] [place] [phone] Telephone Assembler: Nemesio Galicia MD #### URNMAB #### [address] [address] Telephone Assembler: Lionel Badillo MD Hemoglobin (Bld) [Mass/Vol] 13.5 g/dL Normal 11.9-15.1 [facility] Comment on above: Performed By: #### IRVING LEÓN #### [address] [place] [phone] Telephone Assembler: Nemesio Galicia MD #### URNMAB #### [address] [address] Telephone Assembler: Lionel Badillo MD Immature granulocytes/100 WBC (Bld) 0 % Normal 0 [facility] Comment on above: Performed By: #### U HALIMA MATTHEWICAO #### [address] [place], [place] 8292383 Telephone Assembler: Nemesio Galicia MD #### URNMAB #### [address] [phone] Telephone Assembler: Lionel Badillo MD Lymphocytes (Bld) [#/Vol] 1.73 10*3/uL Normal 1.10-3.70 [facility] Comment on above: Performed By: #### IRVING LEÓN #### [facility] [address] [place] [address] Telephone Assembler: Nemesio Galicia MD #### URNMAB #### [address] [phone] Telephone Assembler: Lionel Badillo MD Lymphocytes/100 WBC (Bld) 22 % Low 24-43 [facility] Comment on above: Performed By: #### IRVING LEÓN #### [facility] [address] [place] [address] [address] [place] [phone] Telephone Assembler: Nemesio Galicia MD #### URNMAB #### [address] [id number] Telephone Assembler: Lionel Badillo MD MCH (RBC) [Entitic mass] 30.7 pg Normal 25.2-33.5 [facility] Comment on above: Performed By: #### IRVNIG LEÓN #### [facility] [address] [place] [address] [place] [address] Telephone Assembler: Nemesio Galicia MD #### URNMAB #### [address] [phone] Telephone Assembler: Lionel Badillo MD MCHC (RBC) [Mass/Vol] 32.4 g/dL Normal 28.4-34.8 [facility] Comment on above: Performed By: #### IRVING LEÓN #### [facility] [address] [place] [address] [place] [address] Telephone Assembler: Nemesio Galicia MD #### URNMAB #### [address] [address] Telephone Assembler: Lionel Badillo MD MCV (RBC) [Entitic vol] 94.8 fL Normal 82.6-102.9 [facility] Comment on above: Performed By: #### U HALIMA MATTHEWICAO #### [facility] [address] [place], [place] 2489983 Telephone Assembler: Nemesio Galicia MD #### URNMAB #### [address] [phone] Telephone Assembler: Lionel Badillo MD Monocytes (Bld) [#/Vol] 0.46 10*3/uL Normal 0.10-1.20 [facility] Comment on above: Performed By: #### IRVING LEÓN #### [address] [place] [phone] Telephone Assembler: Nemesio Galicia MD #### URNMAB #### [address] [address] Telephone Assembler: Lionel Badillo MD Monocytes/100 WBC (Bld) 6 % Normal 3-12 [facility] Comment on above: Performed By: #### IRVING LEÓN #### [address] [place], [place] 6434083 Telephone Assembler: Nemesio Galicia MD #### URNMAB #### [address] [address] Telephone Assembler: Lionel Badillo MD Neutrophil (Seg) 69 % High 36-65 [facility] Comment on above: Performed By: #### LEE LEÓNO #### [address] [place], [place] 6382683 Telephone Assembler: Nemesio Galicia MD #### URNMAB #### [address] [address] Telephone Assembler: Lionel Badillo MD NRBC Automated 0.0 per 100 WBC Normal 0.0 [facility] Comment on above: Performed By: #### U AX, UMICAO #### [facility] [address] [place] [address] [address] [place] [phone] Telephone Assembler: Nemesio Galicia MD #### URNMAB #### [address] [id number] Telephone Assembler: Lionel Badillo MD Platelet mean volume (Bld) [Entitic vol] 10.6 fL Normal 8.1-13.5 [facility] Comment on above: Performed By: #### U AX, UMICAO #### [address] [place] [phone] Telephone Assembler: Nemesio Galicia MD #### URNMAB #### [place] [phone] Telephone Assembler: Lionel Badillo MD Platelets (Bld) [#/Vol] 250 10*3/uL Normal 138-453 [facility] Comment on above: Performed By: #### U AX, UMICAO #### [address] [place] [phone] Telephone Assembler: Nemesio Galicia MD #### URNMAB #### [place] [address] Telephone Assembler: Lionel Badillo MD RBC (Bld) [#/Vol] 4.40 10*6/uL Normal 3.95-5.11 [facility] Comment on above: Performed By: #### U AX, UMICAO #### [address] [place] [address] Telephone Assembler: Nemesio Galicia MD #### URNMAB #### [address] [id number] Telephone Assembler: Lionel Badillo MD WBC (Bld) [#/Vol] 7.8 10*3/uL Normal 3.5-11.3 [facility] Comment on above: Performed By: #### IRVING LEÓN #### [facility] [address] [place] [address] Telephone Assembler: Nemesio Galicia MD #### URNMAB #### [address] [phone] Telephone Assembler: Lionel Badillo MD Lipaseon 05-23-2023 Lipase [Catalytic activity/Vol] 21 U/L Normal 13-60 [facility] Comment on above: Performed By: #### IRVING LEÓN #### [facility] [address] [place] [address] Telephone Assembler: Nemesio Galicia MD #### URNMAB #### [address] [id number] Telephone Assembler: Lionel Badillo MD Sedimentation Rateon 023 Sedimentation Rate 7 mm/Hr Normal 0-30 [facility] Comment on above: Performed By: #### IRVING LEÓN #### [facility] [address] [place] [address] [place] [address] Telephone Assembler: Nemesio Galicia MD #### URNMAB #### [address] [phone] Telephone Assembler: Lionel Badillo MD CT ABDOMEN PELVIS W [...] Marilia Gonzales MD 05/11/23 Final result Normal [facility] Comp Metabolic Profon 2022 Anion gap [Moles/Vol] 10 mmol/L Normal - [facility] Comment on above: Result Comment: HOA ECTED ON 05/01 AT 0430: PREVIOUSLY REPORTED 14 Performed By: #### U IRVING MATTHEW #### [facility] [address] [place] [address] Telephone Assembler: Nemesio Galicia MD #### URNMAB #### [facility] [address] [place] [address] Telephone Assembler: Lionel Badillo MD Calcium [Mass/Vol] 9.2 mg/dL Normal 8.6-10.4 [facility] Comment on above: Result Comment: HOA ECTED ON 05/01 AT 0430: PREVIOUSLY REPORTED 8.7 Performed By: #### U AX, UMICAO #### [facility] [address] [place], [place] 0276283 Telephone Assembler: Nemesio Galicia MD #### URNMAB #### [address] [address] Telephone Assembler: Lionel Badillo MD CO2 [Moles/Vol] 25 mmol/L Normal 20-31 [facility] Comment on above: Result Comment: HOA ECTED ON 05/01 AT 0430: PREVIOUSLY REPORTED 21 Performed By: #### U AX, HALIMAICAO #### [address] [place], [place] 8259483 Telephone Assembler: Nemesio Galicia MD #### URNMAB #### [address] [address] Telephone Assembler: Lionel Badillo MD Lipid Profileon 05-01-2023 Cholesterol [Mass/Vol] 178 mg/dL Normal <200 [facility] Comment on above: Result Comment: Cholesterol Guidelines: <200 Desirable 200-240 Borderline >240 Undesirable Performed By: #### C P, CBC #### [facility] [address] [place] [address] Dr. [place], [place] [id number] Telephone Assembler: Nemesio Galicia MD #### GLYHGB #### [address] [id number] Telephone Assembler: Lionel Badillo MD Cholesterol in HDL [Mass/Vol] 74 mg/dL Normal >40 [facility] Comment on above: Result Comment: HDL Guidelines: <40 Undesirable 40-59 Borderline >59 Desirable Performed By: #### C P, CBC #### [facility] [address] [place] [address] Dr. [place], [place] [phone] Telephone Assembler: Nemesio Galicia MD #### GLYHGB #### [facility] [address] [place] [address] Telephone Assembler: Lionel Badillo MD Cholesterol in LDL [Mass/Vol] 91 mg/dL Normal 0-130 [facility] Comment on above: Result Comment: LDL Guidelines: <100 Desirable 100-129 Near to/above Desirable 130-159 Borderline >159 Undesirable Direct (measured) LDL and calculated LDL are not interchangeable tests. Performed By: #### C P, CBC #### [facility] [address] [place], [place] 1200283 Telephone Assembler: Nemesio Galicia MD #### GLYHGB #### [address] [place] [address] Telephone Assembler: Lionel Badillo MD Cholesterol.total/Ch olesterol in HDL [Mass ratio] 2.4 {ratio} Normal <5 [facility] Comment on above: Performed By: #### C P, CBC #### [facility] [address] [place], [place] [phone] Telephone Assembler: Nemesio Galicia MD #### GLYHGB #### [address] [place] [address] Telephone Assembler: Lionel Badillo MD Triglyceride [Mass/Vol] 67 mg/dL Normal <150 [facility] Comment on above: Result Comment: Triglyceride Guidelines: <150 Desirable 150-199 Borderline 200-499 High >499 Very high Based on AHA Guidelines for fasting triglyceride, April 2012. Performed By: #### C P, CBC #### [facility] [address] [place] [address] Telephone Assembler: Nemesio Galicia MD #### GLYHGB #### [address] [place] [address] Telephone Assembler: Lionel Badillo MD Microalb.,Random Uron 2022 Creatinine [Mass/Vol] 76.3 mg/dL Normal 28.0-217.0 [facility] Comment on above: Performed By: #### U AX UMICAO #### [facility] [address] [place], [place] 3063483 Telephone Assembler: Nemesio Galicia MD #### URNMAB #### [address] [id number] Telephone Assembler: Lionel Badillo MD Microalb/Creat Ratio Can not be calculated Normal <25 [facility] Comment on above: Performed By: #### U VIPUL UMICAO #### [facility] [address] [place] [address] [address] [place] [phone] Telephone Assembler: Nemesio Galicia MD #### URNMAB #### [address] [id number] Telephone Assembler: Lionel Badillo MD Microalbumin conc. <12 Normal <21 [facility] Comment on above: Performed By: #### U VIPUL UMICAO #### [facility] [address] [place] [address] [address] [place] [phone] Telephone Assembler: Nemesio Galicia MD #### URNMAB #### [address] [address] Telephone Assembler: Lionel Badillo MD CBC with Diffon 04-30-2023 Abs. Basophil 0.03 k/uL Normal 0.00-0.20 [facility] Comment on above: Performed By: #### U AX UMICAO #### [facility] [address] [place], [place] [phone] Telephone Assembler: Nemesio Galicia MD #### URNMAB #### [address] [address] Telephone Assembler: Lionel Badillo MD Abs.Imm.Granulocyte 0.03 k/uL Normal 0.00-0.30 [facility] Comment on above: Performed By: #### U AX, UMICAO #### [facility] [address] [place] [address] Telephone Assembler: Nemesio Galicia MD #### URNMAB #### [address] [id number] Telephone Assembler: Lionel Badillo MD Abs.Neutrophil (Seg) 2.95 k/uL Normal 1.50-8.10 [facility] Comment on above: Performed By: #### U AX, UMICAO #### [facility] [address] [place] [address] [address]. [place] [phone] Telephone Assembler: Nemesio Galicia MD #### URNMAB #### [address] [id number] Telephone Assembler: Lionel Badillo MD Basophils/100 WBC (Bld) 1 % Normal 0-2 [facility] Comment on above: Performed By: #### U AX, UMICAO #### [facility] [address] [place] [address] [address]. [place] [phone] Telephone Assembler: Nemesio Galicia MD #### URNMAB #### [address] [address] Telephone Assembler: Lionel Badillo MD Eosinophils (Bld) [#/Vol] 0.10 10*3/uL Normal 0.00-0.44 [facility] Comment on above: Performed By: #### U AX, UMICAO #### [facility] [address] [place], [place] 8652483 Telephone Assembler: Nemesio Galicia MD #### URNMAB #### [address] [address] Telephone Assembler: Lionel Badillo MD Eosinophils/100 WBC (Bld) 2 % Normal 1-4 [facility] Comment on above: Performed By: #### U AX, UMICAO #### [facility] [address] [place], [place] [phone] Telephone Assembler: Nemesio Galicia MD #### URNMAB #### [address] [id number] Telephone Assembler: Lionel Badillo MD Erythrocyte distribution width (RBC) [Ratio] 12.5 % Normal 11.8-14.4 [facility] Comment on above: Performed By: #### U AX, UMICAO #### [facility] [address] [place] [phone] Telephone Assembler: Nemesio Galicia MD #### URNMAB #### [address] [id number] Telephone Assembler: Lionel Badillo MD Hematocrit (Bld) [Volume fraction] 37.5 % Normal 36.3-47.1 [facility] Comment on above: Performed By: #### U AX, UMICAO #### [facility] [address] [place] [phone] Telephone Assembler: Nemesio Galicia MD #### URNMAB #### [address] [id number] Telephone Assembler: Lionel Badillo MD Hemoglobin (Bld) [Mass/Vol] 12.5 g/dL Normal 11.9-15.1 [facility] Comment on above: Performed By: #### U AX, UMICAO #### [facility] [address] [place] [address] Telephone Assembler: Nemesio Galicia MD #### URNMAB #### [address] [id number] Telephone Assembler: Lionel Badillo MD Immature granulocytes/100 WBC (Bld) 1 % High 0 [facility] Comment on above: Performed By: #### U AX, UMICAO #### [facility] [address] [place], [place] [phone] Telephone Assembler: Nemesio Galicia MD #### URNMAB #### [address] [id number] Telephone Assembler: Lionel Badillo MD Lymphocytes (Bld) [#/Vol] 1.13 10*3/uL Normal 1.10-3.70 [facility] Comment on above: Performed By: #### U AX, UMICAO #### [facility] [address] [place], [place] 6378483 Telephone Assembler: Nemesio Galicia MD #### URNMAB #### [address] [id number] Telephone Assembler: Lionel Badillo MD Lymphocytes/100 WBC (Bld) 24 % Normal 24-43 [facility] Comment on above: Performed By: #### U AX, UMICAO #### [facility] [address] [place], [place] [phone] Telephone Assembler: Nemesio Galicia MD #### URNMAB #### [address] [id number] Telephone Assembler: Lionel Badillo MD MCH (RBC) [Entitic mass] 31.5 pg Normal 25.2-33.5 [facility] Comment on above: Performed By: #### U AX, UMICAO #### [facility] [address] [place], [place] 4481283 Telephone Assembler: Nemesio Galicia MD #### URNMAB #### [address] [phone] Telephone Assembler: Lionel Badillo MD MCHC (RBC) [Mass/Vol] 33.3 g/dL Normal 28.4-34.8 [facility] Comment on above: Performed By: #### U AX, UMICAO #### [facility] [address] [place], [place] [phone] Telephone Assembler: Nemesio Galicia MD #### URNMAB #### [address] [address] Telephone Assembler: Lionel Badillo MD MCV (RBC) [Entitic vol] 94.5 fL Normal 82.6-102.9 [facility] Comment on above: Performed By: #### U AX, UMICAO #### [facility] [address] [place] [phone] Telephone Assembler: Nemesio Galicia MD #### URNMAB #### [address] [address] Telephone Assembler: Lionel Badillo MD Monocytes (Bld) [#/Vol] 0.39 10*3/uL Normal 0.10-1.20 [facility] Comment on above: Performed By: #### U AX, UMICAO #### [facility] [address] [place] [phone] Telephone Assembler: Nemesio Galicia MD #### URNMAB #### [address] [address] Telephone Assembler: Lionel Badillo MD Monocytes/100 WBC (Bld) 8 % Normal 3-12 [facility] Comment on above: Performed By: #### U AX, UMICAO #### [facility] [address] [place], [place] 6898583 Telephone Assembler: Nemesio Galicia MD #### URNMAB #### [address] [address] Telephone Assembler: Lionel Badillo MD Neutrophil (Seg) 64 % Normal 36-65 [facility] Comment on above: Performed By: #### U AX, UMICAO #### [facility] [address] [place], [place] 1739583 Telephone Assembler: Nemesio Galicia MD #### URNMAB #### [address] [id number] Telephone Assembler: Lionel Badillo MD NRBC Automated 0.0 per 100 WBC Normal 0.0 [facility] Comment on above: Performed By: #### U AX, UMICAO #### [facility] [address] [place], [place] 9463983 Telephone Assembler: Nemesio Galicia MD #### URNMAB #### [address] [phone] Telephone Assembler: Lionel Badillo MD Platelet mean volume (Bld) [Entitic vol] 10.3 fL Normal 8.1-13.5 [facility] Comment on above: Performed By: #### U AX, UMICAO #### [facility] [address] [place], [place] 0606683 Telephone Assembler: Nemesio Galicia MD #### URNMAB #### [address] [address] Telephone Assembler: Lionel Badillo MD Platelets (Bld) [#/Vol] 181 10*3/uL Normal 138-453 [facility] Comment on above: Performed By: #### U AX, UMICAO #### [facility] [address] [place], [place] 9030083 Telephone Assembler: Nemesio Galicia MD #### URNMAB #### [address] [address] Telephone Assembler: Lionel Badillo MD RBC (Bld) [#/Vol] 3.97 10*6/uL Normal 3.95-5.11 [facility] Comment on above: Performed By: #### U AX, UMICAO #### [facility] [address] [place], [place] 0985183 Telephone Assembler: Nemesio Galicia MD #### URNMAB #### [address] [place] [address] Telephone Assembler: Lionel Badillo MD WBC (Bld) [#/Vol] 4.6 10*3/uL Normal 3.5-11.3 [facility] Comment on above: Performed By: #### U AX, UMICAO #### [facility] [address] [place], [place] 4223483 Telephone Assembler: Nemesio Galicia MD #### URNMAB #### [address] [phone] Telephone Assembler: Lionel Badillo MD Comp Metabolic Profon 2022 Albumin [Mass/Vol] 3.9 g/dL Normal 3.5-5.2 [facility] Comment on above: Performed By: #### U AX, UMICAO #### [facility] [address] [place], [place] 3350083 Telephone Assembler: Nemesio Galicia MD #### URNMAB #### [address] [address] Telephone Assembler: Lionel Badillo MD Albumin/Glob Ratio 1.4 Normal 1.0-2.5 [facility] Comment on above: Performed By: #### U AX, UMICAO #### [facility] [address] [place], [place] [phone] Telephone Assembler: Nemesio Galicia MD #### URNMAB #### [address] [address] Telephone Assembler: Lionel Badillo MD Alkaline Phos 58 U/L Normal 35-104 [facility] Comment on above: Performed By: #### U AX, UMICAO #### [facility] [address] [place], [place] 8786583 Telephone Assembler: Nemesio Galicia MD #### URNMAB #### [address] [id number] Telephone Assembler: Lionel Badillo MD ALT [Catalytic activity/Vol] 15 U/L Normal 5-33 [facility] Comment on above: Performed By: #### U AX UMICAO #### [facility] [address] [place], [place] [phone] Telephone Assembler: Nemesio Galicia MD #### URNMAB #### [address] [id number] Telephone Assembler: Lionel Badillo MD AST [Catalytic activity/Vol] 18 U/L Normal <32 [facility] Comment on above: Performed By: #### U HALIMA MATTHEWICAO #### [address] [place], [place] 2875883 Telephone Assembler: Nemesio Galicia MD #### URNMAB #### [address] [id number] Telephone Assembler: Lionel Badillo MD Bilirubin [Mass/Vol] 0.3 mg/dL Normal 0.3-1.2 [facility] Comment on above: Performed By: #### U HALIMA MATTHEWICAO #### [facility] [address] [place] [address] [address]. [place], [place] 4602583 Telephone Assembler: Nemesio Galicia MD #### URNMAB #### [address] [address] Telephone Assembler: Lionel Badillo MD BUN/CRE Ratio 18 Normal 9-20 [facility] Comment on above: Performed By: #### U AX UMICAO #### [facility] [address] [place] [address] [place] [address] Telephone Assembler: Nemesio Galicia MD #### URNMAB #### [facility] [address] [place], [place] 0172808 Telephone Assembler: Lionel Badillo MD Chloride [Moles/Vol] 106 mmol/L Normal 98-107 [facility] Comment on above: Performed By: #### U AX, UMICAO #### [facility] [address] [place] [address] Telephone Assembler: Nemesio Galicia MD #### URNMAB #### [facility] [address] [place], [place] 5241008 Telephone Assembler: Lionel Badillo MD Creatinine [Mass/Vol] 0.8 mg/dL Normal 0.5-0.9 [facility] Comment on above: Performed By: #### U AX, UMICAO #### [address] [place] [address] Telephone Assembler: Nemesio Galicia MD #### URNMAB #### [address] [place], [place] [id number] Telephone Assembler: Lionel Badillo MD GFR/1.73 sq M.predicted among non-blacks MDRD (S/P/Bld) [Vol rate/Area] mL/min/{1.73_m2} Normal >60 [facility] Comment on above: Result Comment: These results [...] Performed By: #### U AX, UMICAO #### [facility] [address] [place] [address] Telephone Assembler: Nemesio Galicia MD #### URNMAB #### [facility] [address] [place] [address] Telephone Assembler: Lionel Badillo MD Glucose [Mass/Vol] 71 mg/dL Normal 70-99 [facility] Comment on above: Performed By: #### U AX, UMICAO #### [facility] [address] [place], [place] 0680583 Telephone Assembler: Nemesio Galicia MD #### URNMAB #### [address] [place] [address] Telephone Assembler: Lionel Badillo MD Potassium [Moles/Vol] 3.8 mmol/L Normal 3.7-5.3 [facility] Comment on above: Performed By: #### U AX, UMICAO #### [facility] [address] [place], [place] 1545483 Telephone Assembler: Nemesio Galicia MD #### URNMAB #### [address] [address] Telephone Assembler: Lionel Badillo MD Protein [Mass/Vol] 6.7 g/dL Normal 6.4-8.3 [facility] Comment on above: Performed By: #### U AX, UMICAO #### [facility] [address] [place], [place] 7083483 Telephone Assembler: Nemesio Galicia MD #### URNMAB #### [address] [place] [address] Telephone Assembler: Lionel Badillo MD Sodium [Moles/Vol] 141 mmol/L Normal 135-144 [facility] Comment on above: Performed By: #### U AX, UMICAO #### [facility] [address] [place], [place] 8036383 Telephone Assembler: Nemesio Galicia MD #### URNMAB #### [address] [address] Telephone Assembler: Lionel Badillo MD Urea nitrogen [Mass/Vol] 14 mg/dL Normal 6-20 [facility] Comment on above: Performed By: #### U AX, UMICAO #### [facility] [address] [place], [place] 4526083 Telephone Assembler: Nemesio Galicia MD #### URNMAB #### [address] [address] Telephone Assembler: Lionel Badillo MD UA w/Reflex Cultureon 2022 Bilirubin, SemiQt,Ur Negative Normal NEG [facility] Comment on above: Performed By: #### U AX, UMICAO #### [facility] [address] [place] [address] [address]. [place], [place] [phone] Telephone Assembler: Nemesio Galicia MD #### URNMAB #### [address] [address] Telephone Assembler: Lionel Badillo MD Blood, Urine Negative Normal NEG [facility] Comment on above: Performed By: #### U AX, UMICAO #### [facility] [address] [place] [address] Dr. [place], [place] 7541383 Telephone Assembler: Nemesio Galicia MD #### URNMAB #### [address] [address] Telephone Assembler: Lionel Badillo MD Clarity (U) Clear Normal CLEAR [facility] Comment on above: Performed By: #### U AX, UMICAO #### [facility] [address] [place] [address] [address]. [place], [place] [phone] Telephone Assembler: Nemesio Galicia MD #### URNMAB #### [address] [address] Telephone Assembler: Lionel Badillo MD Color (U) Yellow Normal YEL [facility] Comment on above: Performed By: #### U AX, UMICAO #### [facility] [address] [place] [address] [place] [address] Telephone Assembler: Nemesio Galicia MD #### URNMAB #### [address] [address] Telephone Assembler: Lionel Badillo MD Glucose Ql (U) Negative Normal NEG [facility] Comment on above: Performed By: #### U AX, UMICAO #### [facility] [address] [place] [address] [place] [address] Telephone Assembler: Nemesio Galicia MD #### URNMAB #### [address] [address] Telephone Assembler: Lionel Badillo MD Ketones Ql (U) TRACE Abnormal NEG [facility] Comment on above: Performed By: #### U AX, UMICAO #### [facility] [address] [place] [address] [place] [address] Telephone Assembler: Nemesio Galicia MD #### URNMAB #### [address] [address] Telephone Assembler: Lionel Badillo MD Leukocyte esterase Test strip Ql (U) TRACE Abnormal NEG [facility] Comment on above: Performed By: #### U AX, UMICAO #### [facility] [address] [place] [address] [address]. [place], [place] [phone] Telephone Assembler: Nemesio Galicia MD #### URNMAB #### [address] [address] Telephone Assembler: Lionel Badillo MD Nitrite,Ur Negative Normal NEG [facility] Comment on above: Performed By: #### U AX, UMICAO #### [facility] [address] [place] [address] [address] [place], [place] 7289983 Telephone Assembler: Nemesio Galicia MD #### URNMAB #### [address] [address] Telephone Assembler: Lionel Badillo MD PH,Ur 6.0 Normal 5.0-9.0 [facility] Comment on above: Performed By: #### U AX, UMICAO #### [facility] [address] [place] [address] [address]. [place], [place] 3986283 Telephone Assembler: Nemesio Galicia MD #### URNMAB #### [address] [address] Telephone Assembler: Lionel Badillo MD Protein Ql (U) Negative Normal NEG [facility] Comment on above: Performed By: #### U AX, UMICAO #### [facility] [address] [place] [address] [address]. [place], [place] 6448483 Telephone Assembler: Nemesio Galicia MD #### URNMAB #### [address] [address] Telephone Assembler: Lionel Badillo MD Spec. Dickinson,Ur 1.015 Normal 1.010-1.020 [facility] Comment on above: Performed By: #### U AX, UMICAO #### [facility] [address] [place] [address] [place] [place], [place] 4254983 Telephone Assembler: Nemesio Galicia MD #### URNMAB #### [address] [address] Telephone Assembler: Lionel Badillo MD Urobilinogen,Ur Normal Normal 0.0-1.0 [facility] Comment on above: Performed By: #### U AX, UMICAO #### [facility] [address] [place] [address] [place] [address] Telephone Assembler: Nemesio Galicia MD #### URNMAB #### [address] [address] Telephone Assembler: Lionel Badillo MD Urinalysis,Microon 3 Bacteria TRACE Abnormal NONE [facility] Comment on above: Performed By: #### U AX, UMICAO #### [facility] [address] [place] [address] [address] [place], [place] 9275983 Telephone Assembler: Nemesio Galicia MD #### URNMAB #### [address] [address] Telephone Assembler: Lionel Badillo MD Epithelial cells LM Ql (Urine sed) 0 TO 2 Normal 0-25 [facility] Comment on above: Performed By: #### U AX, UMICAO #### [address] [place] [phone] Telephone Assembler: Nemesio Galicia MD #### URNMAB #### [address] [address] Telephone Assembler: Lionel Badillo MD Mucus Strands TRACE Abnormal NONE [facility] Comment on above: Performed By: #### U AX, UMICAO #### [address] [place], [place] 0252383 Telephone Assembler: Nemesio Galicia MD #### URNMAB #### [address] [address] Telephone Assembler: Lionel Badillo MD Urine RBC's 0 TO 2 Normal 0-2 [facility] Comment on above: Performed By: #### U AX, UMICAO #### [facility] [address] [place] [address] [address] [place], [place] [phone] Telephone Assembler: Nemesio Galicia MD #### URNMAB #### [address] [address] Telephone Assembler: Lionel Badillo MD Urine WBC's 0 TO 2 Normal 0-5 [facility] Comment on above: Performed By: #### U AX, UMICAO #### [facility] [address] [place] [address] Telephone Assembler: Nemesio Galicia MD #### URNMAB #### [address] [place], [place] [phone] Telephone Assembler: Lionel Badillo MD Follicle Stim. Hormon 2022 Follicle Stim. Horm 8.7 mIU/mL Normal [facility] Comment on above: Result Comment: Refe rence Range: Male: 1.5-12.4 Ovulating Female: Follicular Phase 3.5-12.5 Ovulation Phase 4.7-21.5 Luteal Phase 1.7-7.7 Postmenopausal Female: 25.8-134.8 Performed By: #### U AX, UMICAO #### [facility] [address] [place] [address] Telephone Assembler: Nemesio Galicia MD #### URNMAB #### [address] [id number] Telephone Assembler: Lionel Badillo MD Luteinizing Hormoneon 2022 Luteinizing Hormone 10.4 mIU/mL High 1.7-8.6 [facility] Comment on above: Result Comment: Refe rence Range: Male: 1.7-8.6 Ovulating Female: Follicular Phase 2.4-12.6 Ovulation Phase 14.0-95.6 Luteal Phase 1.0-11.4 Postmenopausal Female: 7.7-58.5 Performed By: #### U AX, UMICAO #### [facility] [address] [place] [address] Telephone Assembler: Nemesio Galicia MD #### URNMAB #### [facility] [address] [place] [address] Telephone Assembler: Lionel Badillo MD Cytology Reporton 04-23-2023 Cytology report Cyto stain.thin prep Doc (Cvx/Vag) (NOTE) Path Number: [id number] DIAGNOSIS Imaged ThinPrep Pap - Cervical (1 monolayer slide): Specimen Adequacy: Satisfactory for evaluation. -Endocervical/transfo rmation zone component is absent. Descriptive Diagnosis: Negative for intraepithelial lesion or malignancy. Cytotech Screener: EY Electronically Signed Out Tony MAC(ASCP) ey/04/30/2023 Source of Specimen: A: Imaged ThinPrep Pap - Cervical (1 monolayer slide) HPV Reflex?.............. 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 [facility] Rec: 54 [facility] CONSULTING PATHOLOGISTS [facility] ANATOMIC PATHOLOGY [address] [place] [address]. [place], [place] [address] [facility] Surgical Pathology Reporton 04-23-2023 Surgical Pathology Report (NOTE) Path Number: [id number] -- Diagnosis -- ENDOMETRIUM, BIOPSY: -SCANT SUPERFICIAL FRAGMENT OF WEAKLY PROLIFERATIVE ENDOMETRIUM AND SEPARATE PIECES OF BENIGN ENDOMETRIAL GLANDULAR EPITHELIUM. -SEPARATE PIECES OF BENIGN ENDOCERVICAL GLANDULAR EPITHELIUM. Nemesio Galicia M.D. Electronically Signed Out jen/04/25/2023 Clinical Information Pre-Op Diagnosis: IRREGULAR BLEEDING Operative Findings: ENDOMETRIAL BX mj Source of Specimen A: ENDOMETRIUM BIOPSY Gross Description CHITRA CAMPUZANO, OLLIE BX Received in formalin is dark brown, mucoid material, 2.0 x 1.3 x 0.2 cm in aggregate. Entirely 1cs. jj tm AG/mj:04/24/2023 Microscopic Description Microscopic examination performed. Processing Lab: [address] [phone] Interpretation Performed at [address] [address] SURGICAL PATHOLOGY CONSULTATION Patient Name: CHITRA CAMPUZANO [facility] Rec: 54 [facility] CONSULTING PATHOLOGISTS [facility] ANATOMIC PATHOLOGY [address] [place], [place] [address] Normal [facility] US NON OB TRANSVAGINALon US NON OB TRANSVAGINAL EXAMINATION: PELVIC ULTRASOUND 04/16/2023 TECHNIQUE: Transvaginal images were performed COMPARISON: None HISTORY: ORDERING SYSTEM PROVIDED HISTORY: Post-menopausal bleeding TECHNOLOGIST PROVIDED HISTORY: This procedure can be scheduled via [employer]. Access your [employer] account by visiting [employer]. FINDINGS: Measurements: Uterus: 8.4 x 6.6 x [...] Jj Baptiste MD 04/17/23 Final result Normal [facility] XR KNEE LEFT (3 VIEWS)on XR KNEE [...] Mark Barton MD 12/27/22 Final result Normal [facility] Herpes Profileon 10-22-2022 Herpes Type I, IgG 0.14 Normal <0.91 [facility] Comment on above: Result Comment: Reference Range: <=0.90 Negative 0.91-1.09 Equivocal >=1.10 Positive Performed By: #### C P, CBC #### [address] [place] [address] Telephone Assembler: Nemesio Galicia MD #### GLYHGB #### [address] [address] Telephone Assembler: Lionel Badillo MD Herpes Type I/II,IgM 0.52 Normal <0.91 [facility] Comment on above: Result Comment: Reference [...] Performed By: #### C P, CBC #### [address] [place] [address] Telephone Assembler: Nemesio Galicia MD #### GLYHGB #### [address] [address] Telephone Assembler: Lionel Badillo MD Herpes Type II, IgG 4.70 High <0.91 [facility] Comment on above: Result Comment: Reference Range: <=0.90 Negative 0.91-1.09 Equivocal >=1.10 Positive Performed By: #### C P, CBC #### [address] [place], [place] [phone] Telephone Assembler: Nemesio Galicia MD #### GLYHGB #### [facility] [address] [place] [address] Telephone Assembler: Lionel Badillo MD Chlamydia/GC DNA, Uron 10-18 Chlamydia Probe, Ur Negative Normal NEG [facility] Comment on above: Result Comment: CHLA MYDIA [...] Performed By: #### C P, CBC #### [address] [place], [place] [phone] Telephone Assembler: Nemesio Galicia MD #### GLYHGB #### [facility] [address] [place] [address] Telephone Assembler: Lionel Badillo MD Gonorrhea Probe, Ur Negative Normal NEG [facility] Comment on above: Result Comment: NEIS SERIA [...] Performed By: #### C P, CBC #### [address] [place] [address] Telephone Assembler: Nemesio Galicia MD #### GLYHGB #### [facility] [address] [place] [address] Telephone Assembler: Lionel Badillo MD Cult,Urineon 10-18-2022 Cult,Urine Specimen Description .CLEAN CATCH URINE Culture NO SIGNIFICANT GROWTH Report Status FINAL 10/18/2022 Normal [facility] Comment on above: Performed By: #### U AXLEEO #### [facility] [address] [place] [address] [address] [place], [place] [phone] Telephone Assembler: Nemesio Galicia MD #### URNMAB #### [address] [address] Telephone Assembler: Lionel Badillo MD HIV Ag/Abon 10-18-2022 HIV Ag/Ab Non-Reactive Normal [facility] Comment on above: Result Comment: No l aboratory evidence of HIV infection. If acute HIV infection is suspected, consider testing for HIV-1 RNA. Performed By: #### C P, CBC #### [address] [place], [place] 1323583 Telephone Assembler: Nemesio Galicia MD #### GLYHGB #### [address] [address] Telephone Assembler: Lionel Badillo MD Hepatitis Acute [facility] 10-18 Hep A Ab,IgM Non-Reactive Normal [facility] Comment on above: Performed By: #### C P, CBC #### [address] [place], [place] [phone] Telephone Assembler: Nemesio Galicia MD #### GLYHGB #### [address] [address] Telephone Assembler: Lionel Badillo MD Hep B Core Ab,IgM Non-Reactive Normal [facility] Comment on above: Performed By: #### C P, CBC #### [address] [place], [place] 3115783 Telephone Assembler: Nemesio Galicia MD #### GLYHGB #### [address] [address] Telephone Assembler: Lionel Badillo MD Hep B Surf Ag Non-Reactive Normal [facility] Comment on above: Performed By: #### C P, CBC #### [address] [place], [place] [phone] Telephone Assembler: Nemesio Galicia MD #### GLYHGB #### [address] [address] Telephone Assembler: Lionel Badillo MD Hep C Ab Non-Reactive Normal [facility] Comment on above: Result Comment: The [...] Performed By: #### C P, CBC #### [address] [place], [place] 9377983 Telephone Assembler: Nemesio Galicia MD #### GLYHGB #### [address] [address] Telephone Assembler: Lionel Badillo MD T.pallidum Ab Screenon 10-186 T.pallidum Ab Screen Non-Reactive Normal [facility] Comment on above: Result Comment: T. pallidum antibodies are not detected. There is no serological evidence of infection with T. pallidum (early primary syphilis cannot be excluded). Retest in 2-4 weeks if syphilis is clinically suspect. Performed By: #### C P, CBC #### [address] [place], [place] [phone] Telephone Assembler: Nemesio Galicia MD #### GLYHGB #### [address] [place] [address] Telephone Assembler: Lionel Badillo MD CBCon 0 Erythrocyte distribution width (RBC) [Ratio] 12.1 % Normal 11.8-14.4 [facility] Comment on above: Performed By: #### C P, CBC #### [address] [place] [address] Telephone Assembler: Nemesio Galicia MD #### GLYHGB #### [address] [phone] Telephone Assembler: Lionel Badillo MD Hematocrit (Bld) [Volume fraction] 42.4 % Normal 36.3-47.1 [facility] Comment on above: Performed By: #### C P, CBC #### [address] [place] [address] Telephone Assembler: Nemesio Galicia MD #### GLYHGB #### [address] [phone] Telephone Assembler: Lionel Badillo MD Hemoglobin (Bld) [Mass/Vol] 14.0 g/dL Normal 11.9-15.1 [facility] Comment on above: Performed By: #### C P, CBC #### [address] [place] [phone] Telephone Assembler: Nemesio Galicia MD #### GLYHGB #### [address] [phone] Telephone Assembler: Lionel Badillo MD MCH (RBC) [Entitic mass] 30.2 pg Normal 25.2-33.5 [facility] Comment on above: Performed By: #### C P, CBC #### [address] [place] [address] Telephone Assembler: Nemesio Galicia MD #### GLYHGB #### [address] [place], [place] [phone] Telephone Assembler: Lionel Badillo MD MCHC (RBC) [Mass/Vol] 33.0 g/dL Normal 28.4-34.8 [facility] Comment on above: Performed By: #### C P, CBC #### [facility] [address] [place] [address] Telephone Assembler: Nemesio Galicia MD #### GLYHGB #### [address] [phone] Telephone Assembler: Lionel Badillo MD MCV (RBC) [Entitic vol] 91.4 fL Normal 82.6-102.9 [facility] Comment on above: Performed By: #### C P, CBC #### [facility] [address] [place] [address] Telephone Assembler: Nemesio Galicia MD #### GLYHGB #### [address] [phone] Telephone Assembler: Lionel Badillo MD NRBC Automated 0.0 per 100 WBC Normal 0.0 [facility] Comment on above: Performed By: #### C P, CBC #### [facility] [address] [place] [phone] Telephone Assembler: Nemesio Galicia MD #### GLYHGB #### [address] [address] Telephone Assembler: Lionel Badillo MD Platelet mean volume (Bld) [Entitic vol] 10.4 fL Normal 8.1-13.5 [facility] Comment on above: Performed By: #### C P, CBC #### [facility] [address] [place] [address] Telephone Assembler: Nemesio Galicia MD #### GLYHGB #### [address] [phone] Telephone Assembler: Lionel Badillo MD Platelets (Bld) [#/Vol] 228 10*3/uL Normal 138-453 [facility] Comment on above: Performed By: #### C P, CBC #### [facility] [address] [place] [address] Telephone Assembler: Nemesio Galicia MD #### GLYHGB #### [address] [id number] Telephone Assembler: Lionel Badillo MD RBC (Bld) [#/Vol] 4.64 10*6/uL Normal 3.95-5.11 [facility] Comment on above: Performed By: #### C P, CBC #### [facility] [address] [place] [address] Telephone Assembler: Nemesio Galicia MD #### GLYHGB #### [address] [phone] Telephone Assembler: Lionel Badillo MD WBC (Bld) [#/Vol] 6.8 10*3/uL Normal 3.5-11.3 [facility] Comment on above: Performed By: #### C P, CBC #### [facility] [address] [place] [address] Telephone Assembler: Nemesio Galicia MD #### GLYHGB #### [address] [phone] Telephone Assembler: Lionel Badillo MD Hematocrit (Bld) [Volume fraction] 42.4 % 36.3 - 47.1 % [facility] Hemoglobin (Bld) [Mass/Vol] 14.0 g/dL 11.9 - 15.1 g/dL [facility] MCH (RBC) [Entitic mass] 30.2 pg 25.2 - 33.5 pg [facility] MCHC (RBC) [Mass/Vol] 33.0 g/dL 28.4 - 34.8 g/dL [facility] MCV (RBC) [Entitic vol] 91.4 fL 82.6 - 102.9 fL [facility] NRBC Automated 0.0 0.0 per 100 WBC [facility] Platelet distribution width (Bld) [Ratio] 12.1 % 11.8 - 14.4 % [facility] Platelet mean volume (Bld) [Entitic vol] 10.4 fL 8.1 - 13.5 fL [facility] Platelets (Bld) [#/Vol] 228 10*3/uL [facility] RBC (Bld) [#/Vol] 4.64 10*6/uL 3.95 - 5.1 1 m/uL [facility] WBC (Bld) [#/Vol] 6.8 10*3/uL [facility] Comp Metabolic Profon 2022 Albumin [Mass/Vol] 4.2 g/dL Normal 3.5-5.2 [facility] Comment on above: Performed By: #### C P, CBC #### [facility] [address] [place] [address] [place] [address] Telephone Assembler: Nemesio Galicia MD #### GLYHGB #### [address] [address] Telephone Assembler: Lionel Badillo MD Albumin/Glob Ratio 1.4 Normal 1.0-2.5 [facility] Comment on above: Performed By: #### C P, CBC #### [facility] [address] [place] [address] [place] [address] Telephone Assembler: Nemesio Galicia MD #### GLYHGB #### [address] [place], [place] [phone] Telephone Assembler: Lionel Badillo MD Alkaline Phos 87 U/L Normal 35-104 [facility] Comment on above: Performed By: #### C P, CBC #### [facility] [address] [place] [address] [place] [address] Telephone Assembler: Nemesio Galicia MD #### GLYHGB #### [address] [place] [address] Telephone Assembler: Lionel Badillo MD ALT [Catalytic activity/Vol] 8 U/L Normal 5-33 [facility] Comment on above: Performed By: #### C P, CBC #### [facility] [address] [place], [place] 9337583 Telephone Assembler: Nemesio Galicia MD #### GLYHGB #### [address] [address] Telephone Assembler: Lionel Badillo MD Anion gap [Moles/Vol] 10 mmol/L Normal 9-17 [facility] Comment on above: Performed By: #### C P, CBC #### [facility] [address] [place], [place] 9067083 Telephone Assembler: Nemesio Galicia MD #### GLYHGB #### [address] [address] Telephone Assembler: Lionel Badillo MD AST [Catalytic activity/Vol] 15 U/L Normal <32 [facility] Comment on above: Performed By: #### C P, CBC #### [facility] [address] [place], [place] [phone] Telephone Assembler: Nemesio Galicia MD #### GLYHGB #### [address] [address] Telephone Assembler: Lionel Badillo MD Bilirubin [Mass/Vol] 0.3 mg/dL Normal 0.3-1.2 [facility] Comment on above: Performed By: #### C P, CBC #### [facility] [address] [place], [place] [phone] Telephone Assembler: Nemesio Galicia MD #### GLYHGB #### [address] [address] Telephone Assembler: Lionel Badillo MD BUN/CRE Ratio 11 Normal 9-20 [facility] Comment on above: Performed By: #### C P, CBC #### [facility] [address] [place], [place] 0683683 Telephone Assembler: Nemesio Galicia MD #### GLYHGB #### [address] [address] Telephone Assembler: Lionel Badillo MD Calcium [Mass/Vol] 9.0 mg/dL Normal 8.6-10.4 [facility] Comment on above: Performed By: #### C P, CBC #### [facility] [address] [place], [place] 0237383 Telephone Assembler: Nemesio Galicia MD #### GLYHGB #### [address] [phone] Telephone Assembler: Lionel Badillo MD Chloride [Moles/Vol] 106 mmol/L Normal 98-107 [facility] Comment on above: Performed By: #### C P, CBC #### [facility] [address] [place], [place] 2847983 Telephone Assembler: Nemesio Galicia MD #### GLYHGB #### [address] [address] Telephone Assembler: Lionel Badillo MD CO2 [Moles/Vol] 25 mmol/L Normal 20-31 [facility] Comment on above: Performed By: #### C P, CBC #### [facility] [address] [place], [place] [phone] Telephone Assembler: Nemesio Galicia MD #### GLYHGB #### [address] [address] Telephone Assembler: Lionel Badillo MD Creatinine [Mass/Vol] 0.97 mg/dL High 0.50-0.90 [facility] Comment on above: Performed By: #### C P, CBC #### [address] [place], [place] 6395483 Telephone Assembler: Nemesio Galicia MD #### GLYHGB #### [address] [place], [place] [phone] Telephone Assembler: Lionel Badillo MD GFR/1.73 sq M.predicted among non-blacks MDRD (S/P/Bld) [Vol rate/Area] mL/min/{1.73_m2} Normal >60 [facility] Comment on above: Result Comment: These results [...] Performed By: #### C P, CBC #### [address] [place], [place] [phone] Telephone Assembler: Nemesio Galicia MD #### GLYHGB #### [address] [phone] Telephone Assembler: Lionel Badillo MD Glucose [Mass/Vol] 80 mg/dL Normal 70-99 [facility] Comment on above: Performed By: #### C P, CBC #### [address] [place], [place] [phone] Telephone Assembler: Nemesio Galicia MD #### GLYHGB #### [address] [place] [address] Telephone Assembler: Lionle Badillo MD Potassium [Moles/Vol] 3.9 mmol/L Normal 3.7-5.3 [facility] Comment on above: Performed By: #### C P, CBC #### [address] [place] [address] Telephone Assembler: Nemesio Galicia MD #### GLYHGB #### [address] [place], [place] 1018108 Telephone Assembler: Lionel Badillo MD Protein [Mass/Vol] 7.2 g/dL Normal 6.4-8.3 [facility] Comment on above: Performed By: #### C P, CBC #### [facility] [address] [place] [address] [address] [place] [phone] Telephone Assembler: Nemesio Galicia MD #### GLYHGB #### [address] [place], [place] 1984108 Telephone Assembler: Lionel Badillo MD Sodium [Moles/Vol] 141 mmol/L Normal 135-144 [facility] Comment on above: Performed By: #### C P, CBC #### [address] [place] [phone] Telephone Assembler: Nemesio Galicia MD #### GLYHGB #### [address] [place], [place] [phone] Telephone Assembler: Lionle Badillo MD Urea nitrogen [Mass/Vol] 11 mg/dL Normal 6-20 [facility] Comment on above: Performed By: #### C P, CBC #### [address] [place] [phone] Telephone Assembler: Nemesio Galicia MD #### GLYHGB #### [address] [place] [address] Telephone Assembler: Lionel Badillo MD Comprehensive Metabolic Pane [facility] 10-17-2022 Albumin [Mass/Vol] 4.2 g/dL 3.5 - 5.2 g/dL [facility] Albumin/Globulin [Mass ratio] 1.4 {ratio} 1.0 - 2.5 [facility] ALP [Catalytic activity/Vol] 87 U/L 35 - 104 U/L [facility] ALT [Catalytic activity/Vol] 8 U/L 5 - 33 U/L [facility] Anion gap [Moles/Vol] 10 mmol/L 9 - 17 mmol/L [facility] AST [Catalytic activity/Vol] 15 U/L NINF - 32 U/L [facility] Bilirubin [Mass/Vol] 0.3 mg/dL 0.3 - 1 .2 mg/dL [facility] Calcium [Mass/Vol] 9.0 mg/dL 8.6 - 10. 4 mg/dL [facility] Chloride [Moles/Vol] 106 mmol/L 98 - 10 7 mmol/L [facility] CO2 [Moles/Vol] 25 mmol/L 20 - 31 mmol/L [facility] Creatinine [Mass/Vol] 0.97 mg/dL High 0.50 - 0.90 mg/dL [facility] GFR/1.73 sq M.predicted MDRD (S/P/Bld) [Vol rate/Area] - PINF [facility] Comment on above: These results are [...] mg/dL 70 - 99 mg/dL [facility] Interpretation and review of laboratory results Abnormal [facility] Potassium [Moles/Vol] 3.9 mmol/L 3.7 - 5.3 mmol/L [facility] Protein [Mass/Vol] 7.2 g/dL 6.4 - 8.3 g/dL [facility] Sodium [Moles/Vol] 141 mmol/L 135 - 144 mmol/L [facility] Urea nitrogen [Mass/Vol] 11 mg/dL 6 - 20 mg/dL [facility] Urea nitrogen/Creatinine (Bld) [Mass ratio] 11 9 - 20 [facility] HIV Screenon 10-17-2022 HIV 1+2 Ab+HIV1 p24 Ag IA Ql Non-Reactive NONREACTIVE [facility] Comment on above: No laboratory eviden ce of HIV infection. If acute HIV infection is suspected, consider testing for HIV-1 RNA. [facility] Hemoglobin A1Con 10-17-2022 Glucose [Mass/Vol] 82 mg/dL Normal [facility] Comment on above: Result Comment: The ADA and AACC recommend providing the estimated average glucose result to permit better patient understanding of their HBA1c result. Performed By: #### C P, CBC #### [facility] [address] [place], [place] [phone] Telephone Assembler: Nemesio Glaicia MD #### GLYHGB #### [facility] [address] [place], [place] [phone] Telephone Assembler: Lionel Badillo MD HbA1c (Bld) [Mass fraction] 4.5 % Normal 4.0-6.0 [facility] Comment on above: Performed By: #### C P, CBC #### [facility] [address] [place], [place] [phone] Telephone Assembler: Nemesio Galicia MD #### GLYHGB #### [facility] [address] [place], [place] [phone] Telephone Assembler: Lionel Badillo MD Average glucose Estimated from glycated hemoglobin (Bld) [Mass/Vol] 82 mg/dL [facility] Comment on above: The ADA and AACC rec ommend providing the estimated average glucose result to permit better patient understanding of their HBA1c result. HbA1c (Bld) [Mass fraction] 4.5 % 4.0 - 6.0 % [facility] Lipid Panelon 10-17-2022 Cholesterol [Mass/Vol] 222 mg/dL High NINF - 200 mg/dL [facility] Comment on above: Cholesterol Guidelines: <200 Desirable 200-240 Borderline >240 Undesirable Cholesterol in HDL [Mass/Vol] 61 mg/dL 40 - PINF mg/dL [facility] Comment on above: HDL Guidelines: <40 Undesirable 40-59 Borderline >59 Desirable Cholesterol in LDL [Mass/Vol] 146 mg/dL High 0 - 130 mg/dL [facility] Comment on above: LDL Guidelines: <100 Desirable 100-129 Near to/above Desirable 130-159 Borderline >159 Undesirable Direct (measured) LDL and calculated LDL are not interchangeable tests. Cholesterol.total/Ch olesterol in HDL [Mass ratio] 3.6 {ratio} NINF - 5 [facility] Interpretation and review of laboratory results Abnormal [facility] Triglyceride [Mass/Vol] 76 mg/dL NINF - 150 mg/dL [facility] Comment on above: Triglyceride Guidelines: <150 Desirable 150-199 Borderline 200-499 High >499 Very high Based on AHA Guidelines for fasting triglyceride, April 2012. [facility] Lipid Profileon 10-17-2022 Cholesterol [Mass/Vol] 222 mg/dL High <200 [facility] Comment on above: Result Comment: Cholesterol Guidelines: <200 Desirable 200-240 Borderline >240 Undesirable Performed By: #### C P, CBC #### [facility] [address] [place] [address] [place] [phone] Telephone Assembler: Nemesio Galicia MD #### GLYHGB #### [facility] [place] [address] Telephone Assembler: Lionel Badillo MD Cholesterol in HDL [Mass/Vol] 61 mg/dL Normal >40 [facility] Comment on above: Result Comment: HDL Guidelines: <40 Undesirable 40-59 Borderline >59 Desirable Performed By: #### C P, CBC #### [facility] [address] [place] [phone] Telephone Assembler: Nemesio Galicia MD #### GLYHGB #### [facility] [address] [place] [phone] Telephone Assembler: Lionel Badillo MD Cholesterol in LDL [Mass/Vol] 146 mg/dL High 0-130 [facility] Comment on above: Result Comment: LDL Guidelines: <100 Desirable 100-129 Near to/above Desirable 130-159 Borderline >159 Undesirable Direct (measured) LDL and calculated LDL are not interchangeable tests. Performed By: #### C P, CBC #### [address] [place] [address] Telephone Assembler: Nemesio Galicia MD #### GLYHGB #### [address] [place], [place] [phone] Telephone Assembler: Lionel Badillo MD Cholesterol.total/Ch olesterol in HDL [Mass ratio] 3.6 {ratio} Normal <5 [facility] Comment on above: Performed By: #### C P, CBC #### [address] [place] [address] Telephone Assembler: Nemesio Galicia MD #### GLYHGB #### [id number] [place], [place] [id number] Telephone Assembler: Lionel Badillo MD Triglyceride [Mass/Vol] 76 mg/dL Normal <150 [facility] Comment on above: Result Comment: Triglyceride Guidelines: <150 Desirable 150-199 Borderline 200-499 High >499 Very high Based on AHA Guidelines for fasting triglyceride, April 2012. Performed By: #### C P, CBC #### [address] [place] [address] Telephone Assembler: Nemesio Galicia MD #### GLYHGB #### [address] [place], [place] [id number] Telephone Assembler: Lionel Badillo MD TSH With Reflex Ft4on 2022 TSH Qn 2.79 m[IU]/L [facility] TSH w/reflex to FT4on 2022 Thyroid Stim. Horm. 2.79 uIU/mL Normal 0.30-5.00 [facility] Comment on above: Performed By: #### U IRVING MATTHEW #### [facility] [address] [place], [place] [id number] Telephone Assembler: Nemesio Galicia MD #### URNMAB #### [facility] [address] [place] [address] Telephone Assembler: Lionel Badillo MD Vaginitis DNA Probeon 2022 Beto Negative Normal [facility] Comment on above: Result Comment: for Beto sp. Method of testing is a DNA probe intended for detection and identification of Beto species, Gardnerella vaginalis, and Trichomonas vaginalis nucleic acid in vaginal fluid specimens from patients with symptoms of vaginitis/vaginosis. Performed By: #### C P, CBC #### [facility] [address] [place] [address] Dr. [place], [place] [id number] Telephone Assembler: Nemesio Galicia MD #### GLYHGB #### [address] [address] Telephone Assembler: Lionel Badillo MD Gardnerella Negative Normal [facility] Comment on above: Result Comment: for Gardnerella vaginalis Performed By: #### C P, CBC #### [facility] [address] [place] [address] [place], [place] [id number] Telephone Assembler: Nemesio Galicia MD #### GLYHGB #### [address] [address] Telephone Assembler: Lionel Badillo MD Trichomonas Positive Abnormal NEG [facility] Comment on above: Result Comment: for Trichomonas Vaginalis Performed By: #### C P, CBC #### [facility] [address] [place] [address] [place], [place] [address] Telephone Assembler: Nemesio Galicia MD #### GLYHGB #### [address] [address] Telephone Assembler: Lionel Badillo MD Beto Species, DNA Probe Negative NEGATIVE [facility] Comment on above: for Beto sp. Method of testing is a DNA probe intended for detection and identification of Beto species, Gardnerella vaginalis, and Trichomonas vaginalis nucleic acid in vaginal fluid specimens from patients with symptoms of vaginitis/vaginosis. Gardnerella Vaginalis, DNA Probe Negative NEGATIVE [facility] Comment on above: for Gardnerella vagi nalis Interpretation and review of laboratory results Abnormal [facility] Source .VAGINAL SWAB [facility] Trichomonas Vaginalis DNA Positive Abnormal NEGATIVE [facility] Comment on above: for Trichomonas Vagi nalis [facility] Source .VAGINAL SWAB Normal [facility] Comment on above: Performed By: #### C P, CBC #### [facility] [address] [place] [address] [place] [address] Telephone Assembler: Nemesio Galicia MD #### GLYHGB #### [facility] [address] [place], [place] [id number] Telephone Assembler: Lionel Badillo MD Cult,Urineon 10-09-2022 Cult,Urine Specimen Description .CLEAN CATCH URINE Culture NO SIGNIFICANT GROWTH Report Status FINAL 10/08/2022 [facility] Comment on above: Performed By: #### U RC #### [facility] [address] [place], [place] [phone] Telephone Assembler: Lionel Badillo MD [address] [place] [address] Telephone Assembler: Nemesio Galicia MD EKG 12 leadOrdered By: Aldair Magdaleno on 05-22-2022 Atrial Rate 77 BPM [facility] [employer] Phone: P Monroe 31 degrees [facility] [employer] Phone: P-R Interval 130 ms [facility] [employer] Phone: Q-T Interval 380 ms [facility] [employer] Phone: QRS Duration 72 ms [facility] [employer] Phone: QTc Calculation (Bazett) 430 ms [facility] [employer] Phone: R Monroe -5 degrees [facility] [employer] Phone: T Monroe 2 degrees [place]NE [place] Appe[employer] Phone: Ventricular Rate 77 BPM JOHANNE CALHOUN Appear Phone: JOHANNE PATINO Appear Phone: EKG 12 leadon 05-22-2022 Poor data quality, interpretation may be adversely affected Normal sinus rhythm Normal ECG When compared with ECG of 18-JUL-2021 10:45, No significant change was found Confirmed by HANNY MAGDALENO ([id number]) on 05/22/2022 12:21:37 AM [facility] RADIOLOGY Hanny Magdaleno MD - 05/22/2022 Poor data quality, interpretation may be adversely affected Normal sinus rhythm Normal ECG When compared with ECG of 18-JUL-2021 10:45, No significant change was found Confirmed by HANNY MAGDALENO ([id number]) on 05/22/2022 12:21:37 AM JOHANNE [employer] Phone: [facility] HERLINDA DIGITAL SCREEN BILA TERALon 11-28-2021 No mammographic evidence of malignancy BIRADS: BIRADS - CATEGORY 1 Negative. Normal interval follow-up is recommended in 12 months. OVERALL ASSESSMENT - NEGATIVE A letter of notification will be sent to the patient regarding the results. [employer] recommends annual mammograms for women 40 years and older. [facility] EXAMINATION: SCREENING DIGITAL BILATERAL [...] concerning grouping of microcalcification in either breast. [facility] HERLINDA DIGITAL SCREEN BILA TERALOrdered By: Nik Zamorano on 11-28-2021 [employer] Phone: [facility] HERLINDA DIGITAL SCREEN BILA TERALon 11-27-2021 Radiology Study observation (narrative) [employer] Phone: XR HIP LEFT (2-3 VIEWS)on No acute fracture or dislocation. Diffuse osteopenia. [facility] EXAMINATION: TWO XRAY VIEWS [...] changes at the pubic symphysis. Diffuse osteopenia. [facility] Mark Barton MD - [...] No acute fracture or dislocation. Diffuse osteopenia. [employer] Phone: Radiology Study observation (narrative) [employer] Phone: XR HIP LEFT (2-3 VIEWS)Order ed By: Mark Barton on 05-24-2021 [employer] Phone: Hemoglobin A1Con 04-24-2020 Glucose [Mass/Vol] 94 mg/dL [place] Comment on above: The ADA and AACC rec ommend providing the estimated average glucose result to permit better patient understanding of their HBA1c result. HbA1c (Bld) [Mass fraction] 4.9 % 4 - 6 % [place] Lipid Panelon 04-24-2020 Cholesterol [Mass/Vol] 178 mg/dL <200 [place] Comment on above: Cholesterol Guidelines: <200 Desirable 200-240 Borderline >240 Undesirable Cholesterol in HDL [Mass/Vol] 58 mg/dL >40 [place] Comment on above: HDL Guidelines: <40 Undesirable 40-59 Borderline >59 Desirable Cholesterol in LDL [Mass/Vol] 103 mg/dL 0 - 130 mg/dL [place] Comment on above: LDL Guidelines: <100 Desirable 100-129 Near to/above Desirable 130-159 Borderline >159 Undesirable Direct (measured) LDL and calculated LDL are not interchangeable tests. Cholesterol in VLDL [Mass/Vol] NOT REPORTED 1 - 30 mg/dL [place] Cholesterol.total/Ch olesterol in HDL [Mass ratio] 3.1 {ratio} <5 [place] Triglyceride [Mass/Vol] 86 mg/dL <150 [place] Comment on above: Triglyceride Guidelines: <150 Desirable 150-199 Borderline 200-499 High >499 Very high Based on AHA Guidelines for fasting triglyceride, April 2012. Echocardiogram completeon [facility] Transthoracic Echocardiography Report (TTE) Patient Name JUSTEN Date of Study 03/30/2020 CHITRA Ponce Date of 1970 Gender Female Age 50 year(s) Race Room Number Height: 64 inch, 162.56 cm Corporate ID [id number] Weight: 224 pounds, 101.6 kg # Patient Acct [id number] BSA: 2.05 m^2 BMI: 38.45 # kg/m^2 MR # [id number] [employer] Paula Interpreting Physician Radha Tyler Fellow Referring Nurse Isha Aguilar Practitioner Interpreting Referring Physician Fellow Type of Study TTE procedure:2D Echocardiogram, M-Mode, Doppler, Color Doppler. Procedure Date Date: 03/30/2020 Start: 02:50 PM Study Location: [facility] Indications:Chest pain. History / Tech. Comments: Chest [...] TR Velocity: 1.91 m/s Peak TR Gradient: 14.14404 mmHg Estimated RA Pressure: 3 mmHg Estimated PASP: 17.54 mmHg Diastology / Tissue Doppler Lateral Wall E' velocity:0.16 m/s Lateral Wall E/E':4.45 [facility] [place], [place] [facility], Mhpn Incoming Cardio Results From [facility]/ - 03/30/2020 4:47 PM EDT [facility] Transthoracic Echocardiography Report (TTE) Patient Name JUSTEN Date of Study 03/30/2020 CHITRA Ponce Date of 1970 Gender Female Age 50 year(s) Race Room Number Height: 64 inch, 162.56 cm Corporate ID [id number] Weight: 224 pounds, 101.6 kg # Patient Acct [id number] BSA: 2.05 m^2 BMI: 38.45 # kg/m^2 MR # [id number] [employer] Paula Interpreting Physician Radha Tyler Fellow Referring Nurse Isha Aguilar Practitioner Interpreting Referring Physician Fellow Type of Study TTE procedure:2D Echocardiogram, M-Mode, Doppler, Color Doppler. Procedure Date Date: 03/30/2020 Start: 02:50 PM Study Location: [facility] Indications:Chest pain. History / Tech. Comments: Chest [...] TR Velocity: 1.91 m/s Peak TR Gradient: 14.07426 mmHg Estimated RA Pressure: 3 mmHg Estimated PASP: 17.54 mmHg Diastology / Tissue Doppler Lateral Wall E' velocity:0.16 m/s Lateral Wall E/E':4.45 [place] Basic Metabolic Panel w/ Ref mario alberto to MG 03-17-2020 Anion gap [Moles/Vol] 11 mmol/L 9 - 17 mmol/L [place] Bun/Cre Ratio 18 [place] Calcium [Mass/Vol] 9.0 mg/dL 8.6 - 10. 4 mg/dL [place] Chloride [Moles/Vol] 106 mmol/L 98 - 10 7 mmol/L [place] CO2 [Moles/Vol] 24 mmol/L 20 - 31 mmol/L [place] Creatinine [Mass/Vol] 0.84 mg/dL 0.5 - 0.9 mg/dL [place] GFR >60 >60 mL/min [place] GFR Non- >60 >60 mL/min [place] Glucose [Mass/Vol] 106 mg/dL High 70 - 99 mg/dL [place] Interpretation and review of laboratory results Abnormal [place] Potassium [Moles/Vol] 3.7 mmol/L 3.7 - 5.3 mmol/L [place] Sodium [Moles/Vol] 141 mmol/L 135 - 144 mmol/L [place] Urea nitrogen [Mass/Vol] 15 mg/dL 6 - 20 mg/dL [place] Brain Natriuretic Peptideon 03-17-2020 Natriuretic peptide B (Bld) [Mass/Vol] 124 pg/mL <300 [place] Comment on above: Pro-BNP results paty ot be compared to BNP results. Natriuretic peptide B (Bld) [Mass/Vol] Pro-BNP Reference Range: [place] Comment on above: Rule Out: <300 Gibbs Zone: Age <50 300-450 Age 50-75 300-900 Age >75 300-1800 Usually represents mild to moderate HF but other cardiopulmonary causes cannot be ruled out. Rule In: Age <50 >450 Age 50-75 >900 Age >75 >1800 CBC Auto Differentialon 02-19 Basophils (Bld) [#/Vol] 0.06 10*3/uL [place] Basophils/100 WBC (Bld) 1 % 0 - 2 % [place] Differential Type NOT REPORTED [place] Eosinophils (Bld) [#/Vol] 0.58 10*3/uL High [place] Eosinophils/100 WBC (Bld) 7 % High 1 - 4 % [place] Erythrocyte distribution width (RBC) [Ratio] 12.6 % 11.8 - 14.4 % [place] Hematocrit (Bld) [Volume fraction] 39.6 % 36.3 - 47.1 % [place] Hemoglobin (Bld) [Mass/Vol] 13.0 g/dL 11.9 - 15.1 g/dL [place] Immature granulocytes (Bld) [#/Vol] 0 % 0 [place] Immature granulocytes (Bld) [#/Vol] 0.03 10*3/uL [place] Interpretation and review of laboratory results Abnormal [place] Lymphocytes (Bld) [#/Vol] 2.41 10*3/uL [place] Lymphocytes/100 WBC (Bld) 31 % 24 - 43 % [place] MCH (RBC) [Entitic mass] 30.8 pg 25.2 - 33.5 pg [place] MCHC (RBC) [Mass/Vol] 32.8 g/dL 28.4 - 34.8 g/dL [place] MCV (RBC) [Entitic vol] 93.8 fL 82.6 - 102.9 fL [place] Monocytes (Bld) [#/Vol] 0.54 10*3/uL [place] Monocytes/100 WBC (Bld) 7 % 3 - 12 % [place] Platelet mean volume (Bld) [Entitic vol] 10.4 fL 8.1 - 13.5 fL [place] Platelets (Bld) [#/Vol] 216 10*3/uL [place] Platelets (Bld) [#/Vol] NOT REPORTED [place] RBC (Bld) [#/Vol] 4.22 10*6/uL 3.95 - 5.1 1 m/uL [place] RBC morphology finding Nom (Bld) NOT REPORTED [place] Segmented neutrophils/100 WBC (Bld) 54 % 36 - 65 % [place] Segs Absolute 4.25 [place] WBC (Bld) [#/Vol] 7.9 10*3/uL [place] WBC (Bld) [#/Vol] 0.0 10*3/uL 0.0 per 10 0 WBC [place] WBC Morphology NOT REPORTED [place] D-Dimer, Quantitativeon 02-19 D-Dimer, Quant 0.47 [place], [place] Comment on above: When combined with [...] predicted among non-blacks MDRD (S/P/Bld) [Vol rate/Area] [place] Comment on above: Stage 1: Some [...] body mass. Additional eGFR calculator available at: http://www.Jini.[employer]/multiple_crcl_2012.htm Protime-INRon 03-17-2020 INR Coag (PPP) [Relative time] 0.9 {INR} [place] Comment on above: Non-therapeutic Range: INR = 0.9-1.2 Therapeutic Range: Moderate Anticoagulant Intensity: INR = 2.0-3.0 High Anticoagulant Intensity: INR = 2.5-3.5 PT Coag (PPP) [Time] 11.5 s [place] Comment on above: NOTE: NEW REFERENCE RANGE Troponinon 03-17-2020 Troponin I.cardiac [Mass/Vol] NOT REPORTED [place] Troponin T.cardiac [Mass/Vol] NOT REPORTED <0.03 ng/mL [place] Troponin, High Sensitivity <6 0 - 14 ng/L [place] Comment on above: High Sensitivity Troponin values cannot be compared with other Troponin methodologies. Patients with high levels of Biotin oral intake (i.e >5mg/day) may have falsely decreased Troponin levels. Samples collected within 8 hours of biotin intake may require additional information for diagnosis. Troponin I.cardiac [Mass/Vol] NOT REPORTED [place] Troponin T.cardiac [Mass/Vol] NOT REPORTED <0.03 ng/mL [place] Troponin, High Sensitivity <6 0 - 14 ng/L [place] Comment on above: High Sensitivity Troponin values cannot be compared with other Troponin methodologies. Patients with high levels of Biotin oral intake (i.e >5mg/day) may have falsely decreased Troponin levels. Samples collected within 8 hours of biotin intake may require additional information for diagnosis. XR CHEST (2 VW)on 03-17-2020 [facility], [facility] Incoming Radiant Results From [employer]perWiki/Intoo - 03/17/2020 9:09 PM EDT EXAMINATION: TWO XRAY VIEWS OF THE CHEST 03/17/2020 8:55 pm COMPARISON: 12/02/2012 radiograph HISTORY: ORDERING SYSTEM PROVIDED HISTORY: Chest pain TECHNOLOGIST PROVIDED HISTORY: Chest pain FINDINGS: The heart, mediastinum and pulmonary vascularity are normal. Lungs are well-expanded and clear. No skeletal abnormalities are present in the chest. IMPRESSION: No significant findings in the chest. [place] No significant findings in the chest. [place] EXAMINATION: TWO XRA Y VIEWS OF THE CHEST 03/17/2020 8:55 pm COMPARISON: 12/02/2012 radiograph HISTORY: ORDERING SYSTEM PROVIDED HISTORY: Chest pain TECHNOLOGIST PROVIDED HISTORY: Chest pain FINDINGS: The heart, mediastinum and pulmonary vascularity are normal. Lungs are well-expanded and clear. No skeletal abnormalities are present in the chest. [place] LUMBAR SPINE 4 OR 5 VWSon LUMBAR SPINE 4 OR 5 VWS [facility] Department of Radiology [address] [place] [id number] Patient Name: CHITRA CAMPUZANO : 1970 Sex: F Age: Race: White Pt. Location: 84 Patient Status: D Ordered Date: 05/12/2019 3:35:00 [...] findings. Electronically signed by:Blanca Skaggs. Transcribed by: [email or web address], User Resident: NAYELI BARRY Electronically Signed by: BLANCA SKAGGS @ 05/14/2019 01:35 PM I personally read this/these film(s) with this resident Normal [facility] Comment on above: Order Comment: , , = ========= , Ordering Provider - ADRIAN DANIEL MD , MRI LUMBAR SPINE WO CONTRAST on 05-04-2019 Left subarticular disc protrusion at L5-S1. Multilevel disc degeneration otherwise as above without critical canal or neural foraminal stenosis. [employer] [place] EXAMINATION: MRI OF THE LUMBAR SPINE WITHOUT [...] canal narrowing. Mild-moderate bilateral neural foraminal narrowing. [employer] [place] [facility], [facility] Incoming Radiant Results From ScraperWiki/Pixtrs - 05/04/2019 2:19 PM EDT EXAMINATION: MRI [...] without critical canal or neural foraminal stenosis. [place] MRI THORACIC SPINE WO MALOU Maravilla 05-04-2019 Facet hypertrophy concentrated at T11-T12 produces at least moderate spinal canal narrowing and effacement of the dorsal left cord. No acute abnormality; no suspicious bone marrow edema. [place] EXAMINATION: MRI OF THE THORACIC SPINE [...] narrowing and effacement of the dorsal cord. [facility] Incoming Radiant Results From Tictaile/Pacs - 05/04/2019 8:37 AM EDT EXAMINATION: MRI [...] acute abnormality; no suspicious bone marrow edema. [facility] Otheron 04-05-2019 No evidence for fracture or malalignment of the thoracolumbar spine. Advanced degenerative disc disease localized to the T11-T12 level. [facility] EXAMINATION: 3 XRAY VIEWS OF [...] is normal. Overlying soft tissues are unremarkable. [facility], [place] XR LUMBAR SPINE (2-3 VIEWS)o n 04-05-2019 [facility], [facility] Incoming Radiant Results From Subiteccribe/Pacs - 04/05/2019 11:55 AM EDT EXAMINATION: 3 [...] disc disease localized to the T11-T12 level. [facility], [place] XR THORACIC SPINE (2 VIEWS)o n 04-05-2019 [facility], [facility] Incoming Radiant Results From TictaileJellyfishArt.coms - 04/05/2019 11:54 AM EDT EXAMINATION: 3 [...] disc disease localized to the T11-T12 level. [facility], [place] Progress Noteon 03-17-2018 HIM IP Note OR Saw Boss Normal [facility] Progress Noteon 12-02-2017 HIM IP Note OR Saw Boss Normal [facility] Progress Noteon 12-01-2017 HIM IP Note OR Saw Boss Normal [facility] Progress Noteon 09-30-2017 HIM IP Note OR Saw Boss Normal [facility] Progress Noteon 08-26-2017 HIM IP Note OR Saw Boss Normal [facility] Progress Noteon 08-05-2017 HIM IP Note OR Saw Boss Normal [facility] Vital Signs Date Time Vital Sign Value Performing Clinician Marlai teo 08-07-2023 16:00-0500 Heart rate 76 /min Kylah Verdin MD Work Phone: [facility] 08-07-2023 16:00-0500 Respiratory rate 20 /min Kylah Verdin MD Work Phone: [facility] 08-07-2023 16:00-0500 SaO2% (BldA) [Mass fraction] 97 % Kylah Verdin MD Work Phone: [facility] 08-07-2023 11:28-0500 Body mass index (BMI) [Ratio] 33.63 kg/m2 Kylah Verdin MD Work Phone: [facility] 08-07-2023 11:28-0500 Body temperature 99.1 [degF] Kylah Verdin MD Work Phone: [facility] 08-07-2023 11:28-0500 Body weight 88.91 kg Kylah Verdin MD Work Phone: [facility] 08-07-2023 11:28-0500 Diastolic blood pressure 89 mm[Hg] Kylah Verdin MD Work Phone: [employer] 08-07-2023 11:28-0500 Systolic blood pressure 157 mm[Hg] Kylah Veridn MD Work Phone: JOHANNE Yashi 03-17-2020 23:16-0400 BP Diastolic 71 mm[Hg] [facility] [place] 03-17-2020 23:16-0400 BP Systolic 137 mm[Hg] Aj [employer] [facility] [place] 03-17-2020 23:16-0400 Pulse (Heart Rate) 79 /min [employer] [facility] 03-17-2020 23:16-0400 Pulse Oximetry 99 % [facility] [place] 03-17-2020 20:28-0400 BMI (Body Mass Index) 38.45 kg/m2 [employer] [facility], [place] 03-17-2020 20:28-0400 Body Temperature 97.11 [degF] Ja [place] 03-17-2020 20:28-0400 Body weight 101.61 kg Aj [employer] [facility] , [place] 03-17-2020 20:28-0400 Respiratory Rate 16 /min [facility] [place] Encounters Encounter Date Encounter Type Care Provider Facility Start: 10-20-2023 End: 10-20-2023 ambulatory LUANN HEIN Not Available Start: 10-06-2023 End: 10-07-2023 ambulatory Reza Hernandez DO Facility:[facility] Start: 09-18-2023 End: 09-18-2023 ambulatory JONNY NARESH Not Available Start: 08-25-2023 End: 08-25-2023 ambulatory JONNY NARESH Not Available Start: 08-25-2023 End: 08-25-2023 Office outpatient new 20 minutes Jonny Naresh DO Work Phone: [facility] Comment on above: Abdominal cramping ( Primary Dx); Postmenopausal bleeding Start: 08-07-2023 End: 08-07-2023 [facility]: 08-07-2023 End: 08-07-2023 Emergency department patient visit Kylah Verdin MD Work Phone: [facility] ED Comment on above: Nausea vomiting and diarrhea (Primary Dx); Abdominal pain, unspecified abdominal location Start: 07-16-2023 End: 07-17-2023 [facility] Start: 07-09-2023 ambulatory Reza jimenez DO Facility:[facility] Start: 06-11-2023 End: 06-12-2023 ambulatory Ishafransisco Aguilar NURSING EDUCATION SPECIALIST-ARTS AND HUMANITIES COUNCIL DIRECTOR Facility:[facility] Start: 06-09-2023 End: 06-09-2023 ambulatory ISHA AGUILAR [facility] Start: 06-09-2023 Encounter for other preprocedural examination [facility] Start: 06-05-2023 End: 06-06-2023 ambulatory [facility] Start: 06-05-2023 Encounter for other [facility]procedural [facility] Start: 05-26-2023 End: 05-27-2023 ambulatory [facility] Start: 05-23-2023 End: 05-24-2023 ambulatory [facility]HA [facility]IL[facility] Start: 05-14-2023 End: 05-15-2023 ambulatory Reza Hernandez DO Facility:[facility] Start: 05-09-2023 End: 05-12-2023 ambulatory [facility]HA [facility]IL[facility] Start: 05-05-2023 End: 05-06-2023 ambulatory Ishafransisco Aguilar NURSING EDUCATION SPECIALIST-ARTS AND HUMANITIES COUNCIL DIRECTOR Facility:[facility] Start: 04-30-2023 End: 05-01-2023 ambulatory ISHA AGUILAR [facility] Start: 04-25-2023 End: 04-26-2023 ambulatory Ishafransisco Aguilar NURSING EDUCATION SPECIALIST-ARTS AND HUMANITIES COUNCIL DIRECTOR Facility:[facility] Start: 04-24-2023 End: 04-25-2023 ambulatory Ishafransisco BOWMAN Facility:[facility] Start: 04-23-2023 End: 04-24-2023 ambulatory [facility] Start: 04-23-2023 Encounter for gynecological examination (general) (routine) without abnormal findings [facility] Start: 04-16-2023 End: 04-17-2023 ambulatory Isha BOWMAN Facility:[facility] Start: 04-16-2023 End: 04-19-2023 ambulatory [facility] Start: 03-19-2023 End: 03-20-2023 ambulatory Justen GATES Facility:[facility] Start: 03-18-2023 End: 03-19-2023 ambulatory Reza Peter David IQBAL Facility:[facility] Start: 01-28-2023 End: 01-29-2023 ambulatory Reza Hernandez DO Facility:[facility] Start: 12-24-2022 End: 12-27-2022 [facility]ulatory [facility] Start: 10-17-2022 End: 10-18-2022 ambulatory [facility] Start: 10-17-2022 Encounter for genera l adult medical examination without abnormal findings [facility] Start: 10-17-2022 End: 10-17-2022 Patient encounter status Isha Mclaughlin CNP Work Phone: [facility] Start: 10-17-2022 End: 10-17-2022 Subsequent hospital visit by physician Isha Mclaughlin CNP Work Phone: [facility] Comment on above: Dysuria; Burning with urination; STD exposure; Vaginal discharge; Wellness examination; Anxiety; Hyperlipidemia, unspecified hyperlipidemia type; Type 2 diabetes mellitus without complication, unspecified whether continuous churn buttermaker insulin use (HCC); Essential hypertension; Urinary frequency Start: 10-07-2022 End: 10-08-2022 ambulatory [facility] Start: 10-07-2022 End: 10-07-2022 Subsequent hospital visit by physician Isha Mclaughlin CNP Work Phone: [facility] Comment on above: Hematuria, unspecifi ed type; Burning with urination Start: 05-21-2022 End: 05-21-2022 Subsequent hospital visit by physician Isha Aguilar APRN - ARTS AND HUMANITIES COUNCIL DIRECTOR Work Phone: [facility] EKG Comment on above: Chest pain, unspecif ied type Start: 12-18-2021 End: 12-18-2021 Patient encounter procedure Danish Hughes MD Work Phone: [facility] Start: 12-18-2021 End: 12-18-2021 Subsequent hospital visit by physician Danish Hughes MD Work Phone: [facility] Comment on above: Encounter for annual routine gynecological examination; Abnormal perimenopausal bleeding Start: 11-27-2021 End: 11-29-2021 Subsequent hospital visit by physician [facility] Mammography Room At [facility] Mammography Comment on above: Encounter for screen ing for malignant neoplasm of breast, unspecified screening modality; Essential hypertension; Hyperlipidemia, unspecified hyperlipidemia type; Hyperglycemia Start: 05-24-2021 End: 05-26-2021 Subsequent hospital visit by physician [facility] Xr Dr Room 2 [facility] Radiology Comment on above: Strain of hip and th igh, left, initial encounter Start: 05-04-2020 End: 05-04-2020 Subsequent hospital visit by physician [facility] Cardiology Stress Room [facility] Stress Lab Comment on above: Arrived Start: 05-03-2020 End: 05-03-2020 Subsequent hospital visit by physician [facility] Cardiology Stress Room [facility] Stress Lab Comment on above: Atypical chest pain; Obesity (BMI 35.0-39.9 without comorbidity); Palpitations Start: 04-24-2020 End: 04-24-2020 Subsequent hospital visit by physician [facility] Associate Professor Of Media Arts [facility] Laboratory Comment on above: Atypical chest pain; Obesity (BMI 35.0-39.9 without comorbidity); Palpitations Palpitations Start: 03-30-2020 End: 03-30-2020 Subsequent hospital visit by physician [facility] Echo Room [facility] Echocardiography Comment on above: Chest pain, unspecif ied type Start: 03-17-2020 End: 03-17-2020 Emergency department patient visit Aj Leonardo Work Phone: [facility] ED Comment on above: Chest pain, unspecif ied type (Primary Dx) Start: 03-14-2020 End: 03-14-2020 Subsequent hospital visit by physician Cody Associate Professor Of Media Arts [facility] EKG Comment on above: Other chest pain Start: 01-28-2020 End: 01-28-2020 Subsequent hospital visit by physician Danish Hughes [facility] Laboratory Comment on above: Special screening ex amination for viral disease Start: 05-04-2019 End: 05-06-2019 Subsequent hospital visit by physician Cody Mri Scanner [facility] MRI Comment on above: Back pain, unspecifi ed back location, unspecified back pain laterality, unspecified chronicity Start: 04-05-2019 End: 04-07-2019 Subsequent hospital visit by physician Cody Xr Dr Room 2 [facility] Radiology Comment on above: Thoracic back pain, [...] End: 10-17-2022 Comprehensive metabolic panel Isha Aguilar NURSING EDUCATION SPECIALIST - ARTS AND HUMANITIES COUNCIL DIRECTOR Work Phone: Start: 10-17-2022 End: 10-17-2022 Lipid panel Isha Aguilar NURSING EDUCATION SPECIALIST - ARTS AND HUMANITIES COUNCIL DIRECTOR Work Phone: Start: 10-17-2022 Iadna beto specie s direct probe tq Falguni Singh MD Work Phone: Start: 05-21-2022 Ecg routine ecg w/le ast 12 lds w/i&r Isha Aguilar NURSING EDUCATION SPECIALIST [employer] Work Phone: Start: 12-18-2021 Microscopic observat ion [Identifier] in Cervix by Cyto stain Isha Aguilar NURSING EDUCATION SPECIALIST - ARTS AND HUMANITIES COUNCIL DIRECTOR Work Phone: Start: 11-27-2021 End: 11-27-2021 Screening mammography bi 2-view breast inc cad Danish Hughes MD Work Phone: Start: 05-24-2021 Radex hip unilateral with pelvis 2-3 views Feroz Cowart DC Work Phone: Start: 04-24-2020 Hemoglobin glycosylated a1c Radha Townsend Dante Leed Work Phone: Start: 04-24-2020 Lipid panel Radha [...] ecg w/le ast 12 lds w/i&r Aj Jigna Leonardo Work Phone: Start: 05-04-2019 Mri spinal canal lum bar w/o contrast material Nae Sanchez Work Phone: Start: 05-04-2019 Mri spinal canal tho racic w/o contrast matrl Nae GlySens Work Phone: Start: 04-05-2019 Radex spine thoracic 2 views Nae Blankington Work Phone: Start: 04-05-2019 Radex spine lumbosac ral 2/3 views Nae [employer] Work Phone: Start: 09-30-2017 Microscopic observat ion [Identifier] in Cervix by Cyto stain [facility] 2 Plan of Treatment Date Care Activity Detail Author Start: 06-09-2033 Screening for malignant neoplasm of colon [facility] Start: 04-30-2028 Lipid panel Lipids [facility] Start: 04-23-2026 Screening for malignant neoplasm of cervix [facility] Start: 04-21-2026 DTaP/Tdap/Td vaccine (2 - Td or Tdap) DTaP/Tdap/Td vaccine (2 - Td or Tdap) [facility] Start: 04-21-2026 DTaP/Tdap/Td vaccine (2 - Td) DTaP/Tdap/Td vaccine (2 - Td) [place] Start: 04-21-2026 DTaP/Tdap/Td vaccine (3 - Td or Tdap) DTaP/Tdap/Td vaccine (3 - Td or Tdap) [facility] Start: 12-18-2024 Screening for malignant neoplasm of cervix [facility] Start: 08-07-2024 GFR test (Diabetes, CKD 3-4, OR last GFR 15-59) GFR test (Diabetes, CKD 3-4, OR last GFR 15-59) [facility] Start: 05-26-2024 Screening for malignant neoplasm of colon [facility] Start: 04-30-2024 Urine screening for protein Diabetic Alb to Cr ratio (uACR) test [facility] Start: 12-03-2023 End: 12-03-2023 Admission to same day surgery center 12/03/2023 1:35 PM EDT - 12/03/2023 2:20 PM EDT Surgery [facility] OR [address] [place] [id number] Megha Kruse MD [address] [place] [id number] COLORECTAL CANCER SCREENING, NOT HIGH RISK [facility] OR Comment on above: COLORECTAL CANCER SCREENING, NOT HIGH RI SK Start: 12-03-2023 End: 12-03-2023 Colon ca scrn not hi rsk ind COLORECTAL CANCER SCREENING, NOT HIGH RISK Screening for colon cancer 12/03/2023 1:35 PM EDT [facility] Start: 12-03-2023 Subsequent hospital visit by physician 12/03/2023 1:35 PM EDT Hospital Encounter [facility] OR [address] [place] [id number] Megha Kruse MD [address] [place] [address] [facility] OR Start: 11-28-2023 Screening for malignant neoplasm of breast Breast cancer screen [facility] Start: 11-13-2023 End: 11-13-2023 Patient encounter procedure 11/13/2023 9:30 AM EDT Office Visit [facility] OBSTETRICS [address] [place] [address] Yuli Andujar MD [address] [place] [address] [address] [place] [address] pelvic pain cant gang sawyer usn 6 month check [facility] Comment on above: pelvic pain cant gang sawyer usn 6 month check Start: 11-13-2023 End: 11-13-2023 Professional / ancillary services management 11/13/2023 9:00 AM EDT Ancillary Procedure [facility] OBST[facility]RICS [address] [place] [address] pelvic pain cant gang sawyer usn 6 month check [facility] OBSTETRICS & GYNECOLOGY Part of [facility] Comment on above: pelvic pain cant gang sawyer usn 6 month check Start: 10-18-2023 GFR test (Diabetes, CKD 3-4, OR last GFR 15-59) GFR test (Diabetes, CKD 3-4, OR last GFR 15-59) [facility] Start: 10-18-2023 Lipid panel Lipids [facility] Start: 10-08-2023 Depression Monitoring Depression Monitoring [facility] Start: 09-15-2023 End: 09-15-2023 Patient encounter procedure 09/15/2023 10:20 AM EST Office Visit [facility] [address] [place] [address] Jonny Infante, DO [address] [place], [place] [id number] [facility] Start: 09-03-2023 End: 09-03-2023 Professional / ancillary services management 09/03/2023 8:30 AM EST Ancillary Procedure [facility] [address] [place] [phone] [facility] Start: 08-25-2023 End: 08-25-2024 US for US PELVIS-TRANSVAG IF INDICATED Imaging Routine Postmenopausal bleeding Abdominal cramping Expected: 08/25/2023 (Approximate), Expires: 08/25/[address] [facility] Work Phone: Comment on above: Expected: 08/25/2023 (Approximate), Expi res: 08/25/2024 Start: 05-21-2023 GFR test (Diabetes, CKD 3-4, OR last GFR 15-59) GFR test (Diabetes, CKD 3-4, OR last GFR 15-59) [facility] Start: 03-21-2023 COVID-19 Vaccine ( season) COVID-19 Vaccine ( season) [facility] Start: 03-21-2023 Influenza vaccination Influenza Vaccine (#1) [facility] Start: 02-18-2023 Influenza vaccination Flu vaccine (#1) [facility] Start: 12-25-2022 End: 12-25-2022 Patient encounter procedure 12/25/2022 Office Visit Primary Care Isha Aguilar, NURSING EDUCATION SPECIALIST - ARTS AND HUMANITIES COUNCIL DIRECTOR [address] [place] [address] [facility] Start: 11-27-2022 Screening for malignant neoplasm of breast Mammogram [facility] Start: 11-16-2022 Depression Monitoring Depression Monitoring [facility] Start: 10-23-2022 End: 10-23-2022 Patient encounter procedure 10/23/2022 Office Visit Primary Care Falguni Singh MD [address] [place] [address] [facility] Start: 09-30-2022 Cervical cancer screen Cervical cancer screen [place] Start: 09-30-2022 Screening for malignant neoplasm of cervix [facility] Start: 07-17-2022 Screening for malignant neoplasm of colon [facility] Start: 07-10-2022 Hemoglobin A1c measurement A1C test (Diabetic or Prediabetic) [facility] Start: 07-10-2022 Lipid panel Lipids [facility] Start: 07-10-2022 Urine screening for protein Diabetic microalbuminuria test [facility] Start: 06-11-2022 End: 06-11-2022 Patient encounter procedure 06/11/2022 Office Visit Primary Care Isha Aguilar APRN - ARTS AND HUMANITIES COUNCIL DIRECTOR [address] [place] [address] [facility] Start: 03-21-2022 Influenza vaccination Flu vaccine (Season Ended) [facility] Start: 2022 Shingles vaccine (1 of 2) Shingles vaccine (1 of 2) [facility] Start: 02-18-2022 Influenza vaccination Flu vaccine (#1) [facility] Start: 01-18-2022 End: 01-18-2022 Admission to same day surgery center 01/18/2022 Surgery IP Unit Camille Myrick I, DO [address] [facility] [address] [place] [phone] COLORECTAL CANCER SCREENING, NOT HIGH RISK [facility] Comment on above: COLORECTAL CANCER SCREENING, NOT HIGH RI SK Start: 01-18-2022 End: 01-18-2022 Colon ca scrn not hi rsk ind COLORECTAL CANCER SCREENING, NOT HIGH RISK SCREENING 01/18/2022 10:40 AM EDT [facility] Start: 01-18-2022 Subsequent hospital visit by physician 01/18/2022 Hospital Encounter IP Unit Camille Myrick I, DO [address] [facility] [address] [place] [phone] [facility] Start: 01-03-2022 End: 01-03-2022 Patient encounter procedure 01/03/2022 Office Visit Neurology Joe Whipple MD [address] [place] [address] [address] [place] [phone] [facility] NEUROLOGY [facility] Start: 12-27-2021 End: 12-27-2021 Patient encounter procedure 12/27/2021 Office Visit Obstetrics and Gynecology Yuli Andujar MD [address] [place] [address] [facility] OBSTETRICS & GYNECOLOGY [facility] Start: 12-18-2021 End: 12-18-2021 Patient encounter procedure 12/18/2021 Office Visit Obstetrics and Gynecology Yuli Andujar MD [address] [place] [address] [facility] OBSTETRICS & GYNECOLOGY [facility] Start: 12-04-2021 End: 12-04-2021 Patient encounter procedure 12/04/2021 Office Visit Family Medicine Danish Hughes MD [address] [place] [address] [facility] Start: 09-04-2021 COVID-19 Vaccine (3 - Booster for Pfizer series) COVID-19 Vaccine (3 - Booster for Pfizer series) [facility] Start: 06-25-2021 End: 06-25-2021 Patient encounter procedure 06/25/2021 Office Visit Family Medicine Danish Hughes MD [address] [place] [address] [facility] Start: 05-30-2021 COVID-19 Vaccine (3 - Booster for Pfizer series) COVID-19 Vaccine (3 - Booster for Pfizer series) [facility] Start: 04-29-2021 HIV screen HIV screen [place] Comment on above: Postponed from 1987 (Patient Refus ed) Start: 04-29-2021 HIV screening HIV screen [place] Comment on above: Postponed from 1987 (Patient Refus ed) Start: 04-24-2021 HbA1c (Bld) [Mass fraction] A1C test (Diabetic or Prediabetic) [place] Start: 04-24-2021 Hemoglobin A1c measurement A1C test (Diabetic or Prediabetic) [facility] Start: 04-24-2021 Lipid panel Lipid screen [facility] Start: 03-21-2021 Influenza vaccination Flu vaccine (#1) [facility] Start: 03-17-2021 Creatinine measurement Creatinine monitoring [facility] Start: 03-17-2021 Potassium monitoring Potassium monitoring [facility] Start: 09-30-2020 Screening for malignant neoplasm of cervix Pap smear [facility] Start: 05-17-2020 End: 05-17-2020 Office Visit 05/17/2020 Office Visit Family Medicine Danish Hughes MD [address] [place] [address] [facility] Start: 05-09-2020 End: 05-09-2020 Office Visit 05/09/2020 Office Visit Cardiology Radha Tyler MD [address] [place] [address] [phone] [facility] CARDIOLOGY Part [facility] Start: 05-04-2020 End: 05-04-2020 Appointment 05/04/2020 Appointment Stress Lab [facility] Stress [facility] Start: 05-03-2020 End: 05-03-2020 Appointment 05/03/2020 Appointment Stress Lab [facility] Start: 04-12-2020 End: 04-12-2020 Office Visit 04/12/2020 Office Visit Family Medicine Gase, Danish Ponce MD [address] [place] [address] [facility] FAMILY MEDICINE [facility] Start: 03-21-2020 Influenza vaccination Flu vaccine (#1) [place] Start: 09-15-2019 Creatinine measurement Creatinine monitoring [place] Start: 09-15-2019 Creatinine monitoring Creatinine monitoring [place] Start: 09-15-2019 Potassium monitoring Potassium monitoring [place] Start: 03-21-2019 Influenza vaccination Flu vaccine (#1) [place] Start: 08-26-2018 A1C test (Diabetic or Prediabetic) A1C test (Diabetic or Prediabetic) [place] Start: 08-26-2018 HbA1c (Bld) [Mass fraction] A1C test (Diabetic or Prediabetic) [place] Start: 08-26-2018 Lipid panel Lipid screen [place] Start: 08-26-2018 Lipid screen Lipid screen [place] Start: 2017 Screening for malignant neoplasm of colon [facility] Start: 06-22-2016 DTaP/Tdap/Td vaccine (1 - Tdap) DTaP/Tdap/Td vaccine (1 - Tdap) [place] Start: 1993 Screening for malignant neoplasm of cervix Pap Smear [facility] Start: 1991 DTaP/Tdap/Td vaccine (1 - Tdap) DTaP/Tdap/Td vaccine (1 - Tdap) [place] Start: 1990 Diabetic microalbuminuria test Diabetic microalbuminuria test [facility] Start: 1990 Diabetic retinal exam Diabetic retinal exam [facility] Start: 1990 Glaucoma screening Diabetic retinal exam [facility] Start: 1990 Hepatitis C screening Hepatitis C screen [facility] Start: 1990 Urine screening for protein Diabetic Alb to Cr ratio (uACR) test [facility] Start: 1987 HIV screening HIV screen [facility] Start: 1982 [object Object] Diabetic foot exam [place] Start: 1982 Diabetic foot examination Diabetic foot exam [facility] Start: 1982 Diabetic retinal exam Diabetic retinal exam [facility] Start: 1978 Pneumococcal 0-64 years Vaccine (1 - PCV) Pneumococcal 0-64 years Vaccine (1 - PCV) [facility] Start: 1978 Pneumococcal 0-64 years Vaccine (1 of 1 - PPSV23) Pneumococcal 0-64 years Vaccine (1 of 1 - PPSV23) [place] Start: 1978 Pneumococcal 0-64 years Vaccine (1 of 2 - PPSV23) Pneumococcal 0-64 years Vaccine (1 of 2 - PPSV23) [facility] Start: 1972 Hepatitis C screening Hepatitis C screen [facility] Start: 1972 Screening for malignant neoplasm of colon [facility] End: 10-17-2022 Chlamydia/GC DNA, Urine [facility] [employer] Work Phone: Comment on above: 1 Occurrences starting 10/17/2022 until 10/17/2022 End: 04-24-2020 Continuous cardiac monitoring, >2 up to 14 days Continuous cardiac monitoring, >2 up to 14 days Cardiac Services Routine Palpitations 1 Occurrences starting 04/24/2020 until 04/24/2020 [place] Comment on above: 1 Occurrences starting 04/24/2020 until 04/24/2020 End: 01-28-2020 COVID-19 Ambulatory COVID-19 Ambulatory Lab Routine Special screening examination for viral disease 1 Occurrences starting 01/28/2020 until 01/28/2020 [place] Comment on above: 1 Occurrences starting 01/28/2020 until 01/28/2020 COVID-19 Ambulatory COVID-19 Amb ulatory Lab Routine Special screening examination for viral disease 01/28/2020 4:04 PM EDT [facility] End: 10-07-2022 Culture, Urine [facility] Phone: Comment on above: 1 Occurrences starting 10/07/2022 until 10/07/2022 End: 10-17-2022 Culture, Urine [facility] Phone: Comment on above: 1 Occurrences starting 10/17/2022 until 10/17/2022 End: 12-18-2021 Cytopathology procedure, preparation of smear, genital source PAP SMEAR Lab Routine Encounter for annual routine gynecological examination 1 Occurrences starting 12/18/2021 until 12/18/2021 [facility] Phone: Comment on above: 1 Occurrences starting 12/18/2021 until 12/18/2021 EKG 12 Lead EKG 12 Lead ECG STAT 03/17/2020 8:39 PM EDT [facility] End: 10-17-2022 Hepatitis Panel, Acute [facility] Phone: Comment on above: 1 Occurrences starting 10/17/2022 until 10/17/2022 End: 10-17-2022 Herpes Profile [facility] Phone: Comment on above: 1 Occurrences starting 10/17/2022 until 10/17/2022 End: 12-18-2021 Surgical Pathology Surgical Pathology Lab Routine Abnormal perimenopausal bleeding 1 Occurrences starting 12/18/2021 until 12/18/2021 [facility] Phone: Comment on above: 1 Occurrences starting 12/18/2021 until 12/18/2021 End: 12-18-2021 SURGICAL PATHOLOGY REPORT SURGICAL PATHOLOGY REPORT Lab Routine Once for 1 Occurrences starting 12/18/2021 until 12/18/2021 [facility] Phone: Comment on above: Once for 1 Occurrences starting 12/19/19 until 12/18/2021 End: 10-17-2022 T. Pallidum Ab [facility] Phone: Comment on above: 1 Occurrences starting 10/17/2022 until 10/17/2022 End: 08-07-2023 Urinalysis with Reflex to Culture Urinalysis with Reflex to Culture Lab Routine One Time for 1 Occurrences starting 08/07/2023 until 08/07/2023 [facility] Comment on above: One Time for 1 Occurrences starting 07/21 until 08/07/2023 Immunizations Immunization Date Immunization Notes Care Provider Brianna morejon 05-06-2017 Influenza Vaccine, unspecified formulation [address] 05-06-2017 influenza virus vaccine, unspecified formulation Jonny Infante DO Work Phone: [facility] 06-21-2016 Td, unspecified formulation [address] 04-21-2016 tetanus toxoid, redu marvin diphtheria toxoid, and acellular pertussis vaccine, adsorbed Danish Gase [facility] [place] 05-21-2007 pneumococcal conjuga te vaccine, [address] 10-28-1996 hepatitis B vaccine, adult dosage [address] 10-26-1996 Td, unspecified formulation [address] 06-02-1996 hepatitis B vaccine, adult dosage [address] 04-16-1996 hepatitis B vaccine, adult dosage [address] Payers Date Payer Category Payer Unknown [id number] 2022 Unknown [id number]. [id number] 2021 Private Health Insurance [id number]. [id number] 2019 Unknown [place] xxxxxxxxx 2019-Present [phone] [place] [address] xxxxxxxxx [id number]. [id number] 2019 Unknown [place] xxxxxxxx 2019-Present [phone] [place] [address] xxxxxxxx [id number]. [id number] 2018 Unknown BCBS BCBS OUT OF STATE [id number] 2018-Present [address] [place] [address] [id number]. [id number] 2018 Unknown BCBS BCBS OUT OF STATE [id number] 2018-Present [address] [place] [address] [id number] [id number]. [id number] 1972 Unknown [id number] 2.16.840.1.481973.3.579. 2.174 1972 Unknown [id number] 2.16.840.1.536263.3.579. 2.173 1972 Unknown [id number] 2.16.840.1.188116.3.579. 2.173 1972 Unknown [id number] 2.16.840.1.800820.3.579. 2.173 1972 Unknown [id number] 2.16.840.1.026695.3.579. 2.173 1972 Unknown [id number] 2.16.840.1.646971.3.579. 2.173 1972 Unknown [id number] 2.16.840.1.600459.3.579. 2.173 1972 Unknown [id number] 2.16.840.1.967257.3.579. 2.173 1972 Unknown [id number] 2.16.840.1.978584.3.579. 2.173 1972 Unknown [id number] 2.16.840.1.236531.3.579. 2.173 1972 Unknown [id number] 2.16.840.1.630356.3.579. 2.173 1972 Unknown [id number] 2.16.840.1.699810.3.579. 2.173 1972 Unknown [id number] 2.16.840.1.195868.3.579. 2.173 1972 Unknown [id number] 2.16.840.1.952305.3.579. 2.173 1972 Unknown [id number] 2.16840.1.479569.3.579. 2.196 1972 Unknown [id number] 2.16840.1.473695.3.579. 2.196 1972 Unknown [id number] 2.16840.1.222835.3.579. 2.196 1972 Unknown [id number] 2.16840.1.611821.3.579. 2.196 1972 Unknown [id number] 2.16.840.1.934827.3.579. 2.196 1972 Unknown [id number] 2.16840.1.302037.3.579. 2.196 1972 Unknown [id number] 2.16.840.1.249429.3.579. 2.196 1972 Unknown [id number] 2.16.840.1.508698.3.579. 2.196 1972 Unknown [id number] 2.16840.1.858474.3.579. 2.196 1970 Unknown [id number] 2.196 1970 Unknown [id number] 2.196 1972 Unknown [id number] [id number] 1972 Unknown [id number] 2.1259 1972 Unknown [id number] [id number] Self-pay Social History Date Type Detail Facility Start: 06-30-2012 End: 01-11-2020 Tobacco smoking status NHIS Never smoker [place] Start: 06-30-2012 End: 01-11-2020 Tobacco use and exposure Never used [place] Start: 01-11-2020 End: 10-17-2022 Alcohol intake Current non-drinker of alcohol (finding) [place] Start: 09-07-2019 History SDOH Financial 4 [place] Start: 09-07-2019 End: 10-07-2022 History SDOH Food Worry 1 [place] Start: 06-30-2012 Alcohol Comment occassionally [place] Start: 1970 Sex Assigned At Not on file [place] Start: 11-17-2021 End: 11-27-2021 Exposure to SARS-CoV-2 (event) Not sure [place] Start: 09-15-2018 End: 10-07-2022 Alcohol intake No [facility] Start: 06-25-2021 End: 10-07-2022 [facility] Start: 10-07-2022 History SDOH Transport Non-Med 2 [employer] Work Phone: Start: 06-11-2023 Alcohol intake Ex-drinker (finding) [employer] Start: 10-07-2022 End: 06-11-2023 History of Social function [employer] How hard is it for you to pay for the very basics like food, housing, medical care, and heating Not hard at all [facility] (I/We) worried whether (my/our) food would run out before (I/we) got money to buy more. Never true [employer] At any time in the past 12 months, were you homeless or living in longterm [including now]? No [employer] Tobacco smoking status NHIS Tobacco smoking consumption unknown [facility] History of Present illness Narrative 08-25-2023 Jonny InfanteDO - 08/25/2023 9:10 AM EST Note Date [...] Medical History: Diagnosis Date Abdominal bloating Depression ([facility]) Migraines ([facility]) No family history on file. Social History [...] nursing note reviewed. Exam conducted with a auction block clerk present. Vitals: There is no height or weight on file to calculate BMI. BP: No LMP recorded. Assessment/Plan Encounter Diagnoses Name Primary? Postmenopausal bleeding Abdominal cramping Patient presents today for post menopausal bleeding. Patient will have pelvic US done to assess vaginal bleeding. Patient to setup pre-op Documented by Faye Ashby LPN on behalf of: Jonny Infante DO documented in this encounter [facility] Discharge instructions 08-07-2023 Discharge InstructionsAttachments Note Date & Type Note Facility 08-07-2023 Hospital Discharg e instructions Kylah Verdin MD - 08/07/2023 3:30 PM EST Continue current medications as prescribed. May use [id number] antacids if needed for symptoms of heartburn. Zofran as needed for nausea or vomiting. Tylenol as needed for pain. Tramadol for pain not controlled with Tylenol. Use [id number] probiotics as directed. Follow-up with your primary care provider within 3 to 5 days if symptoms not resolved. Please return immediately should he develop any worsening symptoms or any acute concerns The following attachments cannot be sent through Care Everywhere.Abdominal Pain (Irish)Nausea and Vomiting (Irish)documented in this encounter [facility] Evaluation note Note Date & Type Note Facility Evaluation note Diagnosis Strain of hip and thigh, left, initial encounter documented in this encounter [employer] Phone: Evaluation note Note Date & Type Note Facility Evaluation note Diagnosis Encounter for screening for malignant neoplasm of breast, unspecified screening modality Essential hypertension Unspecified essential hypertension Hyperlipidemia, unspecified hyperlipidemia type Hyperglycemia Other abnormal glucose documented in this encounter [employer] Phone: Evaluation note Note Date & Type Note Facility Evaluation note Diagnosis Encounter for annual routine gynecological examination Abnormal perimenopausal bleeding Premenopausal menorrhagia documented in this encounter [facility] [employer] Phone: Evaluation note Note Date & Type Note Facility Evaluation note Diagnosis Chest pain, unspecified type documented in this encounter [facility] [employer] Phone: Evaluation note Note Date & Type Note Facility Evaluation note Diagnosis Hematuria, unspecified type Burning with urination Dysuria documented in this encounter [facility] [employer] Phone: Evaluation note Note Date & Type Note Facility Evaluation note Diagnosis Dysuria Burning with urination Dysuria STD exposure Vaginal discharge Leukorrhea, not specified as infective Wellness examination Anxiety Anxiety state, unspecified Hyperlipidemia, unspecified hyperlipidemia type Type 2 diabetes mellitus without complication, unspecified whether continuous churn buttermaker insulin use (HCC) Essential hypertension Unspecified essential hypertension Urinary frequency documented in this encounter [employer] Phone: Evaluation note Note Date & Type Note Facility Evaluation note Diagnosis Nausea vomiting and diarrhea- Primary Nausea with vomiting Abdominal pain, unspecified abdominal location Screening for colon cancer Special screening for malignant neoplasms, colon documented in this encounter [facility] Evaluation note Note Date & Type Note [...] FoundDocuments on File Type Date Recorded Patient Yarn Sizer Expl anation Advance Directives and Living Will Power of Teacher Industrial Arts Documents on File Type Date Recorded Patient Yarn Sizer Expl anation ACP-Advance Directive ACP-Power of Teacher Industrial Arts Documents on File Type Date Recorded Patient Yarn Sizer Expl anation ACP-Advance Directive ACP-Power of Teacher Industrial Arts Documents on File Type Date Recorded Patient Yarn Sizer Expl anation Advance Directives and Living Will Power of Teacher Industrial Arts Assessments Diagnosis Special screening examination for viral [...] Procedures Holter Monitor 24 Hour Isha Aguilar, NURSING EDUCATION SPECIALIST - ARTS AND HUMANITIES COUNCIL DIRECTOR [address] [place] [address] [facility] Ekg [address] [place] [address] Status Reason Specialty Diagnoses / Procedures Referre d By Contact Referred To Contact Open EKG Diagnoses Palpitations Procedures Continuous cardiac monitoring, >2 up to 14 days Radha Tyler MD [address] [place] [address] [place] [address] [facility] [address] [place] [address] Status Reason Specialty Diagnoses / Procedures Referred By Contact Referred To Contact Authorized Cardiology / Stress Lab Diagnoses Atypical chest pain Obesity (BMI 35.0-39.9 without comorbidity) Palpitations Procedures Stress test (Lexiscan) Radha Tyler MD [address] [place] [address] [place] [address] [facility] Stress Lab [address] [place] [address] Status Reason Specialty Diagnoses / Procedures Referred By Contact Referred To Contact Closed Cardiology / Echocardiography Diagnoses Chest pain, unspecified type Procedures Echocardiogram complete [id number] ECHO Isha Aguilar, NURSING EDUCATION SPECIALIST - ARTS AND HUMANITIES COUNCIL DIRECTOR [address] [place] [address] [address] [place] [id number] [facility] Echo [address] [place] [address] Status Reason Specialty Diagnoses / Procedures Referre d By Contact Referred To Contact Open Radiology Diagnoses Back pain, unspecified back location, unspecified back pain laterality, unspecified chronicity Procedures MRI THORACIC SPINE WO CONTRAST Nae Sanchez, NURSING EDUCATION SPECIALIST - ARTS AND HUMANITIES COUNCIL DIRECTOR [address] [place] [address] Status Reason Specialty Diagnoses / Procedures Referred By Contact Referred To Contact Pending Review Radiology Diagnoses Back pain, unspecified back location, unspecified back pain laterality, unspecified chronicity Procedures MRI LUMBAR SPINE WO CONTRAST Chang Sanchezy, NURSING EDUCATION SPECIALIST - ARTS AND HUMANITIES COUNCIL DIRECTOR [address] [place] [address] Specialty Diagnoses / Procedures Referred By Contac t Referred To Contact Radiology Diagnoses Encounter for screening for malignant neoplasm of breast, unspecified screening modality Essential hypertension Hyperlipidemia, unspecified hyperlipidemia type Hyperglycemia Procedures ELIAS HERLINDA DIGITAL SCREEN Danish Lebron MD [address] [place] [address] Referral ID Status Reason Start Date Expiration Date Visits Re quested Visits Authorized [id number] Closed 06/25/2021 06/25/2022 1 1 Specialty Diagnoses / Procedures Referred By Contac t Referred To Contact Cardiology Diagnoses Chest pain, unspecified type Procedures EKG 12 lead Isha Aguilar, NURSING EDUCATION SPECIALIST - ARTS AND HUMANITIES COUNCIL DIRECTOR [address] [facility] [address] [place] [address] Referral ID Status Reason Start Date Expiration Date Visits Re quested Visits Authorized [id number] Open 05/21/2022 05/21/2023 1 1 History of Present Illness * Cleo Karolyn - 03/14/2020 8:00 AM EDT Explained Holter monitor and diary. documented in this encounter* Karolyn - 03/30/2020 3:00 PM EDT Explained [...] sent through Care Everywhere. * Chest Pain (Irish) documented in this encounter Additional Source Comments INFORMATION SOURCE (unrecogn ized section and content) DATE CREATED AUTHOR 03/22/2018 [facility] DATE CREATED AUTHOR AUTHOR'S ORGANIZ ATION 05/24/2019 [facility] DATE CREATED AUTHOR AUTHOR'S ORGANIZ ATION 06/15/2023 Loree juarez DATE CREATED AUTHOR AUTHOR'S ORGANIZ ATION [facility]/21/2023 [facility] DATE CREATED AUTHOR AUTHOR'S ORGANIZ ATION 10/07/2023 [facility] DATE CREATED AUTHOR AUTHOR'S ORGANIZ ATION 10/21/2023 [facility] EPIC Reason for Visit (unrecogniz ed section and content) Status Reason Specialty Diagnoses / Procedures Referred By Contact Referred To Contact Pending Review Cardiology / EKG Diagnoses Other chest pain Procedures Holter Monitor 24 Hour Isha Aguilar, NURSING EDUCATION SPECIALIST - ARTS AND HUMANITIES COUNCIL DIRECTOR [address] [place] [id number] [facility] Ekg [address] [place] [id number] Reason Comments Chest Pain ongoing for 1 week, has seen PCP for same complaint, pain continues. Status Reason Specialty Diagnoses / Procedures Referre d By Contact Referred To Contact Open EKG Diagnoses Palpitations Procedures Continuous cardiac monitoring, >2 up to 14 days Radha Tyler MD [address] [place] [address] [place] [address] [facility] Ekg [address] [place] [address] Status Reason Specialty Diagnoses / Procedures Referred By Contact Referred To Contact Authorized Cardiology / Stress Lab Diagnoses Atypical chest pain Obesity (BMI 35.0-39.9 without comorbidity) Palpitations Procedures Stress test (Lexiscan) Radha Tyler MD [address] [place] [address] [place] [address] [facility] Stress Lab [address] [place] [address] Status Reason Specialty Diagnoses / Procedures Referred By Contact Referred To Contact Closed Cardiology / Str ess Lab Diagnoses Atypical chest pain Obesity (BMI 35.0-39.9 without comorbidity) Palpitations Procedures Stress test (Lexiscan) Radha Tyler MD [address] [facility] [address] [facility] Stress Lab [address] [place] [address] Status Reason Specialty Diagnoses / Procedures Referred By Contact Referred To Contact Closed Cardiology / Echocardiography Diagnoses Chest pain, unspecified type Procedures Echocardiogram complete [id number] ECHO Isha Aguilar, NURSING EDUCATION SPECIALIST - ARTS AND HUMANITIES COUNCIL DIRECTOR [address] [place] [address] [facility] Echo [address] [place] [address] Status Reason Specialty Diagnoses / Procedures Referre d By Contact Referred To Contact Closed Radiology Diagnoses Strain of muscle, fascia and tendon of lower back, subsequent encounter Strain of muscle and tendon of back wall of thorax, subsequent encounter Procedures HC MRI THORACIC SPINE WO CTRST Nae Sanchez, NURSING EDUCATION SPECIALIST - ARTS AND HUMANITIES COUNCIL DIRECTOR [address] [place] [address] [facility] Mri [address] [place] [address] Status Reason Specialty Diagnoses / Procedures Referre d By Contact Referred To Contact Closed Radiology Diagnoses Strain of muscle, fascia and tendon of lower back, subsequent encounter Strain of muscle and tendon of back wall of thorax, subsequent encounter Procedures HC MRI-SPINE LUMBAR WO CONTRAST Nae Sanchez, NURSING EDUCATION SPECIALIST - ARTS AND HUMANITIES COUNCIL DIRECTOR [address] [place] [address] [facility] Mri [address] [place] [address] Specialty Diagnoses / Procedures Referred By Contac t Referred To Contact Radiology Diagnoses Encounter for screening mammogram for malignant neoplasm of breast Procedures ELIAS DIGITAL SCREEN W OR WO CAD BILATERAL Isha Aguilar NURSING EDUCATION SPECIALIST - ARTS AND HUMANITIES COUNCIL DIRECTOR [address] [place] [address] [address] [facility] [address] Referral ID Status Reason Start Date Expiration Date V isits Requested Visits Authorized [id number] Pending Review 12/10/2020 12/10/2021 1 1 Reason Comments Emesis Onset yesterday at a pprox 1800, states she has stomach acid coming out Diarrhea Onset at approx 1800 Abdominal Pain Reason Comments Postmenopausal bleeding Abdominal Cramping Care Teams (unrecognized sec tion and content) Lens Polisher Relationship Specialty Start Date End Date Danish Hughes MD [address] [place] [address] [address] [place] [address] PCP - General 04/07/12 Lens Polisher Relationship Specialty Start Date End Date Danish Hughes MD [address] [place] [address] [address] [place] [address] PCP - General 04/07/12 Lens Polisher Relationship Specialty Start Date End Date Danish Hughes MD [address] [place] [address] [address] [place] [address] PCP - General 04/07/12 Lens Polisher Relationship Specialty Start Date End Date Danish Hughes MD [address] [place] [address] [address] [place] [phone] PCP - General 04/07/12 Lens Polisher Relationship Specialty Start Date End Date Isha Aguilar NURSING EDUCATION SPECIALIST - ARTS AND HUMANITIES COUNCIL DIRECTOR [address] [place], [place] [phone] PCP - General Family Nurse Practitioner 05/21/22 Lens Polisher Relationship Specialty Start Date End Date Isha Aguilar NURSING EDUCATION SPECIALIST - ARTS AND HUMANITIES COUNCIL DIRECTOR [address] [place] [address] [address] [place], [place] [id number] PCP - General Family Nurse Practitioner 07/30/22 Lens Polisher Relationship Specialty Start Date End Date Isha Aguilar NURSING EDUCATION SPECIALIST - ARTS AND HUMANITIES COUNCIL DIRECTOR [address] [place] [address] [address] [place] [address] PCP - General Family Nurse Practitioner 07/30/22 Lens Polisher Relationship Specialty Start Date End Date AguilarIsha clancyLISAN - ARTS AND HUMANITIES COUNCIL DIRECTOR [address] [place] [address] [address] [place] [address] PCP - General Family Nurse Practitioner 07/30/22 [...] Administer over 61 Minutes, ONCE, On Jazzy 08/07/23 at 1230, For 1 dose 1312 (New [...] BE BASED ON THE PRIMARY CLINICAL RECORDS. [email or web address] provides no warranty or guarantee of the accuracy or completeness of information in this document.
== END 2023-10-22 14:26 | disposition home or self-care (01) ==
LOC: MAMMO 14:25
PROVIDERS: Visit Provider Obstetrics & Gynecology
DX: Z12.31 Encounter for screening mammogram for malignant neoplasm of breast (principal); Z78.0 Asymptomatic menopausal state
CPT/HCPCS: 77063; 77067; 77080